=== PATIENT | male | born 1950 | race Caucasian/White ===

== ENCOUNTER 2023-11-11 15:03 | Inpatient (IN) | payer MEDICARE ==
--- NOTE | 2023-11-11 15:13 | ED ---
General Adult HPI - General Stated complaint: Weakness Time Seen by Provider: 11/11/23 15:09 - History of Present Illness Initial comments: Dictation was produced using [employer] dictation software. please excuse any grammatical, word or spelling errors. Chief Complaint: 73-year-old male with past medical history of COPD presents to the emergency department for lethargy History of Present Illness: Patient 73-year-old male he is a limited historian. HPI obtained from EMS was that they are concerned patient was having sepsis. Apparently the call was made by patient's was at home states that he was lethargic at home. He states that he was difficult to arouse. EMS checked initial blood pressure found to be hypotensive with systolic measuring 46. Given a liter of IV fluids with his blood pressure improving to 90 systolic. Patient states that he does not have any chest pain. States that he gets sick with flulike symptoms often. He states that he feels cold. Patient is hard of hearing which limits his explanation of his history of present illness. The ROS documented in this emergency department record has been reviewed and confirmed by me. Those systems with pertinent positive or negative responses have been documented in the HPI. All other systems are other negative and/or noncontributory. - Related Data Allergies Allergy/AdvReac Type Severity Reaction Status Date / Time No Known Allergies Allergy Verified 11/11/23 19:24 Review of Systems ROS Statement: Those systems with pertinent positive or pertinent negative responses have been documented in the HPI. ROS Other: All systems not noted in ROS Statement are negative. Past Medical History Past Medical History: COPD History of Any Multi-Drug Resistant Organisms: None Reported Additional Past Surgical History / Comment(s): VASECTOMY Past Anesthesia/Blood Transfusion Reactions: No Reported Reaction Smoking Status: Former smoker - Past Family History Mother Family Medical History: No Reported History General Exam - General Exam Comments Initial Comments: PHYSICAL EXAM: General Impression: Alert and oriented x3, dyspneic HEENT: Normocephalic atraumatic, extra-ocular movements intact, pupils equal and reactive to light bilaterally, mucous membranes moist. Cardiovascular: Heart regular rate and rhythm Chest: 2 word sentences, dyspneic, diffuse inspiratory and expiratory wheezing Abdomen: abdomen soft, non-tender, non-distended, no organomegaly Musculoskeletal: Pulses present and equal in all extremities, no peripheral edema Motor: no focal deficits noted Neurological: CN II-XII grossly intact, no focal motor or sensory deficits noted Skin: Dry mucous membranes Course Vital Signs 11/11/23 11/11/23 11/11/23 15:09 15:10 15:15 Temperature Pulse Rate 60 55 L Respiratory 34 H Rate Blood Pressure 99/55 O2 Sat by Pulse 97 Oximetry Fraction of 35 Inspired Oxygen (FIO2) 11/11/23 11/11/23 11/11/23 15:30 15:39 15:45 Temperature Pulse Rate 68 69 68 Respiratory 30 H Rate Blood Pressure 95/43 O2 Sat by Pulse Oximetry Fraction of Inspired Oxygen (FIO2) 11/11/23 11/11/23 11/11/23 15:53 15:54 16:00 Temperature 97.7 F Pulse Rate 67 56 L Respiratory Rate Blood Pressure O2 Sat by Pulse Oximetry Fraction of Inspired Oxygen (FIO2) 11/11/23 11/11/23 11/11/23 16:16 16:32 16:46 Temperature Pulse Rate 54 L 62 58 L Respiratory Rate Blood Pressure O2 Sat by Pulse Oximetry Fraction of Inspired Oxygen (FIO2) 11/11/23 11/11/23 11/11/23 16:50 16:53 17:03 Temperature Pulse Rate 56 L 60 Respiratory 36 H Rate Blood Pressure 77/49 O2 Sat by Pulse 95 Oximetry Fraction of Inspired Oxygen (FIO2) 11/11/23 11/11/23 11/11/23 17:09 17:24 17:38 Temperature Pulse Rate 57 L 58 L 50 L Respiratory 28 H Rate Blood Pressure 77/52 O2 Sat by Pulse 100 Oximetry Fraction of Inspired Oxygen (FIO2) 11/11/23 11/11/23 11/11/23 17:40 17:48 18:00 Temperature Pulse Rate 50 L 56 L 47 L Respiratory 28 H 28 H Rate Blood Pressure 84/47 72/41 O2 Sat by Pulse 100 97 Oximetry Fraction of Inspired Oxygen (FIO2) 11/11/23 11/11/23 11/11/23 18:29 18:37 19:06 Temperature Pulse Rate 56 L 54 L 53 L Respiratory 30 H 22 28 H Rate Blood Pressure 68/47 75/51 97/60 O2 Sat by Pulse 98 98 98 Oximetry Fraction of Inspired Oxygen (FIO2) - Reevaluation(s) Reevaluation #1: 11/11/23 15:13 Patient seen and evaluated immediately upon arrival at approximately 3:10 PM. EKG Findings - EKG Comments: EKG Findings:: My EKG interpretation: Ventricular rate 50, sinus bradycardia,. 142, QRS 81, QTc 412. No NM prolongation, no QTC prolongation, no ST or T-wave changes noted. Overall, this EKG is unremarkable Medical Decision Making - Medical Decision Making Was pt. sent in by a medical professional or institution (, PA, FLYING SHEAR OPERATOR, urgent care, hospital, or [facility]...) When possible be specific @ -No Did you speak to anyone other than the patient for history (EMS, parent, family, police, friend...)? What history was obtained from this source @ -EMS as described above Did you review nursing and triage notes (agree or disagree)? Why? @ -I reviewed and agree with nursing and triage notes Were old charts reviewed (outside hosp., previous admission, EMS record, old EKG, old radiological studies, urgent care reports/EKG's, [facility] records)? Report findings @ -No old charts were reviewed Differential Diagnosis (chest pain, altered mental status, abdominal pain women, abdominal pain men, vaginal bleeding, musculoskeletal, weakness, fever, dyspnea, syncope, headache, dizziness, GI bleed, back pain, seizure, CVA, palpatations, mental health)? @ -Differential Dyspnea: Coronary syndrome, arrhythmia, tamponade, asthma, COPD, pulmonary embolism, pneumonia, pneumothorax, pulmonary effusion, anaphylaxis, diabetic ketoacidosis, flailed chest, pulmonary contusion, diaphragmatic rupture, anemia, neuromuscular, this is not meant to be an all-inclusive list. EKG interpreted by me (3pts min.). @ -See above X-rays interpreted by me (1pt min.). @ -Chest x-ray is nonacute CT interpreted by me (1pt min.). @ -None done U/S interpreted by me (1pt. min.). @ -None done What testing was considered but not performed or refused? (CT, X-rays, U/S, labs)? Why? @ -None What meds were considered but not given or refused? Why? @ -None Did you discuss the management of the patient with other professionals (professionals i.e. , [facility], FLYING SHEAR OPERATOR, lab, RT, psych nurse, sr. social media & mobile manager, in flight refueling manager, teacher, space officer, case reviewer)? Give summary @ -Discussed with jewel staker and hospitalist for ICU admission Was smoking cessation discussed for >3mins.? @ -No Was critical care preformed (if so, how long)? @ -Yes, 33 minutes Were there social determinants of health that impacted care today? How? (Homelessness, low income, unemployed, alcoholism, drug addiction, transportation, low edu. Level, literacy, decrease access to med. care, fci, rehab)? @ -No Was there de-escalation of care discussed even if they declined (Discuss DNR or withdrawal of care, Hospice)? DNR status @ -No What co-morbidities impacted this encounter? (DM, HTN, Smoking, COPD, CAD, Cancer, CVA, ARF, Chemo, Hep., AIDS, mental health diagnosis, sleep apnea, morbid obesity)? @ -None Was patient admitted / discharged? Hospital course, mention meds given and route, prescriptions, significant lab abnormalities, going to OR and other pertinent info. @ -73-year-old male presents emergency department with lethargy dyspnea. Vital signs upon arrival shows respiratory of 34, 99/55 blood pressure, 97% on 2 L nasal cannula. Patient's blood pressure diminished slightly. Patient's ABGs were obtained showing hypercarbic respiratory failure. Patient placed on BiPAP and given multiple breathing treatments with no change of ABG. Patient's blood pressure maintain low despite IV hydration. Patient put on low-dose Levophed drip. Patient be admitted to the ICU. Patient given Unasyn for concerns of perhaps respiratory infection. Undiagnosed new problem with uncertain prognosis? @ -No Drug Therapy requiring intensive monitoring for toxicity (Heparin, Nitro, Insulin, Cardizem)? @ -No Were any procedures done? @ -No Diagnosis/symptom? Acute, or Chronic, or Acute on Chronic? Uncomplicated (without systemic symptoms) or Complicated (systemic symptoms)? @ -Hypertension, COPD exacerbation Side effects of treatment? @ -No Exacerbation, Progression, or Severe Exacerbation? @ -No Poses a threat to life or bodily function? How? (Chest pain, [place], [place], pneumonia, PE, COPD, DKA, ARF, appy, cholecystitis, CVA, Diverticulitis, Homicidal, Suicidal, threat to staff... and all critical care pts) @ -yes - Lab Data Result diagrams: 11/11/23 15:25 11/11/23 15:25 Lab Results 11/11/23 11/11/23 11/11/23 Range/Units 15:23 15:25 15:25 WBC 9.3 (3.8-10.6) k/uL RBC 4.44 (4.30-5.90) m/uL Hgb 14.2 (13.0-17.5) gm/dL Hct 44.0 (39.0-53.0) % MCV 99.2 (80.0-100.0) fL MCH 32.1 (25.0-35.0) pg MCHC 32.3 (31.0-37.0) g/dL RDW 14.0 (11.5-15.5) % Plt Count 228 (150-450) k/uL MPV 7.9 Neutrophils % 80 % Lymphocytes % 10 % Monocytes % 6 % Eosinophils % 0 % Basophils % 1 % Neutrophils # 7.5 (1.3-7.7) k/uL Lymphocytes # 0.9 L (1.0-4.8) k/uL Monocytes # 0.6 (0-1.0) k/uL Eosinophils # 0.0 (0-0.7) k/uL Basophils # 0.1 (0-0.2) k/uL PT 11.3 (10.0-12.5) sec INR 1.0 (<1.2) APTT 25.3 (22.0-30.0) sec D-Dimer (<0.60) mg/L FEU Sample Site Right Radial ABG pH 7.28 L (7.35-7.45) ABG pCO2 50 H (35-45) mmHg ABG pO2 164 H (83-108) mmHg ABG HCO3 23 (21-25) mmol/L ABG O2 Saturation 99.2 H (94-97) % ABG Base Excess -3.9 mmol/L FiO2 35 % Sodium (137-145) mmol/L Potassium (3.5-5.1) mmol/L Chloride (98-107) mmol/L Carbon Dioxide (22-30) mmol/L Anion Gap mmol/L BUN (9-20) mg/dL Creatinine (0.66-1.25) mg/dL Est GFR (CKD-EPI)AfAm (>60 ml/min/1.73 sqM) Est GFR (CKD-EPI)NonAf (>60 ml/min/1.73 sqM) Glucose (74-99) mg/dL POC Glucose (mg/dL) (70-110) mg/dL POC Glu Business Development Coordinator ID Lactic Ac Sepsis Rflx Plasma Lactic Acid Anastacio (0.7-2.0) mmol/L Calcium (8.4-10.2) mg/dL Magnesium (1.6-2.3) mg/dL Total Bilirubin (0.2-1.3) mg/dL AST (17-59) U/L ALT (4-49) U/L Alkaline Phosphatase (38-126) U/L Troponin I (0.000-0.034) ng/mL NT-Pro-B Natriuret Pep pg/mL Total Protein (6.3-8.2) g/dL Albumin (3.5-5.0) g/dL Influenza Type A (PCR) (Not Detectd) Influenza Type B (PCR) (Not Detectd) RSV (PCR) (Not Detectd) SARS-CoV-2 (PCR) (Not Detectd) 11/11/23 11/11/23 11/11/23 Range/Units 15:25 15:25 15:25 WBC (3.8-10.6) k/uL RBC (4.30-5.90) m/uL Hgb (13.0-17.5) gm/dL Hct (39.0-53.0) % MCV (80.0-100.0) fL MCH (25.0-35.0) pg MCHC (31.0-37.0) g/dL RDW (11.5-15.5) % Plt Count (150-450) k/uL MPV Neutrophils % % Lymphocytes % % Monocytes % % Eosinophils % % Basophils % % Neutrophils # (1.3-7.7) k/uL Lymphocytes # (1.0-4.8) k/uL Monocytes # (0-1.0) k/uL Eosinophils # (0-0.7) k/uL Basophils # (0-0.2) k/uL PT (10.0-12.5) sec INR (<1.2) APTT (22.0-30.0) sec D-Dimer (<0.60) mg/L FEU Sample Site ABG pH (7.35-7.45) ABG pCO2 (35-45) mmHg ABG pO2 (83-108) mmHg ABG HCO3 (21-25) mmol/L ABG O2 Saturation (94-97) % ABG Base Excess mmol/L FiO2 % Sodium 133 L (137-145) mmol/L Potassium 4.4 (3.5-5.1) mmol/L Chloride 100 (98-107) mmol/L Carbon Dioxide 29 (22-30) mmol/L Anion Gap 4 mmol/L BUN 21 H (9-20) mg/dL Creatinine 1.40 H (0.66-1.25) mg/dL Est GFR (CKD-EPI)AfAm 58 (>60 ml/min/1.73 sqM) Est GFR (CKD-EPI)NonAf 50 (>60 ml/min/1.73 sqM) Glucose 144 H (74-99) mg/dL POC Glucose (mg/dL) (70-110) mg/dL POC Glu Business Development Coordinator ID Lactic Ac Sepsis Rflx Plasma Lactic Acid Anastacio 2.2 H* (0.7-2.0) mmol/L Calcium 7.9 L (8.4-10.2) mg/dL Magnesium 1.8 (1.6-2.3) mg/dL Total Bilirubin 0.9 (0.2-1.3) mg/dL AST 28 (17-59) U/L ALT 18 (4-49) U/L Alkaline Phosphatase 59 (38-126) U/L Troponin I 0.032 (0.000-0.034) ng/mL NT-Pro-B Natriuret Pep 1330 pg/mL Total Protein 5.5 L (6.3-8.2) g/dL Albumin 3.2 L (3.5-5.0) g/dL Influenza Type A (PCR) (Not Detectd) Influenza Type B (PCR) (Not Detectd) RSV (PCR) (Not Detectd) SARS-CoV-2 (PCR) (Not Detectd) 11/11/23 11/11/23 11/11/23 Range/Units 15:25 15:48 16:02 WBC (3.8-10.6) k/uL RBC (4.30-5.90) m/uL Hgb (13.0-17.5) gm/dL Hct (39.0-53.0) % MCV (80.0-100.0) fL MCH (25.0-35.0) pg MCHC (31.0-37.0) g/dL RDW (11.5-15.5) % Plt Count (150-450) k/uL MPV Neutrophils % % Lymphocytes % % Monocytes % % Eosinophils % % Basophils % % Neutrophils # (1.3-7.7) k/uL Lymphocytes # (1.0-4.8) k/uL Monocytes # (0-1.0) k/uL Eosinophils # (0-0.7) k/uL Basophils # (0-0.2) k/uL PT (10.0-12.5) sec INR (<1.2) APTT (22.0-30.0) sec D-Dimer (<0.60) mg/L FEU Sample Site ABG pH (7.35-7.45) ABG pCO2 (35-45) mmHg ABG pO2 (83-108) mmHg ABG HCO3 (21-25) mmol/L ABG O2 Saturation (94-97) % ABG Base Excess mmol/L FiO2 % Sodium (137-145) mmol/L Potassium (3.5-5.1) mmol/L Chloride (98-107) mmol/L Carbon Dioxide (22-30) mmol/L Anion Gap mmol/L BUN (9-20) mg/dL Creatinine (0.66-1.25) mg/dL Est GFR (CKD-EPI)AfAm (>60 ml/min/1.73 sqM) Est GFR (CKD-EPI)NonAf (>60 ml/min/1.73 sqM) Glucose (74-99) mg/dL POC Glucose (mg/dL) 118 H (70-110) mg/dL POC Glu Business Development Coordinator ID Gianni Monroe Lactic Ac Sepsis Rflx Y Plasma Lactic Acid Anastacio (0.7-2.0) mmol/L Calcium (8.4-10.2) mg/dL Magnesium (1.6-2.3) mg/dL Total Bilirubin (0.2-1.3) mg/dL AST (17-59) U/L ALT (4-49) U/L Alkaline Phosphatase (38-126) U/L Troponin I (0.000-0.034) ng/mL NT-Pro-B Natriuret Pep pg/mL Total Protein (6.3-8.2) g/dL Albumin (3.5-5.0) g/dL Influenza Type A (PCR) Not Detected (Not Detectd) Influenza Type B (PCR) Not Detected (Not Detectd) RSV (PCR) Not Detected (Not Detectd) SARS-CoV-2 (PCR) Not Detected (Not Detectd) 11/11/23 11/11/23 11/11/23 Range/Units 17:08 18:29 19:01 WBC (3.8-10.6) k/uL RBC (4.30-5.90) m/uL Hgb (13.0-17.5) gm/dL Hct (39.0-53.0) % MCV (80.0-100.0) fL MCH (25.0-35.0) pg MCHC (31.0-37.0) g/dL RDW (11.5-15.5) % Plt Count (150-450) k/uL MPV Neutrophils % % Lymphocytes % % Monocytes % % Eosinophils % % Basophils % % Neutrophils # (1.3-7.7) k/uL Lymphocytes # (1.0-4.8) k/uL Monocytes # (0-1.0) k/uL Eosinophils # (0-0.7) k/uL Basophils # (0-0.2) k/uL PT (10.0-12.5) sec INR (<1.2) APTT (22.0-30.0) sec D-Dimer 0.58 (<0.60) mg/L FEU Sample Site Right Radial ABG pH 7.25 L (7.35-7.45) ABG pCO2 52 H (35-45) mmHg ABG pO2 105 (83-108) mmHg ABG HCO3 23 (21-25) mmol/L ABG O2 Saturation 97.4 H (94-97) % ABG Base Excess -5.1 mmol/L FiO2 35 % Sodium (137-145) mmol/L Potassium (3.5-5.1) mmol/L Chloride (98-107) mmol/L Carbon Dioxide (22-30) mmol/L Anion Gap mmol/L BUN (9-20) mg/dL Creatinine (0.66-1.25) mg/dL Est GFR (CKD-EPI)AfAm (>60 ml/min/1.73 sqM) Est GFR (CKD-EPI)NonAf (>60 ml/min/1.73 sqM) Glucose (74-99) mg/dL POC Glucose (mg/dL) (70-110) mg/dL POC Glu Business Development Coordinator ID Lactic Ac Sepsis Rflx Plasma Lactic Acid Anastacio 1.8 (0.7-2.0) mmol/L Calcium (8.4-10.2) mg/dL Magnesium (1.6-2.3) mg/dL Total Bilirubin (0.2-1.3) mg/dL AST (17-59) U/L ALT (4-49) U/L Alkaline Phosphatase (38-126) U/L Troponin I (0.000-0.034) ng/mL NT-Pro-B Natriuret Pep pg/mL Total Protein (6.3-8.2) g/dL Albumin (3.5-5.0) g/dL Influenza Type A (PCR) (Not Detectd) Influenza Type B (PCR) (Not Detectd) RSV (PCR) (Not Detectd) SARS-CoV-2 (PCR) (Not Detectd) Disposition Clinical Impression: COPD exacerbation Disposition: ADMITTED IP TO THIS HOSP Condition: Critical Referrals: Chavez Shelton MD [Primary Care Provider] - 1-2 days Decision Time: 19:28
[2023-11-11] MEDS: ALBUTEROL NEBULIZED 2.5 MG/3 ML INHALATION STA ×3 (15:16→16:53)
[2023-11-11] MEDS: SODIUM CHLORIDE 0.9% 1,000 ML IV STA ×3 (15:22→19:04)
[2023-11-11] MEDS: DEXAMETHASONE SOD PHOSPHATE 10 MG/ML 1 ML VIAL IV STA (15:30)
[2023-11-11 15:33] LABS: ABG Base Excess -3.9 mmol/L; ABG HCO3 23 mmol/L (21-25); ABG Oxygen Saturation 99.2 % (94-97); ABG PCO2 50 mmHg (35-45); ABG PH 7.28 (7.35-7.45); ABG PO2 164 mmHg (83-108); Allen Test Performed? Yes
[2023-11-11] MEDS: IPRATROPIUM 0.5 MG/2.5 ML NEBU INHALATION STA ×2 (15:49→15:50)
[2023-11-11 15:50] LABS: Glucose,Whole Blood 118 mg/dL (70-110)
[2023-11-11 15:51] LABS: Basophils # (A) 0.1 k/uL (0-0.2); Basophils % (A) 1 %; Eosinophils % (A) 0 %; HGB 14.2 gm/dL (13.0-17.5); Lymphocytes # (A) 0.9 k/uL (1.0-4.8); Lymphocytes % (A) 10 %; MCH 32.1 pg (25.0-35.0); MCHC 32.3 g/dL (31.0-37.0); MCV 99.2 fL (80.0-100.0); Mean Platelet Volume 7.9; Monocytes # (A) 0.6 k/uL (0-1.0); Monocytes % (A) 6 %; Neutrophils # (A) 7.5 k/uL (1.3-7.7); Neutrophils % (A) 80 %; Platelet Count 228 k/uL (150-450); RBC 4.44 m/uL (4.30-5.90); WBC 9.3 k/uL (3.8-10.6)
[2023-11-11 15:54] LABS: ALT 18 U/L (4-49); AST 28 U/L (17-59); African American GFR (CKD) 58 (>60 ml/min/1.73 sqM); Albumin 3.2 g/dL (3.5-5.0); Alkaline Phosphatase 59 U/L (38-126); Anion Gap 4 mmol/L; Blood Urea Nitrogen 21 mg/dL (9-20); Calcium 7.9 mg/dL (8.4-10.2); Carbon Dioxide 29 mmol/L (22-30); Chloride 100 mmol/L (98-107); Glucose 144 mg/dL (74-99); Magnesium 1.8 mg/dL (1.6-2.3); Non-African American GFR(CKD) 50 (>60 ml/min/1.73 sqM); Partial Thromboplastin Time 25.3 sec (22.0-30.0); Potassium 4.4 mmol/L (3.5-5.1); Prothrombin Time 11.3 sec (10.0-12.5); Sodium 133 mmol/L (137-145); Total Bilirubin 0.9 mg/dL (0.2-1.3); Total Protein 5.5 g/dL (6.3-8.2)
[2023-11-11 16:03] LABS: NT-Pro-B-Type Natriuretic Pept 1330 pg/mL
--- NOTE | 2023-11-11 16:04 | XR ---
EXAMINATION TYPE: XR chest 1V portable DATE OF EXAM: 11/11/2023 3:51 PM CLINICAL INDICATION:Male, 73 years old with history of wheezing; COMPARISON: None TECHNIQUE: XR chest 1V portable Frontal view of the chest. FINDINGS: Lungs/Pleura: Prominent interstitial lung markings are seen scattered throughout the lungs with nereida ening of the diaphragm and increased lucency of the lung apices. No evidence of focal consolidation, pneumothorax or pleural effusion. Pulmonary vascularity: Unremarkable. Heart/mediastinum: Cardiomediastinal silhouette is unremarkable. Musculoskeletal: No acute osseous pathology. IMPRESSION: 1. No acute cardiopulmonary disease process. 2. Chronic interstitial changes with COPD changes.
[2023-11-11] MEDS: MAGNESIUM SULFATE-D5W PMX 1 GM in DEXTROSE/WATER 1 100ML.BAG IVPB SCH (16:40)
[2023-11-11] MEDS: SODIUM CHLORIDE 0.9% 1,000 ML IV ONE (16:53)
[2023-11-11] MEDS: AMPICILLIN-SULBACTAM 3 GM in SODIUM CHLORIDE 0.9% 100 ML IVPB STA (17:05)
[2023-11-11] MEDS: NOREPINEPHRINE 4 MG in SODIUM CHLORIDE 0.9% 250 ML IV SCH (18:28)
[2023-11-11 18:34] LABS: ABG Base Excess -5.1 mmol/L; ABG HCO3 23 mmol/L (21-25); ABG Oxygen Saturation 97.4 % (94-97); ABG PCO2 52 mmHg (35-45); ABG PH 7.25 (7.35-7.45); ABG PO2 105 mmHg (83-108); Allen Test Performed? Yes
[2023-11-11] MEDS ORDERED: NALOXONE 0.4 MG/ML 1 ML VIAL IV PRN (19:23)
[2023-11-11] MEDS: ATROPINE SULFATE 0.1 MG/ML 10ML SYRINGE IV STA (20:12)
[2023-11-12 00:17] LABS: Glucose,Whole Blood 134 mg/dL (70-110)
--- NOTE | 2023-11-12 03:11 | P.CNPUL ---
History of Present Illness Consult date: 11/12/23 Requesting physician: Atif Ordonez Reason for consult: other (Acute COPD exacerbation, hypotension, ICU management) Chief complaint: URI-like symptoms and altered mental status History of present illness: Patient is a 73-year-old white male with past medical history significant for COPD, chronic ongoing tobacco dependence, chronic hypoxemic respiratory failure on 2-1/2 to 3 L, hypertension, among other things. His primary care provider is Dr. Chavez Shelton. 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 Patient presented to the emergency room yesterday afternoon via EMS. Reportedly noted to be lethargic and difficult to arouse at home. 3 to 4 days before this, his noted flulike symptoms. These included a runny nose, dry cough, fever, generalized malaise, and loose stools. When EMS arrived to the scene, they noted his blood pressure to be hypotensive. On arrival to the emergency room he was fluid resuscitated with a total of 3 L crystalloid fluid bolus. He was then started on low-dose norepinephrine which is currently infusing at 0.03 mcg/kg/min. He is also bradycardic, sinus bradycardia at 58 bpm. Normal saline continues to infuse at 130 MLS per hour. Chest x-ray demonstrated chronic interstitial changes with hyperinflation consistent with COPD. No focal consolidations, pleural effusions, or pneumothorax. He was hypercapnic in the emergency room. ABGs demonstrated PaO2 of 105, pCO2 of 52, pH of 7.25. He was then placed on the BiPAP in the emergency room. He is currently in the intensive care unit, room 251. He is on BiPAP with settings 12/6 and FiO2 of 50%. Achieving tidal volumes of around 400, respiratory rate in the mid 20s. He is alert and oriented x 3. No further signs of CO2 narcosis. Appears fairly comfortable. He is actively wheezing. Endorses the above-mentioned symptoms. Denies any chest pain or hemoptysis. Denies any significant sputum production. CBC unremarkable. No leukocytosis. D-dimer low. BMP includes a sodium 133, potassium 4.4, chloride 100, serum bicarb 29, BUN 21, creatinine 1.4, glucose 144. Lactic acid not significantly elevated. LFTs not elevated. NT proBNP 1330. Troponin 0.032. EKG shows sinus bradycardia with nonspecific T wave abnormalities. Nondiagnostic for acute ischemia. Viral screen negative for influenza, RSV, COVID. Afebrile. Patient is admitted to the intensive care unit. Review of Systems REVIEW OF SYSTEMS: CONSTITUTIONAL: Denies any recent significant weight loss or weight gain. EYES: Denies change in vision. EARS, NOSE, MOUTH, THROAT: Denies headaches, denies sore throat. Admits rhinorrhea CARDIOVASCULAR: Denies chest pain, palpitations or syncopal episodes. Denies orthopnea, PND, lower extremity swelling. RESPIRATORY: See HPI. GASTROINTESTINAL: Denies change in appetite, abdominal pain, nausea and vomiting. Reports some loose stools week before coming in. GENITOURINARY: Denies hematuria, denies infections. MUSKULOSKELETAL: Denies pain, denies swelling. INTEGUMENTARY: Denies rash, denies eczema. NEUROLOGICAL: Denies recent memory loss, no recent seizure activity. PSYCHIATRIC: Denies anxiety, denies depression. HEMATOLOGIC/LYMPHATIC: Denies anemia, denies enlarged lymph node Past Medical History Past Medical History: COPD History of Any Multi-Drug Resistant Organisms: None Reported Additional Past Surgical History / Comment(s): VASECTOMY Past Anesthesia/Blood Transfusion Reactions: No Reported Reaction Smoking Status: Former smoker - Past Family History Mother Family Medical History: No Reported History Medications and Allergies Home Medications Medication Instructions Recorded Confirmed Type Budesonide [Pulmicort] 0.5 mg INHALATION RT-BID PRN 11/11/23 11/11/23 History Ergocalciferol [Vitamin D2 (1250 1,250 mcg PO Q7D 11/11/23 11/11/23 History Mcg = 73662 Iu)] HYDROcodone/APAP 5-325MG [[place] 1.5 tab PO DAILY 11/11/23 11/11/23 History 5-325] Ipratropium-Albuterol Nebulize 3 ml INHALATION RT-TID PRN 11/11/23 11/11/23 History [Duoneb 0.5 mg-3 mg/3 ml Soln] Loratadine [Claritin] 10 mg PO DAILY 11/11/23 11/11/23 History Losartan/Hydrochlorothiazide 1 tab PO DAILY 11/11/23 11/11/23 History [Hyzaar 100-25 Tablet] Montelukast [Singulair] 10 mg PO HS 11/11/23 11/11/23 History Omeprazole [PriLOSEC] 20 mg PO DAILY 11/11/23 11/11/23 History PARoxetine [Paxil] 20 mg PO DAILY 11/11/23 11/11/23 History Sulfamethox-Tmp 400-80Mg [Bactrim 1 tab PO DAILY 11/11/23 11/11/23 History SS 400-80 mg] carvediloL [Coreg] 3.125 mg PO BID 11/11/23 11/11/23 History clonazePAM [KlonoPIN] 1 mg PO HS 11/11/23 11/11/23 History predniSONE 10 mg PO DAILY 11/11/23 11/11/23 History Allergies Allergy/AdvReac Type Severity Reaction Status Date / Time No Known Allergies Allergy Verified 11/11/23 19:24 Physical Exam Vitals: Vital Signs Temp Pulse Resp BP Pulse Ox FiO2 11/12/23 02:00 52 L 20 84/51 97 11/12/23 01:50 52 L 13 84/51 97 11/12/23 01:40 55 L 23 86/57 97 11/12/23 01:30 53 L 22 99/58 97 11/12/23 01:20 53 L 22 99/58 97 11/12/23 01:10 53 L 21 119/66 97 11/12/23 01:00 64 32 H 109/59 84 L 11/12/23 00:50 11 L 109/59 85 L 11/12/23 00:40 53 L 22 118/60 99 11/12/23 00:30 53 L 25 H 112/69 100 11/12/23 00:24 55 L 15 112/69 83 L 11/12/23 00:20 59 L 26 H 112/69 86 L 50 11/12/23 00:16 96.4 F L 53 L 21 129/78 97 35 11/11/23 23:40 55 L 20 100/58 98 11/11/23 23:32 35 11/11/23 22:00 56 L 18 87/57 99 11/11/23 20:14 74 19 108/68 99 11/11/23 19:31 35 11/11/23 19:06 53 L 28 H 97/60 98 11/11/23 18:37 54 L 22 75/51 98 11/11/23 18:29 56 L 30 H 68/47 98 11/11/23 18:00 47 L 28 H 72/41 97 11/11/23 17:48 56 L 28 H 84/47 100 11/11/23 17:40 50 L 11/11/23 17:38 50 L 28 H 77/52 100 11/11/23 17:24 58 L 11/11/23 17:09 57 L 11/11/23 17:03 95 11/11/23 16:53 60 11/11/23 16:50 56 L 36 H 77/49 11/11/23 16:46 58 L 11/11/23 16:32 62 11/11/23 16:16 54 L 11/11/23 16:00 56 L 11/11/23 15:54 67 11/11/23 15:53 97.7 F 11/11/23 15:45 68 11/11/23 15:39 69 30 H 95/43 11/11/23 15:30 68 11/11/23 15:15 55 L 11/11/23 15:10 35 11/11/23 15:09 60 34 H 99/55 97 Intake and Output 11/11/23 11/11/23 11/12/23 14:59 22:59 06:59 Intake Total 1.331 434.737 Output Total 250 Balance 1.331 184.737 Intake: IV 390 Sodium Chloride 0.9% 1, 390 000 ml @ 130 mls/hr IV . [facility]7H42M [facility] Rx#:[id number] Intake, IV Titration 1.331 44.737 Amount Norepinephrine 4 mg In 1.331 44.737 Sodium Chloride 0.9% 250 ml @ 0.03 MCG/KG/MIN 5. 703 mls/hr IV .Q24H [facility] Rx#:[id number] Output: Urine 250 Other: Weight 49.895 kg GENERAL EXAM: Alert, 73-year-old white male, currently on BiPAP and relatively comfortable, no signs of CO2 narcosis. HEAD: Normocephalic and atraumatic EYES: Normal reaction of pupils, equal size. NOSE: Clear with pink turbinates. THROAT: No erythema or exudates. NECK: No masses, no JVD. CHEST: No chest wall deformity. LUNGS: Equal air entry with diffuse expiratory wheezes heard throughout. On BiPAP with current support of 12/6 and FiO2 of 50%. Generating tidal volumes approximately 400 and respiratory rate is in the mid 20s. CVS: S1 and S2 normal with no audible murmur, regular rhythm. No extra heart sounds ABDOMEN: No hepatosplenomegaly, active bowel sounds, no guarding or rigidity. SPINE: No scoliosis or deformity SKIN: No rashes CENTRAL NERVOUS SYSTEM: No focal deficits, tone is normal in all 4 extremities. EXTREMITIES: There is no peripheral edema, clubbing, or cyanosis. Peripheral pulses are intact. Results - Laboratory Findings CBC and BMP: 11/12/23 04:01 11/12/23 04:01 ABG ABG pH 7.25 (7.35-7.45) L 11/11/23 18:29 ABG pCO2 52 mmHg (35-45) H 11/11/23 18:29 ABG pO2 105 mmHg (83-108) 11/11/23 18:29 ABG O2 Saturation 97.4 % (94-97) H 11/11/23 18:29 PT/INR, D-dimer PT 11.3 sec (10.0-12.5) 11/11/23 15:25 INR 1.0 (<1.2) 11/11/23 15:25 D-Dimer 0.58 mg/L FEU (<0.60) 11/11/23 17:08 Abnormal lab findings: Abnormal Labs 11/11/23 11/11/23 11/11/23 15:23 15:25 15:25 Lymphocytes # 0.9 L ABG pH 7.28 L ABG pCO2 50 H ABG pO2 164 H ABG O2 Saturation 99.2 H Sodium 133 L BUN 21 H Creatinine 1.40 H Glucose 144 H POC Glucose (mg/dL) Plasma Lactic Acid Anastacio Calcium 7.9 L Total Protein 5.5 L Albumin 3.2 L 11/11/23 11/11/23 11/11/23 15:25 15:48 18:29 Lymphocytes # ABG pH 7.25 L ABG pCO2 52 H ABG pO2 ABG O2 Saturation 97.4 H Sodium BUN Creatinine Glucose POC Glucose (mg/dL) 118 H Plasma Lactic Acid Anastacio 2.2 H* Calcium Total Protein Albumin 11/12/23 00:15 Lymphocytes # ABG pH ABG pCO2 ABG pO2 ABG O2 Saturation Sodium BUN Creatinine Glucose POC Glucose (mg/dL) 134 H Plasma Lactic Acid Anastacio Calcium Total Protein Albumin - Diagnostic Findings Chest x-ray: image reviewed Assessment and Plan Assessment: Acute COPD exacerbation, chest x-ray done on admission shows hyperinflation consistent with COPD and chronic interstitial changes. No focal consolidation, pneumothorax, or pleural effusion. Negative for influenza, RSV, COVID. Acute on chronic hypoxemic and hypercapnic respiratory failure, secondary to above Altered mental status and hypercapnic encephalopathy, improved with BiPAP Hypotension, and shock refractory to fluid resuscitation, currently requiring low-dose vasopressors Severe dehydration Suspect acute kidney injury, creatinine 1.4, no baseline kidney function available Sinus bradycardia History of chronic obstructive pulmonary disease Chronic hypoxemic respiratory failure, secondary to above Chronic ongoing tobacco dependence, reportedly heavy smoker for many years and currently down to 1/2 pack/day History of hypertension Plan: Patient hypotensive despite 3 L crystalloid fluid bolus in the emergency room, ultimately started on low-dose norepinephrine. Requiring admission to the intensive care unit Patient will remain on the BiPAP overnight with current settings. Wean FiO2 as tolerated. Mentation is improved. Likely transition to nasal cannula in the morning. Continue treatment for acute COPD exacerbation including DuoNebs [id number] budesonide inhalation, formoterol inhalation, and IV Solu- Medrol No obvious focal infiltrates or pneumonia on chest x-ray. No significant leukocytosis. No documented fever while inpatient. Azithromycin was added essentially empirically. Also received a dose of Unasyn in the emergency room. Viral screen negative for influenza, RSV, COVID Blood cultures are pending. Continue IV maintenance fluids. Check echocardiogram Beta-krystin and Hyzaar on hold Protonix for GI prophylaxis Heparin for DVT prophylaxis Patient continues to be monitored in the intensive care unit. I have personally seen and examined the patient, performed the documentation and the assessment and plan as written. Number of minutes spent on the visit:20 This is a joint evaluation along with the nurse practitioner. This patient is 73 years old with advanced COPD oxygen dependent and steroid-dependent and the patient has been taking 10.mg of prednisone on an outpatient basis. He has not been also maintained on DuoNeb nebulized treatments [id number]. Patient presented to the hospital because of worsening shortness of breath and acute COPD exacerbation. Initially supported with a BiPAP and currently he was taken off the BiPAP and is maintaining oxygen pulse ox of 92% on 4 L of oxygen by nasal cannula. Reviewed the chest x-ray and it shows chronic pleural plaquing along the right lateral lower chest. No acute cardiopulmonary process. He was given IV fluids as the patient was initially hypotensive at time of hospital admission and the patient's blood pressure has normalized and the patient is currently off pressors. Echocardiogram is still pending for now. This was obtained this morning. No leukocytosis and there was a count of 5.8 hemoglobin of 14. Electrolytes are all within normal limits. No signs of any CO2 reyna cosis. The patient is quite debilitated, cachectic, emaciated with a body mass index of 18.9. His baseline performance and functional status is extremely poor as the patient is unable to walk more without having any respiratory distress. He has a chronic smoker and he states that he has not smoked for the past few days. Prior to that, he was smoking up to 1 pack of cigarettes on a daily basis. Will continue bronchodilators. Will continue steroids.. Will continue Zithromax as an empiric antibiotic coverage. Nicotine patch. No pressors for now. IV fluids with normal saline at rate of 130 cc an hour pending an echocardiogram. Currently off pressors. Will continue to follow. The pro gnosis poor based on above-mentioned comorbidities. The patient was seen and evaluated more than 30 minutes in the intensive care unit. Time with Patient: Greater than 30
[2023-11-12] MEDS: methylPREDNISolone SOD SUCCI 125 MG/2 ML VIAL IV SCH (03:20)
[2023-11-12] MEDS: AZITHROMYCIN 500 MG in SODIUM CHLORIDE 0.9% 250 ML IVPB SCH (03:21)
[2023-11-12] MEDS: SODIUM CHLORIDE 0.9% 1,000 ML IV SCH (03:21)
[2023-11-12 04:25] LABS: Basophils % (A) 0 %; Eosinophils % (A) 1 %; HCT 44.2 % (39.0-53.0); Lymphocytes # (A) 0.7 k/uL (1.0-4.8); Lymphocytes % (A) 12 %; MCH 31.7 pg (25.0-35.0); MCHC 31.7 g/dL (31.0-37.0); MCV 99.9 fL (80.0-100.0); Macrocytosis Slight; Mean Platelet Volume 7.9; Monocytes # (A) 0.3 k/uL (0-1.0); Monocytes % (A) 4 %; Neutrophils # (A) 4.7 k/uL (1.3-7.7); Neutrophils % (A) 81 %; Platelet Count 206 k/uL (150-450); RBC 4.43 m/uL (4.30-5.90); RDW 14.2 % (11.5-15.5); WBC 5.8 k/uL (3.8-10.6)
[2023-11-12 04:37] LABS: African American GFR (CKD) >90 (>60 ml/min/1.73 sqM); Anion Gap 9 mmol/L; Blood Urea Nitrogen 16 mg/dL (9-20); Calcium 7.6 mg/dL (8.4-10.2); Carbon Dioxide 22 mmol/L (22-30); Chloride 104 mmol/L (98-107); Glucose 123 mg/dL (74-99); Magnesium 2.2 mg/dL (1.6-2.3); Non-African American GFR(CKD) >90 (>60 ml/min/1.73 sqM); Potassium 4.3 mmol/L (3.5-5.1); Sodium 135 mmol/L (137-145)
[2023-11-12] MEDS: IPRATROPIUM-ALBUTEROL 3 ML NEB INHALATION SCH (07:46)
[2023-11-12] MEDS: FORMOTEROL FUMARATE 20 MCG/2 ML NEBU INHALATION SCH (07:46)
[2023-11-12] MEDS: BUDESONIDE 1 MG/2 ML NEBU INHALATION SCH (07:46)
[2023-11-12] MEDS: PANTOPRAZOLE 40 MG/10 ML VIAL IV SCH (08:14)
[2023-11-12] MEDS: NICOTINE 21MG/24HR PATCH TRANSDERM SCH (08:15)
[2023-11-12] MEDS: HEPARIN SODIUM,PORCINE 5,000 UNIT/ML 1 ML VIAL SQ SCH (08:15)
--- NOTE | 2023-11-12 08:54 | XR ---
EXAMINATION TYPE: XR chest 1V DATE OF EXAM: 11/12/2023 COMPARISON: 11/11/2023, 07/10/2017 INDICATION: Acute hypoxic respiratory failure TECHNIQUE: Single frontal view of the chest is obtained. FINDINGS: The heart size is normal. The pulmonary vasculature is normal. Pleural plaquing is along the right lower chest wall. IMPRESSION: 1. No acute pulmonary process. 2. Chronic pleural plaquing along the right lateral lower chest.
[2023-11-12] MEDS: PARoxetine 20 MG TAB PO SCH (10:44)
[2023-11-12] MEDS: DEXTROSE 50% SYRINGE 50 ML IVP ONE (12:13)
--- NOTE | 2023-11-12 13:02 | CA ---
Transthoracic Echo Report Name: Rolando Claire Age: 73 Gender: M : 1950 Exam Date: 11/12/2023 08:44 Exam Location: [facility] Ht (in): 64 Wt (lb): 110 Ordering Physician: Rolando Jimenez Attending/Referring Phys: [employer]ights And Measures Sealer Radha Gonsalez RDCS Procedure CPT: Indications: evaluate LV function Cardiac Hx: Technical Quality: Fair Contrast 1: Total Dose (mL): Contrast 2: Total Dose (mL): MEASUREMENTS (Male / Female) Normal Values 2D ECHO LV Diastolic Diameter PLAX 4.2 cm 4.2 - 5.9 / 3.9 - 5.3 cm LV Systolic Diameter PLAX 2.7 cm IVS Diastolic Thickness 0.9 cm 0.6 - 1.0 / 0.6 - 0.9 cm LVPW Diastolic Thickness 1.0 cm 0.6 - 1.0 / 0.6 - 0.9 cm LV Relative Wall Thickness 0.5 RV Internal Dim ED PLAX 2.0 cm LA Systolic Diameter LX 4.1 cm 3.0 - 4.0 / 2.7 - 3.8 cm LV Diastolic Volume MOD BP 45.3 cm??? 67 - 155 / 56 - 104 cm??? LV Systolic Volume MOD BP 15.4 cm??? 22 - 58 / 19 - 49 cm??? LV Ejection Fraction MOD BP 66.1 % >= 55 % LV Cardiac Index MOD BP 1502.3 cm???/min???m??? LV Diastolic Volume MOD 4C 40.9 cm??? LV Systolic Volume MOD 4C 14.2 cm??? LV Ejection Fraction MOD 4C 65.3 % LV Cardiac Index MOD 4C 1340.4 cm???/min???m??? LV Diastolic Length 4C 6.4 cm LV Systolic Length 4C 4.7 cm LV Diastolic Volume MOD 2C 45.5 cm??? LV Systolic Volume MOD 2C 16.7 cm??? LV Ejection Fraction MOD 2C 63.3 % LV Cardiac Index MOD 2C 1444.3 cm???/min???m??? LV Diastolic Length 2C 5.8 cm LV Systolic Length 2C 4.7 cm M-MODE Aortic Root Diameter MM 3.2 cm LA Systolic Diameter MM 3.3 cm LA Ao Ratio MM 1.0 DOPPLER Mitral E Point Velocity 85.8 cm/s Mitral A Point Velocity 96.1 cm/s Mitral E to A Ratio 0.9 MV Deceleration Time 348.9 ms MV E' Velocity 5.8 cm/s Mitral E to MV E' Ratio 14.7 TR Peak Velocity 227.2 cm/s TR Peak Gradient 20.7 mmHg Right Atrial Pressure 15.0 mmHg Pulmonary Artery Systolic Pressu 35.7 mmHg Right Ventricular Systolic Press 55.5 mmHg FINDINGS Left Ventricle Left ventricular ejection fraction is estimated at 55-60%. Normal left ventricular systolic function with no obvious regional wall motion abnormalities. Left ventricular cavity size normal. Right Ventricle Mild right ventricular dilatation. Moderate pulmonary hypertension. Right Atrium Normal right atrial size. Left Atrium Normal left atrial size. Mitral Valve Structurally normal mitral valve. Trace to mild mitral regurgitation. Aortic Valve Trileaflet aortic valve. No aortic stenosis. No aortic regurgitation. Tricuspid Valve Structurally normal tricuspid valve. Mild tricuspid regurgitation. Pulmonic Valve Structurally normal pulmonic valve. Trace pulmonic regurgitation. No pulmonic stenosis. Pericardium No pericardial or pleural effusion. Aorta Normal size aortic root and proximal ascending aorta. CONCLUSIONS Left ventricular ejection fraction 55-60% RVSP 55 Trace to mild mitral regurgitation Mild tricuspid regurgitation No pericardial effusion Previewed by: Dr. Vasyl Casarez DO (Electronically Signed) Final Date: 12 Nov 2023 13:01
[2023-11-12] MEDS: clonazePAM 1 MG TAB PO SCH (20:24)
[2023-11-12] MEDS: MONTELUKAST 10 MG TAB PO SCH (20:24)
--- NOTE | 2023-11-12 22:13 | HP ---
HISTORY AND PHYSICAL HISTORY OF PRESENT ILLNESS: A 73-year-old white male with past medical history of COPD, chronic nicotine addiction, chronic respiratory failure, on 3 L at home. He came to the emergency room yesterday by EMS, lethargic, difficult to arouse at home, recent flu-like symptoms, malaise, loose stools. He was hypotensive on arrival, he was given fluid and low-dose norepinephrine. He has chronic interstitial changes, COPD. He has history of end-stage COPD, pCO2 of 52, pH 7.25 on ABG with PaO2 of 105. He was placed on BiPAP in the ER. No one called me on admission. Apparently, he showed up on med list. He is in ICU. He continues to smoke at home. REVIEW OF SYSTEMS: A 14-point review of system, refused to quit, kind of noncompliant with his medications. PAST MEDICAL HISTORY: End-stage COPD, vasectomy, nicotine addiction, continues for multiple years. MEDICATIONS: At home, 1. Pulmicort 0.5 b.i.d. 2. Flom 5/325, 1.5 tabs daily. 3. DuoNeb q.i.d. 4. Claritin 10 daily. 5. Losartan 100/12.5. 6. Singulair 10 daily. 7. Paxil 20 daily. 8. Coreg 3.125 b.i.d. 9. Klonopin 1 mg at night. 10.Prednisone 10 mg daily. 11. . ALLERGIES: Negative. PHYSICAL EXAMINATION: VITAL SIGNS: Blood pressure 84/51 on admission, 52 pulse, respiratory rate 18 to 20, O2 of 97%. He is currently on BiPAP. LUNGS: Scattered rhonchi and wheeze x4. HEENT: Normocephalic, atraumatic. MUSCULOSKELETAL: Range of motion full x4. SPINE: Negative. SKIN: Rashes negative. EXTREMITIES: Negative. LABORATORY DATA: White count is 5.8, hemoglobin is 14.0, sodium 135, potassium 4.3, platelets 123, D- dimer 0.58, lactic acid is 2.2. He has obvious dehydration, prerenal azotemia, COPD exacerbation, acute on chronic hypercapnic respiratory failure, hypotension, shock, refractory to fluids. He is given low-dose vasopressin. He is severely dehydrated with acute kidney injury, bradycardia, COPD, chronic hypoxemic respiratory distress, hypertension, BiPAP, oxygen, fluid rehydration. Treat for COPD, rule out sepsis. Continue current treatments. Await for seen by Dr. Kaba on consult. Continue current treatment per them. Prognosis guarded. MMODL / IJN: [id number] /
[2023-11-13 05:04] LABS: Basophils % (A) 0 %; Eosinophils % (A) 0 %; HCT 36.5 % (39.0-53.0); HGB 11.4 gm/dL (13.0-17.5); Lymphocytes # (A) 0.6 k/uL (1.0-4.8); Lymphocytes % (A) 7 %; MCH 31.2 pg (25.0-35.0); MCHC 31.4 g/dL (31.0-37.0); MCV 99.3 fL (80.0-100.0); Monocytes # (A) 0.4 k/uL (0-1.0); Monocytes % (A) 4 %; Neutrophils # (A) 7.7 k/uL (1.3-7.7); Neutrophils % (A) 87 %; Platelet Count 202 k/uL (150-450); RBC 3.67 m/uL (4.30-5.90); RDW 14.3 % (11.5-15.5); WBC 8.9 k/uL (3.8-10.6)
[2023-11-13 05:14] LABS: African American GFR (CKD) >90 (>60 ml/min/1.73 sqM); Anion Gap 3 mmol/L; Blood Urea Nitrogen 12 mg/dL (9-20); Calcium 7.6 mg/dL (8.4-10.2); Carbon Dioxide 25 mmol/L (22-30); Chloride 109 mmol/L (98-107); Glucose 145 mg/dL (74-99); Non-African American GFR(CKD) >90 (>60 ml/min/1.73 sqM); Potassium 3.7 mmol/L (3.5-5.1); Sodium 137 mmol/L (137-145)
[2023-11-13] MEDS ORDERED: Potassium Replacement Protocol 1 EACH MISC MISCELLANE PRN (06:14)
[2023-11-13] MEDS: POTASSIUM CHLORIDE ER 20 MEQ TAB.ER PO SCH (06:36)
[2023-11-13] MEDS: HYDROcodone/APAP 5-325MG 1 EACH TAB PO SCH (08:03)
[2023-11-13] MEDS ORDERED: NON FORMULARY DRUG (Omeprazole 20 MG Capsule.Dr) PO SCH (09:00)
--- NOTE | 2023-11-13 12:20 | XR ---
EXAMINATION TYPE: XR chest 1V DATE OF EXAM: 11/13/2023 COMPARISON: 11/12/2023 INDICATION: Acute hypoxemia TECHNIQUE: Single frontal view of the chest is obtained. FINDINGS: The heart size is normal. The pulmonary vasculature is somewhat prominent. Mild infiltrate at the lower lung mcgrath is developing bilaterally. IMPRESSION: 1. Developing bibasilar infiltrates. 2. Increasing pulmonary vascular markings. Correlate for pulmonary edema and volume overload.
--- NOTE | 2023-11-13 12:28 | P.PN ---
Subjective Progress Note Date: 11/13/23 Patient is a 73-year-old white male with past medical history significant for COPD, chronic ongoing tobacco dependence, chronic hypoxemic respiratory failure on 2-1/2 to 3 L, hypertension, among other things. His primary care provider is Dr. Chavez Shelton. 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 Patient presented to the emergency room yesterday afternoon via EMS. Reportedly noted to be lethargic and difficult to arouse at home. 3 to 4 days before this, his noted flulike symptoms. These included a runny nose, dry cough, fever, generalized malaise, and loose stools. When EMS arrived to the scene, they noted his blood pressure to be hypotensive. On arrival to the emergency room he was fluid resuscitated with a total of 3 L crystalloid fluid bolus. He was then started on low-dose norepinephrine which is currently infusing at 0.03 mcg/kg/min. He is also bradycardic, sinus bradycardia at 58 bpm. Normal saline continues to infuse at 130 MLS per hour. Chest x-ray demonstrated chronic interstitial changes with hyperinflation consistent with COPD. No focal consolidations, pleural effusions, or pneumothorax. He was hypercapnic in the emergency room. ABGs demonstrated PaO2 of 105, pCO2 of 52, pH of 7.25. He was then placed on the BiPAP in the emergency room. He is currently in the intensive care unit, room 251. He is on BiPAP with settings 12/6 and FiO2 of 50%. A chieving tidal volumes of around 400, respiratory rate in the mid 20s. He is alert and oriented x 3. No further signs of CO2 narcosis. Appears fairly comfortable. He is actively wheezing. Endorses the above-mentioned symptoms. Denies any chest pain or hemoptysis. Denies any significant sputum production. CBC unremarkable. No leukocytosis. D-dimer low. BMP includes a sodium 133, potassium 4.4, chloride 100, serum bicarb 29, BUN 21, creatinine 1.4, glucose 144. Lactic acid not significantly elevated. LFTs not elevated. NT proBNP 1330. Troponin 0.032. EKG shows sinus bradycardia with nonspecific T wave abnormalities. Nondiagnostic for acute ischemia. Viral screen negative for i nfluenza, RSV, COVID. Afebrile. Patient is admitted to the intensive care unit. On 11/13/2023, the patient is being seen for a follow-up. The patient is currently in the intensive care unit. Feeling well. He is off the BiPAP and the patient is currently on 5 L of oxygen nasal cannula. Cough and congestion is still present although improved compared to yesterday. The white cell count is at 8.9 with a hemoglobin of 11.4 and a BUN of 12 with a creatinine of 0.5 and sodium levels of 137. Troponin was 0.014. Remains on bronchodilators. Remains on IV Solu-Medrol. Remains on Zithromax. Blood cultures been negative thus far. Awake and alert and communicating. No signs of any CO2 narcosis. Objective - Vital Signs Vital signs: Vital Signs Temp 97.6 F 11/13/23 04:00 Pulse 67 11/13/23 08:00 Resp 26 H 11/13/23 08:00 BP 107/65 11/13/23 08:00 Pulse Ox 98 11/13/23 08:00 FiO2 35 11/12/23 16:11 Intake & Output 11/12/23 11/13/23 11/13/23 18:59 06:59 18:59 Intake Total 4133.410 2482 516 Output Total 1730 500 0 Balance 71.354 1060 516 Weight 51 kg Intake: IV 1560 1560 280 Invasive Line 1 10 Invasive Line 2 10 Sodium Chloride 0.9% 1, 130 000 ml @ 130 mls/hr IV . Q7H42M [facility] Rx#:[id number] Sodium Chloride 0.9% 1, 1560 1560 130 000 ml @ 130 mls/hr IV . Q7H42M [facility] Rx#:[id number] Intake, IV Titration 5.354 Amount Norepinephrine 4 mg In 5.354 Sodium Chloride 0.9% 250 ml @ 0.03 MCG/KG/MIN 5. 703 mls/hr IV .Q24H [facility] Rx#:[id number] Oral 236 236 Output: Urine 1730 500 0 Other: Voiding Method Urinal # Voids 1 # Bowel Movements 0 - Exam GENERAL EXAM: Alert, 73-year-old white male, currently on 5 L of oxygen by nasal cannula, states HEAD: Normocephalic and atraumatic EYES: Normal reaction of pupils, equal size. NOSE: Clear with pink turbinates. THROAT: No erythema or exudates. NECK: No masses, no JVD. CHEST: No chest wall deformity. LUNGS: Equal air entry with diffuse expiratory wheezes heard throughout. On BiPAP with current support of 12/6 and FiO2 of 50%. Generating tidal volumes approximately 400 and respiratory rate is in the mid 20s. CVS: S1 and S2 normal with no audible murmur, regular rhythm. No extra heart sounds ABDOMEN: No hepatosplenomegaly, active bowel sounds, no guarding or rigidity. SPINE: No scoliosis or deformity SKIN: No rashes CENTRAL NERVOUS SYSTEM: No focal deficits, tone is normal in all 4 extremities. EXTREMITIES: There is no peripheral edema, clubbing, or cyanosis. Peripheral pulses are intact. - Labs CBC & Chem 7: 11/13/23 04:47 11/13/23 04:47 Labs: Abnormal Lab Results - Last 24 Hours (Table) 11/13/23 11/13/23 Range/Units 04:47 04:47 RBC 3.67 L (4.30-5.90) m/uL Hgb 11.4 L (13.0-17.5) gm/dL Hct 36.5 L (39.0-53.0) % Lymphocytes # 0.6 L (1.0-4.8) k/uL Chloride 109 H (98-107) mmol/L Creatinine 0.51 L (0.66-1.25) mg/dL Glucose 145 H (74-99) mg/dL Calcium 7.6 L (8.4-10.2) mg/dL Microbiology - Last 24 Hours (Table) 11/11/23 15:26 Blood Culture - Preliminary Blood 11/11/23 15:10 Blood Culture - Preliminary Blood Assessment and Plan Assessment: Acute COPD exacerbation, chest x-ray done on admission shows hyperinflation consistent with COPD and chronic interstitial changes. No focal consolidation, pneumothorax, or pleural effusion. Negative for influenza, RSV, COVID. Clinically improved compared to yesterday and the patient seems to be less short of breath currently on 5 L of oxygen by nasal cannula. Acute on chronic hypoxemic and hypercapnic respiratory failure, secondary to above, currently off the BiPAP and the patient is on 5 L of oxygen nasal cannula Altered mental status and hypercapnic encephalopathy, improved with BiPAP Hypotension, and shock refractory to fluid resuscitation, currently requiring low-dose vasopressors Severe dehydration Suspect acute kidney injury, creatinine improved and her renal function has normalized History of chronic obstructive pulmonary disease Chronic hypoxemic respiratory failure, secondary to above Chronic ongoing tobacco dependence, reportedly heavy smoker for many years and currently down to 1/2 pack/day History of hypertension Plan: Continue O2 at 5 L nasal cannula BiPAP overnight Continue empiric antibiotic coverage with Azithromycin Viral screen negative for influenza, RSV, COVID Blood cultures are pending, Negative thus far Continue IV to be switched to KVO Check echocardiogram shows a preserved LV function, no significant valvular abnormalities Continue bronchodilators and steroids Protonix for GI prophylaxis Heparin for DVT prophylaxis Patient can be downgraded to a medical surgical floor
--- NOTE | 2023-11-13 22:29 | CT ---
EXAM: CT Chest Without Intravenous Contrast CLINICAL HISTORY: ITS.REASON CT Reason: cap TECHNIQUE: Axial computed tomography images of the chest without intravenous contrast. CTDI is 4.8 mGy and DLP is 224.8 mGy-cm. This CT exam was performed using one or more of the following dose reduction techniques: automated exposure control, adjustment of the mA and/or kV according to patient size, and/or use of iterative reconstruction technique. COMPARISON: None FINDINGS: Lungs: Prominent emphysematous changes. Mild prominence of the bronchial dougherty may represent bronchitis. Bibasilar atelectasis. No mass. Pleural space: Small bilateral pleural effusions. Calcified pleural plaques bilaterally. No pneumothorax. Heart: Coronary artery calcifications. No cardiomegaly. No significant pericardial effusion. Bones/joints: Degenerative changes of the spine. No acute fracture. No dislocation. Soft tissues: Unremarkable. Vasculature: Atherosclerotic changes in the aorta. No aortic aneurysm. Lymph nodes: Unremarkable. No enlarged lymph nodes. IMPRESSION: 1. Prominent emphysematous changes. Mild prominence of the bronchial dougherty may represent bronchitis. 2. Small bilateral pleural effusions. 3. Calcified pleural plaques bilaterally.
--- NOTE | 2023-11-14 02:10 | PN ---
PROGRESS NOTE A 73-year-old white male is still in the ICU. The patient was admitted without anybody calling me. I have seen the patient yesterday and today. He is improving, currently on 5 L oxygen. Creatinine 0.5, hemoglobin is 11.4. He is slowly getting better. Sodium 137. Blood cultures negative. No CO2 narcosis. PHYSICAL EXAMINATION: VITAL SIGNS: Temp 97.6, pulse 100/60, respiratory rate 18-26, pulse 67, O2 of 98. GENERAL: He looks his stated age. He is in minimal respiratory distress. LUNGS: Wheezes x4. CARDIOVASCULAR: S1 x2. ABDOMEN: Soft. EXTREMITIES: No edema. LABORATORY DATA: White count 8.9, hemoglobin 11.4. Blood cultures negative. ASSESSMENT: 1. Chronic obstructive pulmonary disease exacerbation. 2. Hypercapnic respiratory failure secondary to environmental exposure. 3. Hypotension. 4. Severe dehydration. 5. Acute kidney injury. 6. Nicotine addiction. 7. Hypertension. He is O2 dependent anyways. Continue to wear BiPAP at night and wear oxygen during the day. PROGNOSIS: Guarded. Continue current treatment. Please see further orders. MMODL / IJN: [id number] /
--- NOTE | 2023-11-14 07:19 | XR ---
EXAMINATION TYPE: XR chest 1V DATE OF EXAM: 11/14/2023 COMPARISON: 11/13/2023 INDICATION: Acute respiratory failure TECHNIQUE: Single frontal view of the chest is obtained. FINDINGS: The heart size is normal. The pulmonary vasculature is prominent but slightly improved.. There are increased lung markings are present in the left lung. There is increasing right lower lobe infiltrate. Small right pleural effusion may be present. IMPRESSION: 1. Worsening right lower lobe infiltrate. Correlate for pneumonia. 2. Correlate for some mild bilateral overload.
--- NOTE | 2023-11-14 10:26 | P.PN ---
Subjective Progress Note Date: 11/14/23 Principal diagnosis: acute COPD exacerbation Acute on chronic hypoxic respiratory failure with hypercapnia Altered mental status Hypotension Dehydration Generalized anxiety disorder History of smoking and nicotine use Hypertension 11/14/2023, patient seen eval reexamined during the rounds labs reviewed medications reviewed patient has been moved from the ICU now on the stepdown, patient remains on 3 L oxygen have audible wheezing patient remains on bronchodilators and steroids tolerating well gets anxious at times. patient is afebrile with temperature 90.8 blood pressure is 167/82 saturation 90% on 4 L heart rate is 110 respiratory 32.patient remains on bronchodilator with albuterol and ipratropium and Pulmicort, also on DVT prophylaxis IV steroids,patient remains on pain medications as well patient has been consult educated her smoking cessation will continue Habitrol patch as well Objective - Vital Signs Vital signs: Vital Signs Temp 98.1 F 11/14/23 08:30 Pulse 110 H 11/14/23 08:38 Resp 32 H 11/14/23 08:38 BP 167/82 11/14/23 08:30 Pulse Ox 93 L 11/14/23 08:30 FiO2 35 11/12/23 16:11 Intake & Output 11/13/23 11/14/23 11/14/23 18:59 06:59 18:59 Intake Total 756 280 100 Output Total 600 Balance 156 280 100 Intake: IV 280 40 Invasive Line 1 10 20 Invasive Line 2 10 20 Sodium Chloride 0.9% 1, 130 000 ml @ 130 mls/hr IV . Q7H42M [facility] Rx#:[id number] Sodium Chloride 0.9% 1, 130 000 ml @ 130 mls/hr IV . Q7H42M [facility] Rx#:[id number] Oral 476 240 100 Output: Urine 600 Other: Voiding Method Urinal Urinal Urinal # Bowel Movements 0 - Constitutional General appearance: Present: average body habitus, cooperative, disheveled - EENT Eyes: Present: EOMI, PERRLA ENT: Present: normal oropharynx Ears: bilateral: normal - Neck Carotids: bilateral: upstroke normal Thyroid: bilateral: normal size - Respiratory Respiratory: bilateral: wheezing - Cardiovascular Rhythm: regular Heart sounds: normal: S1, S2 - Gastrointestinal General gastrointestinal: Present: soft - Neurologic Neurologic: Present: CNII-XII intact - Musculoskeletal Musculoskeletal: Present: generalized weakness, strength equal bilaterally - Psychiatric Psychiatric: Present: A&O x's 3, appropriate affect, intact judgment & insight - Labs CBC & Chem 7: 11/13/23 04:47 11/13/23 04:47 Labs: Microbiology - Last 24 Hours (Table) 11/11/23 15:26 Blood Culture - Preliminary Blood 11/11/23 15:10 Blood Culture - Preliminary Blood Assessment and Plan Assessment: acute COPD exacerbation Acute on chronic hypoxic respiratory failure with hypercapnia Altered mental status major depression Hypotension Dehydration Generalized anxiety disorder History of smoking and nicotine use Hypertension Plan: patient remains on significant amount of oxygen, continue titrated down as tolerated, continue bronchodilators IV steroids, increase activity as tolerated patient has been consult about smoking cessation, continue breathing treatment increase activity as tolerated, will ask PT OT to evaluate Time with Patient: Greater than 30
--- NOTE | 2023-11-14 14:22 | P.PN ---
Subjective Progress Note Date: 11/14/23 Patient is a 73-year-old white male with past medical history significant for COPD, chronic ongoing tobacco dependence, chronic hypoxemic respiratory failure on 2-1/2 to 3 L, hypertension, among other things. His primary care provider is Dr. Chavez Shelton. 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 Patient presented to the emergency room yesterday afternoon via EMS. Reportedly noted to be lethargic and difficult to arouse at home. 3 to 4 days before this, his noted flulike symptoms. These included a runny nose, dry cough, fever, generalized malaise, and loose stools. When EMS arrived to the scene, they noted his blood pressure to be hypotensive. On arrival to the emergency room he was fluid resuscitated with a total of 3 L crystalloid fluid bolus. He was then started on low-dose norepinephrine which is currently infusing at 0.03 mcg/kg/min. He is also bradycardic, sinus bradycardia at 58 bpm. Normal saline continues to infuse at 130 MLS per hour. Chest x-ray demonstrated chronic interstitial changes with hyperinflation consistent with COPD. No focal consolidations, pleural effusions, or pneumothorax. He was hypercapnic in the emergency room. ABGs demonstrated PaO2 of 105, pCO2 of 52, pH of 7.25. He was then placed on the BiPAP in the emergency room. He is currently in the intensive care unit, room 251. He is on BiPAP with settings 12/6 and FiO2 of 50%. A chieving tidal volumes of around 400, respiratory rate in the mid 20s. He is alert and oriented x 3. No further signs of CO2 narcosis. Appears fairly comfortable. He is actively wheezing. Endorses the above-mentioned symptoms. Denies any chest pain or hemoptysis. Denies any significant sputum production. CBC unremarkable. No leukocytosis. D-dimer low. BMP includes a sodium 133, potassium 4.4, chloride 100, serum bicarb 29, BUN 21, creatinine 1.4, glucose 144. Lactic acid not significantly elevated. LFTs not elevated. NT proBNP 1330. Troponin 0.032. EKG shows sinus bradycardia with nonspecific T wave abnormalities. Nondiagnostic for acute ischemia. Viral screen negative for i nfluenza, RSV, COVID. Afebrile. Patient is admitted to the intensive care unit. On 11/13/2023, the patient is being seen for a follow-up. The patient is currently in the intensive care unit. Feeling well. He is off the BiPAP and the patient is currently on 5 L of oxygen nasal cannula. Cough and congestion is still present although improved compared to yesterday. The white cell count is at 8.9 with a hemoglobin of 11.4 and a BUN of 12 with a creatinine of 0.5 and sodium levels of 137. Troponin was 0.014. Remains on bronchodilators. Remains on IV Solu-Medrol. Remains on Zithromax. Blood cultures been negative thus far. Awake and alert and communicating. No signs of any CO2 narcosis. On 11/14/2023, patient is being seen for a follow-up. The patient is stable. No interval worsening shortness of breath. Transferred out of the intensive care unit yesterday. He is currently on oxygen at 4 L with a pulse ox of 93%. No altered mentation. No chest pain. Tolerating diet. Resting comfortably in bed. Remains endocarditis. Remains on steroids 60 mg of IV Solu-Medrol every 6 hours. No increased anxiety. White cell count of 8 with a hemoglobin 11.4 and a platelet count of 202. BUN is 12 with a creatinine of 0.5 and a sodium levels of 137 and a potassium level of 3.7. Objective - Vital Signs Vital signs: Vital Signs Temp 98.1 F 11/14/23 08:30 Pulse 110 H 11/14/23 08:38 Resp 32 H 11/14/23 08:38 BP 167/82 11/14/23 08:30 Pulse Ox 93 L 11/14/23 08:30 FiO2 35 11/12/23 16:11 Intake & Output 11/13/23 11/14/23 11/14/23 18:59 06:59 18:59 Intake Total 756 280 100 Output Total 600 Balance 156 280 100 Intake: IV 280 40 Invasive Line 1 10 20 Invasive Line 2 10 20 Sodium Chloride 0.9% 1, 130 000 ml @ 130 mls/hr IV . Q7H42M [facility] Rx#:[id number] Sodium Chloride 0.9% 1, 130 000 ml @ 130 mls/hr IV . Q7H42M [facility] Rx#:[id number] Oral 476 240 100 Output: Urine 600 Other: Voiding Method Urinal Urinal Urinal # Bowel Movements 0 - Exam GENERAL EXAM: Alert, 73-year-old white male, currently on 5 L of oxygen by nasal cannula, states HEAD: Normocephalic and atraumatic EYES: Normal reaction of pupils, equal size. NOSE: Clear with pink turbinates. THROAT: No erythema or exudates. NECK: No masses, no JVD. CHEST: No chest wall deformity. LUNGS: Equal air entry with diffuse expiratory wheezes heard throughout. On BiPAP with current support of 12/6 and FiO2 of 50%. Generating tidal volumes approximately 400 and respiratory rate is in the mid 20s. CVS: S1 and S2 normal with no audible murmur, regular rhythm. No extra heart sounds ABDOMEN: No hepatosplenomegaly, active bowel sounds, no guarding or rigidity. SPINE: No scoliosis or deformity SKIN: No rashes CENTRAL NERVOUS SYSTEM: No focal deficits, tone is normal in all 4 extremities. EXTREMITIES: There is no peripheral edema, clubbing, or cyanosis. Peripheral pulses are intact. - Labs CBC & Chem 7: 11/13/23 04:47 11/13/23 04:47 Labs: Microbiology - Last 24 Hours (Table) 11/11/23 15:26 Blood Culture - Preliminary Blood 11/11/23 15:10 Blood Culture - Preliminary Blood Assessment and Plan Assessment: Acute COPD exacerbation, chest x-ray done on admission shows hyperinflation consistent with COPD and chronic interstitial changes. No focal consolidation, pneumothorax, or pleural effusion. Negative for influenza, RSV, COVID. Clinically improved compared to yesterday and the patient seems to be less short of breath currently on 4 L of oxygen by nasal cannula. Acute on chronic hypoxemic and hypercapnic respiratory failure, secondary to above, growing and the patient is currently on 4 L of oxygen nasal cannula Altered mental status and hypercapnic encephalopathy, improved with BiPAP Hypotension, and shock refractory to fluid resuscitation, currently requiring low-dose vasopressors Severe dehydration Suspect acute kidney injury, creatinine improved and her renal function has normalized History of chronic obstructive pulmonary disease Chronic hypoxemic respiratory failure, secondary to above Chronic ongoing tobacco dependence, reportedly heavy smoker for many years and currently down to 1/2 pack/day History of hypertension Plan: Continue O2 at 4 L of oxygen nasal cannula BiPAP overnight Continue empiric antibiotic coverage with Azithromycin Viral screen negative for influenza, RSV, COVID Blood cultures are pending, Negative thus far Continue IV to be switched to KVO Check echocardiogram shows a preserved LV function, no significant valvular abnormalities Continue bronchodilators and steroids Protonix for GI prophylaxis Heparin for DVT prophylaxis Keep the patient on medical floor. Continues to improve.
[2023-11-15] MEDS: IPRATROPIUM-ALBUTEROL 3 ML NEB INHALATION PRN (08:28)
--- NOTE | 2023-11-15 10:20 | P.PN ---
Subjective Progress Note Date: 11/15/23 Principal diagnosis: acute COPD exacerbation Acute on chronic hypoxic respiratory failure with hypercapnia Altered mental status Hypotension Dehydration Generalized anxiety disorder History of smoking and nicotine use Hypertension 11/15/2023, patient seen eval reexamined during on's labs reviewed care plan discussed, patient remains on 4 L, bronchodilators and IV steroids wheezing slightly improved but still actively going on continue DVT prophylaxis 11/14/2023, patient seen eval reexamined during the rounds labs reviewed medications reviewed patient has been moved from the ICU now on the stepdown, patient remains on 3 L oxygen have audible wheezing patient remains on br onchodilators and steroids tolerating well gets anxious at times. patient is afebrile with temperature 90.8 blood pressure is 167/82 saturation 90% on 4 L heart rate is 110 respiratory 32.patient remains on bronchodilator with albuterol and ipratropium and Pulmicort, also on DVT prophylaxis IV ster oids,patient remains on pain medications as well patient has been consult educated her smoking cessation will continue Habitrol patch as well Objective - Vital Signs Vital signs: Vital Signs Temp 97.5 F L 11/15/23 06:55 Pulse 72 11/15/23 08:38 Resp 32 H 11/15/23 06:55 BP 146/85 11/15/23 06:55 Pulse Ox 100 11/15/23 08:29 FiO2 35 11/12/23 16:11 Intake & Output 11/14/23 11/15/23 11/15/23 18:59 06:59 18:59 Intake Total 100 Output Total 1200 360 Balance -1100 -360 Intake: Oral 100 Output: Urine 1200 360 Other: Voiding Method Urinal Urinal # Voids 1 - Exam - Constitutional General appearance: Present: average body habitus, cooperative, disheveled - EENT Eyes: Present: EOMI, PERRLA ENT: Present: normal oropharynx Ears: bilateral: normal - Neck Carotids: bilateral: upstroke normal Thyroid: bilateral: normal size - Respiratory Respiratory: bilateral: wheezing - Cardiovascular Rhythm: regular Heart sounds: normal: S1, S2 - Gastrointestinal General gastrointestinal: Present: soft - Neurologic Neurologic: Present: CNII-XII intact - Musculoskeletal Musculoskeletal: Present: generalized weakness, strength equal bilaterally - Psychiatric Psychiatric: Present: A&O x's 3, appropriate affect, intact judgment & insigh - Labs CBC & Chem 7: 11/13/23 04:47 11/13/23 04:47 Labs: Microbiology - Last 24 Hours (Table) 11/11/23 15:26 Blood Culture - Preliminary Blood 11/11/23 15:10 Blood Culture - Preliminary Blood Assessment and Plan Assessment: acute COPD exacerbation Acute on chronic hypoxic respiratory failure with hypercapnia Altered mental status major depression Hypotension Dehydration Generalized anxiety disorder History of smoking and nicotine use Hypertension Plan: patient remains on significant amount of oxygen, continue titrated down as tolerated, continue bronchodilators IV steroids, increase activity as tolerated patient has been consult about smoking cessation, continue breathing treatment increase activity as tolerated, will ask PT OT to evaluate Time with Patient: Greater than 30
--- NOTE | 2023-11-15 15:02 | P.PN ---
Subjective Progress Note Date: 11/15/23 Patient is a 73-year-old white male with past medical history significant for COPD, chronic ongoing tobacco dependence, chronic hypoxemic respiratory failure on 2-1/2 to 3 L, hypertension, among other things. His primary care provider is Dr. Chavez Shelton. He reportedly does not follow with a contact person. Patient presented to the emergency room yesterday afternoon via EMS. Reportedly noted to be lethargic and difficult to arouse at home. 3 to 4 days before this, his noted flulike symptoms. These included a runny nose, dry cough, fever, generalized malaise, and loose stools. When EMS arrived to the scene, they noted his blood pressure to be hypotensive. On arrival to the emergency room he was fluid resuscitated with a total of 3 L crystalloid fluid bolus. He was then started on low-dose norepinephrine which is currently infusing at 0.03 mcg/kg/min. He is also bradycardic, sinus bradycardia at 58 bpm. Normal saline continues to infuse at 130 MLS per hour. Chest x-ray demonstrated chronic interstitial changes with hyperinflation consistent with COPD. No focal consolidations, pleural effusions, or pneumothorax. He was hypercapnic in the emergency room. ABGs demonstrated PaO2 of 105, pCO2 of 52, pH of 7.25. He was then placed on the BiPAP in the emergency room. He is currently in the intensive care unit, room 251. He is on BiPAP with settings 12/6 and FiO2 of 50%. A chieving tidal volumes of around 400, respiratory rate in the mid 20s. He is alert and oriented x 3. No further signs of CO2 narcosis. Appears fairly comfortable. He is actively wheezing. Endorses the above-mentioned symptoms. Denies any chest pain or hemoptysis. Denies any significant sputum production. CBC unremarkable. No leukocytosis. D-dimer low. BMP includes a sodium 133, potassium 4.4, chloride 100, serum bicarb 29, BUN 21, creatinine 1.4, glucose 144. Lactic acid not significantly elevated. LFTs not elevated. NT proBNP 1330. Troponin 0.032. EKG shows sinus bradycardia with nonspecific T wave abnormalities. Nondiagnostic for acute ischemia. Viral screen negative for i nfluenza, RSV, COVID. Afebrile. Patient is admitted to the intensive care unit. On 11/13/2023, the patient is being seen for a follow-up. The patient is currently in the intensive care unit. Feeling well. He is off the BiPAP and the patient is currently on 5 L of oxygen nasal cannula. Cough and congestion is still present although improved compared to yesterday. The white cell count is at 8.9 with a hemoglobin of 11.4 and a BUN of 12 with a creatinine of 0.5 and sodium levels of 137. Troponin was 0.014. Remains on bronchodilators. Remains on IV Solu-Medrol. Remains on Zithromax. Blood cultures been negative thus far. Awake and alert and communicating. No signs of any CO2 narcosis. On 11/14/2023, patient is being seen for a follow-up. The patient is stable. No interval worsening shortness of breath. Transferred out of the intensive care unit yesterday. He is currently on oxygen at 4 L with a pulse ox of 93%. No altered mentation. No chest pain. Tolerating diet. Resting comfortably in bed. Remains endocarditis. Remains on steroids 60 mg of IV Solu-Medrol every 6 hours. No increased anxiety. White cell count of 8 with a hemoglobin 11.4 and a platelet count of 202. BUN is 12 with a creatinine of 0.5 and a sodium levels of 137 and a potassium level of 3.7. 11/15/2023, the patient is on the medical floor. Very limited exam in terms of exercise capacity and the patient essentially in bed. Trying to move or walk short distances and make the patient very labored in terms of his breathing. Remains on Perforomist and Pulmicort nebulized treatments twice a day, DuoNeb up To 5, IV Solu-Medrol 60 Mg Every 6 Hours. The Patient Is Also Running a White Cell Count of 8.9 with a Hemoglobin 11.4 and a Platelet Count of 202. BUN Is 12 with a Creatinine of 0.5. Tolerating Diet. No Signs of Any Suicidal Process. No Chest Pain. Objective - Vital Signs Vital signs: Vital Signs Temp 97.5 F L 11/15/23 06:55 Pulse 80 11/15/23 12:00 Resp 32 H 11/15/23 06:55 BP 146/85 11/15/23 06:55 Pulse Ox 100 11/15/23 08:29 FiO2 35 11/12/23 16:11 Intake & Output 11/14/23 11/15/23 11/15/23 18:59 06:59 18:59 Intake Total 100 Output Total 1200 360 Balance -1100 -360 Intake: Oral 100 Output: Urine 1200 360 Other: Voiding Method Urinal Urinal # Voids 1 - Exam GENERAL EXAM: Alert, 73-year-old white male, currently on 5 L of oxygen by nasal cannula, states HEAD: Normocephalic and atraumatic EYES: Normal reaction of pupils, equal size. NOSE: Clear with pink turbinates. THROAT: No erythema or exudates. NECK: No masses, no JVD. CHEST: No chest wall deformity. LUNGS: Equal air entry with diffuse expiratory wheezes heard throughout. On BiPAP with current support of 12/6 and FiO2 of 50%. Generating tidal volumes approximately 400 and respiratory rate is in the mid 20s. CVS: S1 and S2 normal with no audible murmur, regular rhythm. No extra heart sounds ABDOMEN: No hepatosplenomegaly, active bowel sounds, no guarding or rigidity. SPINE: No scoliosis or deformity SKIN: No rashes CENTRAL NERVOUS SYSTEM: No focal deficits, tone is normal in all 4 extremities. EXTREMITIES: There is no peripheral edema, clubbing, or cyanosis. Peripheral pulses are intact. - Labs CBC & Chem 7: 11/13/23 04:47 11/13/23 04:47 Labs: Microbiology - Last 24 Hours (Table) 11/11/23 15:26 Blood Culture - Preliminary Blood 11/11/23 15:10 Blood Culture - Preliminary Blood Assessment and Plan Assessment: Acute COPD exacerbation, chest x-ray done on admission shows hyperinflation consistent with COPD and chronic interstitial changes. No focal consolidation, pneumothorax, or pleural effusion. Negative for influenza, RSV, COVID. Clinically improved compared to yesterday and the patient seems to be less short of breath currently on 4 L of oxygen by nasal cannula. Acute on chronic hypoxemic and hypercapnic respiratory failure, secondary to above, growing and the patient is currently on 4 L of oxygen nasal cannula Altered mental status and hypercapnic encephalopathy, improved with BiPAP and the patient is back to normal mentation Hypotension, and shock refractory to fluid resuscitation, currently requiring low-dose vasopressors, recovered Severe dehydration, recovered Suspect acute kidney injury, creatinine improved and her renal function has normalized History of chronic obstructive pulmonary disease Chronic hypoxemic respiratory failure, secondary to above Chronic ongoing tobacco dependence, reportedly heavy smoker for many years and currently down to 1/2 pack/day History of hypertension Plan: Will essentially continue same treatment for now Continue O2 at 4 L of oxygen nasal cannula BiPAP overnight Complete the course of antibiotics n Viral screen negative for influenza, RSV, COVID Check echocardiogram shows a preserved LV function, no significant valvular abnormalities Continue bronchodilators and steroids Protonix for GI prophylaxis Heparin for DVT prophylaxis Keep the patient on medical floor. Continues to improve. Will likely need aggressive physical therapy and rehabilitation at the time of discharge.
--- NOTE | 2023-11-16 17:14 | P.PN ---
Subjective Progress Note Date: 11/16/23 Principal diagnosis: acute COPD exacerbation Acute on chronic hypoxic respiratory failure with hypercapnia Altered mental status Hypotension Dehydration Generalized anxiety disorder History of smoking and nicotine use Hypertension 11/16/2023, patient seen eval examined during rounds labs reviewed medications reviewed, patient remains on 4 L, sitting upright on the chair, cough congestion shortness of breath significant improve, patient remains on bronchodilator therapy along with steroids, 11/15/2023, patient seen eval reexamined during on's labs reviewed care plan discussed, patient remains on 4 L, bronchodilators and IV steroids wheezing slightly improved but still actively going on continue DVT prophylaxis 11/14/2023, patient seen eval reexamined during the rounds labs reviewed medications reviewed patient has been moved from the ICU now on the stepdown, patient remains on 3 L oxygen have audible wheezing patient remains on bronchodilators and steroids tolerating well gets anxious at times. patient is afebrile with temperature 90.8 blood pressure is 167/82 saturation 90% on 4 L heart rate is 110 respiratory 32.patient remains on bronchodilator with albuter ol and ipratropium and Pulmicort, also on DVT prophylaxis IV steroids,patient remains on pain medications as well patient has been consult educated her smoking cessation will continue Habitrol patch as well Objective - Vital Signs Vital signs: Vital Signs Temp 98.1 F 11/16/23 14:00 Pulse 75 11/16/23 16:28 Resp 24 11/16/23 14:00 BP 157/85 11/16/23 14:00 Pulse Ox 98 11/16/23 14:00 FiO2 35 11/12/23 16:11 Intake & Output 11/15/23 11/16/23 11/16/23 18:59 06:59 18:59 Output Total 500 600 Balance -500 -600 Output: Urine 500 600 Other: Voiding Method Urinal - Exam - Constitutional General appearance: Present: average body habitus, cooperative, disheveled - EENT Eyes: Present: EOMI, PERRLA ENT: Present: normal oropharynx Ears: bilateral: normal - Neck Carotids: bilateral: upstroke normal Thyroid: bilateral: normal size - Respiratory Respiratory: bilateral: wheezing - Cardiovascular Rhythm: regular Heart sounds: normal: S1, S2 - Gastrointestinal General gastrointestinal: Present: soft - Neurologic Neurologic: Present: CNII-XII intact - Musculoskeletal Musculoskeletal: Present: generalized weakness, strength equal bilaterally - Psychiatric Psychiatric: Present: A&O x's 3, appropriate affect, intact judgment & insigh - Labs CBC & Chem 7: 11/13/23 04:47 11/13/23 04:47 Assessment and Plan Assessment: acute COPD exacerbation Acute on chronic hypoxic respiratory failure with hypercapnia Altered mental status major depression Hypotension Dehydration Generalized anxiety disorder History of smoking and nicotine use Hypertension Plan: patient remains on significant amount of oxygen, continue titrated down as tolerated, continue bronchodilators IV steroids, increase activity as tolerated patient has been consult about smoking cessation, continue breathing treatment increase activity as tolerated, will ask PT OT to evaluate Time with Patient: Greater than 30
--- NOTE | 2023-11-17 13:42 | PN ---
PROGRESS NOTE SUBJECTIVE: Rolando Claire remains on, 1. IV Solu-Medrol. 2. DuoNeb. 3. Claritin. 4. Pulmicort. 5. Habitrol nicotine patch. OBJECTIVE: VITAL SIGNS: Pulse is 72. CARDIOVASCULAR: S1, S2. LUNGS: Transmitted upper sounds. HEMATOLOGY: Negative Homans. LABORATORY DATA: White count is 8.9, hemoglobin is 11.4, sodium 137, potassium is 3.7, BUN is 12, creatinine 0.51. Sugars are mid 140s. Troponins negative. ASSESSMENT: Acute hypoxemic respiratory distress, acute chronic obstructive pulmonary disease exacerbation, acute on chronic hypoxemic respiratory failure with hypercapnia, altered mental status, hypotension, dehydration, generalized anxiety, history of nicotine addiction, hypertension. He is anxious at times. He is on current treatment. Continue to wean steroids. Continue on breathing treatments and fluid rehydration and increase activity. PT, OT to evaluate. MMODL / IJN: [id number] /
--- NOTE | 2023-11-17 13:42 | P.PN ---
Subjective Progress Note Date: 11/17/23 Patient is a 73-year-old white male with past medical history significant for COPD, chronic ongoing tobacco dependence, chronic hypoxemic respiratory failure on 2-1/2 to 3 L, hypertension, among other things. His primary care provider is Dr. Chavez Shelton. 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 Patient presented to the emergency room yesterday afternoon via EMS. Reportedly noted to be lethargic and difficult to arouse at home. 3 to 4 days before this, his noted flulike symptoms. These included a runny nose, dry cough, fever, generalized malaise, and loose stools. When EMS arrived to the scene, they noted his blood pressure to be hypotensive. On arrival to the emergency room he was fluid resuscitated with a total of 3 L crystalloid fluid bolus. He was then started on low-dose norepinephrine which is currently infusing at 0.03 mcg/kg/min. He is also bradycardic, sinus bradycardia at 58 bpm. Normal saline continues to infuse at 130 MLS per hour. Chest x-ray demonstrated chronic interstitial changes with hyperinflation consistent with COPD. No focal consolidations, pleural effusions, or pneumothorax. He was hypercapnic in the emergency room. ABGs demonstrated PaO2 of 105, pCO2 of 52, pH of 7.25. He was then placed on the BiPAP in the emergency room. He is currently in the intensive care unit, room 251. He is on BiPAP with settings 12/6 and FiO2 of 50%. Ac hieving tidal volumes of around 400, respiratory rate in the mid 20s. He is alert and oriented x 3. No further signs of CO2 narcosis. Appears fairly comfortable. He is actively wheezing. Endorses the above-mentioned symptoms. Denies any chest pain or hemoptysis. Denies any significant sputum production. CBC unremarkable. No leukocytosis. D-dimer low. BMP includes a sodium 133, potassium 4.4, chloride 100, serum bicarb 29, BUN 21, creatinine 1.4, glucose 144. Lactic acid not significantly elevated. LFTs not elevated. NT proBNP 1330. Troponin 0.032. EKG shows sinus bradycardia with nonspecific T wave abnormalities. Nondiagnostic for acute ischemia. Viral screen negative for in fluenza, RSV, COVID. Afebrile. Patient is admitted to the intensive care unit. On 11/13/2023, the patient is being seen for a follow-up. The patient is currently in the intensive care unit. Feeling well. He is off the BiPAP and the patient is currently on 5 L of oxygen nasal cannula. Cough and congestion is still present although improved compared to yesterday. The white cell count is at 8.9 with a hemoglobin of 11.4 and a BUN of 12 with a creatinine of 0.5 and sodium levels of 137. Troponin was 0.014. Remains on bronchodilators. Remains on IV Solu-Medrol. Remains on Zithromax. Blood cultures been negative thus far. Awake and alert and communicating. No signs of any CO2 narcosis. On 11/14/2023, patient is being seen for a follow-up. The patient is stable. No interval worsening shortness of breath. Transferred out of the intensive care unit yesterday. He is currently on oxygen at 4 L with a pulse ox of 93%. No altered mentation. No chest pain. Tolerating diet. Resting comfortably in bed. Remains endocarditis. Remains on steroids 60 mg of IV Solu-Medrol every 6 hours. No increased anxiety. White cell count of 8 with a hemoglobin 11.4 and a platelet count of 202. BUN is 12 with a creatinine of 0.5 and a sodium levels of 137 and a potassium level of 3.7. 11/15/2023, the patient is on the medical floor. Very limited exam in terms of exercise capacity and the patient essentially in bed. Trying to move or walk short distances and make the patient very labored in terms of his breathing. Remains on Perforomist and Pulmicort nebulized treatments twice a day, DuoNeb up To 5, IV Solu-Medrol 60 Mg Every 6 Hours. The Patient Is Also Running a White Cell Count of 8.9 with a Hemoglobin 11.4 and a Platelet Count of 202. BUN Is 12 with a Creatinine of 0.5. Tolerating Diet. No Signs of Any Suicidal Process. No Chest Pain. The patient is seen today November 17, 2023 in follow-up on the regular medical floor. He is currently resting in bed. Awake and alert in no acute distress. Maintaining O2 saturations in the 90s on 4 L/min per nasal cannula. He is feeling better today. He is continue on DuoNeb inhalations, Pulmicort and Perforomist inhalations, Solu-Medrol. Blood cultures revealed no growth. NicoDerm patch in place. Objective - Vital Signs Vital signs: Vital Signs Temp 97.3 F L 11/17/23 07:11 Pulse 68 11/17/23 12:52 Resp 19 11/17/23 07:45 BP 141/68 11/17/23 07:11 Pulse Ox 99 11/17/23 07:11 FiO2 35 11/12/23 16:11 Intake & Output 11/16/23 11/17/23 11/17/23 18:59 06:59 18:59 Output Total 600 250 Balance -600 -250 Output: Urine 600 250 Other: Voiding Method Urinal Urinal # Voids 2 - Exam GENERAL EXAM: Alert, pleasant 73-year-old male, sitting in bed, currently on 4 L of oxygen by nasal cannula. HEAD: Normocephalic and atraumatic EYES: Normal reaction of pupils, equal size. NOSE: Clear with pink turbinates. THROAT: No erythema or exudates. NECK: No masses, no JVD. CHEST: No chest wall deformity. LUNGS: Equal air entry with expiratory wheezes heard throughout. CVS: S1 and S2 normal with no audible murmur, regular rhythm. No extra heart sounds ABDOMEN: No hepatosplenomegaly, active bowel sounds, no guarding or rigidity. SPINE: No scoliosis or deformity SKIN: No rashes CENTRAL NERVOUS SYSTEM: No focal deficits, tone is normal in all 4 extremities. EXTREMITIES: There is no peripheral edema, clubbing, or cyanosis. Peripheral pulses are intact. - Labs CBC & Chem 7: 11/13/23 04:47 11/13/23 04:47 Labs: Microbiology - Last 24 Hours (Table) 11/11/23 15:26 Blood Culture - Final Blood 11/11/23 15:10 Blood Culture - Final Blood Assessment and Plan Assessment: Acute COPD exacerbation, chest x-ray done on admission shows hyperinflation consistent with COPD and chronic interstitial changes. No focal consolidation, pneumothorax, or pleural effusion. Negative for influenza, RSV, COVID. Clinically improved and the patient seems to be less short of breath, currently on 4 L of oxygen by nasal cannula. Acute on chronic hypoxemic and hypercapnic respiratory failure, secondary to above, growing and the patient is currently on 4 L of oxygen nasal cannula Altered mental status and hypercapnic encephalopathy, improved with BiPAP and the patient is back to normal mentation Hypotension, and shock refractory to fluid resuscitation, initially requiring low-dose vasopressors, recovered Severe dehydration, recovered Suspect acute kidney injury, creatinine improved and her renal function has normalized History of chronic obstructive pulmonary disease Chronic hypoxemic respiratory failure, secondary to above Chronic ongoing tobacco dependence, reportedly heavy smoker for many years and currently down to 1/2 pack/day History of hypertension Rogerio: The patient was seen and evaluated Medications reviewed Improved and on 4 L nasal cannula Titrate down the FiO2 as tolerated Continue bronchodilators and steroids Educated regarding smoking cessation NicoDerm patch in place We will continue to follow I have personally seen and examined the patient, performed the documentation and the assessment and plan as written. Number of minutes spent on the visit: 10.
[2023-11-17 20:21] LABS: Glucose,Whole Blood 147 mg/dL (70-110)
[2023-11-18 05:53] LABS: Glucose,Whole Blood 143 mg/dL (70-110)
[2023-11-18 12:19] LABS: Glucose,Whole Blood 231 mg/dL (70-110)
[2023-11-18] MEDS ORDERED: DEXTROSE 50% SYRINGE 50 ML IVP PRN ×2 (13:28)
--- NOTE | 2023-11-18 14:45 | P.PN ---
Subjective Progress Note Date: 11/18/23 Patient is a 73-year-old white male with past medical history significant for COPD, chronic ongoing tobacco dependence, chronic hypoxemic respiratory failure on 2-1/2 to 3 L, hypertension, among other things. His primary care provider is Dr. Chavez Shelton. 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 Patient presented to the emergency room yesterday afternoon via EMS. Reportedly noted to be lethargic and difficult to arouse at home. 3 to 4 days before this, his noted flulike symptoms. These included a runny nose, dry cough, fever, generalized malaise, and loose stools. When EMS arrived to the scene, they noted his blood pressure to be hypotensive. On arrival to the emergency room he was fluid resuscitated with a total of 3 L crystalloid fluid bolus. He was then started on low-dose norepinephrine which is currently infusing at 0.03 mcg/kg/min. He is also bradycardic, sinus bradycardia at 58 bpm. Normal saline continues to infuse at 130 MLS per hour. Chest x-ray demonstrated chronic interstitial changes with hyperinflation consistent with COPD. No focal consolidations, pleural effusions, or pneumothorax. He was hypercapnic in the emergency room. ABGs demonstrated PaO2 of 105, pCO2 of 52, pH of 7.25. He was then placed on the BiPAP in the emergency room. He is currently in the intensive care unit, room 251. He is on BiPAP with settings 12/6 and FiO2 of 50%. Ac hieving tidal volumes of around 400, respiratory rate in the mid 20s. He is alert and oriented x 3. No further signs of CO2 narcosis. Appears fairly comfortable. He is actively wheezing. Endorses the above-mentioned symptoms. Denies any chest pain or hemoptysis. Denies any significant sputum production. CBC unremarkable. No leukocytosis. D-dimer low. BMP includes a sodium 133, potassium 4.4, chloride 100, serum bicarb 29, BUN 21, creatinine 1.4, glucose 144. Lactic acid not significantly elevated. LFTs not elevated. NT proBNP 1330. Troponin 0.032. EKG shows sinus bradycardia with nonspecific T wave abnormalities. Nondiagnostic for acute ischemia. Viral screen negative for in fluenza, RSV, COVID. Afebrile. Patient is admitted to the intensive care unit. On 11/13/2023, the patient is being seen for a follow-up. The patient is currently in the intensive care unit. Feeling well. He is off the BiPAP and the patient is currently on 5 L of oxygen nasal cannula. Cough and congestion is still present although improved compared to yesterday. The white cell count is at 8.9 with a hemoglobin of 11.4 and a BUN of 12 with a creatinine of 0.5 and sodium levels of 137. Troponin was 0.014. Remains on bronchodilators. Remains on IV Solu-Medrol. Remains on Zithromax. Blood cultures been negative thus far. Awake and alert and communicating. No signs of any CO2 narcosis. On 11/14/2023, patient is being seen for a follow-up. The patient is stable. No interval worsening shortness of breath. Transferred out of the intensive care unit yesterday. He is currently on oxygen at 4 L with a pulse ox of 93%. No altered mentation. No chest pain. Tolerating diet. Resting comfortably in bed. Remains endocarditis. Remains on steroids 60 mg of IV Solu-Medrol every 6 hours. No increased anxiety. White cell count of 8 with a hemoglobin 11.4 and a platelet count of 202. BUN is 12 with a creatinine of 0.5 and a sodium levels of 137 and a potassium level of 3.7. 11/15/2023, the patient is on the medical floor. Very limited exam in terms of exercise capacity and the patient essentially in bed. Trying to move or walk short distances and make the patient very labored in terms of his breathing. Remains on Perforomist and Pulmicort nebulized treatments twice a day, DuoNeb up To 5, IV Solu-Medrol 60 Mg Every 6 Hours. The Patient Is Also Running a White Cell Count of 8.9 with a Hemoglobin 11.4 and a Platelet Count of 202. BUN Is 12 with a Creatinine of 0.5. Tolerating Diet. No Signs of Any Suicidal Process. No Chest Pain. The patient is seen today November 17, 2023 in follow-up on the regular medical floor. He is currently resting in bed. Awake and alert in no acute distress. Maintaining O2 saturations in the 90s on 4 L/min per nasal cannula. He is feeling better today. He is continue on DuoNeb inhalations, Pulmicort and Perforomist inhalations, Solu-Medrol. Blood cultures revealed no growth. NicoDerm patch in place. The patient is seen today November 18, 2023 in follow-up on the regular medical floor. He is currently sitting up in a chair. He has been up ambulating with a walker and assistance. He is feeling better today compared to yesterday. He is still on 4 L high flow nasal cannula. Still somewhat bronchospastic and wheezing. Continued on DuoNeb ventilations, Pulmicort and perform scintillations, Solu-Medrol and Singulair. NicoDerm patch in place. Heparin for DVT prophylaxis. Blood cultures revealed no growth. Blood sugar 231. Objective - Vital Signs Vital signs: Vital Signs Temp 97.7 F 11/18/23 14:00 Pulse 77 11/18/23 14:00 Resp 19 11/18/23 14:00 BP 135/75 11/18/23 14:00 Pulse Ox 98 11/18/23 14:00 FiO2 35 11/12/23 16:11 Intake & Output 11/17/23 11/18/23 11/18/23 18:59 06:59 18:59 Intake Total 500 Output Total 400 250 Balance 100 -250 Weight 51 kg Intake: Oral 500 Output: Urine 400 250 Other: Voiding Method Urinal Urinal # Voids 1 - Exam GENERAL EXAM: Alert, 73-year-old male, sitting in a chair, currently on 4 L of oxygen by nasal cannula. HEAD: Normocephalic and atraumatic EYES: Normal reaction of pupils, equal size. NOSE: Clear with pink turbinates. THROAT: No erythema or exudates. NECK: No masses, no JVD. CHEST: No chest wall deformity. LUNGS: Equal air entry with expiratory wheezes heard throughout. CVS: S1 and S2 normal with no audible murmur, regular rhythm. No extra heart sounds ABDOMEN: No hepatosplenomegaly, active bowel sounds, no guarding or rigidity. SPINE: No scoliosis or deformity SKIN: No rashes CENTRAL NERVOUS SYSTEM: No focal deficits, tone is normal in all 4 extremities. EXTREMITIES: There is no peripheral edema, clubbing, or cyanosis. Peripheral pulses are intact. - Labs CBC & Chem 7: 11/13/23 04:47 11/13/23 04:47 Labs: Abnormal Lab Results - Last 24 Hours (Table) 11/17/23 11/18/23 11/18/23 Range/Units 20:19 05:51 12:18 POC Glucose (mg/dL) 147 H 143 H 231 H (70-110) mg/dL Assessment and Plan Assessment: Acute COPD exacerbation, chest x-ray done on admission shows hyperinflation consistent with COPD and chronic interstitial changes. No focal consolidation, pneumothorax, or pleural effusion. Negative for influenza, RSV, COVID. Clinically improved and the patient seems to be less short of breath, currently on 4 L of oxygen by nasal cannula. Acute on chronic hypoxemic and hypercapnic respiratory failure, secondary to above, growing and the patient is currently on 4 L of oxygen nasal cannula Altered mental status and hypercapnic encephalopathy, improved with BiPAP and back to normal mentation Hypotension, and shock refractory to fluid resuscitation, initially requiring low-dose vasopressors, recovered Severe dehydration, recovered Suspect acute kidney injury, creatinine improved and her renal function has normalized History of chronic obstructive pulmonary disease Chronic hypoxemic respiratory failure, secondary to above Chronic ongoing tobacco dependence, reportedly heavy smoker for many years and currently down to 1/2 pack/day History of hypertension Rogerio: The patient was seen and evaluated Medications reviewed Continue the current treatment plan Titrate down the FiO2 as tolerated Educated regarding smoking cessation We will continue to follow I have personally seen and examined the patient, performed the documentation and the assessment and plan as written. Number of minutes spent on the visit: 10.
[2023-11-18 17:02] LABS: Glucose,Whole Blood 119 mg/dL (70-110)
[2023-11-18] MEDS: INSULIN ASPART (NovoLOG) 100 UNIT/ML VIAL SQ SCH (17:05)
[2023-11-18 20:42] LABS: Glucose,Whole Blood 141 mg/dL (70-110)
--- NOTE | 2023-11-19 03:45 | PN ---
PROGRESS NOTE SUBJECTIVE: This is a 73-year-old with COPD, aspiration pneumonia, severe COPD, pulmonary hypertension. OBJECTIVE: CARDIOVASCULAR: S1, S2. LUNGS: Scattered rhonchi and wheeze. HEMATOLOGY: Negative for Homans. PSYCH: Fair mood and affect. NEUROLOGIC: Alert and oriented x3. Continue IV Solu-Medrol, breathing treatments. Prognosis guarded. He is out of the ICU. He is doing much better. He is back to his baseline status almost. Temperature 97.5, pulse 70s, respiratory rate 16 to 18, blood pressure 134/79, O2 96 on 4 L. He has been up ambulating around the room today. Possibly go home in the next day or 2. Prognosis guarded. Continue current treatment. MMODL / IJN: [id number] /
[2023-11-19 06:07] LABS: Glucose,Whole Blood 141 mg/dL (70-110)
[2023-11-19 08:27] LABS: HCT 36.1 % (39.6-50.0); HGB 11.7 g/dL (13.0-17.0); MCH 31.9 pg (27.0-32.0); MCHC 32.4 g/dL (32.0-37.0); MCV 98.4 FL (80.0-97.0); Mean Platelet Volume 10.1 FL (9.5-12.2); NRBC Per 100 WBC 0 X 10*3/uL (0.00-0.01); Platelet Count 273 X 10*3/uL (140-440); RBC 3.67 X 10*6/uL (4.40-5.60); RDW 14.2 % (11.5-14.5); WBC 7.57 X 10*3/uL (4.50-10.00)
[2023-11-19 08:56] LABS: ALT 105 U/L (10-49); AST 28 U/L (14-35); Albumin 3.4 g/dL (3.8-4.9); Albumin/Globulin Ratio 2.27 Ratio (1.60-3.17); Alkaline Phosphatase 50 U/L (41-126); Blood Urea Nitrogen 20.3 mg/dL (9.0-27.0); Calcium 8.7 mg/dL (8.7-10.3); Carbon Dioxide 31.9 mmol/L (21.6-31.8); Chloride 99 mmol/L (96-109); Globulin 1.5 g/dL (1.6-3.3); Glucose 151 mg/dL (70-110); Potassium 4.1 mmol/L (3.5-5.5); Sodium 141 mmol/L (135-145); Total Bilirubin 0.3 mg/dL (0.3-1.2); Total Protein 4.9 g/dL (6.2-8.2)
[2023-11-19 09:07] LABS: Basophils # (M) 0 X 10*3/uL (0.00-0.10); Eosinophils # (M) 0 X 10*3/uL (0.04-0.35); Lymphocytes # (M) 0.23 X 10*3/uL (0.90-5.00); Metamyelocytes % 1 % (0-0); Monocytes # (M) 0.08 X 10*3/uL (0.20-1.00); Myelocytes % 2 % (0-0); Neutrophils # (M) 7.04 X 10*3/uL (1.80-7.70); Neutrophils % (M) 93 %; Nucleated Red Blood Cells 2 /100 WBCS; RBC Morphology Normal (Normal)
[2023-11-19 11:27] LABS: Glucose,Whole Blood 140 mg/dL (70-110)
--- NOTE | 2023-11-19 15:21 | P.PN ---
Subjective Progress Note Date: 11/19/23 Patient is a 73-year-old white male with past medical history significant for COPD, chronic ongoing tobacco dependence, chronic hypoxemic respiratory failure on 2-1/2 to 3 L, hypertension, among other things. His primary care provider is Dr. Chavez Shelton. 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 Patient presented to the emergency room yesterday afternoon via EMS. Reportedly noted to be lethargic and difficult to arouse at home. 3 to 4 days before this, his noted flulike symptoms. These included a runny nose, dry cough, fever, generalized malaise, and loose stools. When EMS arrived to the scene, they noted his blood pressure to be hypotensive. On arrival to the emergency room he was fluid resuscitated with a total of 3 L crystalloid fluid bolus. He was then started on low-dose norepinephrine which is currently infusing at 0.03 mcg/kg/min. He is also bradycardic, sinus bradycardia at 58 bpm. Normal saline continues to infuse at 130 MLS per hour. Chest x-ray demonstrated chronic interstitial changes with hyperinflation consistent with COPD. No focal consolidations, pleural effusions, or pneumothorax. He was hypercapnic in the emergency room. ABGs demonstrated PaO2 of 105, pCO2 of 52, pH of 7.25. He was then placed on the BiPAP in the emergency room. He is currently in the intensive care unit, room 251. He is on BiPAP with settings 12/6 and FiO2 of 50%. Ac hieving tidal volumes of around 400, respiratory rate in the mid 20s. He is alert and oriented x 3. No further signs of CO2 narcosis. Appears fairly comfortable. He is actively wheezing. Endorses the above-mentioned symptoms. Denies any chest pain or hemoptysis. Denies any significant sputum production. CBC unremarkable. No leukocytosis. D-dimer low. BMP includes a sodium 133, potassium 4.4, chloride 100, serum bicarb 29, BUN 21, creatinine 1.4, glucose 144. Lactic acid not significantly elevated. LFTs not elevated. NT proBNP 1330. Troponin 0.032. EKG shows sinus bradycardia with nonspecific T wave abnormalities. Nondiagnostic for acute ischemia. Viral screen negative for in fluenza, RSV, COVID. Afebrile. Patient is admitted to the intensive care unit. On 11/13/2023, the patient is being seen for a follow-up. The patient is currently in the intensive care unit. Feeling well. He is off the BiPAP and the patient is currently on 5 L of oxygen nasal cannula. Cough and congestion is still present although improved compared to yesterday. The white cell count is at 8.9 with a hemoglobin of 11.4 and a BUN of 12 with a creatinine of 0.5 and sodium levels of 137. Troponin was 0.014. Remains on bronchodilators. Remains on IV Solu-Medrol. Remains on Zithromax. Blood cultures been negative thus far. Awake and alert and communicating. No signs of any CO2 narcosis. On 11/14/2023, patient is being seen for a follow-up. The patient is stable. No interval worsening shortness of breath. Transferred out of the intensive care unit yesterday. He is currently on oxygen at 4 L with a pulse ox of 93%. No altered mentation. No chest pain. Tolerating diet. Resting comfortably in bed. Remains endocarditis. Remains on steroids 60 mg of IV Solu-Medrol every 6 hours. No increased anxiety. White cell count of 8 with a hemoglobin 11.4 and a platelet count of 202. BUN is 12 with a creatinine of 0.5 and a sodium levels of 137 and a potassium level of 3.7. 11/15/2023, the patient is on the medical floor. Very limited exam in terms of exercise capacity and the patient essentially in bed. Trying to move or walk short distances and make the patient very labored in terms of his breathing. Remains on Perforomist and Pulmicort nebulized treatments twice a day, DuoNeb up To 5, IV Solu-Medrol 60 Mg Every 6 Hours. The Patient Is Also Running a White Cell Count of 8.9 with a Hemoglobin 11.4 and a Platelet Count of 202. BUN Is 12 with a Creatinine of 0.5. Tolerating Diet. No Signs of Any Suicidal Process. No Chest Pain. The patient is seen today November 17, 2023 in follow-up on the regular medical floor. He is currently resting in bed. Awake and alert in no acute distress. Maintaining O2 saturations in the 90s on 4 L/min per nasal cannula. He is feeling better today. He is continue on DuoNeb inhalations, Pulmicort and Perforomist inhalations, Solu-Medrol. Blood cultures revealed no growth. NicoDerm patch in place. The patient is seen today November 18, 2023 in follow-up on the regular medical floor. He is currently sitting up in a chair. He has been up ambulating with a walker and assistance. He is feeling better today compared to yesterday. He is still on 4 L high flow nasal cannula. Still somewhat bronchospastic and wheezing. Continued on DuoNeb ventilations, Pulmicort and perform scintillations, Solu-Medrol and Singulair. NicoDerm patch in place. Heparin for DVT prophylaxis. Blood cultures revealed no growth. Blood sugar 231. The patient is seen today November 19, 2023 in follow-up on the regular medical floor. He is currently awake and alert in no acute distress. He is maintaining O2 saturations in the 90s on 3 L/min per nasal cannula. Blood cultures revealed no growth. White count 7.5. Hemoglobin 9.7. Platelets 273. Sodium 141. Potassium 4.1. Bicarb 32. BUN 20. Creatinine 0.7. Glucose 141. He remains on DuoNeb ventilations, Pulmicort and performing scintillations, Solu-Medrol. Remains on Singulair. NicoDerm patch in place. Heparin for DVT prophylaxis. Objective - Vital Signs Vital signs: Vital Signs Temp 98.5 F 11/19/23 13:20 Pulse 127 H 11/19/23 13:20 Resp 19 11/19/23 13:20 BP 147/75 11/19/23 13:20 Pulse Ox 90 L 11/19/23 13:20 FiO2 35 11/12/23 16:11 Intake & Output 11/18/23 11/19/23 11/19/23 18:59 06:59 18:59 Output Total 400 250 Balance -400 -250 Weight 51 kg Output: Urine 400 250 Other: Voiding Method Urinal Urinal # Voids 2 1 - Exam GENERAL EXAM: Alert, 73-year-old male, sitting in a chair, currently on 3 L of oxygen by nasal cannula. HEAD: Normocephalic and atraumatic EYES: Normal reaction of pupils, equal size. NOSE: Clear with pink turbinates. THROAT: No erythema or exudates. NECK: No masses, no JVD. CHEST: No chest wall deformity. LUNGS: Equal air entry with end expiratory wheezes heard throughout. CVS: S1 and S2 normal with no audible murmur, regular rhythm. No extra heart sounds ABDOMEN: No hepatosplenomegaly, active bowel sounds, no guarding or rigidity. SPINE: No scoliosis or deformity SKIN: No rashes CENTRAL NERVOUS SYSTEM: No focal deficits, tone is normal in all 4 extremities. EXTREMITIES: There is no peripheral edema, clubbing, or cyanosis. Peripheral pulses are intact. - Labs CBC & Chem 7: 11/19/23 06:12 11/19/23 06:12 Labs: Abnormal Lab Results - Last 24 Hours (Table) 11/18/23 11/18/23 11/19/23 Range/Units 17:00 20:37 06:06 RBC (4.40-5.60) X 10*6/uL Hgb (13.0-17.0) g/dL Hct (39.6-50.0) % MCV (80.0-97.0) FL Lymphocytes # (Manual) (0.90-5.00) X 10*3/uL Monocytes # (Manual) (0.20-1.00) X 10*3/uL Eosinophils # (Manual) (0.04-0.35) X 10*3/uL Carbon Dioxide (21.6-31.8) mmol/L BUN/Creatinine Ratio (12.00-20.00) Ratio Glucose (70-110) mg/dL POC Glucose (mg/dL) 119 H 141 H 141 H (70-110) mg/dL ALT (10-49) U/L Total Protein (6.2-8.2) g/dL Albumin (3.8-4.9) g/dL Globulin (1.6-3.3) g/dL 11/19/23 11/19/23 11/19/23 Range/Units 06:12 06:12 11:26 RBC 3.67 L (4.40-5.60) X 10*6/uL Hgb 11.7 L (13.0-17.0) g/dL Hct 36.1 L (39.6-50.0) % MCV 98.4 H (80.0-97.0) FL Lymphocytes # (Manual) 0.23 L (0.90-5.00) X 10*3/uL Monocytes # (Manual) 0.08 L (0.20-1.00) X 10*3/uL Eosinophils # (Manual) 0 L (0.04-0.35) X 10*3/uL Carbon Dioxide 31.9 H (21.6-31.8) mmol/L BUN/Creatinine Ratio 29.00 H (12.00-20.00) Ratio Glucose 151 H (70-110) mg/dL POC Glucose (mg/dL) 140 H (70-110) mg/dL ALT 105 H (10-49) U/L Total Protein 4.9 L (6.2-8.2) g/dL Albumin 3.4 L (3.8-4.9) g/dL Globulin 1.5 L (1.6-3.3) g/dL Assessment and Plan Assessment: Acute COPD exacerbation, chest x-ray done on admission shows hyperinflation consistent with COPD and chronic interstitial changes. No focal consolidation, pneumothorax, or pleural effusion. Negative for influenza, RSV, COVID. Clinically improved and the patient seems to be less short of breath, currently on 3 L of oxygen by nasal cannula. Acute on chronic hypoxemic and hypercapnic respiratory failure, secondary to above, growing and the patient is currently on 3 L of oxygen nasal cannula Altered mental status and hypercapnic encephalopathy, improved with BiPAP and back to normal mentation Hypotension, and shock refractory to fluid resuscitation, initially requiring low-dose vasopressors, recovered Severe dehydration, recovered Suspect acute kidney injury, creatinine improved and her renal function has normalized History of chronic obstructive pulmonary disease Chronic hypoxemic respiratory failure, secondary to above Chronic ongoing tobacco dependence, reportedly heavy smoker for many years and currently down to 1/2 pack/day History of hypertension Plan: The patient was seen and evaluated Medications and labs reviewed Educated regarding smoking cessation Cleared for discharge from the pulmonary standpoint Plan is for home with home care Continue home pulmonary medications Continue home oxygen Complete a prednisone taper Follow-up in the office in 1 week I have personally seen and examined the patient, performed the documentation and the assessment and plan as written. Number of minutes spent on the visit: 10.
[2023-11-19 16:48] LABS: Glucose,Whole Blood 142 mg/dL (70-110)
[2023-11-19 20:33] LABS: Glucose,Whole Blood 183 mg/dL (70-110)
[2023-11-20 05:52] LABS: Glucose,Whole Blood 131 mg/dL (70-110)
[2023-11-20 09:03] LABS: Glucose,Whole Blood 154 mg/dL (70-110)
[2023-11-20 09:17] LABS: ABG Base Excess 2.4 mmol/L; ABG HCO3 32 mmol/L (21-25); ABG Oxygen Saturation 97.3 % (94-97); ABG PH 7.26 (7.35-7.45); ABG PO2 107 mmHg (83-108); Allen Test Performed? Yes
[2023-11-20] MEDS: methylPREDNISolone SOD SUCCI 125 MG/2 ML VIAL IV STA (09:17)
[2023-11-20 09:23] LABS: ABG PCO2 72 mmHg (35-45)
[2023-11-20 09:34] LABS: Glucose,Whole Blood 273 mg/dL (70-110)
[2023-11-20] MEDS: CISATRACURIUM 2 MG/ML 5 ML VIAL IV ONE (09:48)
[2023-11-20] MEDS: FUROSEMIDE 10 MG/ML 4 ML VIAL IV STA (09:48)
[2023-11-20] MEDS: propofoL 100 ML IV ONE (09:49)
[2023-11-20 10:18] LABS: HCT 46.4 % (39.0-53.0); MCH 31.4 pg (25.0-35.0); MCHC 31.5 g/dL (31.0-37.0); MCV 99.7 fL (80.0-100.0); Macrocytosis Slight; Mean Platelet Volume 8.6; Platelet Count 348 k/uL (150-450); RBC 4.66 m/uL (4.30-5.90); RDW 14.4 % (11.5-15.5)
--- NOTE | 2023-11-20 10:24 | XR ---
EXAMINATION TYPE: XR chest 1V portable DATE OF EXAM: 11/20/2023 Comparison: 11/14/2023 Clinical History: 73 year-old male respiratory distress Findings: The patient is rotated towards the right altering normal cardiomediastinal contours. Hyperinflation. Heart mildly enlarged. Diffuse interstitial and patchy opacities especially in the mid and lower lung s appear to have increased. There may be trace effusions. Impression: Correlate for COPD with superimposed interstitial lung disease, slightly worsened in the interval. In terstitial pulmonary edema is favored.
[2023-11-20 10:26] LABS: ABG Base Excess 5.8 mmol/L; ABG HCO3 33 mmol/L (21-25); ABG Oxygen Saturation 99.7 % (94-97); ABG PCO2 60 mmHg (35-45); ABG PH 7.36 (7.35-7.45); ABG PO2 208 mmHg (83-108); Allen Test Performed? Yes
--- NOTE | 2023-11-20 10:26 | XR ---
EXAMINATION TYPE: XR chest 1V portable DATE OF EXAM: 11/20/2023 1004 hours Comparison: 11/20/2023 0924 hours Clinical History: 73-year-old male Tube placement Findings: ET and NG tubes are satisfactory. Heart upper limits of normal in size. Aorta within normal limits. R ight IJ CVC tip at the caval atrial junction. Suspect some chronic pleural parenchymal scarring at th e periphery of the right base. Diffuse interstitial and patchy opacities, throughout the left lung an d at the right lower lung relatively similar. There may be trace effusions. Impression: Suspect COPD with superimposed interstitial and patchy pulmonary edema asymmetrically greater on the left. Overall similar. Interval intubation, right IJ line placement, and NG tube placement.
[2023-11-20 10:32] LABS: ALT 238 U/L (4-49); AST 239 U/L (17-59); African American GFR (CKD) >90 (>60 ml/min/1.73 sqM); Albumin 3.5 g/dL (3.5-5.0); Alkaline Phosphatase 91 U/L (38-126); Anion Gap 2 mmol/L; Blood Urea Nitrogen 30 mg/dL (9-20); Calcium 8.6 mg/dL (8.4-10.2); Carbon Dioxide 34 mmol/L (22-30); Chloride 99 mmol/L (98-107); Glucose 292 mg/dL (74-99); Non-African American GFR(CKD) 86 (>60 ml/min/1.73 sqM); Potassium 4.2 mmol/L (3.5-5.1); Sodium 135 mmol/L (137-145); Total Bilirubin 1.1 mg/dL (0.2-1.3); Total Protein 5.6 g/dL (6.3-8.2)
[2023-11-20 10:37] LABS: HGB 14.6 gm/dL (13.0-17.5)
[2023-11-20 10:48] LABS: Prothrombin Time 11.3 sec (10.0-12.5)
[2023-11-20 10:51] LABS: Partial Thromboplastin Time 19.2 sec (22.0-30.0)
[2023-11-20] MEDS: methylPREDNISolone 4 MG TAB TAPER PO SCH (11:10)
[2023-11-20] MEDS: CHLORHEXIDINE GLUCONATE 15 ML CUP MUCOUS MEM SCH (11:21)
[2023-11-20] MEDS: SODIUM CHLORIDE 0.9% 1,000 ML IV SCH (11:32)
[2023-11-20] MEDS: MORPHINE SULFATE 4 MG/ML SYRINGE IVP STA (11:32)
[2023-11-20] MEDS: NOREPINEPHRINE 4 MG in SODIUM CHLORIDE 0.9% 250 ML IV SCH (11:41)
[2023-11-20 11:47] LABS: Glucose,Whole Blood 195 mg/dL (70-110)
[2023-11-20] MEDS: DILTIAZEM 5 MG/ML 5 ML VIAL IVP STA (11:55)
[2023-11-20 12:32] LABS: Appearance,Urine Clear (Clear); Bilirubin,Urine Negative (Negative); Blood,Urine Negative (Negative); Color,Urine Yellow; Glucose,Urine (UA) 3+ (Negative); Ketones,Urine Negative (Negative); Leukocyte Esterase,Urine Negative (Negative); Nitrite,Urine Negative (Negative); Protein,Urine Trace (Negative); Urobilinogen,Urine <2.0 mg/dL (<2.0)
[2023-11-20] MEDS: HYDROmorphone 0.5 MG/0.5 ML SYRINGE IVP PRN (12:33)
[2023-11-20 12:43] LABS: Band Neutrophils % 1 %; Metamyelocytes % 2 %; Neutrophils % (M) 91 %; Nucleated Red Blood Cells 1 /100 WBC (0-0); Total Cells Counted 200
[2023-11-20 12:44] LABS: Lymphocytes # (M) 0.45 k/uL (1.0-4.8); WBC 15.1 k/uL (3.8-10.6)
--- NOTE | 2023-11-20 13:25 | US ---
EXAMINATION TYPE: US venous doppler duplex LE DATE OF EXAM: 11/20/2023 1:12 PM COMPARISON: NONE CLINICAL INDICATION: Male, 73 years old with history of Elevated d dimer, hypoxemia; Elevated D Dimer . Hypoxemia. SIDE PERFORMED: Bilateral TECHNIQUE: The lower extremity deep venous system is examined utilizing real time linear array sonog reba with graded compression, doppler sonography and color-flow sonography. VESSELS IMAGED: Common Femoral Vein Deep Femoral Vein Greater Saphenous Vein * Femoral Vein Popliteal Vein Small Saphenous Vein * Proximal Calf Veins (* superficial vessels) Right Leg: No evidence of DVT. Veins appear to have intimal wall thickening. Left Leg: No evidence of DVT. Veins appear to have intimal wall thickening. Mild subcutaneous edema at the cast. IMPRESSION: No evidence for acute DVT within the bilateral lower extremity.
--- NOTE | 2023-11-20 14:06 | P.PN ---
Subjective Progress Note Date: 11/20/23 Principal diagnosis: Patient is a 73-year-old white male with past medical history significant for COPD, chronic ongoing tobacco dependence, chronic hypoxemic respiratory failure on 2-/2 to 3 L, hypertension, among other things. His primary care provider is Dr. Chavez Shelton. 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 Patient presented to the emergency room yesterday afternoon via EMS. Reportedly noted to be lethargic and difficult to arouse at home. 3 to 4 days before this, his noted flulike symptoms. These included a runny nose, dry cough, fever, gen eralized malaise, and loose stools. When EMS arrived to the scene, they noted his blood pressure to be hypotensive. On arrival to the emergency room he was fluid resuscitated with a total of 3 L crystalloid fluid bolus. He was then started on low-dose norepinephrine which is currently infusing at 0.03 mcg/kg/min. He is also bradycardic, sinus bradycardia at 58 bpm. Normal saline continues to infuse at 130 MLS per hour. Chest x-ray demonstrated chronic interstitial changes with hyperinflation consistent with COPD. No focal consolidations, pleural effusions, or pneumothorax. He was hypercapnic in the emergency room. ABGs demonstrated PaO2 of 105, pCO2 of 52, pH of 7.25. He was then placed on the BiPAP in the emergency room. He is currently in the intensive care unit, room 251. He is on BiPAP with settings 12/6 and FiO2 of 50%. Achieving tidal volumes of around 400, respiratory rate in the mid 20s. He is alert and oriented x 3. No further signs of CO2 narcosis. Appears fairly comfortable. He is actively wheezing. Endorses the above-mentioned symptoms. Denies any chest pain or hemoptysis. Denies any significant sputum production. CBC unremarkable. No leukocytosis. D-dimer low. BMP includes a sodium 133, potassium 4.4, chloride 100, serum bicarb 29, BUN 21, creatinine 1.4, glucose 144. Lactic acid not significantly elevated. LFTs not elevated. NT proBNP 1330. Troponin 0.032. EKG shows sinus bradycardia with nonspecific T wave abnormalities. Nondiagnostic for acute ischemia. Viral screen negative for influenza, RSV, COVID. Afebrile. Patient is admitted to the intensive care unit. On 11/13/2023, the patient is being seen for a follow-up. The patient is currently in the intensive care unit. Feeling well. He is off the BiPAP and the patient is currently on 5 L of oxygen nasal cannula. Cough and congestion is still present although improved compared to yesterday. The white cell count is at 8.9 with a hemoglobin of 11.4 and a BUN of 12 with a creatinine of 0.5 and sodium levels of 137. Troponin was 0.014. Remains on bronchodilators. Remains on IV Solu-Medrol. Remains on Zithromax. Blood cultures been negative thus far. Awake and alert and communicating. No signs of any CO2 narcosis. On 11/14/2023, patient is being seen for a follow-up. The patient is stable. No interval worsening shortness of breath. Transferred out of the intensive care unit yesterday. He is currently on oxygen at 4 L with a pulse ox of 93%. No altered mentation. No chest pain. Tolerating diet. Resting comfortably in bed. Remains endocarditis. Remains on steroids 60 mg of IV Solu-Medrol every 6 hours. No increased anxiety. White cell count of 8 with a hemoglobin 11.4 and a platelet count of 202. BUN is 12 with a creatinine of 0.5 and a sodium levels of 137 and a potassium level of 3.7. 11/15/2023, the patient is on the medical floor. Very limited exam in terms of exercise capacity and the patient essentially in bed. Trying to move or walk short distances and make the patient very labored in terms of his breathing. Remains on Perforomist and Pulmicort nebulized treatments twice a day, DuoNeb up To 5, IV Solu-Medrol 60 Mg Every 6 Hours. The Patient Is Also Running a White Cell Count of 8.9 with a Hemoglobin 11.4 and a Platelet Count of 202. BUN Is 12 with a Creatinine of 0.5. Tolerating Diet. No Signs of Any Suicidal Process. No Chest Pain. The patient is seen today November 17, 2023 in follow-up on the regular medical floo r. He is currently resting in bed. Awake and alert in no acute distress. Maintaining O2 saturations in the 90s on 4 L/min per nasal cannula. He is feeling better today. He is continue on DuoNeb inhalations, Pulmicort and Perforomist inhalations, Solu-Medrol. Blood cultures revealed no growth. NicoDerm patch in place. The patient is seen today November 18, 2023 in follow-up on the regular medical floor. He is currently sitting up in a chair. He has been up ambulating with a walker and assistance. He is feeling better today compared to yesterday. He is still on 4 L high flow nasal cannula. Still somewhat bronchospastic and wheezing. Continued on DuoNeb ventilations, Pulmicort and perform scintillations, Solu-Medrol and Singulair. NicoDerm patch in place. Heparin for DVT prophylaxis. Blood cultures revealed no growth. Blood sugar 231. The patient is seen today November 19, 2023 in follow-up on the regular medical floor. He is currently awake and alert in no acute distress. He is maintaining O2 saturations in the 90s on 3 L/min per nasal cannula. Blood cultures revealed no growth. White count 7.5. Hemoglobin 9.7. Platelets 273. Sodium 141. Potassium 4.1. Bicarb 32. BUN 20. Creatinine 0.7. Glucose 141. He remains on DuoNeb ventilations, Pulmicort and performing scintillations, Solu-Medrol. Remains on Singulair. NicoDerm patch in place. Heparin for DVT prophylaxis. Patient was evaluated today on November 19, patient developed sudden onset of respiratory distress, the rapid response team evaluated the patient, and he was in severe respiratory distress. Patient received Solu-Medrol, received Lasix on the floor prior to transfer to the ICU. He was placed on a nonrebreather mask, transferred to the ICU and I evaluated the patient as soon as he arrived to the ICU. Patient seems to be in severe respiratory distress, he was extremely tachypneic, diaphoretic, tachycardic, hypertensive, and in severe distress. Hence recommended immediate intubation, patient was intubated by me with direct visualization of the vocal cords, a size 7.5 endotracheal tube was used, and he was connected to mechanical ventilation after intubation. His vent settings where addressed and he is on AC rate of 20 tidal volume 450 FiO2 100% and PEEP of 5. ABG postintubation showed a pO2 of 208 pCO2 of 60 pH of 7.36 his FiO2 was cut down to 50% and kept on the same vent settings as ordered the rest of the labs were reviewed and they noted to be unremarkable. His liver enzymes were noted but elevated. WBC count showed 15.1 hemoglobin 14.6. Chest x-ray showed bilateral airspace disease, suggestive of pneumonia,, dramatic worsening compared to the chest x-ray done on 11/14/2023, hence I am strongly suspecting that the patient may have developed aspiration pneumonia. The patient will be treated with Zosyn for this abnormal chest x-ray for now. Family was updated on his condition at the bedside. After intubating the patient, patient was hypotensive, central line was established, arterial line was established at the same time Objective - Vital Signs Vital signs: Vital Signs Temp 99.2 F 11/20/23 12:00 Pulse 76 11/20/23 13:00 Resp 16 11/20/23 13:00 BP 109/64 11/20/23 13:00 Pulse Ox 96 11/20/23 13:00 FiO2 50 11/20/23 12:00 Intake & Output 11/19/23 11/20/23 11/20/23 18:59 06:59 18:59 Intake Total 1115.407 Output Total 366 607 1697 Balance -300 -700 -359.593 Intake: IV 1070 Sodium Chloride 0.9% 1, 1070 000 ml @ 20 mls/hr IV . Q24H [facility] Rx#:[id number] Intake, IV Titration 45.407 Amount Norepinephrine 4 mg In 13.635 Sodium Chloride 0.9% 250 ml @ 0.03 MCG/KG/MIN 5. 829 mls/hr IV .Q24H [facility] Rx#:[id number] propofoL 1,000 mg In 31.772 Empty Bag 1 bag @ 15 MCG/ KG/MIN 4.59 mls/hr IV . [id number] [facility] Rx#:[id number] Output: Urine 712 801 6479 Other: Voiding Method Urinal Indwelling Catheter ABP, PAP, CO, CI - Last Documented Arterial Blood Pressure 97/71 - Exam General: Reveals 73-year-old white male in severe respiratory distress extremely tachypneic, diaphoretic, on nonrebreather mask Skin: Skin is warm and dry and no rashes or lesions are noted. Eye: Pupils are equal, round and reactive to light, extra-ocular movements are intact; there is normal conjunctiva bilaterally. Ears, nose, mouth and throat: There are moist mucous membranes and no oral lesions. Neck: The neck is supple, there is no tenderness or JVD. Cardiovascular: Tachycardic, distant S1-S2, no S3 gallop. No murmur. Respiratory: Diffuse expiratory rhonchi and wheezes bilaterally Gastrointestinal: Soft, non-distended, non-tender abdomen without masses or organomegaly noted. There is no rebound or guarding present. Bowel sounds are unremarkable. Back: There is no tenderness to palpation in the midline. There is no obvious deformity. Musculoskeletal: Normal ROM, no tenderness, There is no pedal edema. There is no calf tenderness or swelling. No cords were appreciated. Neurological: Awake, follows instruction but in severe respiratory distress. Psychiatric: Anxious mood, flat affect, relatively normal mental status otherwise - Labs CBC & Chem 7: 11/20/23 10:14 11/20/23 10:14 Labs: Abnormal Lab Results - Last 24 Hours (Table) 11/19/23 11/19/23 11/20/23 Range/Units 16:47 20:32 05:50 WBC (3.8-10.6) k/uL Neutrophils # (Manual) (1.3-7.7) k/uL Lymphocytes # (Manual) (1.0-4.8) k/uL Metamyelocytes # (Man) (0) k/uL Nucleated RBCs (0-0) /100 WBC APTT (22.0-30.0) sec D-Dimer (<0.60) mg/L FEU ABG pH (7.35-7.45) ABG pCO2 (35-45) mmHg ABG pO2 (83-108) mmHg ABG HCO3 (21-25) mmol/L ABG O2 Saturation (94-97) % Sodium (137-145) mmol/L Carbon Dioxide (22-30) mmol/L BUN (9-20) mg/dL Glucose (74-99) mg/dL POC Glucose (mg/dL) 142 H 183 H 131 H (70-110) mg/dL AST (17-59) U/L ALT (4-49) U/L Total Protein (6.3-8.2) g/dL Urine Protein (Negative) Urine Glucose (UA) (Negative) 11/20/23 11/20/23 11/20/23 Range/Units 09:03 09:10 09:33 WBC (3.8-10.6) k/uL Neutrophils # (Manual) (1.3-7.7) k/uL Lymphocytes # (Manual) (1.0-4.8) k/uL Metamyelocytes # (Man) (0) k/uL Nucleated RBCs (0-0) /100 WBC APTT (22.0-30.0) sec D-Dimer (<0.60) mg/L FEU ABG pH 7.26 L (7.35-7.45) ABG pCO2 72 H* (35-45) mmHg ABG pO2 (83-108) mmHg ABG HCO3 32 H (21-25) mmol/L ABG O2 Saturation 97.3 H (94-97) % Sodium (137-145) mmol/L Carbon Dioxide (22-30) mmol/L BUN (9-20) mg/dL Glucose (74-99) mg/dL POC Glucose (mg/dL) 154 H 273 H (70-110) mg/dL AST (17-59) U/L ALT (4-49) U/L Total Protein (6.3-8.2) g/dL Urine Protein (Negative) Urine Glucose (UA) (Negative) 11/20/23 11/20/23 11/20/23 Range/Units 10:10 10:14 10:14 WBC 15.1 H (3.8-10.6) k/uL Neutrophils # (Manual) 13.80 H (1.3-7.7) k/uL Lymphocytes # (Manual) 0.45 L (1.0-4.8) k/uL Metamyelocytes # (Man) 0.30 H (0) k/uL Nucleated RBCs 1 H (0-0) /100 WBC APTT 19.2 L (22.0-30.0) sec D-Dimer 5.15 H (<0.60) mg/L FEU ABG pH (7.35-7.45) ABG pCO2 (35-45) mmHg ABG pO2 (83-108) mmHg ABG HCO3 (21-25) mmol/L ABG O2 Saturation (94-97) % Sodium (137-145) mmol/L Carbon Dioxide (22-30) mmol/L BUN (9-20) mg/dL Glucose (74-99) mg/dL POC Glucose (mg/dL) (70-110) mg/dL AST (17-59) U/L ALT (4-49) U/L Total Protein (6.3-8.2) g/dL Urine Protein Trace H (Negative) Urine Glucose (UA) 3+ H (Negative) 11/20/23 11/20/23 11/20/23 Range/Units 10:14 10:17 11:46 WBC (3.8-10.6) k/uL Neutrophils # (Manual) (1.3-7.7) k/uL Lymphocytes # (Manual) (1.0-4.8) k/uL Metamyelocytes # (Man) (0) k/uL Nucleated RBCs (0-0) /100 WBC APTT (22.0-30.0) sec D-Dimer (<0.60) mg/L FEU ABG pH (7.35-7.45) ABG pCO2 60 H (35-45) mmHg ABG pO2 208 H (83-108) mmHg ABG HCO3 33 H (21-25) mmol/L ABG O2 Saturation 99.7 H (94-97) % Sodium 135 L (137-145) mmol/L Carbon Dioxide 34 H (22-30) mmol/L BUN 30 H (9-20) mg/dL Glucose 292 H (74-99) mg/dL POC Glucose (mg/dL) 195 H (70-110) mg/dL AST 239 H (17-59) U/L ALT 238 H (4-49) U/L Total Protein 5.6 L (6.3-8.2) g/dL Urine Protein (Negative) Urine Glucose (UA) (Negative) Assessment and Plan Assessment: Impression: Acute hypoxic and hypercapnic respiratory failure, secondary to bilateral pneumonia, suspect aspiration pneumonia and acute exacerbation of COPD. Patient required intubation and mechanical ventilation on 11/20/2023 Altered mental status and hypercapnic encephalopathy, improved with BiPAP and back to normal mentation Hypotension, most likely secondary to sedation, although the possibility of sepsis and septic shock is not entirely ruled out but felt to be less likely Severe dehydration, on his initial presentation, and that has resolved. Acute kidney injury History of chronic obstructive pulmonary disease Chronic hypoxemic respiratory failure, secondary to above Chronic ongoing tobacco dependence, reportedly heavy smoker for many years and currently down to 1/2 pack/day History of hypertension Recommendation: Patient was seen in the ICU, intubated and mechanically ventilated hence we will continue ventilatory support Continue hemodynamic support use norepinephrine if necessary. Give patient fluid boluses for low blood pressure Continue propofol and sedate accordingly, follow protocol. Address nutritional support/enteral feeding in the next 24 hours Antibiotics in the form of Zosyn for presumptive aspiration pneumonia Check sputum blood cultures and urine cultures Continue GI DVT prophylaxis Patient is critically ill, critical care time is over 40 minutes not including the time spent on procedures Continue to follow Time with Patient: Greater than 30
--- NOTE | 2023-11-20 14:59 | OP ---
OPERATIVE REPORT DATE OF SERVICE : PROCEDURE PERFORMED: Placement of a right internal jugular triple-lumen catheter. PREOPERATIVE DIAGNOSIS: Acute hypoxic and hypercapnic respiratory failure. POSTOPERATIVE DIAGNOSIS: Acute hypoxic and hypercapnic respiratory failure. ANESTHESIA USED: 2 mL of 1% lidocaine. DESCRIPTION OF PROCEDURE: The patient was placed in a Trendelenburg position, the area of the right cervical region was prepared in a sterile fashion, drapes were applied. Then, the area was locally anesthetized, and using the posterior approach, the right internal jugular vein was easily cannulated, a guidewire was placed, area around the guidewire was dilated, then a triple-lumen catheter was inserted over the guidewire, and the guidewire was removed. Good blood flow and noted in the 3 different ports of the triple-lumen catheter, line was secured using 3.0 silk sutures, a chest x-ray showed adequate placement of the line and no complications. MMODL / IJN: [id number] /
--- NOTE | 2023-11-20 15:02 | OP ---
OPERATIVE REPORT DATE OF SERVICE : PROCEDURE PERFORMED: Placement of right radial arterial line. PREOPERATIVE DIAGNOSIS: Acute hypoxic and hypercapnic respiratory failure, requiring intubation and mechanical ventilation. POSTOPERATIVE DIAGNOSIS: Acute hypoxic and hypercapnic respiratory failure, requiring intubation and mechanical ventilation. ANESTHESIA USED: None deployed. DESCRIPTION OF PROCEDURE: The patient was placed in the supine position, the right wrist was prepared in a sterile fashion. Drapes were applied. Then, the right radial artery was palpated, easily cannulated and a guidewire was placed. A Cook catheter was inserted over the guidewire, and the guidewire was removed. Good blood flow, good waveform, no complications. Line was secured using 3.0 silk sutures. MMODL / IJN: [id number] /
[2023-11-20] MEDS: PIPERACILLIN-TAZOBACTAM 3.375 GM in SODIUM CHLORIDE 0.9% 100 ML IVPB SCH (15:04)
--- NOTE | 2023-11-20 15:08 | OP ---
OPERATIVE REPORT DATE OF SERVICE : PROCEDURE PERFORMED: Endotracheal intubation. PREOPERATIVE DIAGNOSIS: Acute respiratory failure, requiring intubation and mechanical ventilation. POSTOPERATIVE DIAGNOSIS: Acute respiratory failure, requiring intubation and mechanical ventilation. ANESTHESIA USED: The patient received propofol 50 mg, morphine 4 mg, and Nimbex 10 mg IV push. DESCRIPTION OF PROCEDURE: The patient was placed in the supine position, the patient was given medications as noted above, and after adequate sedation and paralysis, a GlideScope was used, a size 4 blade was used, the tongue was depressed, vocal cords were visualized and noted to be patent, and a size 7.5 endotracheal tube was used, advanced down to the vocal cords with direct visualization, the stylet was removed after passing the vocal cords, the cuff was inflated, there was a color change noted, and the cuff was inflated after that. Chest x-ray showed adequate placement of the endotracheal tube and no complications. MMODL / IJN: [id number] /
[2023-11-20] MEDS: SODIUM CHLORIDE 0.9% 2,000 ML IV ONE (16:28)
[2023-11-20 17:19] LABS: Glucose,Whole Blood 172 mg/dL (70-110)
[2023-11-20 20:13] LABS: Glucose,Whole Blood 157 mg/dL (70-110)
[2023-11-20 21:49] LABS: Magnesium 1.7 mg/dL (1.6-2.3); Potassium 3.2 mmol/L (3.5-5.1)
[2023-11-20] MEDS: MAGNESIUM SULFATE-D5W PMX 1 GM in DEXTROSE/WATER 1 100ML.BAG IVPB ONE (23:01)
[2023-11-20] MEDS: POTASSIUM BICARBONATE/CIT AC 20 MEQ TABLET.EFF NG-TUBE SCH (23:01)
--- NOTE | 2023-11-21 04:59 | PN ---
PROGRESS NOTE DATE OF SERVICE: 11/19/2023 SUBJECTIVE: A 73-year-old white male, COPD exacerbation, pulmonary hypertension. He says he wants to go home for the last 2 days. I told him to wait till tomorrow for possible discharge. He is still compliance with his medications when he goes home, etc. OBJECTIVE: LUNGS: Scattered wheezes x4. Mild rhonchi. CARDIOVASCULAR: S1, S2. HEMATOLOGY: Negative Homans. PSYCH: Fair mood and affect. NEUROLOGIC: Alert and oriented x3. ASSESSMENT: Status post ventilator, hypotension, sepsis, chronic obstructive pulmonary disease, pulmonary hypertension, coronary artery disease. Prognosis guarded. He has had severe COPD. Prognosis very guarded on going home. MMODL / IJN: [id number] /
[2023-11-21 05:11] LABS: ABG Base Excess 9.8 mmol/L; ABG HCO3 33 mmol/L (21-25); ABG PCO2 40 mmHg (35-45); ABG PH 7.53 (7.35-7.45); ABG PO2 77 mmHg (83-108); Allen Test Performed? Yes
[2023-11-21 05:24] LABS: African American GFR (CKD) >90 (>60 ml/min/1.73 sqM); Anion Gap -4 mmol/L; Blood Urea Nitrogen 18 mg/dL (9-20); Carbon Dioxide 26 mmol/L (22-30); Chloride 117 mmol/L (98-107); Glucose 102 mg/dL (74-99); Non-African American GFR(CKD) >90 (>60 ml/min/1.73 sqM); Sodium 139 mmol/L (137-145)
[2023-11-21 05:28] LABS: Calcium 5.4 mg/dL (8.4-10.2)
[2023-11-21 05:30] LABS: Basophils % (A) 0 %; Eosinophils % (A) 0 %; HCT 34.3 % (39.0-53.0); Lymphocytes # (A) 0.3 k/uL (1.0-4.8); Lymphocytes % (A) 2 %; MCH 32.5 pg (25.0-35.0); MCHC 33.1 g/dL (31.0-37.0); Mean Platelet Volume 8.1; Monocytes # (A) 0.5 k/uL (0-1.0); Monocytes % (A) 4 %; Neutrophils # (A) 12.9 k/uL (1.3-7.7); Neutrophils % (A) 93 %; Platelet Count 238 k/uL (150-450); RDW 14.4 % (11.5-15.5); WBC 13.9 k/uL (3.8-10.6)
[2023-11-21 05:32] LABS: HGB 11.4 gm/dL (13.0-17.5)
[2023-11-21] MEDS: POTASSIUM BICARBONATE/CIT AC 20 MEQ TABLET.EFF NG-TUBE SCH (05:40)
[2023-11-21] MEDS: MAGNESIUM SULFATE-D5W PMX 1 GM in DEXTROSE/WATER 1 100ML.BAG IVPB SCH (06:11)
[2023-11-21] MEDS: CALCIUM GLUCONATE IN NACL 1 GM in SALINE 1 100ML.BAG IVPB ONE (06:25)
[2023-11-21 06:29] LABS: Glucose,Whole Blood 125 mg/dL (70-110)
--- NOTE | 2023-11-21 06:40 | XR ---
EXAMINATION TYPE: XR chest 1V portable DATE OF EXAM: 11/21/2023 COMPARISON: 11/20/2023 HISTORY: Tube placement TECHNIQUE: Single frontal view of the chest is obtained. FINDINGS: The ET tube is approximately 5.2 cm above the emmett. There is no change in the NG tube or right jugu lar venous catheter. There is been a mild reduction in the left-sided partially consolidative opacity. There are persisten t small bilateral pleural effusions. There is no pneumothorax. IMPRESSION: 1. ET tube 5.2 cm above the emmett. 2. Mild improvement in the left lung opacification. 3. Persistent small pleural effusions.
--- NOTE | 2023-11-21 08:11 | PN ---
PROGRESS NOTE SUBJECTIVE: He remains in ICU. He had a chest x-ray today. ET tube 5.2 cm above his emmett. Mild improvement of left lung opacifications persist. Small pleural effusions. The patient is on a ventilator, possibly he had some flash edema of both legs. He is in severe respiratory distress. He is on the ventilator in ICU. OBJECTIVE: CARDIOVASCULAR: S1, S2. LUNGS: Scattered rhonchi and wheeze. HEMATOLOGY: Negative for Homans. PSYCH: He is on the vent. ASSESSMENT: Leukocytosis secondary to possible aspiration pneumonia, sepsis, acute hypoxemic hypercapnic respiratory failure, severe end-stage COPD, dehydration, hypotension, chronic nicotine addiction, hypertension, renal ventilator continue broad-spectrum antibiotics, vasopressor, fluid boluses, norepinephrine has been given, remains sepsis workup. MMODL / IJN: [id number] /
[2023-11-21] MEDS: AZITHROMYCIN 500 MG in SODIUM CHLORIDE 0.9% 250 ML IVPB SCH (09:43)
[2023-11-21] MEDS: SODIUM CHLORIDE 0.9% 1,000 ML IV ONE (09:47)
--- NOTE | 2023-11-21 11:07 | P.PN ---
Subjective Progress Note Date: 11/21/23 Principal diagnosis: Acute hypoxic and hypercapnic respiratory failure due to acute exacerbation of COPD Patient is a 73-year-old white male with past medical history significant for COPD, chronic ongoing tobacco dependence, chronic hypoxemic respiratory failure on 2-1/2 to 3 L, hypertension, among other things. His primary care provider is Dr. Chavez Shelton. 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 Patient presented to the emergency room yesterday afternoon via EMS. Reportedly noted to be lethargic and difficult to arouse at home. 3 to 4 days before this, his noted flulike symptoms. These included a runny nose, dry cough, fever, generalized malaise, and loose stools. When EMS arrived to the scene, they noted his blood pressure to be hypotensive. On arrival to the emergency room he was fluid resuscitated with a total of 3 L crystalloid fluid bolus. He was then started on low-dose norepinephrine which is currently infusing at 0.03 mcg/kg/mi n. He is also bradycardic, sinus bradycardia at 58 bpm. Normal saline continues to infuse at 130 MLS per hour. Chest x-ray demonstrated chronic interstitial changes with hyperinflation consistent with COPD. No focal consolidations, pleural effusions, or pneumothorax. He was hypercapnic in the emergency room. ABGs demonstrated PaO2 of 105, pCO2 of 52, pH of 7.25. He was then placed on the BiPAP in the emergency room. He is currently in the intensive care unit, room 251. He is on BiPAP with settings 12/6 and FiO2 of 50%. Achieving tidal volumes of around 400, respiratory rate in the mid 20s. He is alert and oriented x 3. No further signs of CO2 narcosis. Appears fairly comfortable. He is actively wheezing. Endorses the above-mentioned symptoms. Denies any chest pain or hemoptysis. Denies any significant sputum production. CBC unremarkable. No leukocytosis. D-dimer low. BMP includes a sodium 133, potassium 4.4, chloride 100, serum bicarb 29, BUN 21, creatinine 1.4, glucose 144. Lactic acid not significantly elevated. LFTs not elevated. NT proBNP 1330. Troponin 0.032. EKG shows sinus bradycardia with nonspecific T wave abnormalities. Nondiagnostic for acute ischemia. Viral screen negative for influenza, RSV, COVID. Afebrile. Patient is admitted to the intensive care unit. On 11/13/2023, the patient is being seen for a follow-up. The patient is currently in the intensive care unit. Feeling well. He is off the BiPAP and the patient is currently on 5 L of oxygen nasal cannula. Cough and congestion is still present although improved compared to yesterday. The white cell count is at 8.9 with a hemoglobin of 11.4 and a BUN of 12 with a creatinine of 0.5 and sodium levels of 137. Troponin was 0.014. Remains on bronchodilators. Remains on IV Solu-Medrol. Remains on Zithromax. Blood cultures been negative thus far. Awake and alert and communicating. No signs of any CO2 narcosis. On 11/14/2023, patient is being seen for a follow-up. The patient is stable. No interval worsening shortness of breath. Transferred out of the intensive care unit yesterday. He is currently on oxygen at 4 L with a pulse ox of 93%. No altered mentation. No chest pain. Tolerating diet. Resting comfortably in bed. Remains endocarditis. Remains on steroids 60 mg of IV Solu-Medrol every 6 hours. No increased anxiety. White cell count of 8 with a hemoglobin 11.4 and a platelet count of 202. BUN is 12 with a creatinine of 0.5 and a sodium levels of 137 and a potassium level of 3.7. 11/15/2023, the patient is on the medical floor. Very limited exam in terms of exercise capacity and the patient essentially in bed. Trying to move or walk short distances and make the patient very labored in terms of his breathing. Remains on Perforomist and Pulmicort nebulized treatments twice a day, DuoNeb up To 5, IV Solu-Medrol 60 Mg Every 6 Hours. The Patient Is Also Running a White Cell Count of 8.9 with a Hemoglobin 11.4 and a Platelet Count of 202. BUN Is 12 with a Creatinine of 0.5. Tolerating Diet. No Signs of Any Suicidal Process. No Chest Pain. The patient is seen today November 17, 2023 in follow-up on the regular medical floor. He is currently resting in bed. Awake and alert in no acute distress. Maintaining O2 saturations in the 90s on 4 L/min per nasal cannula. He is feeling better today. He is continue on DuoNeb inhalations, Pulmicort and Perforomist inhalations, Solu-Medrol. Blood cultures revealed no growth. NicoDerm patch in place. The patient is seen today November 18, 2023 in follow-up on the regular medical floor. He is currently sitting up in a chair. He has been up ambulating with a walker and assistance. He is feeling better today compared to yesterday. He is still on 4 L high flow nasal cannula. Still somewhat bronchospastic and wheezing. Continued on DuoNeb ventilations, Pulmicort and perform scintillat ions, Solu-Medrol and Singulair. NicoDerm patch in place. Heparin for DVT prophylaxis. Blood cultures revealed no growth. Blood sugar 231. The patient is seen today November 19, 2023 in follow-up on the regular medical floor. He is currently awake and alert in no acute distress. He is maintaining O2 saturations in the 90s on 3 L/min per nasal cannula. Blood cultures revealed no growth. White count 7.5. Hemoglobin 9.7. Platelets 273. Sodium 141. Potassium 4.1. Bicarb 32. BUN 20. Creatinine 0.7. Glucose 141. He remains on DuoNeb ventilations, Pulmicort and performing scintillations, Solu-Medrol. Remains on Singulair. NicoDerm patch in place. Heparin for DVT prophylaxis. Patient was evaluated today on November 19, patient developed sudden onset of respiratory distress, the rapid response team evaluated the patient, and he was in severe respiratory distress. Patient received Solu-Medrol, received Lasix on the floor prior to transfer to the ICU. He was placed on a nonrebreather mask, transferred to the ICU and I evaluated the patient as soon as he arrived to the ICU. Patient seems to be in severe respiratory distress, he was extremely tachypneic, diaphoretic, tachycardic, hypertensive, and in severe distress. Hence recommended immediate intubation, patient was intubated by me with direct visualization of the vocal cords, a size 7.5 endotracheal tube was used, and he was connected to mechanical ventilation after intubation. His vent settings where addressed and he is on AC rate of 20 tidal volume 450 FiO2 100% and PEEP of 5. ABG postintubation showed a pO2 of 208 pCO2 of 60 pH of 7.36 his FiO2 was cut down to 50% and kept on the same vent settings as ordered the rest of the labs were reviewed and they noted to be unremarkable. His liver enzymes were noted but elevated. WBC count showed 15.1 hemoglobin 14.6. Chest x-ray showed bilateral airspace disease, suggestive of pneumonia,, dramatic worsening compared to the chest x-ray done on 11/14/2023, hence I am strongly suspecting that the patient may have developed aspiration pneumonia. The patient will be treated with Zosyn for this abnormal chest x-ray for now. Family was updated on his condition at the bedside. After intubating the patient, patient was hypotensive, central line was established, arterial line was established at the same time Patient was evaluated today on 11/21/2023, patient remains in the ICU, he was transferred yesterday to the ICU with acute hypoxic and hypercapnic respiratory failure requiring intubation mechanical ventilation. Patient is now on assist- control rate of 20 tidal volume 450 FiO2 40% PEEP of 5 ABG showed a pO2 of 77 pCO2 40 pH of 7.53 hence I decreased his rate from 20-16. Patient is fully sedated and he is very synchronous with the ventilator. Patient remains on propofol at 55 mcg/kg/min IV fluid 0.9 at 125 cc/h he is requiring a small dose of norepinephrine at 0.02 mcg/kg/min his CVP is 2 hence I am recommending more fluid boluses and I am recommending close monitoring of his urine output in the meantime continue norepinephrine until his fluid status improves. His urine output has been in the range of 20 to 30 cc/h. Patient remains on Zosyn chest x-ray today showed slight improvement in his right lower lobe infiltrate and continues to have significant airspace disease involving the left lower lobe and left midlung. Patient is empirically on Zosyn for what seems to be an aspiration pneumonia. Considering the status is marginal, no plans to hold sedation today, will try to optimize his hemodynamic status continue antibiotics and continue bronchodilators meantime continue ventilatory support Objective - Vital Signs Vital signs: Vital Signs Temp 97.7 F 11/21/23 04:00 Pulse 64 11/21/23 09:02 Resp 20 11/21/23 07:00 BP 99/62 11/21/23 07:00 Pulse Ox 94 L 11/21/23 07:00 FiO2 40 11/21/23 08:28 Intake & Output 05/11/21/23 11/21/23 18:59 06:59 18:59 Intake Total 2597.964 2920.404 130.149 Output Total 1870 340 20 Balance 397.544 9048.404 110.149 Intake: IV 2370 2625 125 Calcium Gluconate in NaCl 100 1 gm In Saline 1 100ml. bag @ 100 mls/hr IVPB ONCE ONE Rx#:[id number] Magnesium Sulfate-D5w Pmx 100 1 gm In Dextrose/Water 1 100ml.bag @ 100 mls/hr IVPB ONCE ONE Rx#: [id number] Piperacillin-Tazobactam 3 100 .375 gm In Sodium Chloride 0.9% 100 ml @ 25 mls/hr IVPB Q8HR [facility] Rx# :[id number] Sodium Chloride 0.9% 1, 2270 2425 125 000 ml @ 125 mls/hr IV . Q8H [facility] Rx#:[id number] Intake, IV Titration 227.964 295.404 5.149 Amount Norepinephrine 4 mg In 119.437 94.821 5.149 Sodium Chloride 0.9% 250 ml @ 0.03 MCG/KG/MIN 5. 829 mls/hr IV .Q24H [facility] Rx#:[id number] propofoL 1,000 mg In 108.527 200.583 Empty Bag 1 bag @ 15 MCG/ KG/MIN 4.59 mls/hr IV . [id number] [facility] Rx#:[id number] Output: Urine 1870 340 20 Other: Voiding Method Indwelling Catheter Indwelling Catheter ABP, PAP, CO, CI - Last Documented Arterial Blood Pressure 110/62 - Exam General: 73-year-old white male, looks chronically ill, frail, intubated and mechanically ventilated, sedated with propofol Head: Atraumatic, normocephalic, endotracheal tube and orogastric tube are intact Skin: Skin is warm and dry and no rashes or lesions are noted. Eye: Pupils are equal, round and reactive to light, extra-ocular movements are intact; there is normal conjunctiva bilaterally. Ears, nose, mouth and throat: There are moist mucous membranes and no oral lesions. Neck: The neck is supple, there is no tenderness or JVD. Cardiovascular:, distant S1-S2, no S3 gallop. No murmur. Respiratory: Diminished breath sound bilaterally no crackles rhonchi or wheezes noted today. hout masses or organomegaly noted. There is no rebound or guarding present. Bowel sounds are unremarkable. Back: There is no tenderness to palpation in the midline. There is no obvious deformity. Musculoskeletal: No deformities noted. Neurological: Could not assess patient is sedated, on propofol Psychiatric: Could not assess for - Labs CBC & Chem 7: 11/21/23 04:36 11/21/23 04:36 Labs: Abnormal Lab Results - Last 24 Hours (Table) 11/20/23 11/20/23 11/20/23 Range/Units 10:10 10:14 11:46 WBC 15.1 H (3.8-10.6) k/uL RBC (4.30-5.90) m/uL Hgb (13.0-17.5) gm/dL Hct (39.0-53.0) % Neutrophils # (1.3-7.7) k/uL Neutrophils # (Manual) 13.80 H (1.3-7.7) k/uL Lymphocytes # (1.0-4.8) k/uL Lymphocytes # (Manual) 0.45 L (1.0-4.8) k/uL Metamyelocytes # (Man) 0.30 H (0) k/uL Nucleated RBCs 1 H (0-0) /100 WBC ABG pH (7.35-7.45) ABG pO2 (83-108) mmHg ABG HCO3 (21-25) mmol/L Potassium (3.5-5.1) mmol/L Chloride (98-107) mmol/L Creatinine (0.66-1.25) mg/dL Glucose (74-99) mg/dL POC Glucose (mg/dL) 195 H (70-110) mg/dL Calcium (8.4-10.2) mg/dL Urine Protein Trace H (Negative) Urine Glucose (UA) 3+ H (Negative) 11/20/23 11/20/23 11/20/23 Range/Units 17:18 20:11 21:27 WBC (3.8-10.6) k/uL RBC (4.30-5.90) m/uL Hgb (13.0-17.5) gm/dL Hct (39.0-53.0) % Neutrophils # (1.3-7.7) k/uL Neutrophils # (Manual) (1.3-7.7) k/uL Lymphocytes # (1.0-4.8) k/uL Lymphocytes # (Manual) (1.0-4.8) k/uL Metamyelocytes # (Man) (0) k/uL Nucleated RBCs (0-0) /100 WBC ABG pH (7.35-7.45) ABG pO2 (83-108) mmHg ABG HCO3 (21-25) mmol/L Potassium 3.2 L (3.5-5.1) mmol/L Chloride (98-107) mmol/L Creatinine (0.66-1.25) mg/dL Glucose (74-99) mg/dL POC Glucose (mg/dL) 172 H 157 H (70-110) mg/dL Calcium (8.4-10.2) mg/dL Urine Protein (Negative) Urine Glucose (UA) (Negative) 11/21/23 11/21/23 11/21/23 Range/Units 04:36 04:36 05:05 WBC 13.9 H (3.8-10.6) k/uL RBC 3.50 L (4.30-5.90) m/uL Hgb 11.4 L D (13.0-17.5) gm/dL Hct 34.3 L (39.0-53.0) % Neutrophils # 12.9 H (1.3-7.7) k/uL Neutrophils # (Manual) (1.3-7.7) k/uL Lymphocytes # 0.3 L (1.0-4.8) k/uL Lymphocytes # (Manual) (1.0-4.8) k/uL Metamyelocytes # (Man) (0) k/uL Nucleated RBCs (0-0) /100 WBC ABG pH 7.53 H (7.35-7.45) ABG pO2 77 L (83-108) mmHg ABG HCO3 33 H (21-25) mmol/L Potassium 3.0 L (3.5-5.1) mmol/L Chloride 117 H (98-107) mmol/L Creatinine 0.45 L (0.66-1.25) mg/dL Glucose 102 H (74-99) mg/dL POC Glucose (mg/dL) (70-110) mg/dL Calcium 5.4 L* (8.4-10.2) mg/dL Urine Protein (Negative) Urine Glucose (UA) (Negative) 11/21/23 Range/Units 06:28 WBC (3.8-10.6) k/uL RBC (4.30-5.90) m/uL Hgb (13.0-17.5) gm/dL Hct (39.0-53.0) % Neutrophils # (1.3-7.7) k/uL Neutrophils # (Manual) (1.3-7.7) k/uL Lymphocytes # (1.0-4.8) k/uL Lymphocytes # (Manual) (1.0-4.8) k/uL Metamyelocytes # (Man) (0) k/uL Nucleated RBCs (0-0) /100 WBC ABG pH (7.35-7.45) ABG pO2 (83-108) mmHg ABG HCO3 (21-25) mmol/L Potassium (3.5-5.1) mmol/L Chloride (98-107) mmol/L Creatinine (0.66-1.25) mg/dL Glucose (74-99) mg/dL POC Glucose (mg/dL) 125 H (70-110) mg/dL Calcium (8.4-10.2) mg/dL Urine Protein (Negative) Urine Glucose (UA) (Negative) Microbiology - Last 24 Hours (Table) 11/20/23 11:45 Gram Stain - Preliminary Sputum Assessment and Plan Assessment: Impression: Acute on chronic hypoxic and hypercapnic respiratory failure, secondary to bilateral pneumonia, suspect aspiration pneumonia and acute exacerbation of COPD. Patient required intubation and mechanical ventilation on 11/20/2023 Altered mental status and hypercapnic encephalopathy, on his initial presentation improved with BiPAP mostly related to his severe underlying COPD Hypotension, likely secondary to medication/sedation and hypovolemia sepsis is definitely a possibility, I doubt septic shock Severe dehydration, on his initial presentation, and that has resolved. Acute kidney injury, resolved compared to his initial creatinine on admission of 1.40 Acute exacerbation of chronic obstructive pulmonary disease Chronic hypoxemic respiratory failure, secondary to above Chronic ongoing tobacco dependence, reportedly heavy smoker for many years and currently down to 1/2 pack/day History of hypertension Recommendation: Continue ventilatory support Continue hemodynamic support, patient to receive more fluid boluses since disease CVP is low at 2 in the meantime we will use norepinephrine to keep mean arterial pressure of 65 Give patient fluid boluses for low blood pressure, continue IV fluid at 125 cc/h Continue propofol Start nutritional support/enteral feeding today. Continue Zosyn for aspiration pneumonia and check sputum cultures Check sputum blood cultures and urine cultures Continue GI DVT prophylaxis Patient is critically ill, critical care time is over 30-minute Overall prognosis remains relatively guarded, family/son updated on his condition yesterday Continue to follow Time with Patient: Greater than 30
[2023-11-21 11:48] LABS: Glucose,Whole Blood 141 mg/dL (70-110)
[2023-11-21] MEDS: SODIUM CHLORIDE 0.9% 2,000 ML IV ONE (16:17)
[2023-11-21 18:33] LABS: Glucose,Whole Blood 101 mg/dL (70-110)
[2023-11-21 18:50] LABS: Glucose,Whole Blood 110 mg/dL (70-110)
[2023-11-21] MEDS: INSULIN ASPART (NovoLOG) 100 UNIT/ML VIAL SQ SCH (18:58)
[2023-11-21 23:45] LABS: Glucose,Whole Blood 171 mg/dL (70-110)
[2023-11-22 04:43] LABS: ALT 114 U/L (4-49); AST 33 U/L (17-59); African American GFR (CKD) >90 (>60 ml/min/1.73 sqM); Albumin 2.2 g/dL (3.5-5.0); Alkaline Phosphatase 48 U/L (38-126); Anion Gap -1 mmol/L; Basophils % (A) 0 %; Blood Urea Nitrogen 22 mg/dL (9-20); Calcium 7.2 mg/dL (8.4-10.2); Carbon Dioxide 27 mmol/L (22-30); Chloride 112 mmol/L (98-107); Eosinophils % (A) 0 %; Glucose 145 mg/dL (74-99); HCT 33.6 % (39.0-53.0); HGB 10.6 gm/dL (13.0-17.5); Lymphocytes # (A) 0.2 k/uL (1.0-4.8); Lymphocytes % (A) 2 %; MCH 31.9 pg (25.0-35.0); MCHC 31.5 g/dL (31.0-37.0); MCV 101.2 fL (80.0-100.0); Macrocytosis Slight; Monocytes # (A) 0.3 k/uL (0-1.0); Monocytes % (A) 3 %; Neutrophils # (A) 8.6 k/uL (1.3-7.7); Neutrophils % (A) 94 %; Non-African American GFR(CKD) >90 (>60 ml/min/1.73 sqM); Platelet Count 189 k/uL (150-450); RBC 3.32 m/uL (4.30-5.90); RDW 14.7 % (11.5-15.5); Sodium 138 mmol/L (137-145); Total Bilirubin 0.5 mg/dL (0.2-1.3); Total Protein 3.9 g/dL (6.3-8.2); WBC 9.1 k/uL (3.8-10.6)
[2023-11-22 05:05] LABS: ABG Base Excess 3.1 mmol/L; ABG HCO3 28 mmol/L (21-25); ABG Oxygen Saturation 96.7 % (94-97); ABG PCO2 44 mmHg (35-45); ABG PH 7.41 (7.35-7.45); ABG PO2 82 mmHg (83-108); Allen Test Performed? Yes
[2023-11-22 05:30] LABS: Glucose,Whole Blood 166 mg/dL (70-110)
[2023-11-22] MEDS: POTASSIUM BICARBONATE/CIT AC 20 MEQ TABLET.EFF NG-TUBE SCH (05:32)
--- NOTE | 2023-11-22 07:02 | XR ---
EXAMINATION TYPE: XR chest 1V portable DATE OF EXAM: 11/22/2023 COMPARISON: 11/21/2023 HISTORY: Tube placement TECHNIQUE: Single frontal view of the chest is obtained. FINDINGS: ET tube is 4.2 cm above the emmett. There is an NG tube within the stomach. There is a right jugular central line unchanged in position. The small effusions and bilateral infiltrates, left greater than right are unchanged. There is no pneumothorax. IMPRESSION: 1. ET tube 4.2 cm above the emmett. 2. No change in the bilateral acute cardiopulmonary process.
[2023-11-22] MEDS: FUROSEMIDE 10 MG/ML 2 ML VIAL IV ONE (09:30)
[2023-11-22 12:06] LABS: Glucose,Whole Blood 134 mg/dL (70-110)
--- NOTE | 2023-11-22 12:40 | P.PN ---
Subjective Progress Note Date: 11/22/23 Principal diagnosis: Acute hypoxic and hypercapnic respiratory failure due to acute exacerbation of COPD Patient is a 73-year-old white male with past medical history significant for COPD, chronic ongoing tobacco dependence, chronic hypoxemic respiratory failure on 2-1/2 to 3 L, hypertension, among other things. His primary care provider is Dr. Chavez Shelton. He reportedly does not follow with a ambulatory service representative. Patient presented to the emergency room yesterday afternoon via EMS. Reportedly noted to be lethargic and difficult to arouse at home. 3 to 4 days before this, his noted flulike symptoms. These included a runny nose, dry cough, fever, generalized malaise, and loose stools. When EMS arrived to the scene, they noted his blood pressure to be hypotensive. On arrival to the emergency room he was fluid resuscitated with a total of 3 L crystalloid fluid bolus. He was then started on low-dose norepinephrine which is currently infusing at 0.03 mcg/kg/mi n. He is also bradycardic, sinus bradycardia at 58 bpm. Normal saline continues to infuse at 130 MLS per hour. Chest x-ray demonstrated chronic interstitial changes with hyperinflation consistent with COPD. No focal consolidations, pleural effusions, or pneumothorax. He was hypercapnic in the emergency room. ABGs demonstrated PaO2 of 105, pCO2 of 52, pH of 7.25. He was then placed on the BiPAP in the emergency room. He is currently in the intensive care unit, room 251. He is on BiPAP with settings 12/6 and FiO2 of 50%. Achieving tidal volumes of around 400, respiratory rate in the mid 20s. He is alert and oriented x 3. No further signs of CO2 narcosis. Appears fairly comfortable. He is actively wheezing. Endorses the above-mentioned symptoms. Denies any chest pain or hemoptysis. Denies any significant sputum production. CBC unremarkable. No leukocytosis. D-dimer low. BMP includes a sodium 133, potassium 4.4, chloride 100, serum bicarb 29, BUN 21, creatinine 1.4, glucose 144. Lactic acid not significantly elevated. LFTs not elevated. NT proBNP 1330. Troponin 0.032. EKG shows sinus bradycardia with nonspecific T wave abnormalities. Nondiagnostic for acute ischemia. Viral screen negative for influenza, RSV, COVID. Afebrile. Patient is admitted to the intensive care unit. On 11/13/2023, the patient is being seen for a follow-up. The patient is currently in the intensive care unit. Feeling well. He is off the BiPAP and the patient is currently on 5 L of oxygen nasal cannula. Cough and congestion is still present although improved compared to yesterday. The white cell count is at 8.9 with a hemoglobin of 11.4 and a BUN of 12 with a creatinine of 0.5 and sodium levels of 137. Troponin was 0.014. Remains on bronchodilators. Remains on IV Solu-Medrol. Remains on Zithromax. Blood cultures been negative thus far. Awake and alert and communicating. No signs of any CO2 narcosis. On 11/14/2023, patient is being seen for a follow-up. The patient is stable. No interval worsening shortness of breath. Transferred out of the intensive care unit yesterday. He is currently on oxygen at 4 L with a pulse ox of 93%. No altered mentation. No chest pain. Tolerating diet. Resting comfortably in bed. Remains endocarditis. Remains on steroids 60 mg of IV Solu-Medrol every 6 hours. No increased anxiety. White cell count of 8 with a hemoglobin 11.4 and a platelet count of 202. BUN is 12 with a creatinine of 0.5 and a sodium levels of 137 and a potassium level of 3.7. 11/15/2023, the patient is on the medical floor. Very limited exam in terms of exercise capacity and the patient essentially in bed. Trying to move or walk short distances and make the patient very labored in terms of his breathing. Remains on Perforomist and Pulmicort nebulized treatments twice a day, DuoNeb up To 5, IV Solu-Medrol 60 Mg Every 6 Hours. The Patient Is Also Running a White Cell Count of 8.9 with a Hemoglobin 11.4 and a Platelet Count of 202. BUN Is 12 with a Creatinine of 0.5. Tolerating Diet. No Signs of Any Suicidal Process. No Chest Pain. The patient is seen today November 17, 2023 in follow-up on the regular medical floor. He is currently resting in bed. Awake and alert in no acute distress. Maintaining O2 saturations in the 90s on 4 L/min per nasal cannula. He is feeling better today. He is continue on DuoNeb inhalations, Pulmicort and Perforomist inhalations, Solu-Medrol. Blood cultures revealed no growth. NicoDerm patch in place. The patient is seen today November 18, 2023 in follow-up on the regular medical floor. He is currently sitting up in a chair. He has been up ambulating with a walker and assistance. He is feeling better today compared to yesterday. He is still on 4 L high flow nasal cannula. Still somewhat bronchospastic and wheezing. Continued on DuoNeb ventilations, Pulmicort and perform scintillat ions, Solu-Medrol and Singulair. NicoDerm patch in place. Heparin for DVT prophylaxis. Blood cultures revealed no growth. Blood sugar 231. The patient is seen today November 19, 2023 in follow-up on the regular medical floor. He is currently awake and alert in no acute distress. He is maintaining O2 saturations in the 90s on 3 L/min per nasal cannula. Blood cultures revealed no growth. White count 7.5. Hemoglobin 9.7. Platelets 273. Sodium 141. Potassium 4.1. Bicarb 32. BUN 20. Creatinine 0.7. Glucose 141. He remains on DuoNeb ventilations, Pulmicort and performing scintillations, Solu-Medrol. Remains on Singulair. NicoDerm patch in place. Heparin for DVT prophylaxis. Patient was evaluated today on November 19, patient developed sudden onset of respiratory distress, the rapid response team evaluated the patient, and he was in severe respiratory distress. Patient received Solu-Medrol, received Lasix on the floor prior to transfer to the ICU. He was placed on a nonrebreather mask, transferred to the ICU and I evaluated the patient as soon as he arrived to the ICU. Patient seems to be in severe respiratory distress, he was extremely tachypneic, diaphoretic, tachycardic, hypertensive, and in severe distress. Hence recommended immediate intubation, patient was intubated by me with direct visualization of the vocal cords, a size 7.5 endotracheal tube was used, and he was connected to mechanical ventilation after intubation. His vent settings where addressed and he is on AC rate of 20 tidal volume 450 FiO2 100% and PEEP of 5. ABG postintubation showed a pO2 of 208 pCO2 of 60 pH of 7.36 his FiO2 was cut down to 50% and kept on the same vent settings as ordered the rest of the labs were reviewed and they noted to be unremarkable. His liver enzymes were noted but elevated. WBC count showed 15.1 hemoglobin 14.6. Chest x-ray showed bilateral airspace disease, suggestive of pneumonia,, dramatic worsening compared to the chest x-ray done on 11/14/2023, hence I am strongly suspecting that the patient may have developed aspiration pneumonia. The patient will be treated with Zosyn for this abnormal chest x-ray for now. Family was updated on his condition at the bedside. After intubating the patient, patient was hypotensive, central line was established, arterial line was established at the same time Patient was evaluated today on 11/21/2023, patient remains in the ICU, he was transferred yesterday to the ICU with acute hypoxic and hypercapnic respiratory failure requiring intubation mechanical ventilation. Patient is now on assist- control rate of 20 tidal volume 450 FiO2 40% PEEP of 5 ABG showed a pO2 of 77 pCO2 40 pH of 7.53 hence I decreased his rate from 20-16. Patient is fully sedated and he is very synchronous with the ventilator. Patient remains on propofol at 55 mcg/kg/min IV fluid 0.9 at 125 cc/h he is requiring a small dose of norepinephrine at 0.02 mcg/kg/min his CVP is 2 hence I am recommending more fluid boluses and I am recommending close monitoring of his urine output in the meantime continue norepinephrine until his fluid status improves. His urine output has been in the range of 20 to 30 cc/h. Patient remains on Zosyn chest x-ray today showed slight improvement in his right lower lobe infiltrate and continues to have significant airspace disease involving the left lower lobe and left midlung. Patient is empirically on Zosyn for what seems to be an aspiration pneumonia. Considering the status is marginal, no plans to hold sedation today, will try to optimize his hemodynamic status continue antibiotics and continue bronchodilators meantime continue ventilatory support Patient was reevaluated today on 11/22/2023, patient remains in the ICU, intubated and mechanically ventilated. On assist-control 16 tidal volume 450 FiO2 40% and PEEP of 5. ABG showed a pO2 of 83 pCO2 44 pH of 7.41 patient remains on propofol at 55 mcg/kg/min, IV fluid at 150 cc/h 0.9 normal saline, vital AF at 50 cc/h. Patient is still having marginal urine output in spite of CVP 11, hence I will go ahead and recommend a Lasix trial 20 mg IV push. Patient remains on Zosyn and Zithromax. Chest x-ray is showing slight improvement in his left lower lobe infiltrate nonetheless continues to have significant airspace disease in the left lower lobe and to some extent in the right lower lobe. Patient will be given a weaning trial today off sedation if possible, and if tolerated may even extubate the patient today. WBC count is 9.1 hemoglobin is 10.6. Basic metabolic profile is normal, renal profile is normal Objective - Vital Signs Vital signs: Vital Signs Temp 97.5 F L 11/22/23 08:00 Pulse 73 11/22/23 12:15 Resp 29 H 11/22/23 12:15 BP 124/69 11/22/23 12:15 Pulse Ox 97 11/22/23 12:15 FiO2 40 11/22/23 12:00 Intake & Output 11/21/23 11/22/23 11/22/23 18:59 06:59 18:59 Intake Total 5182.641 2106.774 1235 Output Total 445 539 8001 Balance 4697.641 1866.774 -95 Weight 51 kg 67.132 kg Intake: IV 4891 1592 965 0.9 Pressure Bags 66 42 15 Azithromycin 500 mg In 250 250 Sodium Chloride 0.9% 250 ml @ 250 mls/hr IVPB DAILY [facility] Rx#:[id number] Piperacillin-Tazobactam 3 200 100 100 .375 gm In Sodium Chloride 0.9% 100 ml @ 25 mls/hr IVPB Q8HR [facility] Rx# :[id number] Sodium Chloride 0.9% 1, 1375 1450 600 000 ml @ 150 mls/hr IV . Q6H40M [facility] Rx#:[id number] Sodium Chloride 0.9% 1, 3000 000 ml @ 999 mls/hr IV . Q1H1M [facility] Rx#:[id number] Intake, IV Titration 201.641 219.774 Amount Norepinephrine 4 mg In 5.149 Sodium Chloride 0.9% 250 ml @ 0.03 MCG/KG/MIN 5. 829 mls/hr IV .Q24H [facility] Rx#:[id number] propofoL 1,000 mg In 196.492 219.774 Empty Bag 1 bag @ 15 MCG/ KG/MIN 4.59 mls/hr IV . [id number] [facility] Rx#:[id number] Tube Feeding 60 220 150 Other 30 75 120 Output: Urine 204 492 1475 Other: Voiding Method Indwelling Catheter Indwelling Catheter Indwelling Catheter # Bowel Movements 1 ABP, PAP, CO, CI - Last Documented Arterial Blood Pressure 68/59 - Exam General: 73-year-old white male, looks chronically ill, frail, intubated and mechanically ventilated, sedated with propofol Head: Atraumatic, normocephalic, endotracheal tube and orogastric tube are intact Skin: Skin is warm and dry and no rashes or lesions are noted. Eye: Pupils are equal, round and reactive to light, extra-ocular movements are intact; there is normal conjunctiva bilaterally. Ears, nose, mouth and throat: There are moist mucous membranes and no oral lesions. Neck: The neck is supple, there is no tenderness or JVD. Cardiovascular:, distant S1-S2, no S3 gallop. No murmur. Respiratory: Diminished breath sound bilaterally no crackles rhonchi or wheezes noted today. hout masses or organomegaly noted. There is no rebound or guarding present. Bowel sounds are unremarkable. Back: There is no tenderness to palpation in the midline. There is no obvious deformity. Musculoskeletal: No deformities noted. Neurological: Could not assess patient is sedated, on propofol Psychiatric: Could not assess for - Labs CBC & Chem 7: 11/22/23 03:37 11/22/23 03:37 Labs: Abnormal Lab Results - Last 24 Hours (Table) 11/21/23 11/21/23 11/22/23 Range/Units 12:48 23:32 03:37 RBC (4.30-5.90) m/uL Hgb (13.0-17.5) gm/dL Hct (39.0-53.0) % MCV (80.0-100.0) fL Neutrophils # (1.3-7.7) k/uL Lymphocytes # (1.0-4.8) k/uL ABG pO2 (83-108) mmHg ABG HCO3 (21-25) mmol/L Potassium 5.9 H (3.5-5.1) mmol/L Chloride 112 H (98-107) mmol/L BUN 22 H (9-20) mg/dL Creatinine 0.61 L (0.66-1.25) mg/dL Glucose 145 H (74-99) mg/dL POC Glucose (mg/dL) 171 H (70-110) mg/dL Calcium 7.2 L (8.4-10.2) mg/dL ALT 114 H (4-49) U/L Total Protein 3.9 L (6.3-8.2) g/dL Albumin 2.2 L (3.5-5.0) g/dL 11/22/23 11/22/23 11/22/23 Range/Units 03:37 04:52 05:28 RBC 3.32 L (4.30-5.90) m/uL Hgb 10.6 L (13.0-17.5) gm/dL Hct 33.6 L (39.0-53.0) % MCV 101.2 H (80.0-100.0) fL Neutrophils # 8.6 H (1.3-7.7) k/uL Lymphocytes # 0.2 L (1.0-4.8) k/uL ABG pO2 82 L (83-108) mmHg ABG HCO3 28 H (21-25) mmol/L Potassium (3.5-5.1) mmol/L Chloride (98-107) mmol/L BUN (9-20) mg/dL Creatinine (0.66-1.25) mg/dL Glucose (74-99) mg/dL POC Glucose (mg/dL) 166 H (70-110) mg/dL Calcium (8.4-10.2) mg/dL ALT (4-49) U/L Total Protein (6.3-8.2) g/dL Albumin (3.5-5.0) g/dL 11/22/23 Range/Units 12:04 RBC (4.30-5.90) m/uL Hgb (13.0-17.5) gm/dL Hct (39.0-53.0) % MCV (80.0-100.0) fL Neutrophils # (1.3-7.7) k/uL Lymphocytes # (1.0-4.8) k/uL ABG pO2 (83-108) mmHg ABG HCO3 (21-25) mmol/L Potassium (3.5-5.1) mmol/L Chloride (98-107) mmol/L BUN (9-20) mg/dL Creatinine (0.66-1.25) mg/dL Glucose (74-99) mg/dL POC Glucose (mg/dL) 134 H (70-110) mg/dL Calcium (8.4-10.2) mg/dL ALT (4-49) U/L Total Protein (6.3-8.2) g/dL Albumin (3.5-5.0) g/dL Microbiology - Last 24 Hours (Table) 11/20/23 11:45 Gram Stain - Final Sputum Sputum Culture - Final Assessment and Plan Assessment: Impression: Acute on chronic hypoxic and hypercapnic respiratory failure, secondary to bilateral pneumonia, suspect aspiration pneumonia and acute exacerbation of COPD. Patient required intubation and mechanical ventilation on 11/20/2023 Altered mental status and hypercapnic encephalopathy, on his initial presentation improved with BiPAP mostly related to his severe underlying COPD Hypotension, likely secondary to medication/sedation and hypovolemia sepsis is definitely a possibility, I doubt septic shock Severe dehydration, on his initial presentation, and that has resolved. Acute kidney injury, resolved compared to his initial creatinine on admission of 1.40 Acute exacerbation of chronic obstructive pulmonary disease Chronic hypoxemic respiratory failure, secondary to above Chronic ongoing tobacco dependence, reportedly heavy smoker for many years and currently down to 1/2 pack/day History of hypertension Recommendation: Continue ventilatory support, consider a trial of weaning today after stopping sedation, assessment of mental status, and decide whether the patient is weanable. Gentle diuresis on this patient since his urine output remains marginal in spite of relatively elevated CVP Continue IV fluids for the time being and address accordingly depending on his response to diuretic Continue propofol Continue nutritional support/enteral feeding Continue Zosyn , sputum cultures are Check urine and blood cultures so far nondiagnostic Continue GI DVT prophylaxis Patient is critically ill, critical care time is over 30-minute Prognosis remains poor and guarded considering his underlying COPD picture. Continue to follow Time with Patient: Greater than 30
[2023-11-22] MEDS: MAGNESIUM HYDROXIDE 2,400 MG/30 ML CUP PO PRN (13:56)
[2023-11-22 18:14] LABS: Glucose,Whole Blood 150 mg/dL (70-110)
[2023-11-22 23:41] LABS: Glucose,Whole Blood 252 mg/dL (70-110)
[2023-11-22 23:41] LABS: Glucose,Whole Blood 185 mg/dL (70-110)
--- NOTE | 2023-11-23 00:23 | PN ---
PROGRESS NOTE SUBJECTIVE: Hemoglobin is 10.6, white count is 9.1, BUN is 22, creatinine 0.61, sugars low 100s. He has respiratory distress and went to the ICU, placed on the ventilator for flash pulmonary edema versus aspiration pneumonia. He was intubated, placed on the vent. He is in ICU. He had hypoxemic hypercapnic respiratory failure. PO2 77, pCO2 40. He is sedated, very synchronous with the ventilator. He is on propofol, low-dose norepinephrine for hypotension. He remains on Zosyn. Chest x-ray shows slight improvement right lower lobe infiltrate. There is significant airspace disease. He has severe pulmonary fibrosis. possible aspiration pneumonia. OBJECTIVE: VITAL SIGNS: Temperature 97.7, FiO2 40%. GENERAL: He is weak and fatigued due to stated age, thin. CARDIOVASCULAR: S1 and S2. LUNGS: Diminished breath sounds. Scattered wheeze and rhonchi. NEUROLOGIC: Cranial nerves intact. PSYCH: Fair mood and affect. White count 13.9, hemoglobin 11.4, potassium 3.0, sodium 139. Acute on acute on chronic hypoxemic hypercapnic respiratory failure, aspiration pneumonia, hypercapnic encephalopathy, hypotension, severe dehydration, acute kidney injury, COPD, chronic hypoxemic respiratory failure, chronic nicotine addiction, hypertension. Family support. Wean off norepinephrine and possible fluid boluses. Propofol and Zosyn for aspiration pneumonia. Prognosis is guarded. Please see further orders. MMODL / IJN: [id number] /
[2023-11-23 04:37] LABS: Basophils % (A) 0 %; Eosinophils % (A) 0 %; HCT 34.5 % (39.0-53.0); Lymphocytes # (A) 0.2 k/uL (1.0-4.8); Lymphocytes % (A) 2 %; MCH 31.8 pg (25.0-35.0); MCHC 31.9 g/dL (31.0-37.0); MCV 99.6 fL (80.0-100.0); Macrocytosis Slight; Mean Platelet Volume 8.5; Monocytes # (A) 0.3 k/uL (0-1.0); Monocytes % (A) 3 %; Neutrophils # (A) 10.7 k/uL (1.3-7.7); Neutrophils % (A) 95 %; Platelet Count 168 k/uL (150-450); RBC 3.46 m/uL (4.30-5.90); WBC 11.3 k/uL (3.8-10.6)
[2023-11-23 04:58] LABS: African American GFR (CKD) >90 (>60 ml/min/1.73 sqM); Anion Gap -1 mmol/L; Blood Urea Nitrogen 27 mg/dL (9-20); Calcium 7.5 mg/dL (8.4-10.2); Carbon Dioxide 28 mmol/L (22-30); Chloride 111 mmol/L (98-107); Glucose 189 mg/dL (74-99); Non-African American GFR(CKD) >90 (>60 ml/min/1.73 sqM); Potassium 3.7 mmol/L (3.5-5.1); Sodium 138 mmol/L (137-145)
[2023-11-23 05:13] LABS: ABG Base Excess 5.8 mmol/L; ABG HCO3 31 mmol/L (21-25); ABG Oxygen Saturation 95.6 % (94-97); ABG PCO2 46 mmHg (35-45); ABG PH 7.44 (7.35-7.45); ABG PO2 73 mmHg (83-108); Allen Test Performed? Yes
[2023-11-23 05:22] LABS: Glucose,Whole Blood 233 mg/dL (70-110)
[2023-11-23] MEDS: POTASSIUM BICARBONATE/CIT AC 20 MEQ TABLET.EFF NG-TUBE SCH (05:26)
--- NOTE | 2023-11-23 07:51 | XR ---
EXAMINATION TYPE: XR chest 1V portable DATE OF EXAM: 11/23/2023 Comparison: 11/22/2023 Clinical History: 73-year-old male Tube placement Findings: ET and NG tubes are satisfactory. Right IJ CVC tip at the cavoatrial junction. Heart upper limits of normal in size. Hyperinflation. Interstitial patchy mid and lower lung opacities with small effusions persist. Impression: COPD with superimposed mid and lower lung patchy infiltrates/consolidation and small effusions, not s ignificantly changed.
[2023-11-23 11:55] LABS: Glucose,Whole Blood 156 mg/dL (70-110)
--- NOTE | 2023-11-23 11:59 | P.PN ---
Subjective Progress Note Date: 11/23/23 Principal diagnosis: Respiratory failure. Patient is a 73-year-old white male with past medical history significant for COPD, chronic ongoing tobacco dependence, chronic hypoxemic respiratory failure on 2-/2 to 3 L, hypertension, among other things. His primary care provider is Dr. Chavez Shelton. 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 Patient presented to the emergency room yesterday afternoon via EMS. Reportedly noted to be lethargic and difficult to arouse at home. 3 to 4 days before this, his noted flulike symptoms. These included a runny nose, dry cough, fever, generalized malaise, and loose stools. When EMS arrived to the scene, they noted his blood pressure to be hypotensive. On arrival to the emergency room he was fluid resuscitated with a total of 3 L crystalloid fluid bolus. He was then started on low-dose norepinephrine which is currently infusing at 0.03 mcg/kg/min. He is also bradycardic, sinus bradycardia at 58 bpm. Normal saline continues to infuse at 130 MLS per hour. Chest x-ray demonstrated chronic interstitial changes with hyperinflation consistent with COPD. No focal consolidations, pleural effusions, or pneumothorax. He was hypercapnic in the emergency room. ABGs demonstrated PaO2 of 105, pCO2 of 52, pH of 7.25. He was then placed on the BiPAP in the emergency room. He is currently in the intensive care unit, room 251. He is on BiPAP with settings 12/6 and FiO2 of 50%. Achieving tidal volumes of around 400, respiratory rate in the mid 20s. He is alert and oriented x 3. No further signs of CO2 narcosis. Appears fairly comfortable. He is actively wheezing. Endorses the above-mentioned symptoms. Denies any chest pain or hemoptysis. Denies any significant sputum production. CBC unremarkable. No leukocytosis. D-dimer low. BMP includes a sodium 133, potassium 4.4, chloride 100, serum bicarb 29, BUN 21, creatinine 1.4, glucose 144. Lactic acid not significantly elevated. LFTs not elevated. NT proBNP 1330. Troponin 0.032. EKG shows sinus bradycardia with nonspecific T wave abnormalities. Nondiagnostic for acute ischemia. Viral screen negative for influenza, RSV, COVID. Afebrile. Patient is admitted to the intensive care unit. On 11/13/2023, the patient is being seen for a follow-up. The patient is currently in the intensive care unit. Feeling well. He is off the BiPAP and the patient is currently on 5 L of oxygen nasal cannula. Cough and congestion is still present although improved compared to yesterday. The white cell count is at 8.9 with a hemoglobin of 11.4 and a BUN of 12 with a creatinine of 0.5 and sodium levels of 137. Troponin was 0.014. Remains on bronchodilators. Remains on IV Solu-Medrol. Remains on Zithromax. Blood cultures been negative thus far. Awake and alert and communicating. No signs of any CO2 narcosis. On 11/14/2023, patient is being seen for a follow-up. The patient is stable. No interval worsening shortness of breath. Transferred out of the intensive care unit yesterday. He is currently on oxygen at 4 L with a pulse ox of 93%. No altered mentation. No chest pain. Tolerating diet. Resting comfortably in bed. Remains endocarditis. Remains on steroids 60 mg of IV Solu-Medrol every 6 hours. No increased anxiety. White cell count of 8 with a hemoglobin 11.4 and a platelet count of 202. BUN is 12 with a creatinine of 0.5 and a sodium levels of 137 and a potassium level of 3.7. 11/15/2023, the patient is on the medical floor. Very limited exam in terms of exercise capacity and the patient essentially in bed. Trying to move or walk short distances and make the patient very labored in terms of his breathing. Remains on Perforomist and Pulmicort nebulized treatments twice a day, DuoNeb up To 5, IV Solu-Medrol 60 Mg Every 6 Hours. The Patient Is Also Running a White Cell Count of 8.9 with a Hemoglobin 11.4 and a Platelet Count of 202. BUN Is 12 with a Creatinine of 0.5. Tolerating Diet. No Signs of Any Suicidal Process. No Chest Pain. The patient is seen today November 17, 2023 in follow-up on the regular medical floor. He is currently resting in bed. Awake and alert in no acute distress. Maintaining O2 saturations in the 90s on 4 L/min per nasal cannula. He is feeling better today. He is continue on DuoNeb inhalations, Pulmicort and Perforomist inhalations, Solu-Medrol. Blood cultures revealed no growth. NicoDerm patch in place. The patient is seen today November 18, 2023 in follow-up on the regular medical floor. He is currently sitting up in a chair. He has been up ambulating with a walker and assistance. He is feeling better today compared to yesterday. He is still on 4 L high flow nasal cannula. Still somewhat bronchospastic and wheezing. Continued on DuoNeb ventilations, Pulmicort and perform scintillations, Solu-Medrol and Singulair. NicoDerm patch in place. Heparin for DVT prophylaxis. Blood cultures revealed no growth. Blood sugar 231. The patient is seen today November 19, 2023 in follow-up on the regular medical floor. He is currently awake and alert in no acute distress. He is maintaining O2 saturations in the 90s on 3 L/min per nasal cannula. Blood cultures revealed no growth. White count 7.5. Hemoglobin 9.7. Platelets 273. Sodium 141. Potassium 4.1. Bicarb 32. BUN 20. Creatinine 0.7. Glucose 141. He remains on DuoNeb ventilations, Pulmicort and performing scintillations, Solu-Medrol. Remains on Singulair. NicoDerm patch in place. Heparin for DVT prophylaxis. Patient was evaluated today on November 19, patient developed sudden onset of respiratory distress, the rapid response team evaluated the patient, and he was in severe respiratory distress. Patient received Solu-Medrol, received Lasix on the floor prior to transfer to the ICU. He was placed on a nonrebreather mask, transferred to the ICU and I evaluated the patient as soon as he arrived to the ICU. Patient seems to be in severe respiratory distress, he was extremely tachypneic, diaphoretic, tachycardic, hypertensive, and in severe distress. Hence recommended immediate intubation, patient was intubated by me with direct visualization of the vocal cords, a size 7.5 endotracheal tube was used, and he was connected to mechanical ventilation after intubation. His vent settings where addressed and he is on AC rate of 20 tidal volume 450 FiO2 100% and PEEP of 5. ABG postintubation showed a pO2 of 208 pCO2 of 60 pH of 7.36 his FiO2 was cut down to 50% and kept on the same vent settings as ordered the rest of the labs were reviewed and they noted to be unremarkable. His liver enzymes were noted but elevated. WBC count showed 15.1 hemoglobin 14.6. Chest x-ray showed bilateral airspace disease, suggestive of pneumonia,, dramatic worsening compared to the chest x-ray done on 11/14/2023, hence I am strongly suspecting that the patient may have developed aspiration pneumonia. The patient will be treated with Zosyn for this abnormal chest x-ray for now. Family was updated on his condition at the bedside. After intubating the patient, patient was hypot ensive, central line was established, arterial line was established at the same time Patient was evaluated today on 11/21/2023, patient remains in the ICU, he was transferred yesterday to the ICU with acute hypoxic and hypercapnic respiratory failure requiring intubation mechanical ventilation. Patient is now on assist- control rate of 20 tidal volume 450 FiO2 40% PEEP of 5 ABG showed a pO2 of 77 p CO2 40 pH of 7.53 hence I decreased his rate from 20-16. Patient is fully sedated and he is very synchronous with the ventilator. Patient remains on propofol at 55 mcg/kg/min IV fluid 0.9 at 125 cc/h he is requiring a small dose of norepinephrine at 0.02 mcg/kg/min his CVP is 2 hence I am recommending more fluid boluses and I am recommending close monitoring of his urine output in the meantime continue norepinephrine until his fluid status improves. His urine output has been in the range of 20 to 30 cc/h. Patient remains on Zosyn chest x-ray today showed slight improvement in his right lower lobe infiltrate and continues to have significant airspace disease involving the left lower lobe and left midlung. Patient is empirically on Zosyn for what seems to be an aspiration pneumonia. Considering the status is marginal, no plans to hold sedation today, will try to optimize his hemodynamic status continue antibiotics and continue bronchodilators meantime continue ventilatory support Patient was reevaluated today on 11/22/2023, patient remains in the ICU, intubated and mechanically ventilated. On assist-control 16 tidal volume 450 FiO2 40% and PEEP of 5. ABG showed a pO2 of 83 pCO2 44 pH of 7.41 patient remains on propofol at 55 mcg/kg/min, IV fluid at 150 cc/h 0.9 normal saline, vital AF at 50 cc/h. Patient is still having marginal urine output in spite of CVP 11, hence I will go ahead and recommend a Lasix trial 20 mg IV push. Patient remains on Zosyn and Zithromax. Chest x-ray is showing slight improvement in his left lower lobe infiltrate nonetheless continues to have significant airspace disease in the left lower lobe and to some extent in the right lower lobe. Patient will be given a weaning trial today off sedation if possible, and if tolerated may even extubate the patient today. WBC count is 9.1 hemoglobin is 10.6. Basic metabolic profile is normal, renal profile is normal Progress note dated November 23, 2023. This is a patient who was admitted back on November 10 for COPD exacerbation. The patient was apparently ready to be discharged, but on November 19, developed jermaine respiratory failure, and required intubation, and transferred to the intensive care unit. He is currently on volume assist-control, rate 16, tidal volume 450, FiO2 40%, PEEP of 5. Blood gases show pCO2 of 46, pO2 of 73, and a pH of 7.44. Currently, the patient is on propofol at 60 mcg/kg/min, saline at 75 cc an hour, and vital AF at 36 cc an hour, which is his goal rate. White count 11.3, hemoglobin 11, hematocrit 34.5, platelet count is normal. Sodium 138, potassium 3.7, chlorides 111, CO2 28, BUN 27, creatinine 0.6. Glucose is 233. Calcium 7.5. Blood and sputum sampling is negative. Chest x-ray shows changes of COPD, with either atelectasis or infiltrate, in the lower lung zones. Objective - Vital Signs Vital signs: Vital Signs Temp 97.8 F 11/23/23 08:00 Pulse 83 11/23/23 11:40 Resp 26 H 11/23/23 11:00 BP 123/99 11/23/23 11:00 Pulse Ox 96 11/23/23 11:00 FiO2 40 11/23/23 11:00 Intake & Output 11/22/23 11/23/23 11/23/23 18:59 06:59 18:59 Intake Total 2206.107 1740.474 528.000 Output Total 2050 405 100 Balance 571.180 4616.474 428.000 Weight 69 kg Intake: IV 1133 939 356 0.9 Pressure Bags 33 39 6 Azithromycin 500 mg In 250 250 Sodium Chloride 0.9% 250 ml @ 250 mls/hr IVPB DAILY [facility] Rx#:[id number] Piperacillin-Tazobactam 3 100 100 .375 gm In Sodium Chloride 0.9% 100 ml @ 25 mls/hr IVPB Q8HR [facility] Rx# :[id number] Sodium Chloride 0.9% 1, 750 900 000 ml @ 75 mls/hr IV . [id number] [facility] Rx#:[id number] Intake, IV Titration 563.107 267.474 100.000 Amount Sodium Chloride 0.9% 1, 395 75 000 ml @ 75 mls/hr IV . [id number] [facility] Rx#:[id number] propofoL 1,000 mg In 168.107 192.474 100.000 Empty Bag 1 bag @ 15 MCG/ KG/MIN 4.59 mls/hr IV . [id number] [facility] Rx#:[id number] Tube Feeding 330 444 72 Other 180 90 Output: Urine 2050 405 100 Other: Voiding Method Indwelling Catheter Indwelling Catheter Indwelling Catheter ABP, PAP, CO, CI - Last Documented Arterial Blood Pressure 68/59 - Exam No acute distress, sedated, on propofol, with an orally placed endotracheal tube. HEENT examination is grossly unremarkable. Neck supple. Full range of motion. No adenopathy thyromegaly or neck vein distention. Cardiovascular examination reveals regular rhythm rate. S1-S2 normal. No S3 or S4. No discernible murmur noted. Heart sounds are distant. Heart rate 84 bpm. Lungs reveal scattered bilateral rhonchi. No wheezes. No crackles. Breath sounds equal bilaterally. Saturations are in the mid to high 90s. Abdomen soft with bowel sounds. No masses or tenderness. Extremities are intact. No cyanosis clubbing or edema. Skin is without rash or lesion. Neurologic examination cannot be assessed at this time. - Labs CBC & Chem 7: 11/23/23 03:47 11/23/23 03:47 Labs: Abnormal Lab Results - Last 24 Hours (Table) 11/22/23 11/22/23 11/22/23 Range/Units 12:04 18:12 23:39 WBC (3.8-10.6) k/uL RBC (4.30-5.90) m/uL Hgb (13.0-17.5) gm/dL Hct (39.0-53.0) % Neutrophils # (1.3-7.7) k/uL Lymphocytes # (1.0-4.8) k/uL ABG pCO2 (35-45) mmHg ABG pO2 (83-108) mmHg ABG HCO3 (21-25) mmol/L Chloride (98-107) mmol/L BUN (9-20) mg/dL Creatinine (0.66-1.25) mg/dL Glucose (74-99) mg/dL POC Glucose (mg/dL) 134 H 150 H 252 H (70-110) mg/dL Calcium (8.4-10.2) mg/dL 11/22/23 11/23/23 11/23/23 Range/Units 23:40 03:47 03:47 WBC 11.3 H (3.8-10.6) k/uL RBC 3.46 L (4.30-5.90) m/uL Hgb 11.0 L (13.0-17.5) gm/dL Hct 34.5 L (39.0-53.0) % Neutrophils # 10.7 H (1.3-7.7) k/uL Lymphocytes # 0.2 L (1.0-4.8) k/uL ABG pCO2 (35-45) mmHg ABG pO2 (83-108) mmHg ABG HCO3 (21-25) mmol/L Chloride 111 H (98-107) mmol/L BUN 27 H (9-20) mg/dL Creatinine 0.60 L (0.66-1.25) mg/dL Glucose 189 H (74-99) mg/dL POC Glucose (mg/dL) 185 H (70-110) mg/dL Calcium 7.5 L (8.4-10.2) mg/dL 11/23/23 11/23/23 Range/Units 05:18 05:21 WBC (3.8-10.6) k/uL RBC (4.30-5.90) m/uL Hgb (13.0-17.5) gm/dL Hct (39.0-53.0) % Neutrophils # (1.3-7.7) k/uL Lymphocytes # (1.0-4.8) k/uL ABG pCO2 46 H (35-45) mmHg ABG pO2 73 L (83-108) mmHg ABG HCO3 31 H (21-25) mmol/L Chloride (98-107) mmol/L BUN (9-20) mg/dL Creatinine (0.66-1.25) mg/dL Glucose (74-99) mg/dL POC Glucose (mg/dL) 233 H (70-110) mg/dL Calcium (8.4-10.2) mg/dL Microbiology - Last 24 Hours (Table) 11/20/23 11:45 Gram Stain - Final Sputum Sputum Culture - Final Assessment and Plan Assessment: Acute on chronic hypoxemic and hypercapnic respiratory failure, secondary to bilateral pneumonia, status post intubation with mechanical ventilation, on November 20, 2023. Mental status changes, secondary to respiratory failure. Hypotension, resolved. Severe dehydration on initial evaluation. Acute kidney injury. Acute exacerbation of COPD. Chronic and ongoing tobacco dependence with nicotine addiction. History of hypertension. Plan: Plan dated November 23, 2023. The patient is seen today in room 257. The patient continues on breathing treatments, and Solu-Medrol. In addition, the patient is getting Zosyn, for suspected aspiration pneumonia. The patient was actually admitted on November 10, and was doing well, until he was intubated on November 19. Blood gases show pO2 of 73, pCO2 46, pH is 7.44. The patient continues on propofol at 60 mcg/kg/min. I have asked the nurse to consider doing the daily interruption of sedation. The patient continues on tube feedings with vital AF, at goal. Labs, x-rays, medications are reviewed. We will continue to follow the patient, and make recommendations along the way. Prognosis is guarded. Time with Patient: Greater than 30
--- NOTE | 2023-11-23 14:28 | P.PN ---
Subjective Progress Note Date: 11/23/23 Patient is a 73-year-old white male with past medical history significant for COPD, chronic ongoing tobacco dependence, chronic hypoxemic respiratory failure on 2-1/2 to 3 L, hypertension, among other things. His primary care provider is Dr. Chavez Shelton. 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 Patient presented to the emergency room yesterday afternoon via EMS. Reportedly noted to be lethargic and difficult to arouse at home. 3 to 4 days before this, his noted flulike symptoms. These included a runny nose, dry cough, fever, generalized malaise, and loose stools. When EMS arrived to the scene, they noted his blood pressure to be hypotensive. On arrival to the emergency room he was fluid resuscitated with a total of 3 L crystalloid fluid bolus. He was then started on low-dose norepinephrine which is currently infusing at 0.03 mcg/kg/min. He is also bradycardic, sinus bradycardia at 58 bpm. Normal saline continues to infuse at 130 MLS per hour. Chest x-ray demonstrated chronic interstitial changes with hyperinflation consistent with COPD. No focal consolidations, pleural effusions, or pneumothorax. He was hypercapnic in the emergency room. ABGs demonstrated PaO2 of 105, pCO2 of 52, pH of 7.25. He was then placed on the BiPAP in the emergency room. He is currently in the intensive care unit, room 251. He is on BiPAP with settings 12/6 and FiO2 of 50%. Ac hieving tidal volumes of around 400, respiratory rate in the mid 20s. He is alert and oriented x 3. No further signs of CO2 narcosis. Appears fairly comfortable. He is actively wheezing. Endorses the above-mentioned symptoms. Denies any chest pain or hemoptysis. Denies any significant sputum production. CBC unremarkable. No leukocytosis. D-dimer low. BMP includes a sodium 133, potassium 4.4, chloride 100, serum bicarb 29, BUN 21, creatinine 1.4, glucose 144. Lactic acid not significantly elevated. LFTs not elevated. NT proBNP 1330. Troponin 0.032. EKG shows sinus bradycardia with nonspecific T wave abnormalities. Nondiagnostic for acute ischemia. Viral screen negative for in fluenza, RSV, COVID. Afebrile. Patient is admitted to the intensive care unit. 11/22. Dr. Vera took over care for Dr. Shelton. Blood work done this morning showed WBC 9.3, hemoglobin 11, platelet count 168, sodium 130, potassium 3.7, BUN 27, creatinine 0.60 continues to be on tube feeding. Critical care planning sedation holiday today REVIEW OF SYSTEMS: Currently intubated and sedated PHYSICAL EXAMINATION: GENERAL: The patient is intubated HEENT: Pupils are round and equally reacting to light. EOMI. No scleral icterus. No conjunctival pallor. Normocephalic, atraumatic. No pharyngeal erythema. No thyromegaly. CARDIOVASCULAR: S1 and S2 present. No murmurs, rubs, or gallops. PULMONARY: Chest is clear to auscultation, no wheezing or crackles. ABDOMEN: Soft, nontender, nondistended, normoactive bowel sounds. No palpable organomegaly. MUSCULOSKELETAL: No joint swelling or deformity. EXTREMITIES: No cyanosis, clubbing, or pedal edema. NEUROLOGICAL: Gross neurological examination did not reveal any focal deficits. SKIN: No rashes. Assessment and plan Acute on chronic hypoxic and hypercapnic respiratory failure bilateral pneumonia, acute exacerbation of COPD. Altered mental status and hypercapnic encephalopathy Hypotension, likely secondary to medication/sedation and hypovolemia sepsis is definitely a possibility, I doubt septic shock Severe dehydration, on his initial presentation, and that has resolved. Acute kidney injury, resolved compared to his initial creatinine on admission of 1.40 Acute exacerbation of chronic obstructive pulmonary disease Chronic hypoxemic respiratory failure, secondary to above Chronic ongoing tobacco dependence, reportedly heavy smoker for many years and currently down to 1/2 pack/day History of hypertension Monitor vital signs Monitor CBC Monitor CMP Continue telemetry monitoring Continue vent management per ICU Continue breathing treatments Continue IV Solu-Medrol Continue IV Zosyn Critical care following Labs and medication were reviewed.. Continue same treatment. Continue with symptomatic treatment. Resume home medication. Monitor labs and vitals. DVT and GI prophylaxis. Further recommendations as per clinical course of the patient Dictation was produced using [employer] dictation software. please excuse any gra mmatical, word or spelling errors. Objective - Vital Signs Vital signs: Vital Signs Temp 97.8 F 11/23/23 08:00 Pulse 65 11/23/23 09:16 Resp 16 11/23/23 09:00 BP 122/80 11/23/23 09:00 Pulse Ox 96 11/23/23 09:00 FiO2 40 11/23/23 08:00 Intake & Output 11/22/23 11/23/23 11/23/23 18:59 06:59 18:59 Intake Total 2206.107 1740.474 504.475 Output Total 2050 405 100 Balance 884.112 9349.474 404.475 Weight 69 kg Intake: IV 1133 939 356 0.9 Pressure Bags 33 39 6 Azithromycin 500 mg In 250 250 Sodium Chloride 0.9% 250 ml @ 250 mls/hr IVPB DAILY [facility] Rx#:[id number] Piperacillin-Tazobactam 3 100 100 .375 gm In Sodium Chloride 0.9% 100 ml @ 25 mls/hr IVPB Q8HR [facility] Rx# :[id number] Sodium Chloride 0.9% 1, 750 900 000 ml @ 75 mls/hr IV . [id number] [facility] Rx#:[id number] Intake, IV Titration 563.107 267.474 76.475 Amount Sodium Chloride 0.9% 1, 395 75 000 ml @ 75 mls/hr IV . [id number] [facility] Rx#:[id number] propofoL 1,000 mg In 168.107 192.474 76.475 Empty Bag 1 bag @ 15 MCG/ KG/MIN 4.59 mls/hr IV . [id number] [facility] Rx#:[id number] Tube Feeding 330 444 72 Other 180 90 Output: Urine 2050 405 100 Other: Voiding Method Indwelling Catheter Indwelling Catheter Indwelling Catheter ABP, PAP, CO, CI - Last Documented Arterial Blood Pressure 68/59 - Labs CBC & Chem 7: 11/23/23 03:47 11/23/23 03:47 Labs: Abnormal Lab Results - Last 24 Hours (Table) 11/22/23 11/22/23 11/22/23 Range/Units 12:04 18:12 23:39 WBC (3.8-10.6) k/uL RBC (4.30-5.90) m/uL Hgb (13.0-17.5) gm/dL Hct (39.0-53.0) % Neutrophils # (1.3-7.7) k/uL Lymphocytes # (1.0-4.8) k/uL ABG pCO2 (35-45) mmHg ABG pO2 (83-108) mmHg ABG HCO3 (21-25) mmol/L Chloride (98-107) mmol/L BUN (9-20) mg/dL Creatinine (0.66-1.25) mg/dL Glucose (74-99) mg/dL POC Glucose (mg/dL) 134 H 150 H 252 H (70-110) mg/dL Calcium (8.4-10.2) mg/dL 11/22/23 11/23/23 11/23/23 Range/Units 23:40 03:47 03:47 WBC 11.3 H (3.8-10.6) k/uL RBC 3.46 L (4.30-5.90) m/uL Hgb 11.0 L (13.0-17.5) gm/dL Hct 34.5 L (39.0-53.0) % Neutrophils # 10.7 H (1.3-7.7) k/uL Lymphocytes # 0.2 L (1.0-4.8) k/uL ABG pCO2 (35-45) mmHg ABG pO2 (83-108) mmHg ABG HCO3 (21-25) mmol/L Chloride 111 H (98-107) mmol/L BUN 27 H (9-20) mg/dL Creatinine 0.60 L (0.66-1.25) mg/dL Glucose 189 H (74-99) mg/dL POC Glucose (mg/dL) 185 H (70-110) mg/dL Calcium 7.5 L (8.4-10.2) mg/dL 11/23/23 11/23/23 Range/Units 05:18 05:21 WBC (3.8-10.6) k/uL RBC (4.30-5.90) m/uL Hgb (13.0-17.5) gm/dL Hct (39.0-53.0) % Neutrophils # (1.3-7.7) k/uL Lymphocytes # (1.0-4.8) k/uL ABG pCO2 46 H (35-45) mmHg ABG pO2 73 L (83-108) mmHg ABG HCO3 31 H (21-25) mmol/L Chloride (98-107) mmol/L BUN (9-20) mg/dL Creatinine (0.66-1.25) mg/dL Glucose (74-99) mg/dL POC Glucose (mg/dL) 233 H (70-110) mg/dL Calcium (8.4-10.2) mg/dL Microbiology - Last 24 Hours (Table) 11/20/23 11:45 Gram Stain - Final Sputum Sputum Culture - Final
[2023-11-23 18:42] LABS: Glucose,Whole Blood 176 mg/dL (70-110)
[2023-11-23 23:16] LABS: Glucose,Whole Blood 205 mg/dL (70-110)
[2023-11-24 05:23] LABS: ABG HCO3 29 mmol/L (21-25); ABG Oxygen Saturation 95.8 % (94-97); ABG PCO2 45 mmHg (35-45); ABG PH 7.42 (7.35-7.45); ABG PO2 75 mmHg (83-108); ABG TCO2 31 mmol/L (19-24); Allen Test Performed? Yes
[2023-11-24 06:44] LABS: Glucose,Whole Blood 202 mg/dL (70-110)
[2023-11-24 06:44] LABS: Glucose,Whole Blood 223 mg/dL (70-110)
[2023-11-24 07:05] LABS: African American GFR (CKD) >90 (>60 ml/min/1.73 sqM); Anion Gap -2 mmol/L; Blood Urea Nitrogen 27 mg/dL (9-20); Calcium 7.7 mg/dL (8.4-10.2); Carbon Dioxide 30 mmol/L (22-30); Chloride 110 mmol/L (98-107); Glucose 180 mg/dL (74-99); Non-African American GFR(CKD) >90 (>60 ml/min/1.73 sqM); Potassium 4.1 mmol/L (3.5-5.1); Sodium 138 mmol/L (137-145)
[2023-11-24 07:20] LABS: Basophils % (A) 0 %; Eosinophils % (A) 0 %; HCT 31.2 % (39.0-53.0); HGB 10.1 gm/dL (13.0-17.5); Lymphocytes # (A) 0.2 k/uL (1.0-4.8); Lymphocytes % (A) 1 %; MCH 32.6 pg (25.0-35.0); MCHC 32.5 g/dL (31.0-37.0); MCV 100.1 fL (80.0-100.0); Macrocytosis Slight; Monocytes # (A) 0.3 k/uL (0-1.0); Monocytes % (A) 3 %; Neutrophils # (A) 10.6 k/uL (1.3-7.7); Neutrophils % (A) 95 %; Platelet Count 149 k/uL (150-450); RBC 3.12 m/uL (4.30-5.90); WBC 11.2 k/uL (3.8-10.6)
--- NOTE | 2023-11-24 09:36 | XR ---
EXAMINATION TYPE: XR chest 1V portable DATE OF EXAM: 11/24/2023 Comparison: 11/23/2023 Clinical History: 73-year-old male mechanical ventilation Findings: ET and NG tubes satisfactory. Patient obliquely toward the left and also rotated toward the left. Hea rt upper limits of normal in size, unchanged. Hyperinflation. Patchy interstitial opacities, left gre ater than right and right at the lung bases persists along with trace effusions and no significant ch cuong. Right IJ CVC tip cavoatrial junction. Impression: COPD with superimposed interstitial and patchy bilateral infiltrates/consolidation, left greater than right, remain unchanged. Trace bilateral pleural effusions also similar.
[2023-11-24] MEDS: FUROSEMIDE 10 MG/ML 10 ML VIAL IV STA (09:46)
--- NOTE | 2023-11-24 10:09 | XR ---
EXAMINATION TYPE: XR abdomen 1V DATE OF EXAM: 11/24/2023 Comparison: None Clinical History: 73-year-old male Abdominal distention Findings: Chest reported separately. Nonobstructive bowel gas pattern. Scattered mild colonic air and stool. Metastatic calcifications dis justin abdominal aorta and iliac arteries. Impression: Nonobstructive bowel gas pattern. Scattered mild stool. Chest reported separately.
--- NOTE | 2023-11-24 10:34 | P.PN ---
Subjective Progress Note Date: 11/24/23 Principal diagnosis: Respiratory failure. Patient is a 73-year-old white male with past medical history significant for COPD, chronic ongoing tobacco dependence, chronic hypoxemic respiratory failure on 2-/2 to 3 L, hypertension, among other things. His primary care provider is Dr. Chavez Shelton. He reportedly does not follow with a outdoor recreation specialist. Patient presented to the emergency room yesterday afternoon via EMS. Reportedly noted to be lethargic and difficult to arouse at home. 3 to 4 days before this, his noted flulike symptoms. These included a runny nose, dry cough, fever, generalized malaise, and loose stools. When EMS arrived to the scene, they noted his blood pressure to be hypotensive. On arrival to the emergency room he was fluid resuscitated with a total of 3 L crystalloid fluid bolus. He was then started on low-dose norepinephrine which is currently infusing at 0.03 mcg/kg/min. He is also bradycardic, sinus bradycardia at 58 bpm. Normal saline continues to infuse at 130 MLS per hour. Chest x-ray demonstrated chronic interstitial changes with hyperinflation consistent with COPD. No focal consolidations, pleural effusions, or pneumothorax. He was hypercapnic in the emergency room. ABGs demonstrated PaO2 of 105, pCO2 of 52, pH of 7.25. He was then placed on the BiPAP in the emergency room. He is currently in the intensive care unit, room 251. He is on BiPAP with settings 12/6 and FiO2 of 50%. Achieving tidal volumes of around 400, respiratory rate in the mid 20s. He is alert and oriented x 3. No further signs of CO2 narcosis. Appears fairly comfortable. He is actively wheezing. Endorses the above-mentioned symptoms. Denies any chest pain or hemoptysis. Denies any significant sputum production. CBC unremarkable. No leukocytosis. D-dimer low. BMP includes a sodium 133, potassium 4.4, chloride 100, serum bicarb 29, BUN 21, creatinine 1.4, glucose 144. Lactic acid not significantly elevated. LFTs not elevated. NT proBNP 1330. Troponin 0.032. EKG shows sinus bradycardia with nonspecific T wave abnormalities. Nondiagnostic for acute ischemia. Viral screen negative for influenza, RSV, COVID. Afebrile. Patient is admitted to the intensive care unit. On 11/13/2023, the patient is being seen for a follow-up. The patient is currently in the intensive care unit. Feeling well. He is off the BiPAP and the patient is currently on 5 L of oxygen nasal cannula. Cough and congestion is still present although improved compared to yesterday. The white cell count is at 8.9 with a hemoglobin of 11.4 and a BUN of 12 with a creatinine of 0.5 and sodium levels of 137. Troponin was 0.014. Remains on bronchodilators. Remains on IV Solu-Medrol. Remains on Zithromax. Blood cultures been negative thus far. Awake and alert and communicating. No signs of any CO2 narcosis. On 11/14/2023, patient is being seen for a follow-up. The patient is stable. No interval worsening shortness of breath. Transferred out of the intensive care unit yesterday. He is currently on oxygen at 4 L with a pulse ox of 93%. No altered mentation. No chest pain. Tolerating diet. Resting comfortably in bed. Remains endocarditis. Remains on steroids 60 mg of IV Solu-Medrol every 6 hours. No increased anxiety. White cell count of 8 with a hemoglobin 11.4 and a platelet count of 202. BUN is 12 with a creatinine of 0.5 and a sodium levels of 137 and a potassium level of 3.7. 11/15/2023, the patient is on the medical floor. Very limited exam in terms of exercise capacity and the patient essentially in bed. Trying to move or walk short distances and make the patient very labored in terms of his breathing. Remains on Perforomist and Pulmicort nebulized treatments twice a day, DuoNeb up To 5, IV Solu-Medrol 60 Mg Every 6 Hours. The Patient Is Also Running a White Cell Count of 8.9 with a Hemoglobin 11.4 and a Platelet Count of 202. BUN Is 12 with a Creatinine of 0.5. Tolerating Diet. No Signs of Any Suicidal Process. No Chest Pain. The patient is seen today November 17, 2023 in follow-up on the regular medical floor. He is currently resting in bed. Awake and alert in no acute distress. Maintaining O2 saturations in the 90s on 4 L/min per nasal cannula. He is feeling better today. He is continue on DuoNeb inhalations, Pulmicort and Perforomist inhalations, Solu-Medrol. Blood cultures revealed no growth. NicoDerm patch in place. The patient is seen today November 18, 2023 in follow-up on the regular medical floor. He is currently sitting up in a chair. He has been up ambulating with a walker and assistance. He is feeling better today compared to yesterday. He is still on 4 L high flow nasal cannula. Still somewhat bronchospastic and wheezing. Continued on DuoNeb ventilations, Pulmicort and perform scintillations, Solu-Medrol and Singulair. NicoDerm patch in place. Heparin for DVT prophylaxis. Blood cultures revealed no growth. Blood sugar 231. The patient is seen today November 19, 2023 in follow-up on the regular medical floor. He is currently awake and alert in no acute distress. He is maintaining O2 saturations in the 90s on 3 L/min per nasal cannula. Blood cultures revealed no growth. White count 7.5. Hemoglobin 9.7. Platelets 273. Sodium 141. Potassium 4.1. Bicarb 32. BUN 20. Creatinine 0.7. Glucose 141. He remains on DuoNeb ventilations, Pulmicort and performing scintillations, Solu-Medrol. Remains on Singulair. NicoDerm patch in place. Heparin for DVT prophylaxis. Patient was evaluated today on November 19, patient developed sudden onset of respiratory distress, the rapid response team evaluated the patient, and he was in severe respiratory distress. Patient received Solu-Medrol, received Lasix on the floor prior to transfer to the ICU. He was placed on a nonrebreather mask, transferred to the ICU and I evaluated the patient as soon as he arrived to the ICU. Patient seems to be in severe respiratory distress, he was extremely tachypneic, diaphoretic, tachycardic, hypertensive, and in severe distress. Hence recommended immediate intubation, patient was intubated by me with direct visualization of the vocal cords, a size 7.5 endotracheal tube was used, and he was connected to mechanical ventilation after intubation. His vent settings where addressed and he is on AC rate of 20 tidal volume 450 FiO2 100% and PEEP of 5. ABG postintubation showed a pO2 of 208 pCO2 of 60 pH of 7.36 his FiO2 was cut down to 50% and kept on the same vent settings as ordered the rest of the labs were reviewed and they noted to be unremarkable. His liver enzymes were noted but elevated. WBC count showed 15.1 hemoglobin 14.6. Chest x-ray showed bilateral airspace disease, suggestive of pneumonia,, dramatic worsening compared to the chest x-ray done on 11/14/2023, hence I am strongly suspecting that the patient may have developed aspiration pneumonia. The patient will be treated with Zosyn for this abnormal chest x-ray for now. Family was updated on his condition at the bedside. After intubating the patient, patient was hypot ensive, central line was established, arterial line was established at the same time Patient was evaluated today on 11/21/2023, patient remains in the ICU, he was transferred yesterday to the ICU with acute hypoxic and hypercapnic respiratory failure requiring intubation mechanical ventilation. Patient is now on assist- control rate of 20 tidal volume 450 FiO2 40% PEEP of 5 ABG showed a pO2 of 77 p CO2 40 pH of 7.53 hence I decreased his rate from 20-16. Patient is fully sedated and he is very synchronous with the ventilator. Patient remains on propofol at 55 mcg/kg/min IV fluid 0.9 at 125 cc/h he is requiring a small dose of norepinephrine at 0.02 mcg/kg/min his CVP is 2 hence I am recommending more fluid boluses and I am recommending close monitoring of his urine output in the meantime continue norepinephrine until his fluid status improves. His urine output has been in the range of 20 to 30 cc/h. Patient remains on Zosyn chest x-ray today showed slight improvement in his right lower lobe infiltrate and continues to have significant airspace disease involving the left lower lobe and left midlung. Patient is empirically on Zosyn for what seems to be an aspiration pneumonia. Considering the status is marginal, no plans to hold sedation today, will try to optimize his hemodynamic status continue antibiotics and continue bronchodilators meantime continue ventilatory support Patient was reevaluated today on 11/22/2023, patient remains in the ICU, intubated and mechanically ventilated. On assist-control 16 tidal volume 450 FiO2 40% and PEEP of 5. ABG showed a pO2 of 83 pCO2 44 pH of 7.41 patient remains on propofol at 55 mcg/kg/min, IV fluid at 150 cc/h 0.9 normal saline, vital AF at 50 cc/h. Patient is still having marginal urine output in spite of CVP 11, hence I will go ahead and recommend a Lasix trial 20 mg IV push. Patient remains on Zosyn and Zithromax. Chest x-ray is showing slight improvement in his left lower lobe infiltrate nonetheless continues to have significant airspace disease in the left lower lobe and to some extent in the right lower lobe. Patient will be given a weaning trial today off sedation if possible, and if tolerated may even extubate the patient today. WBC count is 9.1 hemoglobin is 10.6. Basic metabolic profile is normal, renal profile is normal Progress note dated November 23, 2023. This is a patient who was admitted back on November 10 for COPD exacerbation. The patient was apparently ready to be discharged, but on November 19, developed jermaine respiratory failure, and required intubation, and transferred to the intensive care unit. He is currently on volume assist-control, rate 16, tidal volume 450, FiO2 40%, PEEP of 5. Blood gases show pCO2 of 46, pO2 of 73, and a pH of 7.44. Currently, the patient is on propofol at 60 mcg/kg/min, saline at 75 cc an hour, and vital AF at 36 cc an hour, which is his goal rate. White count 11.3, hemoglobin 11, hematocrit 34.5, platelet count is normal. Sodium 138, potassium 3.7, chlorides 111, CO2 28, BUN 27, creatinine 0.6. Glucose is 233. Calcium 7.5. Blood and sputum sampling is negative. Chest x-ray shows changes of COPD, with either atelectasis or infiltrate, in the lower lung zones. Progress note dated November 24, 2023. 73-year-old male seen today in room 257. He was admitted back on November 10, for COPD exacerbation. The patient was apparently ready for possible discharge on November 19, but developed jermaine respiratory failure, required intubation, mechanical ventilation, and was transferred to the intensive care unit. He remains on volume assist-control, rate 16, tidal volume 450, FiO2 40%, PEEP of 5. Blood gases show pO2 of 75, pCO2 45, pH is 7.42. The patient is on propofol at 20 mcg/kg/min, saline at 75 cc an hour, and vital AF at 36 cc an hour. White count is 11.2, hemoglobin 10.1, hematocrit 31.2, platelet count 149,000. Sodium 138, potassium 4.1, chlorides 110s, CO2 30, BUN 27, creatinine 0.50. Glucose is 223. Calcium is 7.7. Microbiologic sampling has all been negative. Chest x-ray shows changes of COPD, with some patchy bilateral infiltrates or atelectasis. The flatplate of the abdomen shows a nonobstructive bowel gas pattern. Objective - Vital Signs Vital signs: Vital Signs Temp 98.1 F 11/24/23 08:00 Pulse 88 11/24/23 10:00 Resp 33 H 11/24/23 10:00 BP 145/83 11/24/23 10:00 Pulse Ox 95 11/24/23 10:00 FiO2 40 11/24/23 09:48 Intake & Output 11/23/23 11/24/23 11/24/23 18:59 06:59 18:59 Intake Total 6294.058 0159.91 502.249 Output Total 550 690 505 Balance 5344.203 4053.91 -2.751 Weight 67.6 kg Intake: IV 1158 1036 262 0.9 Pressure Bags 33 36 12 Azithromycin 500 mg In 250 Sodium Chloride 0.9% 250 ml @ 250 mls/hr IVPB DAILY [facility] Rx#:[id number] Piperacillin-Tazobactam 3 200 100 100 .375 gm In Sodium Chloride 0.9% 100 ml @ 25 mls/hr IVPB Q8HR [facility] Rx# :[id number] Sodium Chloride 0.9% 1, 675 900 150 000 ml @ 75 mls/hr IV . [id number] [facility] Rx#:[id number] Intake, IV Titration 200.000 171.91 66.249 Amount propofoL 1,000 mg In 200.000 171.91 66.249 Empty Bag 1 bag @ 15 MCG/ KG/MIN 4.59 mls/hr IV . [id number] [facility] Rx#:[id number] Tube Feeding 396 432 144 Other 60 60 30 Output: Urine 550 690 505 Other: Voiding Method Indwelling Catheter Indwelling Catheter ABP, PAP, CO, CI - Last Documented Arterial Blood Pressure 68/59 - Exam No acute distress, sedated, on propofol, with an orally placed endotracheal tube. HEENT examination is grossly unremarkable. Neck supple. Full range of motion. No adenopathy thyromegaly or neck vein distention. Cardiovascular examination reveals regular rhythm rate. S1-S2 normal. No S3 or S4. No discernible murmur noted. Heart sounds are distant. Heart rate 88 bpm. Lungs reveal scattered bilateral rhonchi. No wheezes. No crackles. Breath sounds equal bilaterally. Saturation is 95%. Abdomen soft with bowel sounds. No masses or tenderness. The patient has scrotal edema. Extremities are intact. No cyanosis clubbing or edema. Skin is without rash or lesion. Neurologic examination cannot be assessed at this time. - Labs CBC & Chem 7: 11/24/23 05:47 11/24/23 05:47 Labs: Abnormal Lab Results - Last 24 Hours (Table) 11/23/23 11/23/23 11/23/23 Range/Units 11:53 18:41 23:14 WBC (3.8-10.6) k/uL RBC (4.30-5.90) m/uL Hgb (13.0-17.5) gm/dL Hct (39.0-53.0) % MCV (80.0-100.0) fL Plt Count (150-450) k/uL Neutrophils # (1.3-7.7) k/uL Lymphocytes # (1.0-4.8) k/uL ABG pO2 (83-108) mmHg ABG HCO3 (21-25) mmol/L ABG Total CO2 (19-24) mmol/L Chloride (98-107) mmol/L BUN (9-20) mg/dL Creatinine (0.66-1.25) mg/dL Glucose (74-99) mg/dL POC Glucose (mg/dL) 156 H 176 H 205 H (70-110) mg/dL Calcium (8.4-10.2) mg/dL 11/24/23 11/24/23 11/24/23 Range/Units 05:20 05:47 05:47 WBC 11.2 H (3.8-10.6) k/uL RBC 3.12 L (4.30-5.90) m/uL Hgb 10.1 L (13.0-17.5) gm/dL Hct 31.2 L (39.0-53.0) % MCV 100.1 H (80.0-100.0) fL Plt Count 149 L (150-450) k/uL Neutrophils # 10.6 H (1.3-7.7) k/uL Lymphocytes # 0.2 L (1.0-4.8) k/uL ABG pO2 75 L (83-108) mmHg ABG HCO3 29 H (21-25) mmol/L ABG Total CO2 31 H (19-24) mmol/L Chloride 110 H (98-107) mmol/L BUN 27 H (9-20) mg/dL Creatinine 0.50 L (0.66-1.25) mg/dL Glucose 180 H (74-99) mg/dL POC Glucose (mg/dL) (70-110) mg/dL Calcium 7.7 L (8.4-10.2) mg/dL 11/24/23 11/24/23 Range/Units 06:33 06:43 WBC (3.8-10.6) k/uL RBC (4.30-5.90) m/uL Hgb (13.0-17.5) gm/dL Hct (39.0-53.0) % MCV (80.0-100.0) fL Plt Count (150-450) k/uL Neutrophils # (1.3-7.7) k/uL Lymphocytes # (1.0-4.8) k/uL ABG pO2 (83-108) mmHg ABG HCO3 (21-25) mmol/L ABG Total CO2 (19-24) mmol/L Chloride (98-107) mmol/L BUN (9-20) mg/dL Creatinine (0.66-1.25) mg/dL Glucose (74-99) mg/dL POC Glucose (mg/dL) 202 H 223 H (70-110) mg/dL Calcium (8.4-10.2) mg/dL Assessment and Plan Assessment: Acute on chronic hypoxemic and hypercapnic respiratory failure, secondary to bilateral pneumonia, status post intubation with mechanical ventilation, on November 20, 2023. Mental status changes, secondary to respiratory failure. Hypotension, resolved. Severe dehydration on initial evaluation. Acute kidney injury. Acute exacerbation of COPD. Chronic and ongoing tobacco dependence with nicotine addiction. Scrotal edema. History of hypertension. Plan: Plan dated November 23, 2023. The patient is seen today in room 257. The patient continues on breathing treatments, and Solu-Medrol. In addition, the patient is getting Zosyn, for suspected aspiration pneumonia. The patient was actually admitted on November 10, and was doing well, until he was intubated on November 19. Blood gases show pO2 of 73, pCO2 46, pH is 7.44. The patient continues on propofol at 60 mcg/kg/min. I have asked the nurse to consider doing the daily interruption of sedation. The patient continues on tube feedings with vital AF, at goal. Labs, x-rays, medications are reviewed. We will continue to follow the patient, and make recommendations along the way. Prognosis is guarded. Plan dated November 24, 2023. The patient was seen today in room 257. The patient remains on the mechanical ventilator. Blood gases are reasonable, with a pO2 of 75, pCO2 45, pH is 7.42. The patient is on propofol at 20 mcg/kg/min, saline at 75 cc an hour, and vital AF at goal, which is 36 cc an hour. Because of the patient's scrotal edema, and significant fluid resuscitation, will DC the IV, and we will give the patient a one-time dose of Lasix 60 mg IV push. Additional recommendations and suggestions are forthcoming. Labs, x-rays, medications are reviewed. We will continue to follow the patient, make recommendations along the way. Prognosis is guarded. Time with Patient: Greater than 30
[2023-11-24 11:32] LABS: Glucose,Whole Blood 221 mg/dL (70-110)
[2023-11-24 18:15] LABS: Glucose,Whole Blood 205 mg/dL (70-110)
[2023-11-24 18:46] LABS: African American GFR (CKD) >90 (>60 ml/min/1.73 sqM); Anion Gap -2 mmol/L; Blood Urea Nitrogen 27 mg/dL (9-20); Calcium 8.2 mg/dL (8.4-10.2); Carbon Dioxide 32 mmol/L (22-30); Chloride 107 mmol/L (98-107); Glucose 213 mg/dL (74-99); Magnesium 2.1 mg/dL (1.6-2.3); Non-African American GFR(CKD) >90 (>60 ml/min/1.73 sqM); Potassium 3.4 mmol/L (3.5-5.1); Sodium 137 mmol/L (137-145)
[2023-11-24] MEDS: POTASSIUM BICARBONATE/CIT AC 20 MEQ TABLET.EFF NG-TUBE SCH (20:32)
[2023-11-24 23:21] LABS: Glucose,Whole Blood 196 mg/dL (70-110)
[2023-11-25] MEDS ORDERED: Potassium Replacement Protocol 1 EACH MISC MISCELLANE PRN (00:30)
[2023-11-25] MEDS: POTASSIUM BICARBONATE/CIT AC 20 MEQ TABLET.EFF NG-TUBE SCH (00:54)
[2023-11-25 05:27] LABS: Glucose,Whole Blood 196 mg/dL (70-110)
[2023-11-25 06:07] LABS: Allen Test Performed? Yes
[2023-11-25 06:13] LABS: Basophils % (A) 0 %; Eosinophils % (A) 0 %; HCT 38.5 % (39.0-53.0); HGB 12.4 gm/dL (13.0-17.5); Lymphocytes # (A) 0.2 k/uL (1.0-4.8); Lymphocytes % (A) 1 %; MCH 31.7 pg (25.0-35.0); MCHC 32.2 g/dL (31.0-37.0); MCV 98.4 fL (80.0-100.0); Macrocytosis Slight; Mean Platelet Volume 8.6; Monocytes # (A) 0.6 k/uL (0-1.0); Monocytes % (A) 4 %; Neutrophils # (A) 14.4 k/uL (1.3-7.7); Neutrophils % (A) 94 %; Platelet Count 152 k/uL (150-450); RBC 3.91 m/uL (4.30-5.90); RDW 15.4 % (11.5-15.5); WBC 15.3 k/uL (3.8-10.6)
[2023-11-25 06:21] LABS: African American GFR (CKD) >90 (>60 ml/min/1.73 sqM); Anion Gap 0 mmol/L; Blood Urea Nitrogen 27 mg/dL (9-20); Calcium 8.2 mg/dL (8.4-10.2); Carbon Dioxide 34 mmol/L (22-30); Chloride 106 mmol/L (98-107); Glucose 186 mg/dL (74-99); Non-African American GFR(CKD) >90 (>60 ml/min/1.73 sqM); Potassium 4.1 mmol/L (3.5-5.1); Sodium 140 mmol/L (137-145)
[2023-11-25 06:26] LABS: ABG Base Excess 9.8 mmol/L; ABG HCO3 34 mmol/L (21-25); ABG Oxygen Saturation 95.8 % (94-97); ABG PCO2 42 mmHg (35-45); ABG PH 7.52 (7.35-7.45); ABG PO2 70 mmHg (83-108); ABG TCO2 35 mmol/L (19-24)
--- NOTE | 2023-11-25 08:06 | XR ---
EXAMINATION TYPE: XR chest 1V portable DATE OF EXAM: 11/25/2023 Comparison: 11/24/2023 Clinical History: 73-year-old male mechanical ventilation Findings: ET and NG tubes are satisfactory. Right IJ CVC tip in the right atrium. Heart mildly enlarged. Hyperi nflation. Ongoing diffuse interstitial and patchy opacities, left greater right lung with small left pleural effusion. There is a slight improving aeration at the right base. Impression: Ongoing COPD with bilateral interstitial and patchy opacities, left greater than right. Ongoing small left pleural effusion. Slight improvement in aeration at the right base.
[2023-11-25] MEDS: FUROSEMIDE 10 MG/ML 10 ML VIAL IV STA (10:45)
--- NOTE | 2023-11-25 11:11 | P.PN ---
Subjective Progress Note Date: 11/25/23 Principal diagnosis: Respiratory failure. Patient is a 73-year-old white male with past medical history significant for COPD, chronic ongoing tobacco dependence, chronic hypoxemic respiratory failure on 2-/2 to 3 L, hypertension, among other things. His primary care provider is Dr. Chavez Shelton. He reportedly does not follow with a esthetician facialist. Patient presented to the emergency room yesterday afternoon via EMS. Reportedly noted to be lethargic and difficult to arouse at home. 3 to 4 days before this, his noted flulike symptoms. These included a runny nose, dry cough, fever, generalized malaise, and loose stools. When EMS arrived to the scene, they noted his blood pressure to be hypotensive. On arrival to the emergency room he was fluid resuscitated with a total of 3 L crystalloid fluid bolus. He was then started on low-dose norepinephrine which is currently infusing at 0.03 mcg/kg/min. He is also bradycardic, sinus bradycardia at 58 bpm. Normal saline continues to infuse at 130 MLS per hour. Chest x-ray demonstrated chronic interstitial changes with hyperinflation consistent with COPD. No focal consolidations, pleural effusions, or pneumothorax. He was hypercapnic in the emergency room. ABGs demonstrated PaO2 of 105, pCO2 of 52, pH of 7.25. He was then placed on the BiPAP in the emergency room. He is currently in the intensive care unit, room 251. He is on BiPAP with settings 12/6 and FiO2 of 50%. Achieving tidal volumes of around 400, respiratory rate in the mid 20s. He is alert and oriented x 3. No further signs of CO2 narcosis. Appears fairly comfortable. He is actively wheezing. Endorses the above-mentioned symptoms. Denies any chest pain or hemoptysis. Denies any significant sputum production. CBC unremarkable. No leukocytosis. D-dimer low. BMP includes a sodium 133, potassium 4.4, chloride 100, serum bicarb 29, BUN 21, creatinine 1.4, glucose 144. Lactic acid not significantly elevated. LFTs not elevated. NT proBNP 1330. Troponin 0.032. EKG shows sinus bradycardia with nonspecific T wave abnormalities. Nondiagnostic for acute ischemia. Viral screen negative for influenza, RSV, COVID. Afebrile. Patient is admitted to the intensive care unit. On 11/13/2023, the patient is being seen for a follow-up. The patient is currently in the intensive care unit. Feeling well. He is off the BiPAP and the patient is currently on 5 L of oxygen nasal cannula. Cough and congestion is still present although improved compared to yesterday. The white cell count is at 8.9 with a hemoglobin of 11.4 and a BUN of 12 with a creatinine of 0.5 and sodium levels of 137. Troponin was 0.014. Remains on bronchodilators. Remains on IV Solu-Medrol. Remains on Zithromax. Blood cultures been negative thus far. Awake and alert and communicating. No signs of any CO2 narcosis. On 11/14/2023, patient is being seen for a follow-up. The patient is stable. No interval worsening shortness of breath. Transferred out of the intensive care unit yesterday. He is currently on oxygen at 4 L with a pulse ox of 93%. No altered mentation. No chest pain. Tolerating diet. Resting comfortably in bed. Remains endocarditis. Remains on steroids 60 mg of IV Solu-Medrol every 6 hours. No increased anxiety. White cell count of 8 with a hemoglobin 11.4 and a platelet count of 202. BUN is 12 with a creatinine of 0.5 and a sodium levels of 137 and a potassium level of 3.7. 11/15/2023, the patient is on the medical floor. Very limited exam in terms of exercise capacity and the patient essentially in bed. Trying to move or walk short distances and make the patient very labored in terms of his breathing. Remains on Perforomist and Pulmicort nebulized treatments twice a day, DuoNeb up To 5, IV Solu-Medrol 60 Mg Every 6 Hours. The Patient Is Also Running a White Cell Count of 8.9 with a Hemoglobin 11.4 and a Platelet Count of 202. BUN Is 12 with a Creatinine of 0.5. Tolerating Diet. No Signs of Any Suicidal Process. No Chest Pain. The patient is seen today November 17, 2023 in follow-up on the regular medical floor. He is currently resting in bed. Awake and alert in no acute distress. Maintaining O2 saturations in the 90s on 4 L/min per nasal cannula. He is feeling better today. He is continue on DuoNeb inhalations, Pulmicort and Perforomist inhalations, Solu-Medrol. Blood cultures revealed no growth. NicoDerm patch in place. The patient is seen today November 18, 2023 in follow-up on the regular medical floor. He is currently sitting up in a chair. He has been up ambulating with a walker and assistance. He is feeling better today compared to yesterday. He is still on 4 L high flow nasal cannula. Still somewhat bronchospastic and wheezing. Continued on DuoNeb ventilations, Pulmicort and perform scintillations, Solu-Medrol and Singulair. NicoDerm patch in place. Heparin for DVT prophylaxis. Blood cultures revealed no growth. Blood sugar 231. The patient is seen today November 19, 2023 in follow-up on the regular medical floor. He is currently awake and alert in no acute distress. He is maintaining O2 saturations in the 90s on 3 L/min per nasal cannula. Blood cultures revealed no growth. White count 7.5. Hemoglobin 9.7. Platelets 273. Sodium 141. Potassium 4.1. Bicarb 32. BUN 20. Creatinine 0.7. Glucose 141. He remains on DuoNeb ventilations, Pulmicort and performing scintillations, Solu-Medrol. Remains on Singulair. NicoDerm patch in place. Heparin for DVT prophylaxis. Patient was evaluated today on November 19, patient developed sudden onset of respiratory distress, the rapid response team evaluated the patient, and he was in severe respiratory distress. Patient received Solu-Medrol, received Lasix on the floor prior to transfer to the ICU. He was placed on a nonrebreather mask, transferred to the ICU and I evaluated the patient as soon as he arrived to the ICU. Patient seems to be in severe respiratory distress, he was extremely tachypneic, diaphoretic, tachycardic, hypertensive, and in severe distress. Hence recommended immediate intubation, patient was intubated by me with direct visualization of the vocal cords, a size 7.5 endotracheal tube was used, and he was connected to mechanical ventilation after intubation. His vent settings where addressed and he is on AC rate of 20 tidal volume 450 FiO2 100% and PEEP of 5. ABG postintubation showed a pO2 of 208 pCO2 of 60 pH of 7.36 his FiO2 was cut down to 50% and kept on the same vent settings as ordered the rest of the labs were reviewed and they noted to be unremarkable. His liver enzymes were noted but elevated. WBC count showed 15.1 hemoglobin 14.6. Chest x-ray showed bilateral airspace disease, suggestive of pneumonia,, dramatic worsening compared to the chest x-ray done on 11/14/2023, hence I am strongly suspecting that the patient may have developed aspiration pneumonia. The patient will be treated with Zosyn for this abnormal chest x-ray for now. Family was updated on his condition at the bedside. After intubating the patient, patient was hypot ensive, central line was established, arterial line was established at the same time Patient was evaluated today on 11/21/2023, patient remains in the ICU, he was transferred yesterday to the ICU with acute hypoxic and hypercapnic respiratory failure requiring intubation mechanical ventilation. Patient is now on assist- control rate of 20 tidal volume 450 FiO2 40% PEEP of 5 ABG showed a pO2 of 77 p CO2 40 pH of 7.53 hence I decreased his rate from 20-16. Patient is fully sedated and he is very synchronous with the ventilator. Patient remains on propofol at 55 mcg/kg/min IV fluid 0.9 at 125 cc/h he is requiring a small dose of norepinephrine at 0.02 mcg/kg/min his CVP is 2 hence I am recommending more fluid boluses and I am recommending close monitoring of his urine output in the meantime continue norepinephrine until his fluid status improves. His urine output has been in the range of 20 to 30 cc/h. Patient remains on Zosyn chest x-ray today showed slight improvement in his right lower lobe infiltrate and continues to have significant airspace disease involving the left lower lobe and left midlung. Patient is empirically on Zosyn for what seems to be an aspiration pneumonia. Considering the status is marginal, no plans to hold sedation today, will try to optimize his hemodynamic status continue antibiotics and continue bronchodilators meantime continue ventilatory support Patient was reevaluated today on 11/22/2023, patient remains in the ICU, intubated and mechanically ventilated. On assist-control 16 tidal volume 450 FiO2 40% and PEEP of 5. ABG showed a pO2 of 83 pCO2 44 pH of 7.41 patient remains on propofol at 55 mcg/kg/min, IV fluid at 150 cc/h 0.9 normal saline, vital AF at 50 cc/h. Patient is still having marginal urine output in spite of CVP 11, hence I will go ahead and recommend a Lasix trial 20 mg IV push. Patient remains on Zosyn and Zithromax. Chest x-ray is showing slight improvement in his left lower lobe infiltrate nonetheless continues to have significant airspace disease in the left lower lobe and to some extent in the right lower lobe. Patient will be given a weaning trial today off sedation if possible, and if tolerated may even extubate the patient today. WBC count is 9.1 hemoglobin is 10.6. Basic metabolic profile is normal, renal profile is normal Progress note dated November 23, 2023. This is a patient who was admitted back on November 10 for COPD exacerbation. The patient was apparently ready to be discharged, but on November 19, developed jermaine respiratory failure, and required intubation, and transferred to the intensive care unit. He is currently on volume assist-control, rate 16, tidal volume 450, FiO2 40%, PEEP of 5. Blood gases show pCO2 of 46, pO2 of 73, and a pH of 7.44. Currently, the patient is on propofol at 60 mcg/kg/min, saline at 75 cc an hour, and vital AF at 36 cc an hour, which is his goal rate. White count 11.3, hemoglobin 11, hematocrit 34.5, platelet count is normal. Sodium 138, potassium 3.7, chlorides 111, CO2 28, BUN 27, creatinine 0.6. Glucose is 233. Calcium 7.5. Blood and sputum sampling is negative. Chest x-ray shows changes of COPD, with either atelectasis or infiltrate, in the lower lung zones. Progress note dated November 24, 2023. 73-year-old male seen today in room 257. He was admitted back on November 10, for COPD exacerbation. The patient was apparently ready for possible discharge on November 19, but developed jermaine respiratory failure, required intubation, mechanical ventilation, and was transferred to the intensive care unit. He remains on volume assist-control, rate 16, tidal volume 450, FiO2 40%, PEEP of 5. Blood gases show pO2 of 75, pCO2 45, pH is 7.42. The patient is on propofol at 20 mcg/kg/min, saline at 75 cc an hour, and vital AF at 36 cc an hour. White count is 11.2, hemoglobin 10.1, hematocrit 31.2, platelet count 149,000. Sodium 138, potassium 4.1, chlorides 110s, CO2 30, BUN 27, creatinine 0.50. Glucose is 223. Calcium is 7.7. Microbiologic sampling has all been negative. Chest x-ray shows changes of COPD, with some patchy bilateral infiltrates or atelectasis. The flatplate of the abdomen shows a nonobstructive bowel gas pattern. Progress note dated November 25, 2023. 73-year-old male seen again in room 257. The patient remains on mechanical ventilator. Vent settings include volume assist-control, rate 16, tidal volume 450, FiO2 40%, PEEP of 5. Blood gases show pO2 of 70, pCO2 of 42, pH is 7.52. This blood gases consistent with a metabolic alkalosis. The patient did fail his spontaneous breathing trial after few minutes. He continues on propofol at 25 mcg/kg/min, saline at 20 cc an hour, and vital AF at 36 cc an hour, which is goal. The patient continues on Zosyn. The patient will get some additional Lasix today, 60 mg IV push. Current labs include a white count 15.3, hemoglobin 12.4, hematocrit 38.5, and platelet count 152,000. Sodium 140, potassium 4.1, chlorides 106, CO2 34, BUN 27, and creatinine 0.56. Calcium is 8.2. Sputum and blood cultures are thus far negative. Chest x-ray is consistent with underlying COPD, with some bilateral interstitial and patchy opacities, left greater than right. There is a small left-sided pleural effusion. Objective - Vital Signs Vital signs: Vital Signs Temp 98.1 F 11/25/23 08:00 Pulse 95 11/25/23 10:00 Resp 23 11/25/23 10:00 BP 135/72 11/25/23 10:00 Pulse Ox 95 11/25/23 10:00 FiO2 40 11/25/23 10:00 Intake & Output 11/24/23 11/25/23 11/25/23 18:59 06:59 18:59 Intake Total 1220.915 806.314 141.02 Output Total 3205 910 80 Balance -1984.085 -103.686 61.02 Weight 67.6 kg 64.9 kg Intake: IV 553 139 23 0.9 Pressure Bags 33 39 3 Piperacillin-Tazobactam 3 200 .375 gm In Sodium Chloride 0.9% 100 ml @ 25 mls/hr IVPB Q8HR [facility] Rx# :[id number] Sodium Chloride 0.9% 1, 320 100 20 000 ml @ 75 mls/hr IV . [id number] [facility] Rx#:[id number] Intake, IV Titration 181.915 235.314 52.02 Amount propofoL 1,000 mg In 181.915 235.314 52.02 Empty Bag 1 bag @ 15 MCG/ KG/MIN 4.59 mls/hr IV . [id number] [facility] Rx#:[id number] Tube Feeding 396 432 36 Other 90 30 Output: Urine 3205 910 80 Other: Voiding Method Indwelling Catheter Indwelling Catheter ABP, PAP, CO, CI - Last Documented Arterial Blood Pressure 68/59 - Exam No acute distress, sedated, on propofol, with an orally placed endotracheal tube. HEENT examination is grossly unremarkable. Neck supple. Full range of motion. No adenopathy thyromegaly or neck vein distention. Cardiovascular examination reveals regular rhythm rate. S1-S2 normal. No S3 or S4. No discernible murmur noted. Heart sounds are distant. Heart rate 93 bpm. Lungs reveal scattered bilateral rhonchi. No wheezes. No crackles. Breath sounds equal bilaterally. Saturation is 95%. Abdomen soft with bowel sounds. No masses or tenderness. The patient has scrotal edema. Extremities are intact. No cyanosis clubbing or edema. Skin is without rash or lesion. Neurologic examination cannot be assessed at this time. - Labs CBC & Chem 7: 11/25/23 05:41 11/25/23 05:41 Labs: Abnormal Lab Results - Last 24 Hours (Table) 11/24/23 11/24/23 11/24/23 Range/Units 11:30 18:09 18:14 WBC (3.8-10.6) k/uL RBC (4.30-5.90) m/uL Hgb (13.0-17.5) gm/dL Hct (39.0-53.0) % Neutrophils # (1.3-7.7) k/uL Lymphocytes # (1.0-4.8) k/uL ABG pH (7.35-7.45) ABG pO2 (83-108) mmHg ABG HCO3 (21-25) mmol/L ABG Total CO2 (19-24) mmol/L Potassium 3.4 L (3.5-5.1) mmol/L Carbon Dioxide 32 H (22-30) mmol/L BUN 27 H (9-20) mg/dL Creatinine 0.52 L (0.66-1.25) mg/dL Glucose 213 H (74-99) mg/dL POC Glucose (mg/dL) 221 H 205 H (70-110) mg/dL Calcium 8.2 L (8.4-10.2) mg/dL 11/24/23 11/25/23 11/25/23 Range/Units 23:18 05:25 05:41 WBC 15.3 H (3.8-10.6) k/uL RBC 3.91 L (4.30-5.90) m/uL Hgb 12.4 L (13.0-17.5) gm/dL Hct 38.5 L (39.0-53.0) % Neutrophils # 14.4 H (1.3-7.7) k/uL Lymphocytes # 0.2 L (1.0-4.8) k/uL ABG pH (7.35-7.45) ABG pO2 (83-108) mmHg ABG HCO3 (21-25) mmol/L ABG Total CO2 (19-24) mmol/L Potassium (3.5-5.1) mmol/L Carbon Dioxide (22-30) mmol/L BUN (9-20) mg/dL Creatinine (0.66-1.25) mg/dL Glucose (74-99) mg/dL POC Glucose (mg/dL) 196 H 196 H (70-110) mg/dL Calcium (8.4-10.2) mg/dL 11/25/23 11/25/23 Range/Units 05:41 06:20 WBC (3.8-10.6) k/uL RBC (4.30-5.90) m/uL Hgb (13.0-17.5) gm/dL Hct (39.0-53.0) % Neutrophils # (1.3-7.7) k/uL Lymphocytes # (1.0-4.8) k/uL ABG pH 7.52 H (7.35-7.45) ABG pO2 70 L (83-108) mmHg ABG HCO3 34 H (21-25) mmol/L ABG Total CO2 35 H (19-24) mmol/L Potassium (3.5-5.1) mmol/L Carbon Dioxide 34 H (22-30) mmol/L BUN 27 H (9-20) mg/dL Creatinine 0.56 L (0.66-1.25) mg/dL Glucose 186 H (74-99) mg/dL POC Glucose (mg/dL) (70-110) mg/dL Calcium 8.2 L (8.4-10.2) mg/dL Assessment and Plan Assessment: Acute on chronic hypoxemic and hypercapnic respiratory failure, secondary to bilateral pneumonia, status post intubation with mechanical ventilation, on November 20, 2023. Mental status changes, secondary to respiratory failure. Hypotension, resolved. Severe dehydration on initial evaluation. Acute kidney injury. Acute exacerbation of COPD. Chronic and ongoing tobacco dependence with nicotine addiction. Scrotal edema. History of hypertension. Plan: Plan dated November 23, 2023. The patient is seen today in room 257. The patient continues on breathing treatments, and Solu-Medrol. In addition, the patient is getting Zosyn, for suspected aspiration pneumonia. The patient was actually admitted on November 10, and was doing well, until he was intubated on November 19. Blood gases show pO2 of 73, pCO2 46, pH is 7.44. The patient continues on propofol at 60 mcg/kg/min. I have asked the nurse to consider doing the daily interruption of sedation. The patient continues on tube feedings with vital AF, at goal. Labs, x-rays, medications are reviewed. We will continue to follow the patient, and make recommendations along the way. Prognosis is guarded. Plan dated November 24, 2023. The patient was seen today in room 257. The patient remains on the mechanical ventilator. Blood gases are reasonable, with a pO2 of 75, pCO2 45, pH is 7.42. The patient is on propofol at 20 mcg/kg/min, saline at 75 cc an hour, and vital AF at goal, which is 36 cc an hour. Because of the patient's scrotal edema, and significant fluid resuscitation, will DC the IV, and we will give the patient a one-time dose of Lasix 60 mg IV push. Additional recommendations and suggestions are forthcoming. Labs, x-rays, medications are reviewed. We will continue to follow the patient, make recommendations along the way. Prognosis is guarded. Plan dated November 25, 2023. The patient is seen today in room 257. The patient will get some additional Lasix today, 60 mg IV push. The patient continues on tube feeds, and propofol. The patient also continues on Zosyn. Labs, x-rays, medications are reviewed. The patient did very poorly on his daily interruption of sedation, and his spontaneous breathing trial. The patient may require tracheostomy tube, in the next few days, if he does not show improvement. We will continue to follow make recommendations along the way. Prognosis is poor. Time with Patient: Greater than 30
[2023-11-25 12:09] LABS: Glucose,Whole Blood 202 mg/dL (70-110)
[2023-11-25 12:42] LABS: Glucose,Whole Blood 189 mg/dL (70-110)
[2023-11-25 18:08] LABS: Glucose,Whole Blood 190 mg/dL (70-110)
[2023-11-25] MEDS: propofoL 100 ML IV ONE (22:35)
[2023-11-25 23:47] LABS: Glucose,Whole Blood 202 mg/dL (70-110)
--- NOTE | 2023-11-26 00:42 | PN ---
PROGRESS NOTE DATE OF SERVICE: 11/24/2023 SUBJECTIVE: A 73-year-old white male, remains in ICU. Remains on the vent, but he is responding fully. Status post aspiration pneumonia/pulmonary edema, had to be reintubated in the ICU. He is back in the ICU obviously. He is still on propofol. He has been weaned off norepinephrine. Labs reviewed. Microbiology is negative. Patchy bilateral infiltrates; COPD, likely aspiration; amylase and lipase normal. OBJECTIVE: VITAL SIGNS: Blood pressure 145/83, pulse 88, respiratory rate 25, temp 98.1, FiO2 of 40. LUNGS: Scattered rhonchi and wheeze. CARDIOVASCULAR: S1, S2. HEMATOLOGY: Negative Homans. GI: Soft. PSYCH: Fair mood and affect. NEUROLOGIC: Alert and oriented x3. ASSESSMENT: Acute on chronic hypoxemic hypercapnic respiratory failure secondary to bilateral pneumonia, status post intubation, mechanical ventilation, mental status changes, hypotension, severe dehydration, chronic obstructive pulmonary disease, scrotal edema, hypertension. We are going to give some Lasix, try to wean him off the vent. Continue broad-spectrum antibiotics. PROGNOSIS: Extremely guarded, but he should improve and appear to be weaned off the vent shortly. MMODL / IJN: [id number] /
--- NOTE | 2023-11-26 01:45 | PN ---
PROGRESS NOTE SUBJECTIVE: This 73-year-old white male is in ICU, trying to wean him off the vent. White count is 50.3, hemoglobin is 12.4. ABG is pH 7.52, pCO2 42, PO2 79. Sodium 140, potassium 4.1, carbon dioxide 34, BUN is 27, creatinine 0.56. Sugars 100 to 200s. OBJECTIVE: CARDIOVASCULAR: S1, S2. LUNGS: Transmitted upper sounds, wheezes x4. PSYCH: Fair mood and affect. NEUROLOGIC: Alert and oriented. He is on a ventilator, unable to assess. Pulmonary is trying to get him off the ventilator, consistent with metabolic acidosis, continues on propofol. He is remains on Lasix. Labs reviewed. Blood cultures are negative, COPD, bilateral aspiration pneumonia/pulmonary edema. When he gets off the vent, we will be able to do a swallow evaluation on him. Continues to slowly improve. Wean vasopressors. Continue broad-spectrum antibiotics. Patient is on tube feeds, Zosyn. He did very poorly on a daily interruption of sedation and spontaneous breathing trial. The patient may require tracheostomy tube if he does not show improvement. PROGNOSIS: Guarded. MMODL / IJN: [id number] /
[2023-11-26 06:01] LABS: Basophils % (A) 0 %; Eosinophils # (A) 0.2 k/uL (0-0.7); Eosinophils % (A) 1 %; HCT 33.6 % (39.0-53.0); HGB 11.5 gm/dL (13.0-17.5); Lymphocytes # (A) 0.2 k/uL (1.0-4.8); Lymphocytes % (A) 1 %; MCH 33.8 pg (25.0-35.0); MCHC 34.3 g/dL (31.0-37.0); MCV 98.8 fL (80.0-100.0); Macrocytosis Slight; Monocytes # (A) 0.5 k/uL (0-1.0); Monocytes % (A) 3 %; Neutrophils # (A) 13.1 k/uL (1.3-7.7); Neutrophils % (A) 94 %; Platelet Count 141 k/uL (150-450); RDW 15.6 % (11.5-15.5)
[2023-11-26 06:09] LABS: Glucose,Whole Blood 217 mg/dL (70-110)
[2023-11-26 06:30] LABS: ABG Base Excess 9.4 mmol/L; ABG HCO3 34 mmol/L (21-25); ABG Oxygen Saturation 96.6 % (94-97); ABG PCO2 46 mmHg (35-45); ABG PH 7.48 (7.35-7.45); ABG PO2 79 mmHg (83-108); ABG TCO2 36 mmol/L (19-24); Allen Test Performed? Yes
[2023-11-26 07:07] LABS: ALT 55 U/L (4-49); AST 26 U/L (17-59); African American GFR (CKD) >90 (>60 ml/min/1.73 sqM); Albumin 2.6 g/dL (3.5-5.0); Alkaline Phosphatase 68 U/L (38-126); Anion Gap 3 mmol/L; Blood Urea Nitrogen 35 mg/dL (9-20); Calcium 8.2 mg/dL (8.4-10.2); Carbon Dioxide 29 mmol/L (22-30); Chloride 105 mmol/L (98-107); Glucose 208 mg/dL (74-99); Non-African American GFR(CKD) >90 (>60 ml/min/1.73 sqM); Potassium 3.6 mmol/L (3.5-5.1); Sodium 137 mmol/L (137-145); Total Bilirubin 0.6 mg/dL (0.2-1.3); Total Protein 4.4 g/dL (6.3-8.2)
--- NOTE | 2023-11-26 08:02 | XR ---
EXAMINATION TYPE: XR chest 1V portable DATE OF EXAM: 11/26/2023 Comparison: 11/25/2023 Clinical History: 73-year-old male mechanical ventilation Findings: ET and NG tubes are satisfactory. Right IJ CVC tip at the upper right atrium. Heart border line enlar ged. Hyperinflation. Interstitial and patchy opacities, left greater than right remain along with und erlying small effusions. Pleural-based calcifications periphery of the right base are unchanged. Impression: Similar COPD with superimposed interstitial and patchy opacities, left greater than right. Ongoing sm all effusions.
[2023-11-26 09:45] LABS: ABG Base Excess 6.5 mmol/L; ABG HCO3 32 mmol/L (21-25); ABG Oxygen Saturation 97.5 % (94-97); ABG PCO2 49 mmHg (35-45); ABG PH 7.43 (7.35-7.45); ABG PO2 92 mmHg (83-108); ABG TCO2 34 mmol/L (19-24); Allen Test Performed? Yes
--- NOTE | 2023-11-26 10:58 | P.PN ---
Subjective Progress Note Date: 11/26/23 Principal diagnosis: Respiratory failure. Patient is a 73-year-old white male with past medical history significant for COPD, chronic ongoing tobacco dependence, chronic hypoxemic respiratory failure on 2-/2 to 3 L, hypertension, among other things. His primary care provider is Dr. Chavez Shelton. 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 Patient presented to the emergency room yesterday afternoon via EMS. Reportedly noted to be lethargic and difficult to arouse at home. 3 to 4 days before this, his noted flulike symptoms. These included a runny nose, dry cough, fever, generalized malaise, and loose stools. When EMS arrived to the scene, they noted his blood pressure to be hypotensive. On arrival to the emergency room he was fluid resuscitated with a total of 3 L crystalloid fluid bolus. He was then started on low-dose norepinephrine which is currently infusing at 0.03 mcg/kg/min. He is also bradycardic, sinus bradycardia at 58 bpm. Normal saline continues to infuse at 130 MLS per hour. Chest x-ray demonstrated chronic interstitial changes with hyperinflation consistent with COPD. No focal consolidations, pleural effusions, or pneumothorax. He was hypercapnic in the emergency room. ABGs demonstrated PaO2 of 105, pCO2 of 52, pH of 7.25. He was then placed on the BiPAP in the emergency room. He is currently in the intensive care unit, room 251. He is on BiPAP with settings 12/6 and FiO2 of 50%. Achieving tidal volumes of around 400, respiratory rate in the mid 20s. He is alert and oriented x 3. No further signs of CO2 narcosis. Appears fairly comfortable. He is actively wheezing. Endorses the above-mentioned symptoms. Denies any chest pain or hemoptysis. Denies any significant sputum production. CBC unremarkable. No leukocytosis. D-dimer low. BMP includes a sodium 133, potassium 4.4, chloride 100, serum bicarb 29, BUN 21, creatinine 1.4, glucose 144. Lactic acid not significantly elevated. LFTs not elevated. NT proBNP 1330. Troponin 0.032. EKG shows sinus bradycardia with nonspecific T wave abnormalities. Nondiagnostic for acute ischemia. Viral screen negative for influenza, RSV, COVID. Afebrile. Patient is admitted to the intensive care unit. On 11/13/2023, the patient is being seen for a follow-up. The patient is currently in the intensive care unit. Feeling well. He is off the BiPAP and the patient is currently on 5 L of oxygen nasal cannula. Cough and congestion is still present although improved compared to yesterday. The white cell count is at 8.9 with a hemoglobin of 11.4 and a BUN of 12 with a creatinine of 0.5 and sodium levels of 137. Troponin was 0.014. Remains on bronchodilators. Remains on IV Solu-Medrol. Remains on Zithromax. Blood cultures been negative thus far. Awake and alert and communicating. No signs of any CO2 narcosis. On 11/14/2023, patient is being seen for a follow-up. The patient is stable. No interval worsening shortness of breath. Transferred out of the intensive care unit yesterday. He is currently on oxygen at 4 L with a pulse ox of 93%. No altered mentation. No chest pain. Tolerating diet. Resting comfortably in bed. Remains endocarditis. Remains on steroids 60 mg of IV Solu-Medrol every 6 hours. No increased anxiety. White cell count of 8 with a hemoglobin 11.4 and a platelet count of 202. BUN is 12 with a creatinine of 0.5 and a sodium levels of 137 and a potassium level of 3.7. 11/15/2023, the patient is on the medical floor. Very limited exam in terms of exercise capacity and the patient essentially in bed. Trying to move or walk short distances and make the patient very labored in terms of his breathing. Remains on Perforomist and Pulmicort nebulized treatments twice a day, DuoNeb up To 5, IV Solu-Medrol 60 Mg Every 6 Hours. The Patient Is Also Running a White Cell Count of 8.9 with a Hemoglobin 11.4 and a Platelet Count of 202. BUN Is 12 with a Creatinine of 0.5. Tolerating Diet. No Signs of Any Suicidal Process. No Chest Pain. The patient is seen today November 17, 2023 in follow-up on the regular medical floor. He is currently resting in bed. Awake and alert in no acute distress. Maintaining O2 saturations in the 90s on 4 L/min per nasal cannula. He is feeling better today. He is continue on DuoNeb inhalations, Pulmicort and Perforomist inhalations, Solu-Medrol. Blood cultures revealed no growth. NicoDerm patch in place. The patient is seen today November 18, 2023 in follow-up on the regular medical floor. He is currently sitting up in a chair. He has been up ambulating with a walker and assistance. He is feeling better today compared to yesterday. He is still on 4 L high flow nasal cannula. Still somewhat bronchospastic and wheezing. Continued on DuoNeb ventilations, Pulmicort and perform scintillations, Solu-Medrol and Singulair. NicoDerm patch in place. Heparin for DVT prophylaxis. Blood cultures revealed no growth. Blood sugar 231. The patient is seen today November 19, 2023 in follow-up on the regular medical floor. He is currently awake and alert in no acute distress. He is maintaining O2 saturations in the 90s on 3 L/min per nasal cannula. Blood cultures revealed no growth. White count 7.5. Hemoglobin 9.7. Platelets 273. Sodium 141. Potassium 4.1. Bicarb 32. BUN 20. Creatinine 0.7. Glucose 141. He remains on DuoNeb ventilations, Pulmicort and performing scintillations, Solu-Medrol. Remains on Singulair. NicoDerm patch in place. Heparin for DVT prophylaxis. Patient was evaluated today on November 19, patient developed sudden onset of respiratory distress, the rapid response team evaluated the patient, and he was in severe respiratory distress. Patient received Solu-Medrol, received Lasix on the floor prior to transfer to the ICU. He was placed on a nonrebreather mask, transferred to the ICU and I evaluated the patient as soon as he arrived to the ICU. Patient seems to be in severe respiratory distress, he was extremely tachypneic, diaphoretic, tachycardic, hypertensive, and in severe distress. Hence recommended immediate intubation, patient was intubated by me with direct visualization of the vocal cords, a size 7.5 endotracheal tube was used, and he was connected to mechanical ventilation after intubation. His vent settings where addressed and he is on AC rate of 20 tidal volume 450 FiO2 100% and PEEP of 5. ABG postintubation showed a pO2 of 208 pCO2 of 60 pH of 7.36 his FiO2 was cut down to 50% and kept on the same vent settings as ordered the rest of the labs were reviewed and they noted to be unremarkable. His liver enzymes were noted but elevated. WBC count showed 15.1 hemoglobin 14.6. Chest x-ray showed bilateral airspace disease, suggestive of pneumonia,, dramatic worsening compared to the chest x-ray done on 11/14/2023, hence I am strongly suspecting that the patient may have developed aspiration pneumonia. The patient will be treated with Zosyn for this abnormal chest x-ray for now. Family was updated on his condition at the bedside. After intubating the patient, patient was hypot ensive, central line was established, arterial line was established at the same time Patient was evaluated today on 11/21/2023, patient remains in the ICU, he was transferred yesterday to the ICU with acute hypoxic and hypercapnic respiratory failure requiring intubation mechanical ventilation. Patient is now on assist- control rate of 20 tidal volume 450 FiO2 40% PEEP of 5 ABG showed a pO2 of 77 p CO2 40 pH of 7.53 hence I decreased his rate from 20-16. Patient is fully sedated and he is very synchronous with the ventilator. Patient remains on propofol at 55 mcg/kg/min IV fluid 0.9 at 125 cc/h he is requiring a small dose of norepinephrine at 0.02 mcg/kg/min his CVP is 2 hence I am recommending more fluid boluses and I am recommending close monitoring of his urine output in the meantime continue norepinephrine until his fluid status improves. His urine output has been in the range of 20 to 30 cc/h. Patient remains on Zosyn chest x-ray today showed slight improvement in his right lower lobe infiltrate and continues to have significant airspace disease involving the left lower lobe and left midlung. Patient is empirically on Zosyn for what seems to be an aspiration pneumonia. Considering the status is marginal, no plans to hold sedation today, will try to optimize his hemodynamic status continue antibiotics and continue bronchodilators meantime continue ventilatory support Patient was reevaluated today on 11/22/2023, patient remains in the ICU, intubated and mechanically ventilated. On assist-control 16 tidal volume 450 FiO2 40% and PEEP of 5. ABG showed a pO2 of 83 pCO2 44 pH of 7.41 patient remains on propofol at 55 mcg/kg/min, IV fluid at 150 cc/h 0.9 normal saline, vital AF at 50 cc/h. Patient is still having marginal urine output in spite of CVP 11, hence I will go ahead and recommend a Lasix trial 20 mg IV push. Patient remains on Zosyn and Zithromax. Chest x-ray is showing slight improvement in his left lower lobe infiltrate nonetheless continues to have significant airspace disease in the left lower lobe and to some extent in the right lower lobe. Patient will be given a weaning trial today off sedation if possible, and if tolerated may even extubate the patient today. WBC count is 9.1 hemoglobin is 10.6. Basic metabolic profile is normal, renal profile is normal Progress note dated November 23, 2023. This is a patient who was admitted back on November 10 for COPD exacerbation. The patient was apparently ready to be discharged, but on November 19, developed jermaine respiratory failure, and required intubation, and transferred to the intensive care unit. He is currently on volume assist-control, rate 16, tidal volume 450, FiO2 40%, PEEP of 5. Blood gases show pCO2 of 46, pO2 of 73, and a pH of 7.44. Currently, the patient is on propofol at 60 mcg/kg/min, saline at 75 cc an hour, and vital AF at 36 cc an hour, which is his goal rate. White count 11.3, hemoglobin 11, hematocrit 34.5, platelet count is normal. Sodium 138, potassium 3.7, chlorides 111, CO2 28, BUN 27, creatinine 0.6. Glucose is 233. Calcium 7.5. Blood and sputum sampling is negative. Chest x-ray shows changes of COPD, with either atelectasis or infiltrate, in the lower lung zones. Progress note dated November 24, 2023. 73-year-old male seen today in room 257. He was admitted back on November 10, for COPD exacerbation. The patient was apparently ready for possible discharge on November 19, but developed jermaine respiratory failure, required intubation, mechanical ventilation, and was transferred to the intensive care unit. He remains on volume assist-control, rate 16, tidal volume 450, FiO2 40%, PEEP of 5. Blood gases show pO2 of 75, pCO2 45, pH is 7.42. The patient is on propofol at 20 mcg/kg/min, saline at 75 cc an hour, and vital AF at 36 cc an hour. White count is 11.2, hemoglobin 10.1, hematocrit 31.2, platelet count 149,000. Sodium 138, potassium 4.1, chlorides 110s, CO2 30, BUN 27, creatinine 0.50. Glucose is 223. Calcium is 7.7. Microbiologic sampling has all been negative. Chest x-ray shows changes of COPD, with some patchy bilateral infiltrates or atelectasis. The flatplate of the abdomen shows a nonobstructive bowel gas pattern. Progress note dated November 25, 2023. 73-year-old male seen again in room 257. The patient remains on mechanical ventilator. Vent settings include volume assist-control, rate 16, tidal volume 450, FiO2 40%, PEEP of 5. Blood gases show pO2 of 70, pCO2 of 42, pH is 7.52. This blood gases consistent with a metabolic alkalosis. The patient did fail his spontaneous breathing trial after few minutes. He continues on propofol at 25 mcg/kg/min, saline at 20 cc an hour, and vital AF at 36 cc an hour, which is goal. The patient continues on Zosyn. The patient will get some additional Lasix today, 60 mg IV push. Current labs include a white count 15.3, hemoglobin 12.4, hematocrit 38.5, and platelet count 152,000. Sodium 140, potassium 4.1, chlorides 106, CO2 34, BUN 27, and creatinine 0.56. Calcium is 8.2. Sputum and blood cultures are thus far negative. Chest x-ray is consistent with underlying COPD, with some bilateral interstitial and patchy opacities, left greater than right. There is a small left-sided pleural effusion. Progress note dated November 26, 2023. 73-year-old male seen in room 257. The patient remains on the mechanical ventilator. He is on volume assist-control, rate 16, tidal volume 450, FiO2 40%, PEEP of 5. Blood gases show pO2 of 79, pCO2 46, pH is 7.48. Blood gases are consistent with a mild metabolic alkalosis. The patient is on propofol at 20 mcg/kg/min, vital AF at 36 cc an hour, saline at 20 cc an hour. The patient will be given a daily interruption of sedation and a spontaneous breathing trial. The patient had 1 yesterday, and did very poorly. White count 14, hemoglobin 11.5, hematocrit 33.6, platelet count 141,000. Sodium 137, potassium 3.6, chlorides 105, CO2 29, BUN 35, and creatinine 0.49. Glucose is 217. Calcium 8.2. Albumin 2.6. Blood cultures, and sputum sampling, has been negative thus far. Chest x-ray shows changes of COPD, with diffuse bilateral left greater than right, opacities. Objective - Vital Signs Vital signs: Vital Signs Temp 98.2 F 11/26/23 08:00 Pulse 84 11/26/23 10:30 Resp 41 H 11/26/23 10:30 BP 159/109 11/26/23 10:30 Pulse Ox 96 11/26/23 10:30 FiO2 40 11/26/23 10:00 Intake & Output 11/25/23 11/26/23 11/26/23 18:59 06:59 18:59 Intake Total 972.695 978.686 304 Output Total 2315 510 120 Balance -1342.305 468.686 184 Weight 63.8 kg Intake: IV 313 376 102 0.9 Pressure Bags 33 36 12 Piperacillin-Tazobactam 3 100 100 50 .375 gm In Sodium Chloride 0.9% 100 ml @ 25 mls/hr IVPB Q8HR [facility] Rx# :[id number] Sodium Chloride 0.9% 1, 180 240 40 000 ml @ 75 mls/hr IV . [id number] [facility] Rx#:[id number] Intake, IV Titration 173.695 70.686 100 Amount propofoL 1,000 mg In 173.695 70.686 100 Empty Bag 1 bag @ 15 MCG/ KG/MIN 4.59 mls/hr IV . [id number] [facility] Rx#:[id number] Tube Feeding 396 432 72 Other 90 100 30 Output: Urine 2315 510 120 Other: Voiding Method Indwelling Catheter Indwelling Catheter # Bowel Movements 1 ABP, PAP, CO, CI - Last Documented Arterial Blood Pressure 68/59 - Exam No acute distress, sedated, on propofol, with an orally placed endotracheal tube. HEENT examination is grossly unremarkable. Neck supple. Full range of motion. No adenopathy thyromegaly or neck vein distention. Cardiovascular examination reveals regular rhythm rate. S1-S2 normal. No S3 or S4. No discernible murmur noted. Heart sounds are distant. Heart rate 84 bpm. Lungs reveal scattered bilateral rhonchi. No wheezes. No crackles. Breath sounds equal bilaterally. Saturation is 98 %. Abdomen soft with bowel sounds. No masses or tenderness. The patient has scrotal edema. Extremities are intact. No cyanosis clubbing or edema. Skin is without rash or lesion. Neurologic examination cannot be assessed at this time. - Labs CBC & Chem 7: 11/26/23 05:40 11/26/23 05:40 Labs: Abnormal Lab Results - Last 24 Hours (Table) 11/25/23 11/25/23 11/25/23 Range/Units 01:00 12:08 12:41 WBC (3.8-10.6) k/uL RBC (4.30-5.90) m/uL Hgb (13.0-17.5) gm/dL Hct (39.0-53.0) % RDW (11.5-15.5) % Plt Count (150-450) k/uL Neutrophils # (1.3-7.7) k/uL Lymphocytes # (1.0-4.8) k/uL ABG pH (7.35-7.45) ABG pCO2 (35-45) mmHg ABG pO2 (83-108) mmHg ABG HCO3 (21-25) mmol/L ABG Total CO2 (19-24) mmol/L ABG O2 Saturation (94-97) % BUN (9-20) mg/dL Creatinine (0.66-1.25) mg/dL Glucose (74-99) mg/dL POC Glucose (mg/dL) 202 H 189 H (70-110) mg/dL Calcium (8.4-10.2) mg/dL ALT (4-49) U/L Total Protein (6.3-8.2) g/dL Albumin (3.5-5.0) g/dL Procalcitonin 0.15 H (0.02-0.09) ng/mL 11/25/23 11/25/23 11/26/23 Range/Units 18:07 23:46 05:40 WBC 14.0 H (3.8-10.6) k/uL RBC 3.40 L (4.30-5.90) m/uL Hgb 11.5 L (13.0-17.5) gm/dL Hct 33.6 L (39.0-53.0) % RDW 15.6 H (11.5-15.5) % Plt Count 141 L (150-450) k/uL Neutrophils # 13.1 H (1.3-7.7) k/uL Lymphocytes # 0.2 L (1.0-4.8) k/uL ABG pH (7.35-7.45) ABG pCO2 (35-45) mmHg ABG pO2 (83-108) mmHg ABG HCO3 (21-25) mmol/L ABG Total CO2 (19-24) mmol/L ABG O2 Saturation (94-97) % BUN (9-20) mg/dL Creatinine (0.66-1.25) mg/dL Glucose (74-99) mg/dL POC Glucose (mg/dL) 190 H 202 H (70-110) mg/dL Calcium (8.4-10.2) mg/dL ALT (4-49) U/L Total Protein (6.3-8.2) g/dL Albumin (3.5-5.0) g/dL Procalcitonin (0.02-0.09) ng/mL 11/26/23 11/26/23 11/26/23 Range/Units 05:40 06:08 06:28 WBC (3.8-10.6) k/uL RBC (4.30-5.90) m/uL Hgb (13.0-17.5) gm/dL Hct (39.0-53.0) % RDW (11.5-15.5) % Plt Count (150-450) k/uL Neutrophils # (1.3-7.7) k/uL Lymphocytes # (1.0-4.8) k/uL ABG pH 7.48 H (7.35-7.45) ABG pCO2 46 H (35-45) mmHg ABG pO2 79 L (83-108) mmHg ABG HCO3 34 H (21-25) mmol/L ABG Total CO2 36 H (19-24) mmol/L ABG O2 Saturation (94-97) % BUN 35 H (9-20) mg/dL Creatinine 0.49 L (0.66-1.25) mg/dL Glucose 208 H (74-99) mg/dL POC Glucose (mg/dL) 217 H (70-110) mg/dL Calcium 8.2 L (8.4-10.2) mg/dL ALT 55 H (4-49) U/L Total Protein 4.4 L (6.3-8.2) g/dL Albumin 2.6 L (3.5-5.0) g/dL Procalcitonin (0.02-0.09) ng/mL 11/26/23 Range/Units 09:42 WBC (3.8-10.6) k/uL RBC (4.30-5.90) m/uL Hgb (13.0-17.5) gm/dL Hct (39.0-53.0) % RDW (11.5-15.5) % Plt Count (150-450) k/uL Neutrophils # (1.3-7.7) k/uL Lymphocytes # (1.0-4.8) k/uL ABG pH (7.35-7.45) ABG pCO2 49 H (35-45) mmHg ABG pO2 (83-108) mmHg ABG HCO3 32 H (21-25) mmol/L ABG Total CO2 34 H (19-24) mmol/L ABG O2 Saturation 97.5 H (94-97) % BUN (9-20) mg/dL Creatinine (0.66-1.25) mg/dL Glucose (74-99) mg/dL POC Glucose (mg/dL) (70-110) mg/dL Calcium (8.4-10.2) mg/dL ALT (4-49) U/L Total Protein (6.3-8.2) g/dL Albumin (3.5-5.0) g/dL Procalcitonin (0.02-0.09) ng/mL Assessment and Plan Assessment: Acute on chronic hypoxemic and hypercapnic respiratory failure, secondary to bilateral pneumonia, status post intubation with mechanical ventilation, on November 20, 2023. Mental status changes, secondary to respiratory failure. Hypotension, resolved. Severe dehydration on initial evaluation. Acute kidney injury. Acute exacerbation of COPD. Chronic and ongoing tobacco dependence with nicotine addiction. Scrotal edema. History of hypertension. Plan: Plan dated November 23, 2023. The patient is seen today in room 257. The patient continues on breathing treatments, and Solu-Medrol. In addition, the patient is getting Zosyn, for suspected aspiration pneumonia. The patient was actually admitted on November 10, and was doing well, until he was intubated on November 19. Blood gases show pO2 of 73, pCO2 46, pH is 7.44. The patient continues on propofol at 60 mcg/kg/min. I have asked the nurse to consider doing the daily interruption of sedation. The patient continues on tube feedings with vital AF, at goal. Labs, x-rays, medications are reviewed. We will continue to follow the patient, and make recommendations along the way. Prognosis is guarded. Plan dated November 24, 2023. The patient was seen today in room 257. The patient remains on the mechanical ventilator. Blood gases are reasonable, with a pO2 of 75, pCO2 45, pH is 7.42. The patient is on propofol at 20 mcg/kg/min, saline at 75 cc an hour, and vital AF at goal, which is 36 cc an hour. Because of the patient's scrotal edema, and significant fluid resuscitation, will DC the IV, and we will give the patient a one-time dose of Lasix 60 mg IV push. Additional recommendations and suggestions are forthcoming. Labs, x-rays, medications are reviewed. We will continue to follow the patient, make recommendations along the way. Prognosis is guarded. Plan dated November 25, 2023. The patient is seen today in room 257. The patient will get some additional Lasix today, 60 mg IV push. The patient continues on tube feeds, and propofol. The patient also continues on Zosyn. Labs, x-rays, medications are reviewed. The patient did very poorly on his daily interruption of sedation, and his spontaneous breathing trial. The patient may require tracheostomy tube, in the next few days, if he does not show improvement. We will continue to follow make recommendations along the way. Prognosis is poor. Plan dated November 26, 2023. I was able to speak to the patient's . Initially, she agreed to have the patient proceed with a tracheostomy and PEG tube placement. Subsequent to that, she called back and said that she did not want a tracheostomy or PEG tube, and made her to DO NOT RESUSCITATE. The patient will be extubated, to nasal cannula. He will not be reintubated. Will continue to follow the patient and make recommendations where appropriate. Labs, x-rays, medications are reviewed. The patient did reasonably well on his CPAP trial today, and, was extubated. He remains a DNR. We will continue to follow. Prognosis is poor. Time with Patient: Greater than 30
[2023-11-26 11:52] LABS: Glucose,Whole Blood 150 mg/dL (70-110)
[2023-11-26 16:18] LABS: Glucose,Whole Blood 114 mg/dL (70-110)
[2023-11-26] MEDS: CIPROFLOXACIN HCL 500 MG TAB PO SCH (20:12)
[2023-11-26] MEDS: INSULIN ASPART (NovoLOG) 100 UNIT/ML VIAL SQ SCH (20:18)
[2023-11-26 20:19] LABS: Glucose,Whole Blood 136 mg/dL (70-110)
[2023-11-27 04:32] LABS: HCT 37.2 % (39.0-53.0); MCH 32.5 pg (25.0-35.0); MCHC 32.2 g/dL (31.0-37.0); Macrocytosis Slight; Mean Platelet Volume 8.3; Platelet Count 166 k/uL (150-450); RBC 3.68 m/uL (4.30-5.90); RDW 15.5 % (11.5-15.5); WBC 13.8 k/uL (3.8-10.6)
[2023-11-27 04:43] LABS: African American GFR (CKD) >90 (>60 ml/min/1.73 sqM); Anion Gap 1 mmol/L; Blood Urea Nitrogen 30 mg/dL (9-20); Calcium 8.2 mg/dL (8.4-10.2); Carbon Dioxide 34 mmol/L (22-30); Chloride 106 mmol/L (98-107); Glucose 98 mg/dL (74-99); Magnesium 2.1 mg/dL (1.6-2.3); Non-African American GFR(CKD) >90 (>60 ml/min/1.73 sqM); Potassium 3.4 mmol/L (3.5-5.1); Sodium 141 mmol/L (137-145)
[2023-11-27] MEDS: POTASSIUM CHLORIDE 20 MEQ in WATER FOR INJECTION 1 100ML.BAG IVPB SCH (05:50)
[2023-11-27 05:57] LABS: Glucose,Whole Blood 101 mg/dL (70-110)
--- NOTE | 2023-11-27 07:47 | XR ---
EXAMINATION TYPE: XR chest 1V portable DATE OF EXAM: 11/27/2023 Comparison: 11/26/2023 Clinical History: 73-year-old male resp fail Findings: Interval extubation and removal of NG tube. Right CVC tip at the cavoatrial junction. Heart remains m ildly enlarged. Hyperinflation. Diffuse interstitial and patchy opacities persist with possible sligh t interval worsening. Small bilateral pleural effusions. Chronic pleural calcifications periphery of the right base. Impression: Mild cardiomegaly and COPD with bilateral interstitial and patchy opacities either stable or with sli ght interval worsening. Small effusions also persist.
--- NOTE | 2023-11-27 10:48 | P.PN ---
Subjective Progress Note Date: 11/27/23 Principal diagnosis: Respiratory failure. Patient is a 73-year-old white male with past medical history significant for COPD, chronic ongoing tobacco dependence, chronic hypoxemic respiratory failure on 2-/2 to 3 L, hypertension, among other things. His primary care provider is Dr. Chavez Shelton. He reportedly does not follow with a clinical program director. Patient presented to the emergency room yesterday afternoon via EMS. Reportedly noted to be lethargic and difficult to arouse at home. 3 to 4 days before this, his noted flulike symptoms. These included a runny nose, dry cough, fever, generalized malaise, and loose stools. When EMS arrived to the scene, they noted his blood pressure to be hypotensive. On arrival to the emergency room he was fluid resuscitated with a total of 3 L crystalloid fluid bolus. He was then started on low-dose norepinephrine which is currently infusing at 0.03 mcg/kg/min. He is also bradycardic, sinus bradycardia at 58 bpm. Normal saline continues to infuse at 130 MLS per hour. Chest x-ray demonstrated chronic interstitial changes with hyperinflation consistent with COPD. No focal consolidations, pleural effusions, or pneumothorax. He was hypercapnic in the emergency room. ABGs demonstrated PaO2 of 105, pCO2 of 52, pH of 7.25. He was then placed on the BiPAP in the emergency room. He is currently in the intensive care unit, room 251. He is on BiPAP with settings 12/6 and FiO2 of 50%. Achieving tidal volumes of around 400, respiratory rate in the mid 20s. He is alert and oriented x 3. No further signs of CO2 narcosis. Appears fairly comfortable. He is actively wheezing. Endorses the above-mentioned symptoms. Denies any chest pain or hemoptysis. Denies any significant sputum production. CBC unremarkable. No leukocytosis. D-dimer low. BMP includes a sodium 133, potassium 4.4, chloride 100, serum bicarb 29, BUN 21, creatinine 1.4, glucose 144. Lactic acid not significantly elevated. LFTs not elevated. NT proBNP 1330. Troponin 0.032. EKG shows sinus bradycardia with nonspecific T wave abnormalities. Nondiagnostic for acute ischemia. Viral screen negative for influenza, RSV, COVID. Afebrile. Patient is admitted to the intensive care unit. On 11/13/2023, the patient is being seen for a follow-up. The patient is currently in the intensive care unit. Feeling well. He is off the BiPAP and the patient is currently on 5 L of oxygen nasal cannula. Cough and congestion is still present although improved compared to yesterday. The white cell count is at 8.9 with a hemoglobin of 11.4 and a BUN of 12 with a creatinine of 0.5 and sodium levels of 137. Troponin was 0.014. Remains on bronchodilators. Remains on IV Solu-Medrol. Remains on Zithromax. Blood cultures been negative thus far. Awake and alert and communicating. No signs of any CO2 narcosis. On 11/14/2023, patient is being seen for a follow-up. The patient is stable. No interval worsening shortness of breath. Transferred out of the intensive care unit yesterday. He is currently on oxygen at 4 L with a pulse ox of 93%. No altered mentation. No chest pain. Tolerating diet. Resting comfortably in bed. Remains endocarditis. Remains on steroids 60 mg of IV Solu-Medrol every 6 hours. No increased anxiety. White cell count of 8 with a hemoglobin 11.4 and a platelet count of 202. BUN is 12 with a creatinine of 0.5 and a sodium levels of 137 and a potassium level of 3.7. 11/15/2023, the patient is on the medical floor. Very limited exam in terms of exercise capacity and the patient essentially in bed. Trying to move or walk short distances and make the patient very labored in terms of his breathing. Remains on Perforomist and Pulmicort nebulized treatments twice a day, DuoNeb up To 5, IV Solu-Medrol 60 Mg Every 6 Hours. The Patient Is Also Running a White Cell Count of 8.9 with a Hemoglobin 11.4 and a Platelet Count of 202. BUN Is 12 with a Creatinine of 0.5. Tolerating Diet. No Signs of Any Suicidal Process. No Chest Pain. The patient is seen today November 17, 2023 in follow-up on the regular medical floor. He is currently resting in bed. Awake and alert in no acute distress. Maintaining O2 saturations in the 90s on 4 L/min per nasal cannula. He is feeling better today. He is continue on DuoNeb inhalations, Pulmicort and Perforomist inhalations, Solu-Medrol. Blood cultures revealed no growth. NicoDerm patch in place. The patient is seen today November 18, 2023 in follow-up on the regular medical floor. He is currently sitting up in a chair. He has been up ambulating with a walker and assistance. He is feeling better today compared to yesterday. He is still on 4 L high flow nasal cannula. Still somewhat bronchospastic and wheezing. Continued on DuoNeb ventilations, Pulmicort and perform scintillations, Solu-Medrol and Singulair. NicoDerm patch in place. Heparin for DVT prophylaxis. Blood cultures revealed no growth. Blood sugar 231. The patient is seen today November 19, 2023 in follow-up on the regular medical floor. He is currently awake and alert in no acute distress. He is maintaining O2 saturations in the 90s on 3 L/min per nasal cannula. Blood cultures revealed no growth. White count 7.5. Hemoglobin 9.7. Platelets 273. Sodium 141. Potassium 4.1. Bicarb 32. BUN 20. Creatinine 0.7. Glucose 141. He remains on DuoNeb ventilations, Pulmicort and performing scintillations, Solu-Medrol. Remains on Singulair. NicoDerm patch in place. Heparin for DVT prophylaxis. Patient was evaluated today on November 19, patient developed sudden onset of respiratory distress, the rapid response team evaluated the patient, and he was in severe respiratory distress. Patient received Solu-Medrol, received Lasix on the floor prior to transfer to the ICU. He was placed on a nonrebreather mask, transferred to the ICU and I evaluated the patient as soon as he arrived to the ICU. Patient seems to be in severe respiratory distress, he was extremely tachypneic, diaphoretic, tachycardic, hypertensive, and in severe distress. Hence recommended immediate intubation, patient was intubated by me with direct visualization of the vocal cords, a size 7.5 endotracheal tube was used, and he was connected to mechanical ventilation after intubation. His vent settings where addressed and he is on AC rate of 20 tidal volume 450 FiO2 100% and PEEP of 5. ABG postintubation showed a pO2 of 208 pCO2 of 60 pH of 7.36 his FiO2 was cut down to 50% and kept on the same vent settings as ordered the rest of the labs were reviewed and they noted to be unremarkable. His liver enzymes were noted but elevated. WBC count showed 15.1 hemoglobin 14.6. Chest x-ray showed bilateral airspace disease, suggestive of pneumonia,, dramatic worsening compared to the chest x-ray done on 11/14/2023, hence I am strongly suspecting that the patient may have developed aspiration pneumonia. The patient will be treated with Zosyn for this abnormal chest x-ray for now. Family was updated on his condition at the bedside. After intubating the patient, patient was hypot ensive, central line was established, arterial line was established at the same time Patient was evaluated today on 11/21/2023, patient remains in the ICU, he was transferred yesterday to the ICU with acute hypoxic and hypercapnic respiratory failure requiring intubation mechanical ventilation. Patient is now on assist- control rate of 20 tidal volume 450 FiO2 40% PEEP of 5 ABG showed a pO2 of 77 p CO2 40 pH of 7.53 hence I decreased his rate from 20-16. Patient is fully sedated and he is very synchronous with the ventilator. Patient remains on propofol at 55 mcg/kg/min IV fluid 0.9 at 125 cc/h he is requiring a small dose of norepinephrine at 0.02 mcg/kg/min his CVP is 2 hence I am recommending more fluid boluses and I am recommending close monitoring of his urine output in the meantime continue norepinephrine until his fluid status improves. His urine output has been in the range of 20 to 30 cc/h. Patient remains on Zosyn chest x-ray today showed slight improvement in his right lower lobe infiltrate and continues to have significant airspace disease involving the left lower lobe and left midlung. Patient is empirically on Zosyn for what seems to be an aspiration pneumonia. Considering the status is marginal, no plans to hold sedation today, will try to optimize his hemodynamic status continue antibiotics and continue bronchodilators meantime continue ventilatory support Patient was reevaluated today on 11/22/2023, patient remains in the ICU, intubated and mechanically ventilated. On assist-control 16 tidal volume 450 FiO2 40% and PEEP of 5. ABG showed a pO2 of 83 pCO2 44 pH of 7.41 patient remains on propofol at 55 mcg/kg/min, IV fluid at 150 cc/h 0.9 normal saline, vital AF at 50 cc/h. Patient is still having marginal urine output in spite of CVP 11, hence I will go ahead and recommend a Lasix trial 20 mg IV push. Patient remains on Zosyn and Zithromax. Chest x-ray is showing slight improvement in his left lower lobe infiltrate nonetheless continues to have significant airspace disease in the left lower lobe and to some extent in the right lower lobe. Patient will be given a weaning trial today off sedation if possible, and if tolerated may even extubate the patient today. WBC count is 9.1 hemoglobin is 10.6. Basic metabolic profile is normal, renal profile is normal Progress note dated November 23, 2023. This is a patient who was admitted back on November 10 for COPD exacerbation. The patient was apparently ready to be discharged, but on November 19, developed jermaine respiratory failure, and required intubation, and transferred to the intensive care unit. He is currently on volume assist-control, rate 16, tidal volume 450, FiO2 40%, PEEP of 5. Blood gases show pCO2 of 46, pO2 of 73, and a pH of 7.44. Currently, the patient is on propofol at 60 mcg/kg/min, saline at 75 cc an hour, and vital AF at 36 cc an hour, which is his goal rate. White count 11.3, hemoglobin 11, hematocrit 34.5, platelet count is normal. Sodium 138, potassium 3.7, chlorides 111, CO2 28, BUN 27, creatinine 0.6. Glucose is 233. Calcium 7.5. Blood and sputum sampling is negative. Chest x-ray shows changes of COPD, with either atelectasis or infiltrate, in the lower lung zones. Progress note dated November 24, 2023. 73-year-old male seen today in room 257. He was admitted back on November 10, for COPD exacerbation. The patient was apparently ready for possible discharge on November 19, but developed jermaine respiratory failure, required intubation, mechanical ventilation, and was transferred to the intensive care unit. He remains on volume assist-control, rate 16, tidal volume 450, FiO2 40%, PEEP of 5. Blood gases show pO2 of 75, pCO2 45, pH is 7.42. The patient is on propofol at 20 mcg/kg/min, saline at 75 cc an hour, and vital AF at 36 cc an hour. White count is 11.2, hemoglobin 10.1, hematocrit 31.2, platelet count 149,000. Sodium 138, potassium 4.1, chlorides 110s, CO2 30, BUN 27, creatinine 0.50. Glucose is 223. Calcium is 7.7. Microbiologic sampling has all been negative. Chest x-ray shows changes of COPD, with some patchy bilateral infiltrates or atelectasis. The flatplate of the abdomen shows a nonobstructive bowel gas pattern. Progress note dated November 25, 2023. 73-year-old male seen again in room 257. The patient remains on mechanical ventilator. Vent settings include volume assist-control, rate 16, tidal volume 450, FiO2 40%, PEEP of 5. Blood gases show pO2 of 70, pCO2 of 42, pH is 7.52. This blood gases consistent with a metabolic alkalosis. The patient did fail his spontaneous breathing trial after few minutes. He continues on propofol at 25 mcg/kg/min, saline at 20 cc an hour, and vital AF at 36 cc an hour, which is goal. The patient continues on Zosyn. The patient will get some additional Lasix today, 60 mg IV push. Current labs include a white count 15.3, hemoglobin 12.4, hematocrit 38.5, and platelet count 152,000. Sodium 140, potassium 4.1, chlorides 106, CO2 34, BUN 27, and creatinine 0.56. Calcium is 8.2. Sputum and blood cultures are thus far negative. Chest x-ray is consistent with underlying COPD, with some bilateral interstitial and patchy opacities, left greater than right. There is a small left-sided pleural effusion. Progress note dated November 26, 2023. 73-year-old male seen in room 257. The patient remains on the mechanical ventilator. He is on volume assist-control, rate 16, tidal volume 450, FiO2 40%, PEEP of 5. Blood gases show pO2 of 79, pCO2 46, pH is 7.48. Blood gases are consistent with a mild metabolic alkalosis. The patient is on propofol at 20 mcg/kg/min, vital AF at 36 cc an hour, saline at 20 cc an hour. The patient will be given a daily interruption of sedation and a spontaneous breathing trial. The patient had 1 yesterday, and did very poorly. White count 14, hemoglobin 11.5, hematocrit 33.6, platelet count 141,000. Sodium 137, potassium 3.6, chlorides 105, CO2 29, BUN 35, and creatinine 0.49. Glucose is 217. Calcium 8.2. Albumin 2.6. Blood cultures, and sputum sampling, has been negative thus far. Chest x-ray shows changes of COPD, with diffuse bilateral left greater than right, opacities. Progress note dated November 27, 2023. 73-year-old male seen in room 257. The patient was extubated yesterday, November 25. He is currently on high flow oxygen at 8 L. The patient is getting saline at KVO. The patient's Zosyn will be discontinued after today. Initially, the patient was a no code, and will be talked to the about tracheostomy and PEG tube placement, prior to extubation, she refused that. Now she is telling us, that the patient should be a full code. Current labs include a white count 13.8, hemoglobin 12, macro 37.2, and platelet count of 166,000. Sodium 141, potassium 3.4, chlorides 106, CO2 34, BUN 30, creatinine 0.7. Calcium is 8.2, magnesium 2.1, glucose is 101. Sputum and blood sampling has been negative. Chest x-ray shows cardiomegaly, COPD, and bilateral patchy infiltrates. Objective - Vital Signs Vital signs: Vital Signs Temp 97.9 F 11/27/23 04:00 Pulse 100 11/27/23 08:43 Resp 22 11/27/23 07:00 BP 147/76 11/27/23 07:00 Pulse Ox 96 11/27/23 08:24 FiO2 40 11/26/23 10:00 Intake & Output 11/26/23 11/27/23 11/27/23 18:59 06:59 18:59 Intake Total 506 256 197 Output Total 350 1130 450 Balance 156 -934 -253 Weight 63.4 kg Intake: IV 304 256 197 0.9 Pressure Bags 24 36 12 Piperacillin-Tazobactam 3 200 100 75 .375 gm In Sodium Chloride 0.9% 100 ml @ 25 mls/hr IVPB Q8HR [facility] Rx# :[id number] Potassium Chloride 20 meq 100 In Water For Injection 1 100ml.bag @ 50 mls/hr IVPB Q2H [facility] Rx#: [id number] Sodium Chloride 0.9% 1, 80 120 10 000 ml @ 75 mls/hr IV . [id number] [facility] Rx#:[id number] Intake, IV Titration 100 Amount propofoL 1,000 mg In 100 Empty Bag 1 bag @ 15 MCG/ KG/MIN 4.59 mls/hr IV . [id number] [facility] Rx#:[id number] Tube Feeding 72 Other 30 Output: Urine 350 1130 450 Other: Voiding Method Indwelling Catheter Indwelling Catheter ABP, PAP, CO, CI - Last Documented Arterial Blood Pressure 68/59 - Exam No acute distress, extubated, currently on high flow nasal O2. The patient is alert, but a very poor historian. HEENT examination is grossly unremarkable. Neck supple. Full range of motion. No adenopathy thyromegaly or neck vein distention. Cardiovascular examination reveals regular rhythm rate. S1-S2 normal. No S3 or S4. No discernible murmur noted. Heart sounds are distant. Heart rate 100 bpm. Lungs reveal scattered bilateral rhonchi. No wheezes. No crackles. Breath sounds equal bilaterally. Saturation is 96 %. Abdomen soft with bowel sounds. No masses or tenderness. The patient has scrotal edema. Extremities are intact. No cyanosis clubbing or edema. Skin is without rash or lesion. Neurologic examination is brief but nonfocal. - Labs CBC & Chem 7: 11/27/23 04:05 11/27/23 04:05 Labs: Abnormal Lab Results - Last 24 Hours (Table) 11/26/23 11/26/23 11/26/23 Range/Units 11:50 16:17 20:18 WBC (3.8-10.6) k/uL RBC (4.30-5.90) m/uL Hgb (13.0-17.5) gm/dL Hct (39.0-53.0) % MCV (80.0-100.0) fL Potassium (3.5-5.1) mmol/L Carbon Dioxide (22-30) mmol/L BUN (9-20) mg/dL POC Glucose (mg/dL) 150 H 114 H 136 H (70-110) mg/dL Calcium (8.4-10.2) mg/dL 11/27/23 11/27/23 Range/Units 04:05 04:05 WBC 13.8 H (3.8-10.6) k/uL RBC 3.68 L (4.30-5.90) m/uL Hgb 12.0 L (13.0-17.5) gm/dL Hct 37.2 L (39.0-53.0) % MCV 101.0 H (80.0-100.0) fL Potassium 3.4 L (3.5-5.1) mmol/L Carbon Dioxide 34 H (22-30) mmol/L BUN 30 H (9-20) mg/dL POC Glucose (mg/dL) (70-110) mg/dL Calcium 8.2 L (8.4-10.2) mg/dL Assessment and Plan Assessment: Acute on chronic hypoxemic and hypercapnic respiratory failure, secondary to bilateral pneumonia, status post intubation with mechanical ventilation, on November 20, 2023. S/P extubation, November 26, 2023. Mental status changes, secondary to respiratory failure. Hypotension, resolved. Severe dehydration on initial evaluation. Acute kidney injury. Acute exacerbation of COPD. Chronic and ongoing tobacco dependence with nicotine addiction. Scrotal edema. History of hypertension. Plan: Plan dated November 23, 2023. The patient is seen today in room 257. The patient continues on breathing treatments, and Solu-Medrol. In addition, the patient is getting Zosyn, for suspected aspiration pneumonia. The patient was actually admitted on November 10, and was doing well, until he was intubated on November 19. Blood gases show pO2 of 73, pCO2 46, pH is 7.44. The patient continues on propofol at 60 mcg/kg/min. I have asked the nurse to consider doing the daily interruption of sedation. The patient continues on tube feedings with vital AF, at goal. Labs, x-rays, medications are reviewed. We will continue to follow the patient, and make recommendations along the way. Prognosis is guarded. Plan dated November 24, 2023. The patient was seen today in room 257. The patient remains on the mechanical ventilator. Blood gases are reasonable, with a pO2 of 75, pCO2 45, pH is 7.42. The patient is on propofol at 20 mcg/kg/min, saline at 75 cc an hour, and vital AF at goal, which is 36 cc an hour. Because of the patient's scrotal edema, and significant fluid resuscitation, will DC the IV, and we will give the patient a one-time dose of Lasix 60 mg IV push. Additional recommendations and suggestions are forthcoming. Labs, x-rays, medications are reviewed. We will continue to follow the patient, make recommendations along the way. Prognosis is guarded. Plan dated November 25, 2023. The patient is seen today in room 257. The patient will get some additional Lasix today, 60 mg IV push. The patient continues on tube feeds, and propofol. The patient also continues on Zosyn. Labs, x-rays, medications are reviewed. The patient did very poorly on his daily interruption of sedation, and his spontaneous breathing trial. The patient may require tracheostomy tube, in the next few days, if he does not show improvement. We will continue to follow make recommendations along the way. Prognosis is poor. Plan dated November 26, 2023. I was able to speak to the patient's . Initially, she agreed to have the patient proceed with a tracheostomy and PEG tube placement. Subsequent to that, she called back and said that she did not want a tracheostomy or PEG tube, and made her to DO NOT RESUSCITATE. The patient will be extubated, to nasal cannula. He will not be reintubated. Will continue to follow the patient and anupama galdamez recommendations where appropriate. Labs, x-rays, medications are reviewed. The patient did reasonably well on his CPAP trial today, and, was extubated. He remains a DNR. We will continue to follow. Prognosis is poor. Plan dated November 27, 2023. The patient is seen today in room 257. The patient was extubated yesterday, because the refused tracheostomy tube and PEG tube placement. Currently, the patient has not been made a full code, by his primary care physician. The patient is on 8 L high flow oxygen. I did speak to the patient's about whether or not she would want him back on the ventilator. He apparently told her, that he would want to go back on mechanical ventilator. Labs, x-rays, medications are reviewed. Zosyn will be discontinued after today's dose. The patient is currently listed as a full code. We will continue to follow make recommendations along the way. Time with Patient: Greater than 30
[2023-11-27] MEDS: LORazepam 1 MG/0.5 ML VIAL IV PRN (11:37)
[2023-11-27 12:31] LABS: ABG PO2 74 mmHg (83-108); Allen Test Performed? Yes
[2023-11-27 12:35] LABS: ABG PCO2 >98 mmHg (35-45)
--- NOTE | 2023-11-27 13:22 | XR ---
EXAMINATION TYPE: XR chest 1V portable DATE OF EXAM: 11/27/2023 1:08 PM CLINICAL INDICATION:Male, 73 years old with history of Tube placement; [facility] COMPARISON: Chest radiograph from one day prior. TECHNIQUE: XR chest 1V portable Frontal view of the chest. FINDINGS: Lungs/Pleura: Bibasilar atelectasis. No evidence for pneumothorax, pleural effusion or focal consolid ation. Pulmonary vascularity: Unremarkable. Heart/mediastinum: Cardiomediastinal silhouette is unremarkable. Musculoskeletal: No acute osseous pathology. Lines/Tubes: Endotracheal tube with distal tip 4.5 cm above the emmett. Nasogastric tube with its distal tip and side-port projecting under the diaphragm. Right internal jugular central venous catheter with distal tip at the cavoatrial junction. IMPRESSION: 1. Similar multifocal airspace opacities compared to priors given differences in technique. Correlat e for pneumonia versus pulmonary vascular congestion. 2. Stable support tubes.
[2023-11-27 13:52] LABS: ABG Base Excess -0.4 mmol/L; ABG HCO3 28 mmol/L (21-25); ABG Oxygen Saturation 97.7 % (94-97); ABG PCO2 66 mmHg (35-45); ABG PH 7.24 (7.35-7.45); ABG PO2 114 mmHg (83-108); ABG TCO2 30 mmol/L (19-24); Allen Test Performed? Yes
[2023-11-27] MEDS: NOREPINEPHRINE 8 MG in SODIUM CHLORIDE 0.9% 250 ML IV SCH (14:00)
[2023-11-27 15:24] LABS: Glucose,Whole Blood 110 mg/dL (70-110)
[2023-11-27] MEDS: CISATRACURIUM 200 MG in SODIUM CHLORIDE 0.9% 180 ML IV SCH (17:07)
[2023-11-27] MEDS: CHLORHEXIDINE GLUCONATE 15 ML CUP MUCOUS MEM SCH (18:58)
[2023-11-27] MEDS: VASOPRESSIN 20 UNIT in SODIUM CHLORIDE 0.9% 50 ML IV SCH (18:58)
--- NOTE | 2023-11-27 21:00 | PN ---
PROGRESS NOTE DATE OF SERVICE: 11/26/2023 SUBJECTIVE: A 73-year-old white male. Discussed the case with the family last night with as well as with the patient, they want full code. He still says he does not want to and want to live, so he was back to full code last night. Last night, he was very kind of aggressive, yelling and screaming loudly. We gave him some Ativan today for that. OBJECTIVE: CARDIOVASCULAR: S1, S2. LUNGS: Scattered wheeze and rhonchi. HEMATOLOGY: Negative Homans. He looks weak and emaciated. He has aspiration pneumonia, chronic obstructive pulmonary disease, acute on chronic respiratory failure, diastolic heart failure. Prognosis guarded. Continue current treatment. Pulmonology and Cardiology are involved. Infectious Disease. Continue broad-spectrum antibiotics, breathing treatments, etc. He has been weaned off the vent, Ativan for anxiety. Please see further orders. Full code for now. MMODL / IJN: [id number] /
--- NOTE | 2023-11-27 21:01 | PN ---
PROGRESS NOTE SUBJECTIVE: The patient is slowly improving. He has been weaned off the ventilator. He is full code now. I have to discuss with the family and the patient. He is on high-flow O2 at 8L, extubated yesterday Zosyn will be discontinued, now on tracheostomy or PEG tube. He is full code. White count 13.8, hemoglobin is 12, platelets 166. Sodium 144, potassium 3.4, CO2 is 34, BUN is 30, creatinine 0.7, magnesium 2.1. Sputum is negative. Chest x-ray, infiltrates. OBJECTIVE: VITAL SIGNS: Blood pressure 147/77, respiratory rate 18 to 22, pulse is 100, temp 97.9, FiO2 is 40%. Sats 96%. LUNGS: Show scattered rhonchi and wheeze. ABDOMEN: Soft. EXTREMITIES: There is no edema. SKIN: No rash or excoriation. NECK: Supple. Labs were reviewed. Hypercapnic respiratory failure, bilateral pneumonia, status post intubation, mechanical ventilation, status post extubation, mental status changes and anxiety. Given him IV Xanax or Ativan. Hypertension, dehydration, COPD, scrotal edema, hypertension. He has been weaned off vasopressors. He is extubated, Ativan for anxiety. Make recommendations across with Pulmonary, Infectious Disease, Cardiology. Please see further orders. MMODL / IJN: [id number] /
[2023-11-28 00:38] LABS: Glucose,Whole Blood 73 mg/dL (70-110)
[2023-11-28] MEDS: INSULIN ASPART (NovoLOG) 100 UNIT/ML VIAL SQ SCH (00:41)
[2023-11-28 05:30] LABS: HCT 40.3 % (39.0-53.0); HGB 12.9 gm/dL (13.0-17.5); MCH 32.3 pg (25.0-35.0); Macrocytosis Slight; Mean Platelet Volume 8.4; Platelet Count 141 k/uL (150-450); RBC 3.99 m/uL (4.30-5.90); RDW 15.9 % (11.5-15.5); WBC 24.7 k/uL (3.8-10.6)
[2023-11-28] MEDS: PIPERACILLIN-TAZOBACTAM 3.375 GM in SODIUM CHLORIDE 0.9% 100 ML IVPB SCH (05:40)
[2023-11-28 05:45] LABS: African American GFR (CKD) >90 (>60 ml/min/1.73 sqM); Anion Gap 5 mmol/L; Blood Urea Nitrogen 33 mg/dL (9-20); Carbon Dioxide 25 mmol/L (22-30); Chloride 109 mmol/L (98-107); Glucose 107 mg/dL (74-99); Magnesium 2.1 mg/dL (1.6-2.3); Non-African American GFR(CKD) >90 (>60 ml/min/1.73 sqM); Potassium 4.1 mmol/L (3.5-5.1); Sodium 139 mmol/L (137-145)
[2023-11-28 05:52] LABS: Glucose,Whole Blood 96 mg/dL (70-110)
[2023-11-28 06:00] LABS: ABG HCO3 29 mmol/L (21-25); ABG Oxygen Saturation 93.7 % (94-97); ABG PCO2 46 mmHg (35-45); ABG PO2 66 mmHg (83-108); ABG TCO2 30 mmol/L (19-24); Allen Test Performed? Yes
--- NOTE | 2023-11-28 07:18 | XR ---
EXAMINATION TYPE: XR chest 1V portable DATE OF EXAM: 11/28/2023 5:13 AM CLINICAL INDICATION:Male, 73 years old with history of Tube placement; [facility] COMPARISON: Chest radiograph from one day prior. TECHNIQUE: XR chest 1V portable Frontal view of the chest. FINDINGS: Lungs/Pleura: Fibrotic changes most proximal lung bases with increased lucency in the lung apices. Bi lateral blunting of the costophrenic angles. There is no evidence of pleural effusion, focal consolid ation, or pneumothorax. Pulmonary vascularity: Unremarkable. Heart/mediastinum: Cardiomediastinal silhouette is unremarkable. Musculoskeletal: No acute osseous pathology. Other findings: None Lines/Tubes: Endotracheal tube with distal tip 2.9 cm above the emmett. Nasogastric tube with its distal tip and side-port projecting under the diaphragm. Right internal jugular central venous catheter with distal tip at the cavoatrial junction. 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 Support tubes in place. Right central venous catheter in appropriate position.
[2023-11-28 11:34] LABS: Glucose,Whole Blood 139 mg/dL (70-110)
--- NOTE | 2023-11-28 11:45 | P.PN ---
Subjective Progress Note Date: 11/28/23 Principal diagnosis: Respiratory failure. Patient is a 73-year-old white male with past medical history significant for COPD, chronic ongoing tobacco dependence, chronic hypoxemic respiratory failure on 2-/2 to 3 L, hypertension, among other things. His primary care provider is Dr. Chavez Shelton. He reportedly does not follow with a protective clothing issuer. Patient presented to the emergency room yesterday afternoon via EMS. Reportedly noted to be lethargic and difficult to arouse at home. 3 to 4 days before this, his noted flulike symptoms. These included a runny nose, dry cough, fever, generalized malaise, and loose stools. When EMS arrived to the scene, they noted his blood pressure to be hypotensive. On arrival to the emergency room he was fluid resuscitated with a total of 3 L crystalloid fluid bolus. He was then started on low-dose norepinephrine which is currently infusing at 0.03 mcg/kg/min. He is also bradycardic, sinus bradycardia at 58 bpm. Normal saline continues to infuse at 130 MLS per hour. Chest x-ray demonstrated chronic interstitial changes with hyperinflation consistent with COPD. No focal consolidations, pleural effusions, or pneumothorax. He was hypercapnic in the emergency room. ABGs demonstrated PaO2 of 105, pCO2 of 52, pH of 7.25. He was then placed on the BiPAP in the emergency room. He is currently in the intensive care unit, room 251. He is on BiPAP with settings 12/6 and FiO2 of 50%. Achieving tidal volumes of around 400, respiratory rate in the mid 20s. He is alert and oriented x 3. No further signs of CO2 narcosis. Appears fairly comfortable. He is actively wheezing. Endorses the above-mentioned symptoms. Denies any chest pain or hemoptysis. Denies any significant sputum production. CBC unremarkable. No leukocytosis. D-dimer low. BMP includes a sodium 133, potassium 4.4, chloride 100, serum bicarb 29, BUN 21, creatinine 1.4, glucose 144. Lactic acid not significantly elevated. LFTs not elevated. NT proBNP 1330. Troponin 0.032. EKG shows sinus bradycardia with nonspecific T wave abnormalities. Nondiagnostic for acute ischemia. Viral screen negative for influenza, RSV, COVID. Afebrile. Patient is admitted to the intensive care unit. On 11/13/2023, the patient is being seen for a follow-up. The patient is currently in the intensive care unit. Feeling well. He is off the BiPAP and the patient is currently on 5 L of oxygen nasal cannula. Cough and congestion is still present although improved compared to yesterday. The white cell count is at 8.9 with a hemoglobin of 11.4 and a BUN of 12 with a creatinine of 0.5 and sodium levels of 137. Troponin was 0.014. Remains on bronchodilators. Remains on IV Solu-Medrol. Remains on Zithromax. Blood cultures been negative thus far. Awake and alert and communicating. No signs of any CO2 narcosis. On 11/14/2023, patient is being seen for a follow-up. The patient is stable. No interval worsening shortness of breath. Transferred out of the intensive care unit yesterday. He is currently on oxygen at 4 L with a pulse ox of 93%. No altered mentation. No chest pain. Tolerating diet. Resting comfortably in bed. Remains endocarditis. Remains on steroids 60 mg of IV Solu-Medrol every 6 hours. No increased anxiety. White cell count of 8 with a hemoglobin 11.4 and a platelet count of 202. BUN is 12 with a creatinine of 0.5 and a sodium levels of 137 and a potassium level of 3.7. 11/15/2023, the patient is on the medical floor. Very limited exam in terms of exercise capacity and the patient essentially in bed. Trying to move or walk short distances and make the patient very labored in terms of his breathing. Remains on Perforomist and Pulmicort nebulized treatments twice a day, DuoNeb up To 5, IV Solu-Medrol 60 Mg Every 6 Hours. The Patient Is Also Running a White Cell Count of 8.9 with a Hemoglobin 11.4 and a Platelet Count of 202. BUN Is 12 with a Creatinine of 0.5. Tolerating Diet. No Signs of Any Suicidal Process. No Chest Pain. The patient is seen today November 17, 2023 in follow-up on the regular medical floor. He is currently resting in bed. Awake and alert in no acute distress. Maintaining O2 saturations in the 90s on 4 L/min per nasal cannula. He is feeling better today. He is continue on DuoNeb inhalations, Pulmicort and Perforomist inhalations, Solu-Medrol. Blood cultures revealed no growth. NicoDerm patch in place. The patient is seen today November 18, 2023 in follow-up on the regular medical floor. He is currently sitting up in a chair. He has been up ambulating with a walker and assistance. He is feeling better today compared to yesterday. He is still on 4 L high flow nasal cannula. Still somewhat bronchospastic and wheezing. Continued on DuoNeb ventilations, Pulmicort and perform scintillations, Solu-Medrol and Singulair. NicoDerm patch in place. Heparin for DVT prophylaxis. Blood cultures revealed no growth. Blood sugar 231. The patient is seen today November 19, 2023 in follow-up on the regular medical floor. He is currently awake and alert in no acute distress. He is maintaining O2 saturations in the 90s on 3 L/min per nasal cannula. Blood cultures revealed no growth. White count 7.5. Hemoglobin 9.7. Platelets 273. Sodium 141. Potassium 4.1. Bicarb 32. BUN 20. Creatinine 0.7. Glucose 141. He remains on DuoNeb ventilations, Pulmicort and performing scintillations, Solu-Medrol. Remains on Singulair. NicoDerm patch in place. Heparin for DVT prophylaxis. Patient was evaluated today on November 19, patient developed sudden onset of respiratory distress, the rapid response team evaluated the patient, and he was in severe respiratory distress. Patient received Solu-Medrol, received Lasix on the floor prior to transfer to the ICU. He was placed on a nonrebreather mask, transferred to the ICU and I evaluated the patient as soon as he arrived to the ICU. Patient seems to be in severe respiratory distress, he was extremely tachypneic, diaphoretic, tachycardic, hypertensive, and in severe distress. Hence recommended immediate intubation, patient was intubated by me with direct visualization of the vocal cords, a size 7.5 endotracheal tube was used, and he was connected to mechanical ventilation after intubation. His vent settings where addressed and he is on AC rate of 20 tidal volume 450 FiO2 100% and PEEP of 5. ABG postintubation showed a pO2 of 208 pCO2 of 60 pH of 7.36 his FiO2 was cut down to 50% and kept on the same vent settings as ordered the rest of the labs were reviewed and they noted to be unremarkable. His liver enzymes were noted but elevated. WBC count showed 15.1 hemoglobin 14.6. Chest x-ray showed bilateral airspace disease, suggestive of pneumonia,, dramatic worsening compared to the chest x-ray done on 11/14/2023, hence I am strongly suspecting that the patient may have developed aspiration pneumonia. The patient will be treated with Zosyn for this abnormal chest x-ray for now. Family was updated on his condition at the bedside. After intubating the patient, patient was hypot ensive, central line was established, arterial line was established at the same time Patient was evaluated today on 11/21/2023, patient remains in the ICU, he was transferred yesterday to the ICU with acute hypoxic and hypercapnic respiratory failure requiring intubation mechanical ventilation. Patient is now on assist- control rate of 20 tidal volume 450 FiO2 40% PEEP of 5 ABG showed a pO2 of 77 p CO2 40 pH of 7.53 hence I decreased his rate from 20-16. Patient is fully sedated and he is very synchronous with the ventilator. Patient remains on propofol at 55 mcg/kg/min IV fluid 0.9 at 125 cc/h he is requiring a small dose of norepinephrine at 0.02 mcg/kg/min his CVP is 2 hence I am recommending more fluid boluses and I am recommending close monitoring of his urine output in the meantime continue norepinephrine until his fluid status improves. His urine output has been in the range of 20 to 30 cc/h. Patient remains on Zosyn chest x-ray today showed slight improvement in his right lower lobe infiltrate and continues to have significant airspace disease involving the left lower lobe and left midlung. Patient is empirically on Zosyn for what seems to be an aspiration pneumonia. Considering the status is marginal, no plans to hold sedation today, will try to optimize his hemodynamic status continue antibiotics and continue bronchodilators meantime continue ventilatory support Patient was reevaluated today on 11/22/2023, patient remains in the ICU, intubated and mechanically ventilated. On assist-control 16 tidal volume 450 FiO2 40% and PEEP of 5. ABG showed a pO2 of 83 pCO2 44 pH of 7.41 patient remains on propofol at 55 mcg/kg/min, IV fluid at 150 cc/h 0.9 normal saline, vital AF at 50 cc/h. Patient is still having marginal urine output in spite of CVP 11, hence I will go ahead and recommend a Lasix trial 20 mg IV push. Patient remains on Zosyn and Zithromax. Chest x-ray is showing slight improvement in his left lower lobe infiltrate nonetheless continues to have significant airspace disease in the left lower lobe and to some extent in the right lower lobe. Patient will be given a weaning trial today off sedation if possible, and if tolerated may even extubate the patient today. WBC count is 9.1 hemoglobin is 10.6. Basic metabolic profile is normal, renal profile is normal Progress note dated November 23, 2023. This is a patient who was admitted back on November 10 for COPD exacerbation. The patient was apparently ready to be discharged, but on November 19, developed jermaine respiratory failure, and required intubation, and transferred to the intensive care unit. He is currently on volume assist-control, rate 16, tidal volume 450, FiO2 40%, PEEP of 5. Blood gases show pCO2 of 46, pO2 of 73, and a pH of 7.44. Currently, the patient is on propofol at 60 mcg/kg/min, saline at 75 cc an hour, and vital AF at 36 cc an hour, which is his goal rate. White count 11.3, hemoglobin 11, hematocrit 34.5, platelet count is normal. Sodium 138, potassium 3.7, chlorides 111, CO2 28, BUN 27, creatinine 0.6. Glucose is 233. Calcium 7.5. Blood and sputum sampling is negative. Chest x-ray shows changes of COPD, with either atelectasis or infiltrate, in the lower lung zones. Progress note dated November 24, 2023. 73-year-old male seen today in room 257. He was admitted back on November 10, for COPD exacerbation. The patient was apparently ready for possible discharge on November 19, but developed jermaine respiratory failure, required intubation, mechanical ventilation, and was transferred to the intensive care unit. He remains on volume assist-control, rate 16, tidal volume 450, FiO2 40%, PEEP of 5. Blood gases show pO2 of 75, pCO2 45, pH is 7.42. The patient is on propofol at 20 mcg/kg/min, saline at 75 cc an hour, and vital AF at 36 cc an hour. White count is 11.2, hemoglobin 10.1, hematocrit 31.2, platelet count 149,000. Sodium 138, potassium 4.1, chlorides 110s, CO2 30, BUN 27, creatinine 0.50. Glucose is 223. Calcium is 7.7. Microbiologic sampling has all been negative. Chest x-ray shows changes of COPD, with some patchy bilateral infiltrates or atelectasis. The flatplate of the abdomen shows a nonobstructive bowel gas pattern. Progress note dated November 25, 2023. 73-year-old male seen again in room 257. The patient remains on mechanical ventilator. Vent settings include volume assist-control, rate 16, tidal volume 450, FiO2 40%, PEEP of 5. Blood gases show pO2 of 70, pCO2 of 42, pH is 7.52. This blood gases consistent with a metabolic alkalosis. The patient did fail his spontaneous breathing trial after few minutes. He continues on propofol at 25 mcg/kg/min, saline at 20 cc an hour, and vital AF at 36 cc an hour, which is goal. The patient continues on Zosyn. The patient will get some additional Lasix today, 60 mg IV push. Current labs include a white count 15.3, hemoglobin 12.4, hematocrit 38.5, and platelet count 152,000. Sodium 140, potassium 4.1, chlorides 106, CO2 34, BUN 27, and creatinine 0.56. Calcium is 8.2. Sputum and blood cultures are thus far negative. Chest x-ray is consistent with underlying COPD, with some bilateral interstitial and patchy opacities, left greater than right. There is a small left-sided pleural effusion. Progress note dated November 26, 2023. 73-year-old male seen in room 257. The patient remains on the mechanical ventilator. He is on volume assist-control, rate 16, tidal volume 450, FiO2 40%, PEEP of 5. Blood gases show pO2 of 79, pCO2 46, pH is 7.48. Blood gases are consistent with a mild metabolic alkalosis. The patient is on propofol at 20 mcg/kg/min, vital AF at 36 cc an hour, saline at 20 cc an hour. The patient will be given a daily interruption of sedation and a spontaneous breathing trial. The patient had 1 yesterday, and did very poorly. White count 14, hemoglobin 11.5, hematocrit 33.6, platelet count 141,000. Sodium 137, potassium 3.6, chlorides 105, CO2 29, BUN 35, and creatinine 0.49. Glucose is 217. Calcium 8.2. Albumin 2.6. Blood cultures, and sputum sampling, has been negative thus far. Chest x-ray shows changes of COPD, with diffuse bilateral left greater than right, opacities. Progress note dated November 27, 2023. 73-year-old male seen in room 257. The patient was extubated yesterday, November 25. He is currently on high flow oxygen at 8 L. The patient is getting saline at KVO. The patient's Zosyn will be discontinued after today. Initially, the patient was a no code, and will be talked to the about tracheostomy and PEG tube placement, prior to extubation, she refused that. Now she is telling us, that the patient should be a full code. Current labs include a white count 13.8, hemoglobin 12, macro 37.2, and platelet count of 166,000. Sodium 141, potassium 3.4, chlorides 106, CO2 34, BUN 30, creatinine 0.7. Calcium is 8.2, magnesium 2.1, glucose is 101. Sputum and blood sampling has been negative. Chest x-ray shows cardiomegaly, COPD, and bilateral patchy infiltrates. Progress note dated November 28, 2023. 73-year-old male who is seen today in room 257. The patient was initially admitted back on November 10. The patient was ready to be discharged on November 19, and he developed acute respiratory failure requiring intubation. He was extubated on November 26, 2023, but unfortunately, got worse, and was reintubated yesterday, November 26. He is on volume assist-control, rate 24, tidal volume 400, FiO2 of 60%, PEEP of 5. Blood gases show pO2 of 66, pCO2 of 46, pH is 7.40. This blood gases consistent with a mixed acid-base disturbance including mild respiratory acidosis, and a compensated metabolic alkalosis. The patient is on saline at KVO, propofol at 45 mcg/kg/min Nimbex at 2 mcg/kg/min vasopressin at 0.03 u nits/min, norepinephrine at 9 mcg/min. Tube feeds will be started today. White count is 24.7, hemoglobin 12.9, hematocrit 40.3, platelet count is 141,000. Sodium 139, potassium 4.1, chlorides 109, CO2 25, BUN 33, creatinine 0.51. Glucose 139. Calcium 8 magnesium 2.1. Sputum, and blood cultures, are negative. Chest x-ray shows changes of COPD, and diffuse bibasilar interstitial changes. Objective - Vital Signs Vital signs: Vital Signs Temp 98.2 F 11/28/23 08:00 Pulse 81 11/28/23 10:00 Resp 24 11/28/23 10:00 BP 94/72 11/28/23 10:00 Pulse Ox 100 11/28/23 10:00 FiO2 60 11/28/23 10:00 Intake & Output 11/27/23 11/28/23 11/28/23 18:59 06:59 18:59 Intake Total 399.093 384.129 172.137 Output Total 810 1315 275 Balance -410.907 -930.871 -102.863 Weight 63.4 kg 62.1 kg Intake: IV 246 36 42 0.9 Pressure Bags 36 36 12 KVO 30 Piperacillin-Tazobactam 3 100 .375 gm In Sodium Chloride 0.9% 100 ml @ 25 mls/hr IVPB Q8HR [facility] Rx# :[id number] Potassium Chloride 20 meq 100 In Water For Injection 1 100ml.bag @ 50 mls/hr IVPB Q2H [facility] Rx#: [id number] Sodium Chloride 0.9% 1, 10 000 ml @ 75 mls/hr IV . [id number] [facility] Rx#:[id number] Intake, IV Titration 153.093 348.129 130.137 Amount Cisatracurium 200 mg In 17.815 Sodium Chloride 0.9% 180 ml @ 1 MCG/KG/MIN 3.804 mls/hr IV .Q24H [facility] Rx#: [id number] Norepinephrine 8 mg In 60.275 197.725 30.137 Sodium Chloride 0.9% 250 ml @ 0.03 MCG/KG/MIN 3.68 mls/hr IV .Q24H [facility] Rx#: [id number] Vasopressin 20 unit In 32.589 Sodium Chloride 0.9% 50 ml @ 0.03 UNITS/MIN 4.59 mls/hr IV .[id number] [facility] Rx# :[id number] propofoL 1,000 mg In 92.818 100 100 Empty Bag 1 bag @ 15 MCG/ KG/MIN 5.706 mls/hr IV . [id number] [facility] Rx#:[id number] Output: Gastric Drainage 500 Urine 810 815 275 Other: Voiding Method Indwelling Catheter Indwelling Catheter Indwelling Catheter ABP, PAP, CO, CI - Last Documented Arterial Blood Pressure 129/68 - Exam No acute distress, reintubated, with an orally placed endotracheal tube. Sedated. HEENT examination is grossly unremarkable. Neck supple. Full range of motion. No adenopathy thyromegaly or neck vein distention. Cardiovascular examination reveals regular rhythm rate. S1-S2 normal. No S3 or S4. No discernible murmur noted. Heart sounds are distant. Heart rate 1 bpm. Lungs reveal scattered bilateral rhonchi. No wheezes. No crackles. Breath sounds equal bilaterally. Saturation is 99 %. Abdomen soft with bowel sounds. No masses or tenderness. The patient has scrotal edema. Extremities are intact. No cyanosis clubbing or edema. Skin is without rash or lesion. Neurologic examination cannot be adequately evaluated at this time. - Labs CBC & Chem 7: 11/28/23 05:13 11/28/23 05:13 Labs: Abnormal Lab Results - Last 24 Hours (Table) 11/27/23 11/27/23 11/27/23 Range/Units 04:05 12:27 13:50 WBC (3.8-10.6) k/uL RBC (4.30-5.90) m/uL Hgb (13.0-17.5) gm/dL MCV (80.0-100.0) fL RDW (11.5-15.5) % Plt Count (150-450) k/uL ABG pH 7.10 L* 7.24 L (7.35-7.45) ABG pCO2 >98 H* 66 H (35-45) mmHg ABG pO2 74 L 114 H (83-108) mmHg ABG HCO3 28 H (21-25) mmol/L ABG Total CO2 30 H (19-24) mmol/L ABG O2 Saturation 87.0 L 97.7 H (94-97) % Chloride (98-107) mmol/L BUN (9-20) mg/dL Creatinine (0.66-1.25) mg/dL Glucose (74-99) mg/dL POC Glucose (mg/dL) (70-110) mg/dL Calcium (8.4-10.2) mg/dL Procalcitonin 0.10 H (0.02-0.09) ng/mL 11/28/23 11/28/23 11/28/23 Range/Units 05:13 05:13 05:56 WBC 24.7 H (3.8-10.6) k/uL RBC 3.99 L (4.30-5.90) m/uL Hgb 12.9 L (13.0-17.5) gm/dL MCV 101.0 H (80.0-100.0) fL RDW 15.9 H (11.5-15.5) % Plt Count 141 L (150-450) k/uL ABG pH (7.35-7.45) ABG pCO2 46 H (35-45) mmHg ABG pO2 66 L (83-108) mmHg ABG HCO3 29 H (21-25) mmol/L ABG Total CO2 30 H (19-24) mmol/L ABG O2 Saturation 93.7 L (94-97) % Chloride 109 H (98-107) mmol/L BUN 33 H (9-20) mg/dL Creatinine 0.51 L (0.66-1.25) mg/dL Glucose 107 H (74-99) mg/dL POC Glucose (mg/dL) (70-110) mg/dL Calcium 8.0 L (8.4-10.2) mg/dL Procalcitonin (0.02-0.09) ng/mL 11/28/23 Range/Units 11:32 WBC (3.8-10.6) k/uL RBC (4.30-5.90) m/uL Hgb (13.0-17.5) gm/dL MCV (80.0-100.0) fL RDW (11.5-15.5) % Plt Count (150-450) k/uL ABG pH (7.35-7.45) ABG pCO2 (35-45) mmHg ABG pO2 (83-108) mmHg ABG HCO3 (21-25) mmol/L ABG Total CO2 (19-24) mmol/L ABG O2 Saturation (94-97) % Chloride (98-107) mmol/L BUN (9-20) mg/dL Creatinine (0.66-1.25) mg/dL Glucose (74-99) mg/dL POC Glucose (mg/dL) 139 H (70-110) mg/dL Calcium (8.4-10.2) mg/dL Procalcitonin (0.02-0.09) ng/mL Assessment and Plan Assessment: Acute on chronic hypoxemic and hypercapnic respiratory failure, secondary to bilateral pneumonia, status post intubation with mechanical ventilation, on November 20, 2023. S/P extubation, November 26, 2023, and reintubation, for hypoxemic and hypercapnic respiratory failure, November 27, 2023. Mental status changes, secondary to respiratory failure. Hypotension, resolved. Severe dehydration on initial evaluation. Acute kidney injury. Acute exacerbation of COPD. Chronic and ongoing tobacco dependence with nicotine addiction. Scrotal edema. History of hypertension. Plan: Plan dated November 23, 2023. The patient is seen today in room 257. The patient continues on breathing treatments, and Solu-Medrol. In addition, the patient is getting Zosyn, for suspected aspiration pneumonia. The patient was actually admitted on November 10, and was doing well, until he was intubated on November 19. Blood gases show pO2 of 73, pCO2 46, pH is 7.44. The patient continues on propofol at 60 mcg/kg/min. I have asked the nurse to consider doing the daily interruption of sedation. The patient continues on tube feedings with vital AF, at goal. Labs, x-rays, medications are reviewed. We will continue to follow the patient, and make recommendations along the way. Prognosis is guarded. Plan dated November 24, 2023. The patient was seen today in room 257. The patient remains on the mechanical ventilator. Blood gases are reasonable, with a pO2 of 75, pCO2 45, pH is 7.42. The patient is on propofol at 20 mcg/kg/min, saline at 75 cc an hour, and vital AF at goal, which is 36 cc an hour. Because of the patient's scrotal edema, and significant fluid resuscitation, will DC the IV, and we will give the patient a one-time dose of Lasix 60 mg IV push. Additional recommendations and suggestions are forthcoming. Labs, x-rays, medications are reviewed. We will continue to follow the patient, make recommendations along the way. Prognosis is guarded. Plan dated November 25, 2023. The patient is seen today in room 257. The patient will get some additional Lasix today, 60 mg IV push. The patient continues on tube feeds, and propofol. The patient also continues on Zosyn. Labs, x-rays, medications are reviewed. The patient did very poorly on his daily interruption of sedation, and his sp ontaneous breathing trial. The patient may require tracheostomy tube, in the next few days, if he does not show improvement. We will continue to follow make recommendations along the way. Prognosis is poor. Plan dated November 26, 2023. I was able to speak to the patient's . Initially, she agreed to have the patient proceed with a tracheostomy and PEG tube placement. Subsequent to that, she called back and said that she did not want a tracheostomy or PEG tube, and made her to DO NOT RESUSCITATE. The patient will be extubated, to nasal cannula. He will not be reintubated. Will continue to follow the patient and make recommendations where appropriate. Labs, x-rays, medications are reviewed. The patient did reasonably well on his CPAP trial today, and, was extubated. He remains a DNR. We will continue to follow. Prognosis is poor. Plan dated November 27, 2023. The patient is seen today in room 257. The patient was extubated yesterday, because the refused tracheostomy tube and PEG tube placement. Currently, the patient has not been made a full code, by his primary care physician. The patient is on 8 L high flow oxygen. I did speak to the patient's about whether or not she would want him back on the ventilator. He apparently told her, that he would want to go back on mechanical ventilator. Labs, x-rays, medications are reviewed. Zosyn will be discontinued after today's dose. The patient is currently listed as a full code. We will continue to follow make recommendations along the way. Plan dated November 28, 2023. Unfortunately, though the patient was extubated on November 25, the patient was reintubated on November 26. The patient remains on mechanical ventilator. The patient continues on propofol, Nimbex, vasopressin, and norepinephrine. Tube feedings will be started today. Blood gases show pO2 of 66, pCO2 of 46, pH is 7.40. Culture data is negative. Will continue to follow the patient, make recommendations. Prognosis is guarded. I did speak to the patient's , about the need for tracheostomy and PEG tube placement. She did give consent. Time with Patient: Greater than 30
[2023-11-28] MEDS: ARTIFICIAL TEARS-HYPROMELLOSE DROPS 15 ML BTL BOTH EYES SCH (13:07)
[2023-11-28 13:31] LABS: Appearance,Urine Cloudy (Clear); Bacteria,Urine Occasional /hpf; Bilirubin,Urine Negative (Negative); Blood,Urine Large (Negative); Calcium Oxalate Crystals,Urine Rare /hpf; Color,Urine Light Red; Glucose,Urine (UA) 2+ (Negative); Leukocyte Esterase,Urine Small (Negative); Mucus,Urine Rare /hpf; Nitrite,Urine Negative (Negative); PH, Urine 5.5 (5.0-8.0); Protein,Urine 1+ (Negative); RBC,Urine >182 /hpf (0-5); Specific Gravity,Urine 1.027 (1.001-1.035); Urobilinogen,Urine <2.0 mg/dL (<2.0); WBC,Urine 32 /hpf (0-5)
[2023-11-28 13:33] LABS: Ketones,Urine 2+ (Negative)
[2023-11-28 17:54] LABS: Glucose,Whole Blood 172 mg/dL (70-110)
--- NOTE | 2023-11-28 18:53 | P.CON ---
Consult Note - . Consult date: 11/28/23 Assessment/Plan:: 73-year-old male who is seen in evaluation for Tracheostomy and PEG tube placement. The patient was initially admitted back on November 10. The patient was ready to be discharged on November 19, and he developed acute respiratory failure requiring intubation. He was extubated on November 26, 2023, but unfortunately, got worse, and was reintubated yesterday, November 26. Chest x-ray shows changes of COPD, and diffuse bibasilar interstitial changes. Patient is hypotensive and on pressors. He has a history of COPD and is being treated for bilateral PNA. Review of Systems Unable to Obtain Past Medical History Past Medical History: COPD History of Any Multi-Drug Resistant Organisms: None Reported Additional Past Surgical History / Comment(s): VASECTOMY Past Anesthesia/Blood Transfusion Reactions: No Reported Reaction Smoking Status: Former smoker - Past Family History Mother Family Medical History: No Reported History GENERAL EXAM: NAEO, intubated/sedated HEAD: Normocephalic and atraumatic EYES: Normal reaction of pupils, equal size. NOSE: Clear with pink turbinates. THROAT: No erythema or exudates. NECK: No masses, no JVD. CHEST: No chest wall deformity. LUNGS: mechanical breath sounds CVS: RRR ABDOMEN: No hepatosplenomegaly, active bowel sounds, no guarding or rigidity. SPINE: No scoliosis or deformity SKIN: No rashes CENTRAL NERVOUS SYSTEM: No focal deficits, tone is normal in all 4 extremities. EXTREMITIES: There is no peripheral edema, clubbing, or cyanosis. Peripheral pulses are intact. Chest x-ray: image reviewed Assessment and Plan Assessment: Acute COPD exacerbation with Bilateral PNA requiring mechanical ventilation Patient seen for evaluation to Tracheostomy and PEG tube placement. Patient will start receiving TFS via NGT today. Will defer timing of tracheostomy and PEG tube placement to Dr Nagy
[2023-11-28] MEDS: DEXTROSE 5% IN WATER 100 ML with AMIODARONE 150 MG IV ONE (20:04)
[2023-11-28] MEDS: AMIODARONE 360 MG in DEXTROSE 5% IN WATER 200 ML IV ONE (20:43)
[2023-11-28 23:26] LABS: Glucose,Whole Blood 247 mg/dL (70-110)
[2023-11-29] MEDS: AMIODARONE 450 MG in DEXTROSE 5% IN WATER 250 ML IV SCH (02:03)
--- NOTE | 2023-11-29 03:18 | PN ---
PROGRESS NOTE Rolando Claire remains in ICU #257, Bed 1. Family wants full code, . At this point, he has fibrotic changes, bibasilar COPD, and he has end-stage COPD. Central venous pressure catheter in appropriate position on the x-ray, seen by fire protection engineer. he went back on the vent again after failing off the vent 2 days ago. Pulse 60 to 180, respiratory rate 20 to 24, blood pressure is low at 94/72, and that goes up to 120s to 130s over 60s to 70s, 100% on 50% FiO2. Sputum Gram stain and all that has just been done recently. Consult Dr. Mina for Infectious Disease. White count is high again at 24.7, hemoglobin is 12.9. He probably has some drug-resistant bug, causing pneumonia, that is what I feel. I ordered Procalcitonin. His procalcitonin is not back yet, probably wanted to know what is his high. I suspect he still has pneumonia and maybe, we probably are missing what bug it is. We will get Dr. Mina to recommend antibiotics. OBJECTIVE: CARDIOVASCULAR: S1 and S2. LUNGS: Scattered wheeze and rhonchi. HEMATOLOGY: Negative Homans. Psych: Fair mood and affect. ASSESSMENT: 1. Acute hypoxemic hypercapnic respiratory failure. 2. Probable aspiration pneumonia. 3. End-stage chronic obstructive pulmonary disease. Continue nicotine compliance, but possibly have to get some broad-spectrum antibiotics started here at this time, elevated procalcitonin, elevated white count. Prognosis is guarded. MMODL / IJN: [id number] /
[2023-11-29 04:37] LABS: Basophils % (A) 0 %; Eosinophils % (A) 0 %; HGB 10.8 gm/dL (13.0-17.5); Lymphocytes # (A) 0.1 k/uL (1.0-4.8); Lymphocytes % (A) 1 %; MCHC 32.8 g/dL (31.0-37.0); MCV 100.7 fL (80.0-100.0); Macrocytosis Slight; Mean Platelet Volume 8.9; Monocytes # (A) 0.3 k/uL (0-1.0); Monocytes % (A) 3 %; Neutrophils # (A) 11.2 k/uL (1.3-7.7); Neutrophils % (A) 96 %; Platelet Count 106 k/uL (150-450); RBC 3.28 m/uL (4.30-5.90); RDW 15.6 % (11.5-15.5); WBC 11.7 k/uL (3.8-10.6)
[2023-11-29 04:48] LABS: Potassium 3.6 mmol/L (3.5-5.1)
[2023-11-29 04:49] LABS: African American GFR (CKD) >90 (>60 ml/min/1.73 sqM); Anion Gap 3 mmol/L; Blood Urea Nitrogen 35 mg/dL (9-20); Calcium 8.1 mg/dL (8.4-10.2); Carbon Dioxide 28 mmol/L (22-30); Chloride 107 mmol/L (98-107); Glucose 236 mg/dL (74-99); Non-African American GFR(CKD) >90 (>60 ml/min/1.73 sqM); Sodium 138 mmol/L (137-145)
[2023-11-29 05:29] LABS: Glucose,Whole Blood 218 mg/dL (70-110)
[2023-11-29] MEDS: POTASSIUM BICARBONATE/CIT AC 20 MEQ TABLET.EFF NG-TUBE SCH (05:33)
[2023-11-29 06:05] LABS: ABG HCO3 31 mmol/L (21-25); ABG Oxygen Saturation 94.7 % (94-97); ABG PCO2 45 mmHg (35-45); ABG PH 7.44 (7.35-7.45); ABG PO2 68 mmHg (83-108); ABG TCO2 32 mmol/L (19-24); Allen Test Performed? Yes
[2023-11-29] MEDS ORDERED: POTASSIUM CHLORIDE 20 MEQ in WATER FOR INJECTION 1 100ML.BAG IVPB SCH (06:30)
--- NOTE | 2023-11-29 07:12 | XR ---
EXAMINATION TYPE: XR chest 1V portable DATE OF EXAM: 11/29/2023 5:26 AM CLINICAL INDICATION:Male, 73 years old with history of Tube placement; [facility] COMPARISON: Chest radiographs from TECHNIQUE: XR chest 1V portable Frontal view of the chest. FINDINGS: Lungs/Pleura: Fibrotic changes most proximal lung bases with increased lucency in the lung apices. Bi lateral blunting of the costophrenic angles. There is no evidence of pleural effusion, focal consolid ation, or pneumothorax. Pulmonary vascularity: Unremarkable. Heart/mediastinum: Cardiomediastinal silhouette is unremarkable. Musculoskeletal: No acute osseous pathology. Other findings: None Lines/Tubes: Endotracheal tube with distal tip 2.2 cm above the emmett. Nasogastric tube with its distal tip and side-port projecting under the diaphragm. Right internal jugular central venous catheter with distal tip at the cavoatrial junction. IMPRESSION: 1. Stable exam. 2. Basilar probable fibrotic changes with superimposed COPD. 3. Support tubes in place. Right central venous catheter in appropriate position.
[2023-11-29] MEDS ORDERED: HEPARIN SODIUM 1,000 UN/ML (10ML VL) IV PRN (08:10)
--- NOTE | 2023-11-29 08:15 | P.CRDCN ---
History of Present Illness Consult date: 11/29/23 Chief complaint: Reason for the consult is atrial fibrillation History of present illness: The patient is a pleasant 73-year-old gentleman with chronic obstructive pulmonary disease and history of smoking and hypertension. We consulted to see the patient in the intensive care unit for further evaluation of atrial fibrillation and with rapid ventricular response. Currently the patient is intubated on mechanical ventilation and he is also unstable requiring vasopressors. He was admitted initially with a pneumonia and subsequently he developed acute hypoxic respiratory failure required intubation and subsequently was extubated and reintubated again. Currently is getting treated for pneumonia and COPD and he is septic as well. The reason we consulted to see the patient because of episode of A-fib with RVR yesterday when he was on ventilator yesterday. Subsequently he was started on amiodarone in the light of being hypotensive requiring vasopressors with vasopressors as well as norepinephrine, he was started on amiodarone and subsequently converted to normal sinus mechanism and has been maintaining normal sinus mechanism. No history of atrial fibrillation. I cannot get any history from the patient. No history of coronary artery disease or congestive heart failure or cardiac arrhythmia and the patient never seen by our service in the past. The examination is remarkable for intubated patient with a stable vital signs on vasopressors and diminished breathing sounds bilaterally and no edema was noted in the lower extremities. He underwent an echo during his hospital stay and the echo showed normal biventricular dimension and systolic function. Assessment Acute hypoxic respiratory failure Atrial fibrillation likely secondary to acute illness Multiple comorbid conditions Hemodynamic instability Plan DC amiodarone IV and start the patient on oral amiodarone Start the patient on IV heparin Consider switching the patient to oral anticoagulation Follow-up with the patient Past Medical History Past Medical History: COPD History of Any Multi-Drug Resistant Organisms: None Reported Additional Past Surgical History / Comment(s): VASECTOMY Past Anesthesia/Blood Transfusion Reactions: No Reported Reaction Smoking Status: Former smoker - Past Family History Mother Family Medical History: No Reported History Medications and Allergies Home Medications Medication Instructions Recorded Confirmed Type Ergocalciferol [Vitamin D2 (1250 1,250 mcg PO Q7D 11/11/23 11/11/23 History Mcg = 21700 Iu)] HYDROcodone/APAP 5-325MG [[place] 1.5 tab PO DAILY 11/11/23 11/11/23 History 5-325] Loratadine [Claritin] 10 mg PO DAILY 11/11/23 11/11/23 History Montelukast [Singulair] 10 mg PO HS 11/11/23 11/11/23 History Omeprazole [PriLOSEC] 20 mg PO DAILY 11/11/23 11/11/23 History PARoxetine [Paxil] 20 mg PO DAILY 11/11/23 11/11/23 History clonazePAM [KlonoPIN] 1 mg PO HS 11/11/23 11/11/23 History Budesonide [Pulmicort] 1 mg INHALATION RT-BID 30 Days #60 11/19/23 Rx ml Ciprofloxacin HCl [Cipro] 500 mg PO BID 10 Days #20 tab 11/19/23 Rx Formoterol Fumarate [Perforomist] 20 mcg INHALATION RT-BID 30 Days 11/19/23 Rx #60 ml Ipratropium-Albuterol Nebulize 3 ml INHALATION RT-QID 30 Days 11/19/23 Rx [Duoneb 0.5 mg-3 mg/3 ml Soln] #120 each Nicotine 21Mg/24Hr Patch [Habitrol] 1 patch TRANSDERM DAILY 30 Days 11/19/23 Rx #30 patch methylPREDNISolone Dose Pack 24 mg PO DAILY 5 Days #1 tab 11/19/23 Rx [Medrol Dose Pack] Allergies Allergy/AdvReac Type Severity Reaction Status Date / Time No Known Allergies Allergy Verified 11/11/23 19:24 Physical Exam Vitals: Vital Signs Temp Pulse Resp BP Pulse Ox FiO2 11/29/23 08:03 75 11/29/23 07:53 50 11/29/23 07:48 76 11/29/23 07:00 64 24 98 11/29/23 06:00 64 24 98 11/29/23 05:00 62 24 97 11/29/23 04:00 97.8 F 69 24 98 50 11/29/23 03:29 50 11/29/23 03:00 59 L 24 98 11/29/23 02:00 58 L 24 99 11/29/23 01:00 61 24 98 11/29/23 00:04 58 L 24 99 11/29/23 00:00 98.1 F 61 24 99 50 11/28/23 23:51 50 11/28/23 23:00 68 24 98 11/28/23 22:00 71 24 94/72 97 11/28/23 21:00 74 24 94/72 97 11/28/23 20:47 76 11/28/23 20:43 74 11/28/23 20:42 74 11/28/23 20:33 50 11/28/23 20:32 86 11/28/23 20:00 98.1 F 74 24 94/72 99 50 11/28/23 19:00 99 24 97 11/28/23 18:00 89 24 96 11/28/23 17:00 109 H 24 97 11/28/23 16:00 98.3 F 80 24 98 50 11/28/23 15:26 71 11/28/23 15:22 50 11/28/23 15:16 79 11/28/23 15:00 71 24 99 11/28/23 14:00 61 24 100 11/28/23 13:00 86 24 100 11/28/23 12:00 98.6 F 69 24 99 55 11/28/23 11:55 108 H 11/28/23 11:47 55 11/28/23 11:45 112 H 11/28/23 11:00 103 H 24 100 11/28/23 10:00 81 24 94/72 100 60 11/28/23 09:00 103 H 24 100 11/28/23 08:30 70 11/28/23 08:17 66 Intake and Output 11/28/23 11/29/23 11/29/23 22:59 06:59 14:59 Intake Total 511.165 505.740 218.935 Output Total 430 470 65 Balance 81.165 35.740 153.935 Intake: IV 228 116 13 0.9 Pressure Bags 48 36 3 KVO 80 80 10 Piperacillin-Tazobactam 3 100 .375 gm In Sodium Chloride 0.9% 100 ml @ 25 mls/hr IVPB Q8HR [facility] Rx# :[id number] Intake, IV Titration 153.165 169.740 175.935 Amount Cisatracurium 200 mg In 38.801 175.935 Sodium Chloride 0.9% 180 ml @ 1 MCG/KG/MIN 3.804 mls/hr IV .Q24H [facility] Rx#: [id number] Norepinephrine 8 mg In 5.297 26.008 Sodium Chloride 0.9% 250 ml @ 0.03 MCG/KG/MIN 3.68 mls/hr IV .Q24H [facility] Rx#: [id number] Vasopressin 20 unit In 14.918 43.732 Sodium Chloride 0.9% 50 ml @ 0.03 UNITS/MIN 4.59 mls/hr IV .[facility]11H7[facility] Rx# :[id number] propofoL 1,000 mg In 94.149 100 Empty Bag 1 bag @ 15 MCG/ KG/MIN 5.706 mls/hr IV . [id number] [facility] Rx#:[id number] Tube Feeding 70 160 30 Other 60 60 Output: Urine 430 470 65 Other: Voiding Method Indwelling Catheter Indwelling Catheter Weight 63.5 kg ABP, PAP, CO, CI - Last 8 Hours Arterial Blood Pressure 107/48 Arterial Blood Pressure 118/51 Arterial Blood Pressure 121/52 Arterial Blood Pressure 131/57 Arterial Blood Pressure 108/50 Arterial Blood Pressure 136/60 Arterial Blood Pressure 122/57 Results 11/29/23 04:27 11/29/23 04:27 CBC 11/29/23 Range/Units 04:27 WBC 11.7 H (3.8-10.6) k/uL RBC 3.28 L (4.30-5.90) m/uL Hgb 10.8 L (13.0-17.5) gm/dL Hct 33.0 L (39.0-53.0) % Plt Count 106 L (150-450) k/uL Comprehensive Metabolic Panel 11/29/23 Range/Units 04:27 Sodium 138 (137-145) mmol/L Potassium 3.6 (3.5-5.1) mmol/L Chloride 107 (98-107) mmol/L Carbon Dioxide 28 (22-30) mmol/L BUN 35 H (9-20) mg/dL Creatinine 0.53 L (0.66-1.25) mg/dL Glucose 236 H (74-99) mg/dL Calcium 8.1 L (8.4-10.2) mg/dL Current Medications Generic Name Dose Route Start Last Admin Trade Name Freq PRN Reason Stop Dose Admin Albuterol/Ipratropium 3 ml 11/12/23 08:00 11/29/23 07:48 Ipratropium-Albuterol 3 Ml Neb INHALATION 3 ml RT-QID [facility] Administration Albuterol/Ipratropium 3 ml 11/15/23 06:18 11/27/23 13:16 Ipratropium-Albuterol 3 Ml Neb INHALATION 3 ml RT-Q2H PRN Administration Shortness Of Breath Or Wheezing Artificial Tears 2 drops 11/28/23 12:00 11/29/23 04:41 Artificial Tears-Hypromellose Drops 15 Ml Btl BOTH EYES 2 drops Q4HR [facility] Administration Budesonide 1 mg 11/12/23 08:00 11/29/23 07:48 Budesonide 1 Mg/2 Ml Nebu INHALATION 1 mg RT-BID [facility] Administration Chlorhexidine Gluconate 15 ml 11/27/23 12:45 11/28/23 21:08 Chlorhexidine Gluconate 15 Ml Cup MUCOUS MEM 15 ml BID [facility] Administration Clonazepam 1 mg 11/12/23 21:00 11/28/23 21:08 Clonazepam 1 Mg Tab PO 1 mg HS [facility] Administration Dextrose/Water 25 ml 11/18/23 13:28 Dextrose 50% Syringe 50 Ml IVP PER PROTOCOL PRN Hypoglycemia Protocol Dextrose/Water 50 ml 11/18/23 13:28 Dextrose 50% Syringe 50 Ml IVP PER PROTOCOL PRN Hypoglycemia Protocol Formoterol Fumarate 20 mcg 11/12/23 08:00 11/29/23 07:48 Formoterol Fumarate 20 Mcg/2 Ml Nebu INHALATION 20 mcg RT-BID [facility] Administration Heparin Sodium (Porcine) 5,000 unit 11/12/23 09:00 11/28/23 21:08 Heparin Sodium,Porcine 5,000 Unit/Ml 1 Ml Vial SQ 5,000 unit Q12HR [facility] Administration Hydromorphone HCl 0.5 mg 11/20/23 11:40 11/23/23 03:17 Hydromorphone 0.5 Mg/0.5 Ml Syringe IVP 0.5 mg Q6HR PRN Administration Pain Propofol 1,000 mg/ IV Solution 100 mls @ 5.706 mls/hr 11/27/23 12:45 11/29/23 07:47 IV 45 mcg/kg/min .[id number] [facility] 17.118 mls/hr Administration Protocol 15 MCG/KG/MIN Norepinephrine Bitartrate 8 mg 258 mls @ 3.68 mls/hr 11/27/23 14:00 11/29/23 03:49 / Sodium Chloride IV 0 mcg/kg/min .Q24H [facility] 0 mls/hr Titration Protocol 0.03 MCG/KG/MIN Cisatracurium Besylate 200 mg/ 200 mls @ 3.804 mls/hr 11/27/23 16:15 11/29/23 07:45 Sodium Chloride IV 3 mcg/kg/min .Q24H [facility] 11.412 mls/hr Administration Protocol 1 MCG/KG/MIN Vasopressin 20 unit/ Sodium 51 mls @ 4.59 mls/hr 11/27/23 16:30 11/29/23 05:41 Chloride IV 0 units/min .Q11H7M [facility] 0 mls/hr Titration Protocol 0.03 UNITS/MIN Piperacillin Sod/Tazobactam 100 mls @ 25 mls/hr 11/28/23 11:00 11/28/23 23:29 Sod 3.375 gm/ Sodium Chloride IVPB 25 mls/hr Q8HR [facility] Administration Protocol Amiodarone HCl 450 mg/ 250 mls @ 16.667 mls/hr 11/28/23 19:15 11/29/23 02:03 Dextrose/Water IV 11/29/23 13:14 0.5 mg/min .Q15H [facility] 16.667 mls/hr Administration Protocol 0.5 MG/MIN Insulin Aspart 0 unit 11/28/23 00:00 11/29/23 05:32 Insulin Aspart (Novolog) 100 Unit/Ml Vial SQ 2 unit Q6H [facility] Administration Protocol Lorazepam 0.5 mg 11/27/23 11:32 11/27/23 11:37 Lorazepam 1 Mg/0.5 Ml Vial IV 0.5 mg Q6HR PRN Administration Anxiety Magnesium Hydroxide 1,200 mg 11/22/23 12:58 11/23/23 20:37 Magnesium Hydroxide 2,400 Mg/30 Ml Cup PO 1,200 mg QID PRN Administration Constipation Methylprednisolone Sodium Succinate 60 mg 11/12/23 03:00 11/29/23 05:31 Methylprednisolone Sod Succi 125 Mg/2 Ml Vial IV 60 mg Q6HR [facility] Administration Miscellaneous Information 1 each 11/25/23 00:30 Potassium Replacement Protocol 1 Each Misc MISCELLANE DAILY PRN Per Protocol Protocol Montelukast Sodium 10 mg 11/12/23 21:00 11/28/23 21:08 Montelukast 10 Mg Tab PO 10 mg HS [facility] Administration Naloxone HCl 0.2 mg 11/11/23 19:23 Naloxone 0.4 Mg/Ml 1 Ml Vial IV Q2M PRN Opioid Reversal Nicotine 1 patch 11/12/23 09:00 11/28/23 08:32 Nicotine 21mg/24hr Patch TRANSDERM 1 patch DAILY [facility] Administration Pantoprazole Sodium 40 mg 11/12/23 09:00 11/28/23 08:31 Pantoprazole 40 Mg/10 Ml Vial IV 40 mg DAILY [facility] Administration Paroxetine HCl 20 mg 11/12/23 09:15 11/28/23 08:32 Paroxetine 20 Mg Tab PO 20 mg DAILY [facility] Administration Intake and Output 11/28/23 11/29/23 11/29/23 22:59 06:59 14:59 Intake Total 511.165 505.740 218.935 Output Total 430 470 65 Balance 81.165 35.740 153.935 Intake: IV 228 116 13 0.9 Pressure Bags 48 36 3 KVO 80 80 10 Piperacillin-Tazobactam 3 100 .375 gm In Sodium Chloride 0.9% 100 ml @ 25 mls/hr IVPB Q8HR [facility] Rx# :[id number] Intake, IV Titration 153.165 169.740 175.935 Amount Cisatracurium 200 mg In 38.801 175.935 Sodium Chloride 0.9% 180 ml @ 1 MCG/KG/MIN 3.804 mls/hr IV .Q24H [facility] Rx#: [id number] Norepinephrine 8 mg In 5.297 26.008 Sodium Chloride 0.9% 250 ml @ 0.03 MCG/KG/MIN 3.68 mls/hr IV .Q24H [facility] Rx#: [id number] Vasopressin 20 unit In 14.918 43.732 Sodium Chloride 0.9% 50 ml @ 0.03 UNITS/MIN 4.59 mls/hr IV .Q11H7M [facility] Rx# :[id number] propofoL 1,000 mg In 94.149 100 Empty Bag 1 bag @ 15 MCG/ KG/MIN 5.706 mls/hr IV . [id number] [facility] Rx#:[id number] Tube Feeding 70 160 30 Other 60 60 Output: Urine 430 470 65 Other: Voiding Method Indwelling Catheter Indwelling Catheter Weight 63.5 kg 11/29/23 04:27 11/29/23 04:27
--- NOTE | 2023-11-29 08:31 | P.CONS ---
History of Present Illness - Reason for Consult Consult date: 11/28/23 - History of Present Illness Patient is a 73-year-old male with a past medical history significant for COPD former smoker patient presenting to the hospital more than 2 weeks ago before this initial consultation on 11/11/2023, has been brought in by EMS with the concern for the patient being lethargic at home and difficult to arouse patient was noticed to be hypotensive on arrival to the ER and received some fluid boluses and the patient has been evaluated by pulmonary and admitting team patient did have worsening of his respiratory status requiring intubation on 11/20/2023 and the patient was extubated on 11/26/2023 however the patient has to be intubated on 11/27/2023 infectious disease has been consulted after the patient has been in the hospital for more than 16 days concerning for community-acquired pneumonia patient is currently intubated on the vent so most information has been obtained from daughter with the daughter talking nursing staff patient is currently on the ventilator patient requiring high-dose pressor support both in the form of Levophed and vasopressin patient did not have any fever during this hospital stay he did have a normal white count admission however the white count has been trending up since 11/23/2023 and is up to 24.7 today patient is currently not on any antibiotic therapy patient also have a central line and a Meek catheter was placed on 11/20/2023 did have some sediment in his Meek catheter apparently did have some hematuria initially which has resolved no diarrhea has been reported patient did have multiple chest x-ray during this admission last 1 was on 11/28/2023 which did shows basilar probable fibrotic changes with superimposed COPD support tubes in place right central venous catheter in appropriate position Past Medical History Past Medical History: COPD History of Any Multi-Drug Resistant Organisms: None Reported Additional Past Surgical History / Comment(s): VASECTOMY Past Anesthesia/Blood Transfusion Reactions: No Reported Reaction Smoking Status: Former smoker - Past Family History Mother Family Medical History: No Reported History Medications and Allergies Home Medications Medication Instructions Recorded Confirmed Type Ergocalciferol [Vitamin D2 (1250 1,250 mcg PO Q7D 11/11/23 11/11/23 History Mcg = 79544 Iu)] HYDROcodone/APAP 5-325MG [[place] 1.5 tab PO DAILY 11/11/23 11/11/23 History 5-325] Loratadine [Claritin] 10 mg PO DAILY 11/11/23 11/11/23 History Montelukast [Singulair] 10 mg PO HS 11/11/23 11/11/23 History Omeprazole [PriLOSEC] 20 mg PO DAILY 11/11/23 11/11/23 History PARoxetine [Paxil] 20 mg PO DAILY 11/11/23 11/11/23 History clonazePAM [KlonoPIN] 1 mg PO HS 11/11/23 11/11/23 History Budesonide [Pulmicort] 1 mg INHALATION RT-BID 30 Days #60 11/19/23 Rx ml Ciprofloxacin HCl [Cipro] 500 mg PO BID 10 Days #20 tab 11/19/23 Rx Formoterol Fumarate [Perforomist] 20 mcg INHALATION RT-BID 30 Days 11/19/23 Rx #60 ml Ipratropium-Albuterol Nebulize 3 ml INHALATION RT-QID 30 Days 11/19/23 Rx [Duoneb 0.5 mg-3 mg/3 ml Soln] #120 each Nicotine 21Mg/24Hr Patch [Habitrol] 1 patch TRANSDERM DAILY 30 Days 11/19/23 Rx #30 patch methylPREDNISolone Dose Pack 24 mg PO DAILY 5 Days #1 tab 11/19/23 Rx [Medrol Dose Pack] Allergies Allergy/AdvReac Type Severity Reaction Status Date / Time No Known Allergies Allergy Verified 11/11/23 19:24 Physical Exam Vitals: Vital Signs Temp Pulse Resp BP Pulse Ox FiO2 11/28/23 10:00 81 24 94/72 100 60 11/28/23 09:00 103 H 24 100 11/28/23 08:30 70 11/28/23 08:17 66 11/28/23 08:09 60 11/28/23 08:08 60 11/28/23 08:05 64 11/28/23 08:00 98.2 F 60 24 99 60 11/28/23 07:00 74 24 99 50 11/28/23 06:03 60 11/28/23 06:00 71 24 96 11/28/23 05:00 75 24 95 11/28/23 04:15 50 11/28/23 04:00 97.9 F 66 24 100 11/28/23 03:00 70 24 99 11/28/23 02:00 90 24 99 11/28/23 01:30 75 24 97 11/28/23 01:00 86 24 96 11/28/23 00:30 87 24 96 11/28/23 00:23 70 11/28/23 00:00 98.5 F 88 24 96 11/27/23 23:30 92 24 96 11/27/23 23:00 93 24 95 11/27/23 22:38 105 H 24 95 11/27/23 22:30 96 24 94 L 11/27/23 22:00 96 32 H 94 L 11/27/23 21:30 94 24 94/72 94 L 11/27/23 21:00 126 H 24 94/72 94 L 11/27/23 20:40 98 11/27/23 20:34 98 11/27/23 20:30 77 24 94 L 11/27/23 20:24 80 11/27/23 20:22 102 H 11/27/23 20:00 91 24 94/72 95 11/27/23 19:30 86 24 96 11/27/23 19:00 92 24 91 L 11/27/23 18:45 86 24 93 L 11/27/23 18:30 83 24 91 L 11/27/23 18:15 85 24 90 L 11/27/23 18:00 97 24 91 L 11/27/23 17:45 92 25 H 90 L 11/27/23 17:30 83 24 94 L 90 11/27/23 17:20 89 26 H 98/66 93 L 90 11/27/23 17:10 91 28 H 95/72 94 L 90 11/27/23 17:00 104 H 27 H 96/66 98 90 11/27/23 16:50 85 29 H 116/67 94 L 90 11/27/23 16:40 93 27 H 95/62 96 90 11/27/23 16:30 89 26 H 118/76 96 90 11/27/23 16:20 91 26 H 122/73 94 L 90 11/27/23 16:10 85 26 H 105/60 93 L 90 11/27/23 16:00 92 28 H 97/74 92 L 90 11/27/23 15:50 98.4 F 97 28 H 122/76 96 90 11/27/23 15:45 93 11/27/23 15:40 89 24 87/67 95 90 11/27/23 15:30 86 24 100/84 95 90 11/27/23 15:29 90 11/27/23 15:23 118 H 11/27/23 15:20 85 25 H 86/56 93 L 90 11/27/23 15:10 87 24 83/48 93 L 90 11/27/23 15:00 84 24 83/22 90 L 90 11/27/23 14:50 83 24 94/29 94 L 11/27/23 14:00 85 19 79/50 87 L 100 11/27/23 13:26 102 H 11/27/23 13:16 112 H 11/27/23 13:00 116 H 24 104/72 99 100 11/27/23 12:55 100 11/27/23 12:41 117 H 11/27/23 12:24 119 H 11/27/23 12:00 124 H 43 H 163/132 93 L 11/27/23 11:00 116 H 30 H 196/131 94 L Intake and Output 11/27/23 11/28/23 11/28/23 22:59 06:59 14:59 Intake Total 236.476 289.621 172.137 Output Total 570 1005 275 Balance -333.524 -715.379 -102.863 Intake: IV 24 24 42 0.9 Pressure Bags 24 24 12 KVO 30 Intake, IV Titration 212.476 265.621 130.137 Amount Cisatracurium 200 mg In 17.815 Sodium Chloride 0.9% 180 ml @ 1 MCG/KG/MIN 3.804 mls/hr IV .Q24H [facility] Rx#: [id number] Norepinephrine 8 mg In 117.915 133.032 30.137 Sodium Chloride 0.9% 250 ml @ 0.03 MCG/KG/MIN 3.68 mls/hr IV .Q24H [facility] Rx#: [id number] Vasopressin 20 unit In 32.589 Sodium Chloride 0.9% 50 ml @ 0.03 UNITS/MIN 4.59 mls/hr IV .Q11H7M [facility] Rx# :[id number] propofoL 1,000 mg In 76.746 100 100 Empty Bag 1 bag @ 15 MCG/ KG/MIN 5.706 mls/hr IV . [id number] [facility] Rx#:[id number] Output: Gastric Drainage 500 Urine 570 505 275 Other: Voiding Method Indwelling Catheter Indwelling Catheter Indwelling Catheter Weight 62.1 kg ABP, PAP, CO, CI - Last 8 Hours Arterial Blood Pressure 129/68 Arterial Blood Pressure 131/71 Arterial Blood Pressure 138/64 Arterial Blood Pressure 139/66 Arterial Blood Pressure 139/70 Arterial Blood Pressure 137/61 Arterial Blood Pressure 149/70 Arterial Blood Pressure 140/65 Results CBC & Chem 7: 11/28/23 05:13 11/28/23 05:13 Labs: Abnormal Lab Results - Last 24 Hours (Table) 11/27/23 11/27/23 11/27/23 Range/Units 04:05 12:27 13:50 WBC (3.8-10.6) k/uL RBC (4.30-5.90) m/uL Hgb (13.0-17.5) gm/dL MCV (80.0-100.0) fL RDW (11.5-15.5) % Plt Count (150-450) k/uL ABG pH 7.10 L* 7.24 L (7.35-7.45) ABG pCO2 >98 H* 66 H (35-45) mmHg ABG pO2 74 L 114 H (83-108) mmHg ABG HCO3 28 H (21-25) mmol/L ABG Total CO2 30 H (19-24) mmol/L ABG O2 Saturation 87.0 L 97.7 H (94-97) % Chloride (98-107) mmol/L BUN (9-20) mg/dL Creatinine (0.66-1.25) mg/dL Glucose (74-99) mg/dL Calcium (8.4-10.2) mg/dL Procalcitonin 0.10 H (0.02-0.09) ng/mL 11/28/23 11/28/23 11/28/23 Range/Units 05:13 05:13 05:56 WBC 24.7 H (3.8-10.6) k/uL RBC 3.99 L (4.30-5.90) m/uL Hgb 12.9 L (13.0-17.5) gm/dL MCV 101.0 H (80.0-100.0) fL RDW 15.9 H (11.5-15.5) % Plt Count 141 L (150-450) k/uL ABG pH (7.35-7.45) ABG pCO2 46 H (35-45) mmHg ABG pO2 66 L (83-108) mmHg ABG HCO3 29 H (21-25) mmol/L ABG Total CO2 30 H (19-24) mmol/L ABG O2 Saturation 93.7 L (94-97) % Chloride 109 H (98-107) mmol/L BUN 33 H (9-20) mg/dL Creatinine 0.51 L (0.66-1.25) mg/dL Glucose 107 H (74-99) mg/dL Calcium 8.0 L (8.4-10.2) mg/dL Procalcitonin (0.02-0.09) ng/mL Assessment and Plan Plan: 1patient with sepsis in this patient who did have a white count of 24,000 patient noticed to be tachycardic this morning with heart rate of 103 and also was hypotensive requiring high-dose pressor support meeting criteria for SI RS/sepsis etiology differential including possible component of pneumonia versus line related sepsis versus catheter associated UTI as the patient has been in the hospital for more than 2 weeks before initial evaluation you need to cover for resistant gram-negative to be the likely pathogen 2-we will obtain her blood culture from the central line as well as peripherally we will also check a sputum for Gram stain culture check a urine culture CRP and a procalcitonin 3-we will empirically add Zosyn 3.375 g every 8 hours while waiting for the workup to be completed Prognosis remains to be guarded We will follow on clinical condition and cultures to further adjust medication if needed Thank you for this consultation we will follow the patient along with you Dictation was produced using [employer] dictation software. please excuse any grammatical, word or spelling errors. Time with Patient: Greater than 30
[2023-11-29] MEDS: HEPARIN SOD,PORK IN 0.45% NACL 25,000 UNIT in 0.45% NACL 1 250ML.BAG IV SCH (09:11)
[2023-11-29] MEDS: AMIODARONE 200 MG TAB PO SCH (09:12)
[2023-11-29 09:24] LABS: INR 0.9 (<1.2); Partial Thromboplastin Time 25.2 sec (22.0-30.0); Prothrombin Time 10.2 sec (10.0-12.5)
--- NOTE | 2023-11-29 09:31 | P.PN ---
Subjective Progress Note Date: 11/29/23 the patient to have respiratoryfailure and protein calorie malnourished. He will be scheduled for PEG tube and tracheostomy tomorrow. Objective - Vital Signs Vital signs: Vital Signs Temp 97.6 F 11/29/23 08:00 Pulse 65 11/29/23 09:00 Resp 24 11/29/23 09:00 BP 94/72 11/29/23 05:00 Pulse Ox 99 11/29/23 09:00 FiO2 50 11/29/23 08:00 Intake & Output 11/28/23 11/29/23 11/29/23 18:59 06:59 18:59 Intake Total 919.927 733.889 334.935 Output Total 655 710 205 Balance 264.927 23.889 129.935 Weight 66.2 kg 63.5 kg Intake: IV 258 180 39 0.9 Pressure Bags 48 60 9 KVO 110 120 30 Piperacillin-Tazobactam 3 100 .375 gm In Sodium Chloride 0.9% 100 ml @ 25 mls/hr IVPB Q8HR [facility] Rx# :[id number] Intake, IV Titration 501.927 263.889 175.935 Amount Cisatracurium 200 mg In 153.935 175.935 Sodium Chloride 0.9% 180 ml @ 1 MCG/KG/MIN 3.804 mls/hr IV .Q24H [facility] Rx#: [id number] Norepinephrine 8 mg In 93.829 26.008 Sodium Chloride 0.9% 250 ml @ 0.03 MCG/KG/MIN 3.68 mls/hr IV .Q24H [facility] Rx#: [id number] Vasopressin 20 unit In 54.163 43.732 Sodium Chloride 0.9% 50 ml @ 0.03 UNITS/MIN 4.59 mls/hr IV .Q11H7M [facility] Rx# :[id number] propofoL 1,000 mg In 200 194.149 Empty Bag 1 bag @ 15 MCG/ KG/MIN 5.706 mls/hr IV . [id number] [facility] Rx#:[id number] Oral 100 Tube Feeding 30 200 90 Other 30 90 30 Output: Urine 655 710 205 Other: Voiding Method Indwelling Catheter Indwelling Catheter Indwelling Catheter ABP, PAP, CO, CI - Last Documented Arterial Blood Pressure 131/59 - Labs CBC & Chem 7: 11/29/23 04:27 11/29/23 04:27 Labs: Abnormal Lab Results - Last 24 Hours (Table) 11/28/23 11/28/23 11/28/23 Range/Units 05:13 05:13 11:32 WBC (3.8-10.6) k/uL RBC (4.30-5.90) m/uL Hgb (13.0-17.5) gm/dL Hct (39.0-53.0) % MCV (80.0-100.0) fL RDW (11.5-15.5) % Plt Count (150-450) k/uL Neutrophils # (1.3-7.7) k/uL Lymphocytes # (1.0-4.8) k/uL ABG pO2 (83-108) mmHg ABG HCO3 (21-25) mmol/L ABG Total CO2 (19-24) mmol/L BUN (9-20) mg/dL Creatinine (0.66-1.25) mg/dL Glucose (74-99) mg/dL POC Glucose (mg/dL) 139 H (70-110) mg/dL Calcium (8.4-10.2) mg/dL C-Reactive Protein 17.4 H (<1.0) mg/dL Procalcitonin 5.76 H (0.02-0.09) ng/mL Urine Protein (Negative) Urine Glucose (UA) (Negative) Urine Ketones (Negative) Urine Blood (Negative) Ur Leukocyte Esterase (Negative) Urine RBC (0-5) /hpf Urine WBC (0-5) /hpf Calcium Oxalate Crystal (None) /hpf Urine Bacteria (None) /hpf Urine Mucus (None) /hpf 11/28/23 11/28/23 11/28/23 Range/Units 13:02 17:53 23:24 WBC (3.8-10.6) k/uL RBC (4.30-5.90) m/uL Hgb (13.0-17.5) gm/dL Hct (39.0-53.0) % MCV (80.0-100.0) fL RDW (11.5-15.5) % Plt Count (150-450) k/uL Neutrophils # (1.3-7.7) k/uL Lymphocytes # (1.0-4.8) k/uL ABG pO2 (83-108) mmHg ABG HCO3 (21-25) mmol/L ABG Total CO2 (19-24) mmol/L BUN (9-20) mg/dL Creatinine (0.66-1.25) mg/dL Glucose (74-99) mg/dL POC Glucose (mg/dL) 172 H 247 H (70-110) mg/dL Calcium (8.4-10.2) mg/dL C-Reactive Protein (<1.0) mg/dL Procalcitonin (0.02-0.09) ng/mL Urine Protein 1+ H (Negative) Urine Glucose (UA) 2+ H (Negative) Urine Ketones 2+ H (Negative) Urine Blood Large H (Negative) Ur Leukocyte Esterase Small H (Negative) Urine RBC >182 H (0-5) /hpf Urine WBC 32 H (0-5) /hpf Calcium Oxalate Crystal Rare H (None) /hpf Urine Bacteria Occasional H (None) /hpf Urine Mucus Rare H (None) /hpf 11/29/23 11/29/23 11/29/23 Range/Units 04:27 04:27 05:28 WBC 11.7 H (3.8-10.6) k/uL RBC 3.28 L (4.30-5.90) m/uL Hgb 10.8 L (13.0-17.5) gm/dL Hct 33.0 L (39.0-53.0) % MCV 100.7 H (80.0-100.0) fL RDW 15.6 H (11.5-15.5) % Plt Count 106 L (150-450) k/uL Neutrophils # 11.2 H (1.3-7.7) k/uL Lymphocytes # 0.1 L (1.0-4.8) k/uL ABG pO2 (83-108) mmHg ABG HCO3 (21-25) mmol/L ABG Total CO2 (19-24) mmol/L BUN 35 H (9-20) mg/dL Creatinine 0.53 L (0.66-1.25) mg/dL Glucose 236 H (74-99) mg/dL POC Glucose (mg/dL) 218 H (70-110) mg/dL Calcium 8.1 L (8.4-10.2) mg/dL C-Reactive Protein (<1.0) mg/dL Procalcitonin (0.02-0.09) ng/mL Urine Protein (Negative) Urine Glucose (UA) (Negative) Urine Ketones (Negative) Urine Blood (Negative) Ur Leukocyte Esterase (Negative) Urine RBC (0-5) /hpf Urine WBC (0-5) /hpf Calcium Oxalate Crystal (None) /hpf Urine Bacteria (None) /hpf Urine Mucus (None) /hpf 11/29/23 Range/Units 06:01 WBC (3.8-10.6) k/uL RBC (4.30-5.90) m/uL Hgb (13.0-17.5) gm/dL Hct (39.0-53.0) % MCV (80.0-100.0) fL RDW (11.5-15.5) % Plt Count (150-450) k/uL Neutrophils # (1.3-7.7) k/uL Lymphocytes # (1.0-4.8) k/uL ABG pO2 68 L (83-108) mmHg ABG HCO3 31 H (21-25) mmol/L ABG Total CO2 32 H (19-24) mmol/L BUN (9-20) mg/dL Creatinine (0.66-1.25) mg/dL Glucose (74-99) mg/dL POC Glucose (mg/dL) (70-110) mg/dL Calcium (8.4-10.2) mg/dL C-Reactive Protein (<1.0) mg/dL Procalcitonin (0.02-0.09) ng/mL Urine Protein (Negative) Urine Glucose (UA) (Negative) Urine Ketones (Negative) Urine Blood (Negative) Ur Leukocyte Esterase (Negative) Urine RBC (0-5) /hpf Urine WBC (0-5) /hpf Calcium Oxalate Crystal (None) /hpf Urine Bacteria (None) /hpf Urine Mucus (None) /hpf
--- NOTE | 2023-11-29 11:29 | P.PN ---
Subjective Progress Note Date: 11/29/23 Principal diagnosis: Respiratory failure. Patient is a 73-year-old white male with past medical history significant for COPD, chronic ongoing tobacco dependence, chronic hypoxemic respiratory failure on 2-/2 to 3 L, hypertension, among other things. His primary care provider is Dr. Chavez Shelton. 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 Patient presented to the emergency room yesterday afternoon via EMS. Reportedly noted to be lethargic and difficult to arouse at home. 3 to 4 days before this, his noted flulike symptoms. These included a runny nose, dry cough, fever, generalized malaise, and loose stools. When EMS arrived to the scene, they noted his blood pressure to be hypotensive. On arrival to the emergency room he was fluid resuscitated with a total of 3 L crystalloid fluid bolus. He was then started on low-dose norepinephrine which is currently infusing at 0.03 mcg/kg/min. He is also bradycardic, sinus bradycardia at 58 bpm. Normal saline continues to infuse at 130 MLS per hour. Chest x-ray demonstrated chronic interstitial changes with hyperinflation consistent with COPD. No focal consolidations, pleural effusions, or pneumothorax. He was hypercapnic in the emergency room. ABGs demonstrated PaO2 of 105, pCO2 of 52, pH of 7.25. He was then placed on the BiPAP in the emergency room. He is currently in the intensive care unit, room 251. He is on BiPAP with settings 12/6 and FiO2 of 50%. Achieving tidal volumes of around 400, respiratory rate in the mid 20s. He is alert and oriented x 3. No further signs of CO2 narcosis. Appears fairly comfortable. He is actively wheezing. Endorses the above-mentioned symptoms. Denies any chest pain or hemoptysis. Denies any significant sputum production. CBC unremarkable. No leukocytosis. D-dimer low. BMP includes a sodium 133, potassium 4.4, chloride 100, serum bicarb 29, BUN 21, creatinine 1.4, glucose 144. Lactic acid not significantly elevated. LFTs not elevated. NT proBNP 1330. Troponin 0.032. EKG shows sinus bradycardia with nonspecific T wave abnormalities. Nondiagnostic for acute ischemia. Viral screen negative for influenza, RSV, COVID. Afebrile. Patient is admitted to the intensive care unit. On 11/13/2023, the patient is being seen for a follow-up. The patient is currently in the intensive care unit. Feeling well. He is off the BiPAP and the patient is currently on 5 L of oxygen nasal cannula. Cough and congestion is still present although improved compared to yesterday. The white cell count is at 8.9 with a hemoglobin of 11.4 and a BUN of 12 with a creatinine of 0.5 and sodium levels of 137. Troponin was 0.014. Remains on bronchodilators. Remains on IV Solu-Medrol. Remains on Zithromax. Blood cultures been negative thus far. Awake and alert and communicating. No signs of any CO2 narcosis. On 11/14/2023, patient is being seen for a follow-up. The patient is stable. No interval worsening shortness of breath. Transferred out of the intensive care unit yesterday. He is currently on oxygen at 4 L with a pulse ox of 93%. No altered mentation. No chest pain. Tolerating diet. Resting comfortably in bed. Remains endocarditis. Remains on steroids 60 mg of IV Solu-Medrol every 6 hours. No increased anxiety. White cell count of 8 with a hemoglobin 11.4 and a platelet count of 202. BUN is 12 with a creatinine of 0.5 and a sodium levels of 137 and a potassium level of 3.7. 11/15/2023, the patient is on the medical floor. Very limited exam in terms of exercise capacity and the patient essentially in bed. Trying to move or walk short distances and make the patient very labored in terms of his breathing. Remains on Perforomist and Pulmicort nebulized treatments twice a day, DuoNeb up To 5, IV Solu-Medrol 60 Mg Every 6 Hours. The Patient Is Also Running a White Cell Count of 8.9 with a Hemoglobin 11.4 and a Platelet Count of 202. BUN Is 12 with a Creatinine of 0.5. Tolerating Diet. No Signs of Any Suicidal Process. No Chest Pain. The patient is seen today November 17, 2023 in follow-up on the regular medical floor. He is currently resting in bed. Awake and alert in no acute distress. Maintaining O2 saturations in the 90s on 4 L/min per nasal cannula. He is feeling better today. He is continue on DuoNeb inhalations, Pulmicort and Perforomist inhalations, Solu-Medrol. Blood cultures revealed no growth. NicoDerm patch in place. The patient is seen today November 18, 2023 in follow-up on the regular medical floor. He is currently sitting up in a chair. He has been up ambulating with a walker and assistance. He is feeling better today compared to yesterday. He is still on 4 L high flow nasal cannula. Still somewhat bronchospastic and wheezing. Continued on DuoNeb ventilations, Pulmicort and perform scintillations, Solu-Medrol and Singulair. NicoDerm patch in place. Heparin for DVT prophylaxis. Blood cultures revealed no growth. Blood sugar 231. The patient is seen today November 19, 2023 in follow-up on the regular medical floor. He is currently awake and alert in no acute distress. He is maintaining O2 saturations in the 90s on 3 L/min per nasal cannula. Blood cultures revealed no growth. White count 7.5. Hemoglobin 9.7. Platelets 273. Sodium 141. Potassium 4.1. Bicarb 32. BUN 20. Creatinine 0.7. Glucose 141. He remains on DuoNeb ventilations, Pulmicort and performing scintillations, Solu-Medrol. Remains on Singulair. NicoDerm patch in place. Heparin for DVT prophylaxis. Patient was evaluated today on November 19, patient developed sudden onset of respiratory distress, the rapid response team evaluated the patient, and he was in severe respiratory distress. Patient received Solu-Medrol, received Lasix on the floor prior to transfer to the ICU. He was placed on a nonrebreather mask, transferred to the ICU and I evaluated the patient as soon as he arrived to the ICU. Patient seems to be in severe respiratory distress, he was extremely tachypneic, diaphoretic, tachycardic, hypertensive, and in severe distress. Hence recommended immediate intubation, patient was intubated by me with direct visualization of the vocal cords, a size 7.5 endotracheal tube was used, and he was connected to mechanical ventilation after intubation. His vent settings where addressed and he is on AC rate of 20 tidal volume 450 FiO2 100% and PEEP of 5. ABG postintubation showed a pO2 of 208 pCO2 of 60 pH of 7.36 his FiO2 was cut down to 50% and kept on the same vent settings as ordered the rest of the labs were reviewed and they noted to be unremarkable. His liver enzymes were noted but elevated. WBC count showed 15.1 hemoglobin 14.6. Chest x-ray showed bilateral airspace disease, suggestive of pneumonia,, dramatic worsening compared to the chest x-ray done on 11/14/2023, hence I am strongly suspecting that the patient may have developed aspiration pneumonia. The patient will be treated with Zosyn for this abnormal chest x-ray for now. Family was updated on his condition at the bedside. After intubating the patient, patient was hypot ensive, central line was established, arterial line was established at the same time Patient was evaluated today on 11/21/2023, patient remains in the ICU, he was transferred yesterday to the ICU with acute hypoxic and hypercapnic respiratory failure requiring intubation mechanical ventilation. Patient is now on assist- control rate of 20 tidal volume 450 FiO2 40% PEEP of 5 ABG showed a pO2 of 77 p CO2 40 pH of 7.53 hence I decreased his rate from 20-16. Patient is fully sedated and he is very synchronous with the ventilator. Patient remains on propofol at 55 mcg/kg/min IV fluid 0.9 at 125 cc/h he is requiring a small dose of norepinephrine at 0.02 mcg/kg/min his CVP is 2 hence I am recommending more fluid boluses and I am recommending close monitoring of his urine output in the meantime continue norepinephrine until his fluid status improves. His urine output has been in the range of 20 to 30 cc/h. Patient remains on Zosyn chest x-ray today showed slight improvement in his right lower lobe infiltrate and continues to have significant airspace disease involving the left lower lobe and left midlung. Patient is empirically on Zosyn for what seems to be an aspiration pneumonia. Considering the status is marginal, no plans to hold sedation today, will try to optimize his hemodynamic status continue antibiotics and continue bronchodilators meantime continue ventilatory support Patient was reevaluated today on 11/22/2023, patient remains in the ICU, intubated and mechanically ventilated. On assist-control 16 tidal volume 450 FiO2 40% and PEEP of 5. ABG showed a pO2 of 83 pCO2 44 pH of 7.41 patient remains on propofol at 55 mcg/kg/min, IV fluid at 150 cc/h 0.9 normal saline, vital AF at 50 cc/h. Patient is still having marginal urine output in spite of CVP 11, hence I will go ahead and recommend a Lasix trial 20 mg IV push. Patient remains on Zosyn and Zithromax. Chest x-ray is showing slight improvement in his left lower lobe infiltrate nonetheless continues to have significant airspace disease in the left lower lobe and to some extent in the right lower lobe. Patient will be given a weaning trial today off sedation if possible, and if tolerated may even extubate the patient today. WBC count is 9.1 hemoglobin is 10.6. Basic metabolic profile is normal, renal profile is normal Progress note dated November 23, 2023. This is a patient who was admitted back on November 10 for COPD exacerbation. The patient was apparently ready to be discharged, but on November 19, developed jermaine respiratory failure, and required intubation, and transferred to the intensive care unit. He is currently on volume assist-control, rate 16, tidal volume 450, FiO2 40%, PEEP of 5. Blood gases show pCO2 of 46, pO2 of 73, and a pH of 7.44. Currently, the patient is on propofol at 60 mcg/kg/min, saline at 75 cc an hour, and vital AF at 36 cc an hour, which is his goal rate. White count 11.3, hemoglobin 11, hematocrit 34.5, platelet count is normal. Sodium 138, potassium 3.7, chlorides 111, CO2 28, BUN 27, creatinine 0.6. Glucose is 233. Calcium 7.5. Blood and sputum sampling is negative. Chest x-ray shows changes of COPD, with either atelectasis or infiltrate, in the lower lung zones. Progress note dated November 24, 2023. 73-year-old male seen today in room 257. He was admitted back on November 10, for COPD exacerbation. The patient was apparently ready for possible discharge on November 19, but developed jermaine respiratory failure, required intubation, mechanical ventilation, and was transferred to the intensive care unit. He remains on volume assist-control, rate 16, tidal volume 450, FiO2 40%, PEEP of 5. Blood gases show pO2 of 75, pCO2 45, pH is 7.42. The patient is on propofol at 20 mcg/kg/min, saline at 75 cc an hour, and vital AF at 36 cc an hour. White count is 11.2, hemoglobin 10.1, hematocrit 31.2, platelet count 149,000. Sodium 138, potassium 4.1, chlorides 110s, CO2 30, BUN 27, creatinine 0.50. Glucose is 223. Calcium is 7.7. Microbiologic sampling has all been negative. Chest x-ray shows changes of COPD, with some patchy bilateral infiltrates or atelectasis. The flatplate of the abdomen shows a nonobstructive bowel gas pattern. Progress note dated November 25, 2023. 73-year-old male seen again in room 257. The patient remains on mechanical ventilator. Vent settings include volume assist-control, rate 16, tidal volume 450, FiO2 40%, PEEP of 5. Blood gases show pO2 of 70, pCO2 of 42, pH is 7.52. This blood gases consistent with a metabolic alkalosis. The patient did fail his spontaneous breathing trial after few minutes. He continues on propofol at 25 mcg/kg/min, saline at 20 cc an hour, and vital AF at 36 cc an hour, which is goal. The patient continues on Zosyn. The patient will get some additional Lasix today, 60 mg IV push. Current labs include a white count 15.3, hemoglobin 12.4, hematocrit 38.5, and platelet count 152,000. Sodium 140, potassium 4.1, chlorides 106, CO2 34, BUN 27, and creatinine 0.56. Calcium is 8.2. Sputum and blood cultures are thus far negative. Chest x-ray is consistent with underlying COPD, with some bilateral interstitial and patchy opacities, left greater than right. There is a small left-sided pleural effusion. Progress note dated November 26, 2023. 73-year-old male seen in room 257. The patient remains on the mechanical ventilator. He is on volume assist-control, rate 16, tidal volume 450, FiO2 40%, PEEP of 5. Blood gases show pO2 of 79, pCO2 46, pH is 7.48. Blood gases are consistent with a mild metabolic alkalosis. The patient is on propofol at 20 mcg/kg/min, vital AF at 36 cc an hour, saline at 20 cc an hour. The patient will be given a daily interruption of sedation and a spontaneous breathing trial. The patient had 1 yesterday, and did very poorly. White count 14, hemoglobin 11.5, hematocrit 33.6, platelet count 141,000. Sodium 137, potassium 3.6, chlorides 105, CO2 29, BUN 35, and creatinine 0.49. Glucose is 217. Calcium 8.2. Albumin 2.6. Blood cultures, and sputum sampling, has been negative thus far. Chest x-ray shows changes of COPD, with diffuse bilateral left greater than right, opacities. Progress note dated November 27, 2023. 73-year-old male seen in room 257. The patient was extubated yesterday, November 25. He is currently on high flow oxygen at 8 L. The patient is getting saline at KVO. The patient's Zosyn will be discontinued after today. Initially, the patient was a no code, and will be talked to the about tracheostomy and PEG tube placement, prior to extubation, she refused that. Now she is telling us, that the patient should be a full code. Current labs include a white count 13.8, hemoglobin 12, macro 37.2, and platelet count of 166,000. Sodium 141, potassium 3.4, chlorides 106, CO2 34, BUN 30, creatinine 0.7. Calcium is 8.2, magnesium 2.1, glucose is 101. Sputum and blood sampling has been negative. Chest x-ray shows cardiomegaly, COPD, and bilateral patchy infiltrates. Progress note dated November 28, 2023. 73-year-old male who is seen today in room 257. The patient was initially admitted back on November 10. The patient was ready to be discharged on November 19, and he developed acute respiratory failure requiring intubation. He was extubated on November 26, 2023, but unfortunately, got worse, and was reintubated yesterday, November 26. He is on volume assist-control, rate 24, tidal volume 400, FiO2 of 60%, PEEP of 5. Blood gases show pO2 of 66, pCO2 of 46, pH is 7.40. This blood gases consistent with a mixed acid-base disturbance including mild respiratory acidosis, and a compensated metabolic alkalosis. The patient is on saline at KVO, propofol at 45 mcg/kg/min Nimbex at 2 mcg/kg/min vasopressin at 0.03 u nits/min, norepinephrine at 9 mcg/min. Tube feeds will be started today. White count is 24.7, hemoglobin 12.9, hematocrit 40.3, platelet count is 141,000. Sodium 139, potassium 4.1, chlorides 109, CO2 25, BUN 33, creatinine 0.51. Glucose 139. Calcium 8 magnesium 2.1. Sputum, and blood cultures, are negative. Chest x-ray shows changes of COPD, and diffuse bibasilar interstitial changes. Progress note dated November 29, 2023. 73-year-old male seen today in room 257. He was initially admitted back on November 10. The patient was ready for discharge from the hospital on November 19, developed acute respiratory failure, requiring intubation. He was successfully extubated on November 25, but unfortunately, his respiratory status declined, and he was reintubated on November 26. The patient is scheduled to have a tracheostomy and PEG tube placement, tomorrow. The patient is currently on volume assist-control, rate 24, tidal volume 400, FiO2 50%, PEEP of 5. Blood gases show pO2 of 68, pCO2 of 45, pH is 7.44. The patient is on propofol at 45 mcg/kg/min, Nimbex at 3 mcg/kg/min, amiodarone at 0.5 mg/min and heparin via weight-based protocol. The patient is getting vital AF 1.2 at 30, with a goal of 36 cc an hour. He is also on saline at KVO. The patient continues on Zosyn. Current labs include a white count 11.7, hemoglobin 10.8, hematocrit 33, and a platelet count of 106,000. Sodium 138, potassium 3.8, chlorides 107, CO2 28, BUN 35, creatinine 0.53. Calcium is 8.1, glucose is 218. Sputum and blood sampling is negative. Chest x-ray is largely unchanged. Objective - Vital Signs Vital signs: Vital Signs Temp 97.6 F 11/29/23 08:00 Pulse 78 11/29/23 11:22 Resp 24 11/29/23 11:00 BP 94/72 11/29/23 05:00 Pulse Ox 96 11/29/23 11:00 FiO2 50 11/29/23 11:16 Intake & Output 11/28/23 11/29/23 11/29/23 18:59 06:59 18:59 Intake Total 919.927 733.889 477.935 Output Total 655 710 255 Balance 264.927 23.889 222.935 Weight 66.2 kg 63.5 kg Intake: IV 258 180 152 0.9 Pressure Bags 48 60 12 KVO 110 120 40 Piperacillin-Tazobactam 3 100 100 .375 gm In Sodium Chloride 0.9% 100 ml @ 25 mls/hr IVPB Q8HR [facility] Rx# :[id number] Intake, IV Titration 501.927 263.889 175.935 Amount Cisatracurium 200 mg In 153.935 175.935 Sodium Chloride 0.9% 180 ml @ 1 MCG/KG/MIN 3.804 mls/hr IV .Q24H [facility] Rx#: [id number] Norepinephrine 8 mg In 93.829 26.008 Sodium Chloride 0.9% 250 ml @ 0.03 MCG/KG/MIN 3.68 mls/hr IV .Q24H [facility] Rx#: [id number] Vasopressin 20 unit In 54.163 43.732 Sodium Chloride 0.9% 50 ml @ 0.03 UNITS/MIN 4.59 mls/hr IV .[id number] [facility] Rx# :[id number] propofoL 1,000 mg In 200 194.149 Empty Bag 1 bag @ 15 MCG/ KG/MIN 5.706 mls/hr IV . [id number] [facility] Rx#:[id number] Oral 100 Tube Feeding 30 200 120 Other 30 90 30 Output: Urine 655 710 255 Other: Voiding Method Indwelling Catheter Indwelling Catheter Indwelling Catheter ABP, PAP, CO, CI - Last Documented Arterial Blood Pressure 130/60 - Exam No acute distress, reintubated, with an orally placed endotracheal tube. Sedated. HEENT examination is grossly unremarkable. Neck supple. Full range of motion. No adenopathy thyromegaly or neck vein distention. Cardiovascular examination reveals regular rhythm rate. S1-S2 normal. No S3 or S4. No discernible murmur noted. Heart sounds are distant. Heart rate 78 bpm. Lungs reveal scattered bilateral rhonchi. No wheezes. No crackles. Breath sounds equal bilaterally. Saturation is 96 %. Abdomen soft with bowel sounds. No masses or tenderness. The patient has scrotal edema. Extremities are intact. No cyanosis clubbing or edema. Skin is without rash or lesion. Neurologic examination cannot be adequately evaluated at this time. - Labs CBC & Chem 7: 11/29/23 04:27 11/29/23 08:00 Labs: Abnormal Lab Results - Last 24 Hours (Table) 11/28/23 11/28/23 11/28/23 Range/Units 05:13 05:13 11:32 WBC (3.8-10.6) k/uL RBC (4.30-5.90) m/uL Hgb (13.0-17.5) gm/dL Hct (39.0-53.0) % MCV (80.0-100.0) fL RDW (11.5-15.5) % Plt Count (150-450) k/uL Neutrophils # (1.3-7.7) k/uL Lymphocytes # (1.0-4.8) k/uL ABG pO2 (83-108) mmHg ABG HCO3 (21-25) mmol/L ABG Total CO2 (19-24) mmol/L BUN (9-20) mg/dL Creatinine (0.66-1.25) mg/dL Glucose (74-99) mg/dL POC Glucose (mg/dL) 139 H (70-110) mg/dL Calcium (8.4-10.2) mg/dL C-Reactive Protein 17.4 H (<1.0) mg/dL Procalcitonin 5.76 H (0.02-0.09) ng/mL Urine Protein (Negative) Urine Glucose (UA) (Negative) Urine Ketones (Negative) Urine Blood (Negative) Ur Leukocyte Esterase (Negative) Urine RBC (0-5) /hpf Urine WBC (0-5) /hpf Calcium Oxalate Crystal (None) /hpf Urine Bacteria (None) /hpf Urine Mucus (None) /hpf 11/28/23 11/28/23 11/28/23 Range/Units 13:02 17:53 23:24 WBC (3.8-10.6) k/uL RBC (4.30-5.90) m/uL Hgb (13.0-17.5) gm/dL Hct (39.0-53.0) % MCV (80.0-100.0) fL RDW (11.5-15.5) % Plt Count (150-450) k/uL Neutrophils # (1.3-7.7) k/uL Lymphocytes # (1.0-4.8) k/uL ABG pO2 (83-108) mmHg ABG HCO3 (21-25) mmol/L ABG Total CO2 (19-24) mmol/L BUN (9-20) mg/dL Creatinine (0.66-1.25) mg/dL Glucose (74-99) mg/dL POC Glucose (mg/dL) 172 H 247 H (70-110) mg/dL Calcium (8.4-10.2) mg/dL C-Reactive Protein (<1.0) mg/dL Procalcitonin (0.02-0.09) ng/mL Urine Protein 1+ H (Negative) Urine Glucose (UA) 2+ H (Negative) Urine Ketones 2+ H (Negative) Urine Blood Large H (Negative) Ur Leukocyte Esterase Small H (Negative) Urine RBC >182 H (0-5) /hpf Urine WBC 32 H (0-5) /hpf Calcium Oxalate Crystal Rare H (None) /hpf Urine Bacteria Occasional H (None) /hpf Urine Mucus Rare H (None) /hpf 11/29/23 11/29/23 11/29/23 Range/Units 04:27 04:27 05:28 WBC 11.7 H (3.8-10.6) k/uL RBC 3.28 L (4.30-5.90) m/uL Hgb 10.8 L (13.0-17.5) gm/dL Hct 33.0 L (39.0-53.0) % MCV 100.7 H (80.0-100.0) fL RDW 15.6 H (11.5-15.5) % Plt Count 106 L (150-450) k/uL Neutrophils # 11.2 H (1.3-7.7) k/uL Lymphocytes # 0.1 L (1.0-4.8) k/uL ABG pO2 (83-108) mmHg ABG HCO3 (21-25) mmol/L ABG Total CO2 (19-24) mmol/L BUN 35 H (9-20) mg/dL Creatinine 0.53 L (0.66-1.25) mg/dL Glucose 236 H (74-99) mg/dL POC Glucose (mg/dL) 218 H (70-110) mg/dL Calcium 8.1 L (8.4-10.2) mg/dL C-Reactive Protein (<1.0) mg/dL Procalcitonin (0.02-0.09) ng/mL Urine Protein (Negative) Urine Glucose (UA) (Negative) Urine Ketones (Negative) Urine Blood (Negative) Ur Leukocyte Esterase (Negative) Urine RBC (0-5) /hpf Urine WBC (0-5) /hpf Calcium Oxalate Crystal (None) /hpf Urine Bacteria (None) /hpf Urine Mucus (None) /hpf 11/29/23 Range/Units 06:01 WBC (3.8-10.6) k/uL RBC (4.30-5.90) m/uL Hgb (13.0-17.5) gm/dL Hct (39.0-53.0) % MCV (80.0-100.0) fL RDW (11.5-15.5) % Plt Count (150-450) k/uL Neutrophils # (1.3-7.7) k/uL Lymphocytes # (1.0-4.8) k/uL ABG pO2 68 L (83-108) mmHg ABG HCO3 31 H (21-25) mmol/L ABG Total CO2 32 H (19-24) mmol/L BUN (9-20) mg/dL Creatinine (0.66-1.25) mg/dL Glucose (74-99) mg/dL POC Glucose (mg/dL) (70-110) mg/dL Calcium (8.4-10.2) mg/dL C-Reactive Protein (<1.0) mg/dL Procalcitonin (0.02-0.09) ng/mL Urine Protein (Negative) Urine Glucose (UA) (Negative) Urine Ketones (Negative) Urine Blood (Negative) Ur Leukocyte Esterase (Negative) Urine RBC (0-5) /hpf Urine WBC (0-5) /hpf Calcium Oxalate Crystal (None) /hpf Urine Bacteria (None) /hpf Urine Mucus (None) /hpf Assessment and Plan Assessment: Acute on chronic hypoxemic and hypercapnic respiratory failure, secondary to bilateral pneumonia, status post intubation with mechanical ventilation, on November 20, 2023. S/P extubation, November 26, 2023, and reintubation, for hypoxemic and hypercapnic respiratory failure, November 27, 2023. Mental status changes, secondary to respiratory failure. Hypotension, resolved. Severe dehydration on initial evaluation. Acute kidney injury. Acute exacerbation of COPD. Chronic and ongoing tobacco dependence with nicotine addiction. Scrotal edema. History of hypertension. Plan: Plan dated November 23, 2023. The patient is seen today in room 257. The patient continues on breathing treatments, and Solu-Medrol. In addition, the patient is getting Zosyn, for suspected aspiration pneumonia. The patient was actually admitted on November 10, and was doing well, until he was intubated on November 19. Blood gases show pO2 of 73, pCO2 46, pH is 7.44. The patient continues on propofol at 60 mcg/kg/min. I have asked the nurse to consider doing the daily interruption of sedation. The patient continues on tube feedings with vital AF, at goal. Labs, x-rays, medications are reviewed. We will continue to follow the patient, and make recommendations along the way. Prognosis is guarded. Plan dated November 24, 2023. The patient was seen today in room 257. The patient remains on the mechanical ventilator. Blood gases are reasonable, with a pO2 of 75, pCO2 45, pH is 7.42. The patient is on propofol at 20 mcg/kg/min, saline at 75 cc an hour, and vital AF at goal, which is 36 cc an hour. Because of the patient's scrotal edema, and significant fluid resuscitation, will DC the IV, and we will give the patient a one-time dose of Lasix 60 mg IV push. Additional recommendations and suggestions are forthcoming. Labs, x-rays, medications are reviewed. We will continue to follow the patient, make recommendations along the way. Prognosis is guarded. Plan dated November 25, 2023. The patient is seen today in room 257. The patient will get some additional Lasix today, 60 mg IV push. The patient continues on tube feeds, and propofol. The patient also continues on Zosyn. Labs, x-rays, medications are reviewed. The patient did very poorly on his daily interruption of sedation, and his spontaneous breathing trial. The patient may require tracheostomy tube, in the next few days, if he does not show improvement. We will continue to follow make recommendations along the way. Prognosis is poor. Plan dated November 26, 2023. I was able to speak to the patient's . Initially, she agreed to have the patient proceed with a tracheostomy and PEG tube placement. Subsequent to that, she called back and said that she did not want a tracheostomy or PEG tube, and made her to DO NOT RESUSCITATE. The patient will be extubated, to nasal cannula. He will not be reintubated. Will continue to follow the patient and make recommendations where appropriate. Labs, x-rays, medications are reviewed. The patient did reasonably well on his CPAP trial today, and, was extubated. He remains a DNR. We will continue to follow. Prognosis is poor. Plan dated November 27, 2023. The patient is seen today in room 257. The patient was extubated yesterday, because the refused tracheostomy tube and PEG tube placement. Currently, t he patient has not been made a full code, by his primary care physician. The patient is on 8 L high flow oxygen. I did speak to the patient's about whether or not she would want him back on the ventilator. He apparently told her, that he would want to go back on mechanical ventilator. Labs, x-rays, medications are reviewed. Zosyn will be discontinued after today's dose. The patient is currently listed as a full code. We will continue to follow make recommendations along the way. Plan dated November 28, 2023. Unfortunately, though the patient was extubated on November 25, the patient was re intubated on November 26. The patient remains on mechanical ventilator. The patient continues on propofol, Nimbex, vasopressin, and norepinephrine. Tube feedings will be started today. Blood gases show pO2 of 66, pCO2 of 46, pH is 7.40. Culture data is negative. Will continue to follow the patient, make recommendations. Prognosis is guarded. I did speak to the patient's , about the need for tracheostomy and PEG tube placement. She did give consent. Plan dated November 29, 2023. I called the patient's , to discuss tracheostomy and PEG tube placement. She is in agreement. That will hopefully be done tomorrow. The patient continues on propofol, Nimbex, amiodarone, and heparin. The patient is also getting tube feedings. The patient continues on Zosyn. pO2 of 68, pCO2 45, pH is 7.44. Labs, x-rays, and medications are reviewed. We will continue to follow the patient. No additional recommendations are made. The patient's overall prognosis remains very guarded. He was extubated on November 25, and unfortunately, was reintubated the next day on November 26. Time with Patient: Greater than 30
[2023-11-29 11:54] LABS: Glucose,Whole Blood 208 mg/dL (70-110)
[2023-11-29] MEDS: NOREPINEPHRINE 8 MG in SODIUM CHLORIDE 0.9% 250 ML IV SCH (14:31)
[2023-11-29 14:48] VITALS: RESP 24
[2023-11-29] MEDS: fentaNYL (PF). 1,000 MCG in SODIUM CHLORIDE 0.9% 80 ML IV SCH (15:20)
--- NOTE | 2023-11-29 16:54 | P.PN ---
Subjective Progress Note Date: 11/29/23 Principal diagnosis: Reason for follow-up is possible sepsis/pneumonia Patient is a 73-year-old male with a past medical history significant for COPD former smoker patient presenting to the hospital more than 2 weeks ago before this initial consultation on 11/11/2023, has been brought in by EMS with the concern for the patient being lethargic at home and difficult to arouse, patient got intubated on 11/20/2023 he was extubated on 11/26/2023 and has to be intubated on 11/27/2023 also noticed to have elevated white count requiring pressor prompting this consultation. On today's evaluation that is 11/29/2023 patient remains to be febrile patient requiring less pressor support as per discussion with the nursing staff patient remains to be intubated on the vent FiO2 is currently stable at 50% no significant purulent secretion through the ET or any changes reported. Patient white count is down to 11.7 creatinine 0.53 procalcitonin repeat is 5.76, repeat cultures are pending Objective - Vital Signs Vital signs: Vital Signs Temp 97.6 F 11/29/23 08:00 Pulse 65 11/29/23 09:00 Resp 24 11/29/23 09:00 BP 94/72 11/29/23 05:00 Pulse Ox 99 11/29/23 09:00 FiO2 50 11/29/23 08:00 Intake & Output 11/28/23 11/29/23 11/29/23 18:59 06:59 18:59 Intake Total 919.927 733.889 334.935 Output Total 655 710 205 Balance 264.927 23.889 129.935 Weight 66.2 kg 63.5 kg Intake: IV 258 180 39 0.9 Pressure Bags 48 60 9 KVO 110 120 30 Piperacillin-Tazobactam 3 100 .375 gm In Sodium Chloride 0.9% 100 ml @ 25 mls/hr IVPB Q8HR [facility] Rx# :[id number] Intake, IV Titration 501.927 263.889 175.935 Amount Cisatracurium 200 mg In 153.935 175.935 Sodium Chloride 0.9% 180 ml @ 1 MCG/KG/MIN 3.804 mls/hr IV .Q24H [facility] Rx#: [id number] Norepinephrine 8 mg In 93.829 26.008 Sodium Chloride 0.9% 250 ml @ 0.03 MCG/KG/MIN 3.68 mls/hr IV .Q24H [facility] Rx#: [id number] Vasopressin 20 unit In 54.163 43.732 Sodium Chloride 0.9% 50 ml @ 0.03 UNITS/MIN 4.59 mls/hr IV .[id number] [facility] Rx# :[id number] propofoL 1,000 mg In 200 194.149 Empty Bag 1 bag @ 15 MCG/ KG/MIN 5.706 mls/hr IV . [id number] [facility] Rx#:[id number] Oral 100 Tube Feeding 30 200 90 Other 30 90 30 Output: Urine 655 710 205 Other: Voiding Method Indwelling Catheter Indwelling Catheter Indwelling Catheter ABP, PAP, CO, CI - Last Documented Arterial Blood Pressure 131/59 - Exam Elderly male intubated on the vent Respiratory system unlabored breathing Patient is sedated on the vent - Labs CBC & Chem 7: 11/29/23 04:27 11/29/23 08:00 Labs: Abnormal Lab Results - Last 24 Hours (Table) 11/28/23 11/28/23 11/28/23 Range/Units 05:13 05:13 11:32 WBC (3.8-10.6) k/uL RBC (4.30-5.90) m/uL Hgb (13.0-17.5) gm/dL Hct (39.0-53.0) % MCV (80.0-100.0) fL RDW (11.5-15.5) % Plt Count (150-450) k/uL Neutrophils # (1.3-7.7) k/uL Lymphocytes # (1.0-4.8) k/uL ABG pO2 (83-108) mmHg ABG HCO3 (21-25) mmol/L ABG Total CO2 (19-24) mmol/L BUN (9-20) mg/dL Creatinine (0.66-1.25) mg/dL Glucose (74-99) mg/dL POC Glucose (mg/dL) 139 H (70-110) mg/dL Calcium (8.4-10.2) mg/dL C-Reactive Protein 17.4 H (<1.0) mg/dL Procalcitonin 5.76 H (0.02-0.09) ng/mL Urine Protein (Negative) Urine Glucose (UA) (Negative) Urine Ketones (Negative) Urine Blood (Negative) Ur Leukocyte Esterase (Negative) Urine RBC (0-5) /hpf Urine WBC (0-5) /hpf Calcium Oxalate Crystal (None) /hpf Urine Bacteria (None) /hpf Urine Mucus (None) /hpf 11/28/23 11/28/23 11/28/23 Range/Units 13:02 17:53 23:24 WBC (3.8-10.6) k/uL RBC (4.30-5.90) m/uL Hgb (13.0-17.5) gm/dL Hct (39.0-53.0) % MCV (80.0-100.0) fL RDW (11.5-15.5) % Plt Count (150-450) k/uL Neutrophils # (1.3-7.7) k/uL Lymphocytes # (1.0-4.8) k/uL ABG pO2 (83-108) mmHg ABG HCO3 (21-25) mmol/L ABG Total CO2 (19-24) mmol/L BUN (9-20) mg/dL Creatinine (0.66-1.25) mg/dL Glucose (74-99) mg/dL POC Glucose (mg/dL) 172 H 247 H (70-110) mg/dL Calcium (8.4-10.2) mg/dL C-Reactive Protein (<1.0) mg/dL Procalcitonin (0.02-0.09) ng/mL Urine Protein 1+ H (Negative) Urine Glucose (UA) 2+ H (Negative) Urine Ketones 2+ H (Negative) Urine Blood Large H (Negative) Ur Leukocyte Esterase Small H (Negative) Urine RBC >182 H (0-5) /hpf Urine WBC 32 H (0-5) /hpf Calcium Oxalate Crystal Rare H (None) /hpf Urine Bacteria Occasional H (None) /hpf Urine Mucus Rare H (None) /hpf 11/29/23 11/29/23 11/29/23 Range/Units 04:27 04:27 05:28 WBC 11.7 H (3.8-10.6) k/uL RBC 3.28 L (4.30-5.90) m/uL Hgb 10.8 L (13.0-17.5) gm/dL Hct 33.0 L (39.0-53.0) % MCV 100.7 H (80.0-100.0) fL RDW 15.6 H (11.5-15.5) % Plt Count 106 L (150-450) k/uL Neutrophils # 11.2 H (1.3-7.7) k/uL Lymphocytes # 0.1 L (1.0-4.8) k/uL ABG pO2 (83-108) mmHg ABG HCO3 (21-25) mmol/L ABG Total CO2 (19-24) mmol/L BUN 35 H (9-20) mg/dL Creatinine 0.53 L (0.66-1.25) mg/dL Glucose 236 H (74-99) mg/dL POC Glucose (mg/dL) 218 H (70-110) mg/dL Calcium 8.1 L (8.4-10.2) mg/dL C-Reactive Protein (<1.0) mg/dL Procalcitonin (0.02-0.09) ng/mL Urine Protein (Negative) Urine Glucose (UA) (Negative) Urine Ketones (Negative) Urine Blood (Negative) Ur Leukocyte Esterase (Negative) Urine RBC (0-5) /hpf Urine WBC (0-5) /hpf Calcium Oxalate Crystal (None) /hpf Urine Bacteria (None) /hpf Urine Mucus (None) /hpf 11/29/23 Range/Units 06:01 WBC (3.8-10.6) k/uL RBC (4.30-5.90) m/uL Hgb (13.0-17.5) gm/dL Hct (39.0-53.0) % MCV (80.0-100.0) fL RDW (11.5-15.5) % Plt Count (150-450) k/uL Neutrophils # (1.3-7.7) k/uL Lymphocytes # (1.0-4.8) k/uL ABG pO2 68 L (83-108) mmHg ABG HCO3 31 H (21-25) mmol/L ABG Total CO2 32 H (19-24) mmol/L BUN (9-20) mg/dL Creatinine (0.66-1.25) mg/dL Glucose (74-99) mg/dL POC Glucose (mg/dL) (70-110) mg/dL Calcium (8.4-10.2) mg/dL C-Reactive Protein (<1.0) mg/dL Procalcitonin (0.02-0.09) ng/mL Urine Protein (Negative) Urine Glucose (UA) (Negative) Urine Ketones (Negative) Urine Blood (Negative) Ur Leukocyte Esterase (Negative) Urine RBC (0-5) /hpf Urine WBC (0-5) /hpf Calcium Oxalate Crystal (None) /hpf Urine Bacteria (None) /hpf Urine Mucus (None) /hpf Assessment and Plan (1) Leukocytosis Current Visit: Yes Status: Acute Code(s): D72.829 - ELEVATED WHITE BLOOD CELL COUNT, UNSPECIFIED SNOMED Code(s): 870876115 (2) Elevated procalcitonin Current Visit: Yes Status: Acute Code(s): R79.89 - OTHER SPECIFIED ABNORMAL FINDINGS OF BLOOD CHEMISTRY SNOMED Code(s): 317366790 (3) Pneumonia Current Visit: Yes Status: Acute Code(s): J18.9 - PNEUMONIA, UNSPECIFIED ORGANISM SNOMED Code(s): 107764267 Plan: This is a telehealth visit 1patient with sepsis in this patient who did have a white count of 24,000 patie nt noticed to be tachycardic this morning with heart rate of 103 and also was hypotensive requiring high-dose pressor support meeting criteria for SIRS/sepsis etiology differential including possible component of pneumonia versus line related sepsis versus catheter associated UTI as the patient has been in the hospital for more than 2 weeks before initial evaluation you need to cover for resistant gram-negative to be the likely pathogen 2-patient cultures are currently pending however the patient did have improvement of the white count and requiring less pressor support did have elevated procalcitonin 3-we will continue with the Zosyn while waiting for the workup to be completed Dictation was produced using [employer] dictation software. please excuse any grammatical, word or spelling errors.
[2023-11-29 17:56] LABS: Glucose,Whole Blood 225 mg/dL (70-110)
[2023-11-30 00:04] LABS: Glucose,Whole Blood 232 mg/dL (70-110)
--- NOTE | 2023-11-30 00:10 | PN ---
PROGRESS NOTE SUBJECTIVE: Remains in ICU, seen by Dr. Mina for possible elevated leukocytosis 24,000 and worsening respiratory failure, possible sepsis pneumonia. Remains febrile. Patient on less pressor support. No significant purulent secretions. Coag is now down to 11.7, creatinine 0.53, procalcitonin repeat is 5.76. Repeat cultures are pending. OBJECTIVE: VITAL SIGNS: Temperature 97.6, blood pressure is low 90s over 70s, respiratory rate 20 to 24, pulse 60 to 65. CARDIOVASCULAR: S1, S2. LUNGS: Scattered wheeze x4. He is sedated on the vent. HEMATOLOGY: Negative for Homans. He has large amount of blood in his urine RBCs. White cells are 32 in the urine. Hemoglobin is 10.9, leukocytosis, elevated procalcitonin, pneumonia, tachycardic this morning, heart rate 103 hypertensive. Catheter-associated UTI versus pneumonia, aspiration, need to cover for resistant gram-negative to the likely pathogen. Repeat cultures are pending. Continue on Zosyn. Prognosis guarded. MMODL / IJN: [id number] /
[2023-11-30 01:04] VITALS: BP 123/66
[2023-11-30 01:14] LABS: ALT 58 U/L (4-49); AST 21 U/L (17-59); African American GFR (CKD) >90 (>60 ml/min/1.73 sqM); Albumin 2.4 g/dL (3.5-5.0); Alkaline Phosphatase 83 U/L (38-126); Anion Gap 2 mmol/L; Blood Urea Nitrogen 31 mg/dL (9-20); Calcium 8.1 mg/dL (8.4-10.2); Carbon Dioxide 30 mmol/L (22-30); Chloride 106 mmol/L (98-107); Glucose 233 mg/dL (74-99); Magnesium 2.3 mg/dL (1.6-2.3); Non-African American GFR(CKD) >90 (>60 ml/min/1.73 sqM); Potassium 3.3 mmol/L (3.5-5.1); Sodium 138 mmol/L (137-145); Total Bilirubin 0.9 mg/dL (0.2-1.3); Total Protein 4.4 g/dL (6.3-8.2)
[2023-11-30] MEDS: POTASSIUM CHLORIDE 20 MEQ in WATER FOR INJECTION 1 100ML.BAG IVPB SCH (01:56)
[2023-11-30 05:09] LABS: Basophils % (A) 0 %; Eosinophils % (A) 0 %; HCT 30.2 % (39.0-53.0); HGB 9.8 gm/dL (13.0-17.5); Lymphocytes # (A) 0.1 k/uL (1.0-4.8); Lymphocytes % (A) 1 %; MCH 32.4 pg (25.0-35.0); MCHC 32.3 g/dL (31.0-37.0); MCV 100.2 fL (80.0-100.0); Macrocytosis Slight; Mean Platelet Volume 8.8; Monocytes # (A) 0.2 k/uL (0-1.0); Monocytes % (A) 2 %; Neutrophils # (A) 8.9 k/uL (1.3-7.7); Neutrophils % (A) 97 %; RBC 3.02 m/uL (4.30-5.90); RDW 15.7 % (11.5-15.5); WBC 9.2 k/uL (3.8-10.6)
[2023-11-30 05:16] LABS: INR 0.9 (<1.2); Prothrombin Time 9.9 sec (10.0-12.5)
[2023-11-30 05:25] LABS: Platelet Count 88 k/uL (150-450)
[2023-11-30 05:26] LABS: ABG Base Excess 8.1 mmol/L; ABG HCO3 32 mmol/L (21-25); ABG Oxygen Saturation 95.6 % (94-97); ABG PCO2 42 mmHg (35-45); ABG PH 7.49 (7.35-7.45); ABG PO2 70 mmHg (83-108); ABG TCO2 34 mmol/L (19-24); Allen Test Performed? Yes
[2023-11-30 06:05] LABS: Glucose,Whole Blood 174 mg/dL (70-110)
[2023-11-30 06:26] LABS: African American GFR (CKD) >90 (>60 ml/min/1.73 sqM); Anion Gap 0 mmol/L; Blood Urea Nitrogen 30 mg/dL (9-20); Carbon Dioxide 30 mmol/L (22-30); Chloride 107 mmol/L (98-107); Glucose 201 mg/dL (74-99); Non-African American GFR(CKD) >90 (>60 ml/min/1.73 sqM); Potassium 3.8 mmol/L (3.5-5.1); Sodium 137 mmol/L (137-145)
--- NOTE | 2023-11-30 10:51 | XR ---
EXAMINATION TYPE: XR chest 1V portable DATE OF EXAM: 11/30/2023 COMPARISON: 11/29/2023 HISTORY: SOB, Follow Up FINDINGS: Indwelling tubes and catheters are unchanged. Endotracheal tube is 3 cm from the emmett. Increasing left basilar opacity may reflect infiltrate and/or atelectasis. Small effusions are noted bilaterally. Stable appearance of the cardio-mediastinal structures at this time. Pleural effusion unchanged. IMPRESSION: 1. Increasing left basilar opacity may reflect infiltrate and/or atelectasis. Clinical correlation a nd follow up until resolution is recommended.
[2023-11-30 11:45] LABS: Glucose,Whole Blood 157 mg/dL (70-110)
--- NOTE | 2023-11-30 13:25 | P.PN ---
Subjective Progress Note Date: 11/30/23 SUBJECTIVE: The patient is a pleasant 73-year-old gentleman with chronic obstructive pulmonary disease and history of smoking and hypertension. We consulted to see the patient in the intensive care unit for further evaluation of atrial fibrillation and with rapid ventricular response. Currently the patient is intubated on mechanical ventilation and he is also unstable requiring vasopressors. He was admitted initially with a pneumonia and subsequently he developed acute hypoxic respiratory failure required intubation and subsequently was extubated and reintubated again. Currently is getting treated for pneumonia and COPD and he is septic as well. The reason we consulted to see the patient because of episode of A-fib with RVR yesterday when he was on ventilator yesterday. Subsequently he was started on amiodarone in the light of being hypotensive requiring vasopressors with vasopressors as well as norepinephrine, he was started on amiodarone and subsequently converted to normal sinus mec hanism and has been maintaining normal sinus mechanism. No history of atrial fibrillation. I cannot get any history from the patient. No history of coronary artery disease or congestive heart failure or cardiac arrhythmia and the patient never seen by our service in the past. The examination is remarkable for intubated patient with a stable vital signs on vasopressors and diminished breathing sounds bilaterally and no edema was noted in the lower extremities. He underwent an echo during his hospital stay and the echo showed normal biventricular dimension and systolic function. PHYSICAL EXAMINATION BP 115/50, heart rate 60, sinus rhythm, Head: Normocephalic. Eyes: Sclerae nonicteric. Neck: Brisk carotid upstroke, no jugular venous distention. Lungs: On vent support, ET tube in place, mild rhonchi in central lung mcgrath Heart: Regular rate and rhythm, S1-S2, no S3, no murmur or rub. Abdomen: Soft nontender, bowel sounds present, Extremities: No edema, Neuro: Sedation. Neuroexam was not performed in detail. Assessment Acute hypoxic respiratory failure. Ventilator dependent respiratory failure. S/p extubation November 25, reintubated on November 26 for hypoxia and hypercapnia COPD exacerbation Paroxysmal atrial fibrillation likely secondary to acute illness Multiple comorbid conditions Hemodynamic instability Plan Patient is currently in normal sinus rhythm with heart rate 60s beats per minute. Will reduce his amiodarone from 400 mg twice daily to 200 mg twice daily. Transition to 200 mg daily on 12/07/2023 and thereafter. Continue patient on IV heparin drip. Hold IV heparin drip 4 hours before tracheostomy and PEG surgical procedure Resume IV heparin 2 hours after the procedures. Consider switching the patient to oral anticoagulation Follow-up with the patient Hilario Lyman MD, [facility], [place] Objective - Vital Signs Vital signs: Vital Signs Temp 97.5 F L 11/30/23 04:00 Pulse 60 11/30/23 11:35 Resp 24 11/30/23 07:00 BP 123/66 11/30/23 05:00 Pulse Ox 98 11/30/23 07:00 FiO2 50 11/30/23 11:24 Intake & Output 11/29/23 11/30/23 11/30/23 18:59 06:59 18:59 Intake Total 1037.321 665.452 13 Output Total 575 595 30 Balance 462.321 70.452 -17 Weight 66.4 kg 63.6 kg Intake: IV 256 156 13 0.9 Pressure Bags 36 36 3 KVO 120 120 10 Piperacillin-Tazobactam 3 100 .375 gm In Sodium Chloride 0.9% 100 ml @ 25 mls/hr IVPB Q8HR [facility] Rx# :[id number] Intake, IV Titration 319.321 299.452 Amount Cisatracurium 200 mg In 216.004 Sodium Chloride 0.9% 180 ml @ 1 MCG/KG/MIN 3.804 mls/hr IV .Q24H [facility] Rx#: [id number] Heparin Sod,Pork in 0.45% 156.591 NaCl 25,000 unit In 0.45 % NaCl 1 250ml.bag @ 12 UNITS/KG/HR 7.62 mls/hr IV .Q24H [facility] Rx#: [id number] Norepinephrine 8 mg In 3.317 42.861 Sodium Chloride 0.9% 250 ml @ 0.03 MCG/KG/MIN 3. 686 mls/hr IV .Q24H [facility] Rx#:[id number] propofoL 1,000 mg In 100 100 Empty Bag 1 bag @ 15 MCG/ KG/MIN 5.706 mls/hr IV . [id number] [facility] Rx#:[id number] Tube Feeding 372 180 Other 90 30 Output: Urine 575 595 30 Other: Voiding Method Indwelling Catheter Indwelling Catheter ABP, PAP, CO, CI - Last Documented Arterial Blood Pressure 112/49 - Labs CBC & Chem 7: 11/30/23 04:52 11/30/23 04:52 Labs: Abnormal Lab Results - Last 24 Hours (Table) 11/29/23 11/29/23 11/30/23 Range/Units 16:09 17:55 00:02 RBC (4.30-5.90) m/uL Hgb (13.0-17.5) gm/dL Hct (39.0-53.0) % MCV (80.0-100.0) fL RDW (11.5-15.5) % Plt Count (150-450) k/uL Neutrophils # (1.3-7.7) k/uL Lymphocytes # (1.0-4.8) k/uL PT (10.0-12.5) sec APTT 51.3 H (22.0-30.0) sec ABG pH (7.35-7.45) ABG pO2 (83-108) mmHg ABG HCO3 (21-25) mmol/L ABG Total CO2 (19-24) mmol/L Potassium (3.5-5.1) mmol/L BUN (9-20) mg/dL Creatinine (0.66-1.25) mg/dL Glucose (74-99) mg/dL POC Glucose (mg/dL) 225 H 232 H (70-110) mg/dL Calcium (8.4-10.2) mg/dL ALT (4-49) U/L Total Protein (6.3-8.2) g/dL Albumin (3.5-5.0) g/dL 11/30/23 11/30/23 11/30/23 Range/Units 00:03 04:38 04:52 RBC (4.30-5.90) m/uL Hgb (13.0-17.5) gm/dL Hct (39.0-53.0) % MCV (80.0-100.0) fL RDW (11.5-15.5) % Plt Count (150-450) k/uL Neutrophils # (1.3-7.7) k/uL Lymphocytes # (1.0-4.8) k/uL PT 9.9 L (10.0-12.5) sec APTT 54.4 H (22.0-30.0) sec ABG pH (7.35-7.45) ABG pO2 (83-108) mmHg ABG HCO3 (21-25) mmol/L ABG Total CO2 (19-24) mmol/L Potassium 3.3 L (3.5-5.1) mmol/L BUN 31 H (9-20) mg/dL Creatinine 0.47 L (0.66-1.25) mg/dL Glucose 233 H (74-99) mg/dL POC Glucose (mg/dL) (70-110) mg/dL Calcium 8.1 L (8.4-10.2) mg/dL ALT 58 H (4-49) U/L Total Protein 4.4 L (6.3-8.2) g/dL Albumin 2.4 L (3.5-5.0) g/dL 11/30/23 11/30/23 11/30/23 Range/Units 04:52 04:52 05:25 RBC 3.02 L (4.30-5.90) m/uL Hgb 9.8 L (13.0-17.5) gm/dL Hct 30.2 L (39.0-53.0) % MCV 100.2 H (80.0-100.0) fL RDW 15.7 H (11.5-15.5) % Plt Count 88 L (150-450) k/uL Neutrophils # 8.9 H (1.3-7.7) k/uL Lymphocytes # 0.1 L (1.0-4.8) k/uL PT (10.0-12.5) sec APTT (22.0-30.0) sec ABG pH 7.49 H (7.35-7.45) ABG pO2 70 L (83-108) mmHg ABG HCO3 32 H (21-25) mmol/L ABG Total CO2 34 H (19-24) mmol/L Potassium (3.5-5.1) mmol/L BUN 30 H (9-20) mg/dL Creatinine 0.44 L (0.66-1.25) mg/dL Glucose 201 H (74-99) mg/dL POC Glucose (mg/dL) (70-110) mg/dL Calcium 8.0 L (8.4-10.2) mg/dL ALT (4-49) U/L Total Protein (6.3-8.2) g/dL Albumin (3.5-5.0) g/dL 11/30/23 11/30/23 Range/Units 06:04 11:44 RBC (4.30-5.90) m/uL Hgb (13.0-17.5) gm/dL Hct (39.0-53.0) % MCV (80.0-100.0) fL RDW (11.5-15.5) % Plt Count (150-450) k/uL Neutrophils # (1.3-7.7) k/uL Lymphocytes # (1.0-4.8) k/uL PT (10.0-12.5) sec APTT (22.0-30.0) sec ABG pH (7.35-7.45) ABG pO2 (83-108) mmHg ABG HCO3 (21-25) mmol/L ABG Total CO2 (19-24) mmol/L Potassium (3.5-5.1) mmol/L BUN (9-20) mg/dL Creatinine (0.66-1.25) mg/dL Glucose (74-99) mg/dL POC Glucose (mg/dL) 174 H 157 H (70-110) mg/dL Calcium (8.4-10.2) mg/dL ALT (4-49) U/L Total Protein (6.3-8.2) g/dL Albumin (3.5-5.0) g/dL Microbiology - Last 24 Hours (Table) 11/28/23 11:41 Gram Stain - Preliminary Sputum Sputum Culture - Preliminary Colette tropicalis 11/28/23 13:16 Nasal Culture - Preliminary Nasopharyngeal Swab 11/28/23 14:46 Blood Culture - Preliminary Blood 11/28/23 13:16 Blood Culture - Preliminary Blood 11/28/23 13:02 Urine Culture - Preliminary Urine,Voided
--- NOTE | 2023-11-30 14:16 | P.PN ---
Subjective Progress Note Date: 11/30/23 Patient is a 73-year-old white male with past medical history significant for COPD, chronic ongoing tobacco dependence, chronic hypoxemic respiratory failure on 2-1/2 to 3 L, hypertension, among other things. His primary care provider is Dr. Chavez Shelton. He reportedly does not follow with a pot operator. Patient presented to the emergency room yesterday afternoon via EMS. Reportedly noted to be lethargic and difficult to arouse at home. 3 to 4 days before this, his noted flulike symptoms. These included a runny nose, dry cough, fever, generalized malaise, and loose stools. When EMS arrived to the scene, they noted his blood pressure to be hypotensive. On arrival to the emergency room he was fluid resuscitated with a total of 3 L crystalloid fluid bolus. He was then started on low-dose norepinephrine which is currently infusing at 0.03 mcg/kg/min. He is also bradycardic, sinus bradycardia at 58 bpm. Normal saline continues to infuse at 130 MLS per hour. Chest x-ray demonstrated chronic interstitial changes with hyperinflation consistent with COPD. No focal consolidations, pleural effusions, or pneumothorax. He was hypercapnic in the emergency room. ABGs demonstrated PaO2 of 105, pCO2 of 52, pH of 7.25. He was then placed on the BiPAP in the emergency room. He is currently in the intensive care unit, room 251. He is on BiPAP with settings 12/6 and FiO2 of 50%. A chieving tidal volumes of around 400, respiratory rate in the mid 20s. He is alert and oriented x 3. No further signs of CO2 narcosis. Appears fairly comfortable. He is actively wheezing. Endorses the above-mentioned symptoms. Denies any chest pain or hemoptysis. Denies any significant sputum production. CBC unremarkable. No leukocytosis. D-dimer low. BMP includes a sodium 133, potassium 4.4, chloride 100, serum bicarb 29, BUN 21, creatinine 1.4, glucose 144. Lactic acid not significantly elevated. LFTs not elevated. NT proBNP 1330. Troponin 0.032. EKG shows sinus bradycardia with nonspecific T wave abnormalities. Nondiagnostic for acute ischemia. Viral screen negative for i nfluenza, RSV, COVID. Afebrile. Patient is admitted to the intensive care unit. On 11/13/2023, the patient is being seen for a follow-up. The patient is currently in the intensive care unit. Feeling well. He is off the BiPAP and the patient is currently on 5 L of oxygen nasal cannula. Cough and congestion is still present although improved compared to yesterday. The white cell count is at 8.9 with a hemoglobin of 11.4 and a BUN of 12 with a creatinine of 0.5 and sodium levels of 137. Troponin was 0.014. Remains on bronchodilators. Remains on IV Solu-Medrol. Remains on Zithromax. Blood cultures been negative thus far. Awake and alert and communicating. No signs of any CO2 narcosis. On 11/14/2023, patient is being seen for a follow-up. The patient is stable. No interval worsening shortness of breath. Transferred out of the intensive care unit yesterday. He is currently on oxygen at 4 L with a pulse ox of 93%. No altered mentation. No chest pain. Tolerating diet. Resting comfortably in bed. Remains endocarditis. Remains on steroids 60 mg of IV Solu-Medrol every 6 hours. No increased anxiety. White cell count of 8 with a hemoglobin 11.4 and a platelet count of 202. BUN is 12 with a creatinine of 0.5 and a sodium levels of 137 and a potassium level of 3.7. 11/15/2023, the patient is on the medical floor. Very limited exam in terms of exercise capacity and the patient essentially in bed. Trying to move or walk short distances and make the patient very labored in terms of his breathing. Remains on Perforomist and Pulmicort nebulized treatments twice a day, DuoNeb up To 5, IV Solu-Medrol 60 Mg Every 6 Hours. The Patient Is Also Running a White Cell Count of 8.9 with a Hemoglobin 11.4 and a Platelet Count of 202. BUN Is 12 with a Creatinine of 0.5. Tolerating Diet. No Signs of Any Suicidal Process. No Chest Pain. The patient is seen today November 17, 2023 in follow-up on the regular medical floor. He is currently resting in bed. Awake and alert in no acute distress. Maintaining O2 saturations in the 90s on 4 L/min per nasal cannula. He is feeling better today. He is continue on DuoNeb inhalations, Pulmicort and Perforomist inhalations, Solu-Medrol. Blood cultures revealed no growth. NicoDerm patch in place. The patient is seen today November 18, 2023 in follow-up on the regular medical floor. He is currently sitting up in a chair. He has been up ambulating with a walker and assistance. He is feeling better today compared to yesterday. He is still on 4 L high flow nasal cannula. Still somewhat bronchospastic and wheezing. Continued on DuoNeb ventilations, Pulmicort and perform scintillations, Solu-Medrol and Singulair. NicoDerm patch in place. Heparin for DVT prophylaxis. Blood cultures revealed no growth. Blood sugar 231. The patient is seen today November 19, 2023 in follow-up on the regular medical floor. He is currently awake and alert in no acute distress. He is maintaining O2 saturations in the 90s on 3 L/min per nasal cannula. Blood cultures revealed no growth. White count 7.5. Hemoglobin 9.7. Platelets 273. Sodium 141. Potassium 4.1. Bicarb 32. BUN 20. Creatinine 0.7. Glucose 141. He remains on DuoNeb ventilations, Pulmicort and performing scintillations, Solu-Medrol. Remains on Singulair. NicoDerm patch in place. Heparin for DVT prophylaxis. Patient was evaluated today on November 19, patient developed sudden onset of respiratory distress, the rapid response team evaluated the patient, and he was in severe respiratory distress. Patient received Solu-Medrol, received Lasix on the floor prior to transfer to the ICU. He was placed on a nonrebreather mask, transferred to the ICU and I evaluated the patient as soon as he arrived to the ICU. Patient seems to be in severe respiratory distress, he was extremely tachypneic, diaphoretic, tachycardic, hypertensive, and in severe distress. Hence recommended immediate intubation, patient was intubated by me with direct visualization of the vocal cords, a size 7.5 endotracheal tube was used, and he was connected to mechanical ventilation after intubation. His vent settings where addressed and he is on AC rate of 20 tidal volume 450 FiO2 100% and PEEP of 5. ABG postintubation showed a pO2 of 208 pCO2 of 60 pH of 7.36 his FiO2 was cut down to 50% and kept on the same vent settings as ordered the rest of the labs were reviewed and they noted to be unremarkable. His liver enzymes were noted but elevated. WBC count showed 15.1 hemoglobin 14.6. Chest x-ray showed bilateral airspace disease, suggestive of pneumonia,, dramatic worsening compared to the chest x-ray done on 11/14/2023, hence I am strongly suspecting that the patient may have developed aspiration pneumonia. The patient will be treated with Zosyn for this abnormal chest x-ray for now. Family was updated on his condition at the bedside. After intubating the patient, patient was hypotensive, central line was established, arterial line was established at the same time Patient was evaluated today on 11/21/2023, patient remains in the ICU, he was transferred yesterday to the ICU with acute hypoxic and hypercapnic respiratory failure requiring intubation mechanical ventilation. Patient is now on assist- control rate of 20 tidal volume 450 FiO2 40% PEEP of 5 ABG showed a pO2 of 77 pCO2 40 pH of 7.53 hence I decreased his rate from 20-16. Patient is fully sedated and he is very synchronous with the ventilator. Patient remains on propofol at 55 mcg/kg/min IV fluid 0.9 at 125 cc/h he is requiring a small dose of norepinephrine at 0.02 mcg/kg/min his CVP is 2 hence I am recommending more fluid boluses and I am recommending close monitoring of his urine output in the meantime continue norepinephrine until his fluid status improves. His urine o utput has been in the range of 20 to 30 cc/h. Patient remains on Zosyn chest x- ray today showed slight improvement in his right lower lobe infiltrate and continues to have significant airspace disease involving the left lower lobe and left midlung. Patient is empirically on Zosyn for what seems to be an aspiration pneumonia. Considering the status is marginal, no plans to hold sedation today, will try to optimize his hemodynamic status continue antibiotics and continue bronchodilators meantime continue ventilatory support Patient was reevaluated today on 11/22/2023, patient remains in the ICU, intubated and mechanically ventilated. On assist-control 16 tidal volume 450 FiO2 40% and PEEP of 5. ABG showed a pO2 of 83 pCO2 44 pH of 7.41 patient remains on propofol at 55 mcg/kg/min, IV fluid at 150 cc/h 0.9 normal saline, vital AF at 50 cc/h. Patient is still having marginal urine output in spite of CVP 11, hence I will go ahead and recommend a Lasix trial 20 mg IV push. Patient brandee ins on Zosyn and Zithromax. Chest x-ray is showing slight improvement in his left lower lobe infiltrate nonetheless continues to have significant airspace disease in the left lower lobe and to some extent in the right lower lobe. Patient will be given a weaning trial today off sedation if possible, and if tolerated may even extubate the patient today. WBC count is 9.1 hemoglobin is 10.6. Basic metabolic profile is normal, renal profile is normal Progress note dated November 23, 2023. This is a patient who was admitted back on November 10 for COPD exacerbation. The patient was apparently ready to be discharged, but on November 19, developed jermaine respiratory failure, and required intubation, and transferred to the intensive care unit. He is currently on volume assist-control, rate 16, tidal volume 450, FiO2 40%, PEEP of 5. Blood gases show pCO2 of 46, pO2 of 73, and a pH of 7.44. Currently, the patient is on propofol at 60 mcg/kg/min, saline at 75 cc an hour, and vital AF at 36 cc an hour, which is his goal rate. White count 11.3, hemoglobin 11, hematocrit 34.5, platelet count is normal. Sodium 138, potassium 3.7, chlorides 111, CO2 28, BUN 27, creatinine 0.6. Glucose is 233. Calcium 7.5. Blood and sputum sampling is negative. Chest x-ray shows changes of COPD, with either atelectasis or infiltrate, in the lower lung zones. Progress note dated November 24, 2023. 73-year-old male seen today in room 257. He was admitted back on November 10, for COPD exacerbation. The patient was apparently ready for possible discharge on November 19, but developed jermaine respiratory failure, required intubation, mechanical ventilation, and was transferred to the intensive care unit. He remains on volu me assist-control, rate 16, tidal volume 450, FiO2 40%, PEEP of 5. Blood gases show pO2 of 75, pCO2 45, pH is 7.42. The patient is on propofol at 20 mcg/kg/min, saline at 75 cc an hour, and vital AF at 36 cc an hour. White count is 11.2, hemoglobin 10.1, hematocrit 31.2, platelet count 149,000. Sodium 138, potassium 4.1, chlorides 110s, CO2 30, BUN 27, creatinine 0.50. Glucose is 223. Calcium is 7.7. Microbiologic sampling has all been negative. Chest x-ray shows changes of COPD, with some patchy bilateral infiltrates or atelectasis. The flatplate of the abdomen shows a nonobstructive bowel gas pattern. Progress note dated November 25, 2023. 73-year-old male seen again in room 257. The patient remains on mechanical ventilator. Vent settings include volume assist-control, rate 16, tidal volume 450, FiO2 40%, PEEP of 5. Blood gases show pO2 of 70, pCO2 of 42, pH is 7.52. This blood gases consistent with a metabolic alkalosis. The patient did fail his spontaneous breathing trial after few minutes. He continues on propofol at 25 mcg/kg/min, saline at 20 cc an hour, and vital AF at 36 cc an hour, which is goal. The patient continues on Zosyn. The patient will get some additional Lasix today, 60 mg IV push. Current labs include a white count 15.3, hemoglobin 12.4, hematocrit 38.5, and platelet count 152,000. Sodium 140, potassium 4.1, chlorides 106, CO2 34, BUN 27, and creatinine 0.56. Calcium is 8.2. Sputum and blood cultures are thus far negative. Chest x-ray is consistent with underlying COPD, with some bilateral interstitial and patchy opacities, left greater than right. There is a small left-sided pleural effusion. Progress note dated November 26, 2023. 73-year-old male seen in room 257. The patient remains on the mechanical ventilator. He is on volume assist-control, rate 16, tidal volume 450, FiO2 40%, PEEP of 5. Blood gases show pO2 of 79, pCO2 46, pH is 7.48. Blood gases are consistent with a mild metabolic alkalosis. The patient is on propofol at 20 mcg/kg/min, vital AF at 36 cc an hour, saline at 20 cc an hour. The patient will be given a daily interruption of sedation and a spontaneous breathing trial. The patient had 1 yesterday, and did very poorly. White count 14, hemoglobin 11.5, hematocrit 33.6, platelet count 141,000. Sodium 137, potassium 3.6, chlorides 105, CO2 29, BUN 35, and creatinine 0.49. Glucose is 217. Calcium 8.2. Albumin 2.6. Blood cultures, and sputum sampling, has been negative thus far. Chest x-ray shows changes of COPD, with diffuse bilateral left greater than right, opacities. Progress note dated November 27, 2023. 73-year-old male seen in room 257. The patient was extubated yesterday, November 25. He is currently on high flow oxygen at 8 L. The patient is getting saline at KVO. The patient's Zosyn will be discontinued after today. Initially, the patient was a no code, and will be talked to the about tracheostomy and PEG tube placement, prior to extubation, she refused that. Now she is telling us, that the patient should be a full code. Current labs include a white count 13.8, hemoglobin 12, macro 37.2, and platelet count of 166,000. Sodium 141, potassium 3.4, chlorides 106, CO2 34, BUN 30, creatinine 0.7. Calcium is 8.2, magnesium 2.1, glucose is 101. Sputum and blood sampling has been negative. Chest x-ray shows cardiomegaly, COPD, and bilateral patchy infiltrates. Progress note dated November 28, 2023. 73-year-old male who is seen today in room 257. The patient was initially admitted back on November 10. The patient was ready to be discharged on November 19, and he developed acute respiratory failure requiring intubation. He was extubated on November 26, 2023, but unfortunately, got worse, and was reintubated yesterday, November 26. He is on volume assist-control, rate 24, tidal volume 400, FiO2 of 60%, PEEP of 5. Blood gases show pO2 of 66, pCO2 of 46, pH is 7.40. This blood gases consistent with a mixed acid-base disturbance including mild respiratory acidosis, and a compensated metabolic alkalosis. The patient is on saline at KVO, propofol at 45 mcg/kg/min Nimbex at 2 mcg/kg/min vasopressin at 0.03 units/min, norepinephrine at 9 mcg/min. Tube feeds will be started today. White count is 24.7, hemoglobin 12.9, hematocrit 40.3, platelet count is 141,000. Sodium 139, potassium 4.1, chlorides 109, CO2 25, BUN 33, creatinine 0.51. Glucose 139. Calcium 8 magnesium 2.1. Sputum, and blood cultures, are negative. Chest x-ray shows changes of COPD, and diffuse bibasilar interstitial changes. Progress note dated November 29, 2023. 73-year-old male seen today in room 257. He was initially admitted back on November 10. The patient was ready for discharge from the hospital on November 19, developed acute respiratory failure, requiring intubation. He was successfully extubated on November 25, but unfortunately, his respiratory status declined, and he was reintubated on November 26. The patient is scheduled to have a tracheostomy and PEG tube placement, tomorrow. The patient is currently on volume assist-control, rate 24, tidal volume 400, FiO2 50%, PEEP of 5. Blood gases show pO2 of 68, pCO2 of 45, pH is 7.44. The patient is on propofol at 45 mcg/kg/min, Nimbex at 3 mcg/kg/min, amiodarone at 0.5 mg/min and heparin via weight-based protocol. The patient is getting vital AF 1.2 at 30, with a goal of 36 cc an hour. He is also on saline at KVO. The patient continues on Zosyn. Current labs include a white count 11.7, hemoglobin 10.8, hematocrit 33, and a platelet count of 106,000. Sodium 138, potassium 3.8, chlorides 107, CO2 28, BUN 35, creatinine 0.53. Calcium is 8.1, glucose is 218. Sputum and blood sampling is negative. Chest x-ray is largely unchanged. 11/30/2023, the patient is being seen for a follow-up. A complicated case of advanced COPD with recurrent respiratory failure, failed extubation the patient has been intubated and the plan is to proceed with a tracheostomy tube insertion today upon family's wishes. This is going to be a difficult and prolonged wean as the patient has been COPD. On today's evaluation, the patient was sedated on propofol at 45 mcg/kg/min and the patient is also on fentanyl at 0.5 mg/kg/h. The patient is calm and comfortable. He is on IV fluids at normal saline at a rate of 10 cc an hour. The patient is also on assist-control of 24, tidal volume of 400, FiO2 of 50% with a PEEP of 5. Peak airway pressure is 25. A follow-up chest x-ray was done this morning and it showed left basilar increased opacity which may reflect either an infiltrate or an area of atelectasis/effusion. Blood gas from today shows a pH of 7.49 with a pCO2 42 pO2 of 70. Hemodynamically stable. Currently n.p.o. awaiting hopefully a tracheostomy and a PEG tube insertion. The white cell count is at 9.2, hemoglobin 9.8 and a platelet count of 88. Sodium is at 137 with a creatinine of 0.4 and a BUN of 30 and a potassium level of 3.8. Remains on DuoNeb updrafts. Remains on a combination of home Perforomist and Pulmicort nebulized treatments twice a day. Remains on IV Solu-Medrol 60 mg IV push every 6 hours. He remains on IV Zosyn. The patient is off paralytics. The patient is receiving oral amiodarone 4 mg p.o. twice a day and his current cardiac rhythm is sinus. Echocardiogram is showing a preserved LV function. No significant valvular abnormalities. Blood cultures have been negative. Sputum culture showed Colette. Objective - Vital Signs Vital signs: Vital Signs Temp 97.5 F L 11/30/23 04:00 Pulse 52 L 11/30/23 08:42 Resp 24 11/30/23 07:00 BP 123/66 11/30/23 05:00 Pulse Ox 98 11/30/23 07:00 FiO2 50 11/30/23 08:03 Intake & Output 11/29/23 11/30/23 11/30/23 18:59 06:59 18:59 Intake Total 1037.321 665.452 13 Output Total 575 595 30 Balance 462.321 70.452 -17 Weight 66.4 kg 63.6 kg Intake: IV 256 156 13 0.9 Pressure Bags 36 36 3 KVO 120 120 10 Piperacillin-Tazobactam 3 100 .375 gm In Sodium Chloride 0.9% 100 ml @ 25 mls/hr IVPB Q8HR [facility] Rx# :[id number] Intake, IV Titration 319.321 299.452 Amount Cisatracurium 200 mg In 216.004 Sodium Chloride 0.9% 180 ml @ 1 MCG/KG/MIN 3.804 mls/hr IV .Q24H [facility] Rx#: [id number] Heparin Sod,Pork in 0.45% 156.591 NaCl 25,000 unit In 0.45 % NaCl 1 250ml.bag @ 12 UNITS/KG/HR 7.62 mls/hr IV .Q24H [facility] Rx#: [id number] Norepinephrine 8 mg In 3.317 42.861 Sodium Chloride 0.9% 250 ml @ 0.03 MCG/KG/MIN 3. 686 mls/hr IV .Q24H [facility] Rx#:[id number] propofoL 1,000 mg In 100 100 Empty Bag 1 bag @ 15 MCG/ KG/MIN 5.706 mls/hr IV . [id number] [facility] Rx#:[id number] Tube Feeding 372 180 Other 90 30 Output: Urine 575 595 30 Other: Voiding Method Indwelling Catheter Indwelling Catheter ABP, PAP, CO, CI - Last Documented Arterial Blood Pressure 112/49 - Exam No acute distress, reintubated, with an orally placed endotracheal tube. Sedated. The patient is currently on a combination of propofol and fentanyl., Comfortable and successful mechanical ventilator. HEENT examination is grossly unremarkable. Neck supple. Full range of motion. No adenopathy thyromegaly or neck vein distention. Cardiovascular examination reveals regular rhythm rate. S1-S2 normal. No S3 or S4. No discernible murmur noted. Heart sounds are distant. Lungs reveal scattered bilateral rhonchi. No wheezes. No crackles. Breath sounds equal bilaterally. Abdomen soft with bowel sounds. No masses or tenderness. The patient has scrotal edema. Extremities are intact. No cyanosis clubbing or edema. Skin is without rash or lesion. Neurologic examination cannot be adequately evaluated at this time. - Labs CBC & Chem 7: 11/30/23 04:52 11/30/23 04:52 Labs: Abnormal Lab Results - Last 24 Hours (Table) 11/29/23 11/29/23 11/29/23 Range/Units 11:51 16:09 17:55 RBC (4.30-5.90) m/uL Hgb (13.0-17.5) gm/dL Hct (39.0-53.0) % MCV (80.0-100.0) fL RDW (11.5-15.5) % Plt Count (150-450) k/uL Neutrophils # (1.3-7.7) k/uL Lymphocytes # (1.0-4.8) k/uL PT (10.0-12.5) sec APTT 51.3 H (22.0-30.0) sec ABG pH (7.35-7.45) ABG pO2 (83-108) mmHg ABG HCO3 (21-25) mmol/L ABG Total CO2 (19-24) mmol/L Potassium (3.5-5.1) mmol/L BUN (9-20) mg/dL Creatinine (0.66-1.25) mg/dL Glucose (74-99) mg/dL POC Glucose (mg/dL) 208 H 225 H (70-110) mg/dL Calcium (8.4-10.2) mg/dL ALT (4-49) U/L Total Protein (6.3-8.2) g/dL Albumin (3.5-5.0) g/dL 11/30/23 11/30/23 11/30/23 Range/Units 00:02 00:03 04:38 RBC (4.30-5.90) m/uL Hgb (13.0-17.5) gm/dL Hct (39.0-53.0) % MCV (80.0-100.0) fL RDW (11.5-15.5) % Plt Count (150-450) k/uL Neutrophils # (1.3-7.7) k/uL Lymphocytes # (1.0-4.8) k/uL PT (10.0-12.5) sec APTT 54.4 H (22.0-30.0) sec ABG pH (7.35-7.45) ABG pO2 (83-108) mmHg ABG HCO3 (21-25) mmol/L ABG Total CO2 (19-24) mmol/L Potassium 3.3 L (3.5-5.1) mmol/L BUN 31 H (9-20) mg/dL Creatinine 0.47 L (0.66-1.25) mg/dL Glucose 233 H (74-99) mg/dL POC Glucose (mg/dL) 232 H (70-110) mg/dL Calcium 8.1 L (8.4-10.2) mg/dL ALT 58 H (4-49) U/L Total Protein 4.4 L (6.3-8.2) g/dL Albumin 2.4 L (3.5-5.0) g/dL 11/30/23 11/30/23 11/30/23 Range/Units 04:52 04:52 04:52 RBC 3.02 L (4.30-5.90) m/uL Hgb 9.8 L (13.0-17.5) gm/dL Hct 30.2 L (39.0-53.0) % MCV 100.2 H (80.0-100.0) fL RDW 15.7 H (11.5-15.5) % Plt Count 88 L (150-450) k/uL Neutrophils # 8.9 H (1.3-7.7) k/uL Lymphocytes # 0.1 L (1.0-4.8) k/uL PT 9.9 L (10.0-12.5) sec APTT (22.0-30.0) sec ABG pH (7.35-7.45) ABG pO2 (83-108) mmHg ABG HCO3 (21-25) mmol/L ABG Total CO2 (19-24) mmol/L Potassium (3.5-5.1) mmol/L BUN 30 H (9-20) mg/dL Creatinine 0.44 L (0.66-1.25) mg/dL Glucose 201 H (74-99) mg/dL POC Glucose (mg/dL) (70-110) mg/dL Calcium 8.0 L (8.4-10.2) mg/dL ALT (4-49) U/L Total Protein (6.3-8.2) g/dL Albumin (3.5-5.0) g/dL 11/30/23 11/30/23 Range/Units 05:25 06:04 RBC (4.30-5.90) m/uL Hgb (13.0-17.5) gm/dL Hct (39.0-53.0) % MCV (80.0-100.0) fL RDW (11.5-15.5) % Plt Count (150-450) k/uL Neutrophils # (1.3-7.7) k/uL Lymphocytes # (1.0-4.8) k/uL PT (10.0-12.5) sec APTT (22.0-30.0) sec ABG pH 7.49 H (7.35-7.45) ABG pO2 70 L (83-108) mmHg ABG HCO3 32 H (21-25) mmol/L ABG Total CO2 34 H (19-24) mmol/L Potassium (3.5-5.1) mmol/L BUN (9-20) mg/dL Creatinine (0.66-1.25) mg/dL Glucose (74-99) mg/dL POC Glucose (mg/dL) 174 H (70-110) mg/dL Calcium (8.4-10.2) mg/dL ALT (4-49) U/L Total Protein (6.3-8.2) g/dL Albumin (3.5-5.0) g/dL Microbiology - Last 24 Hours (Table) 11/28/23 14:46 Blood Culture - Preliminary Blood 11/28/23 13:16 Blood Culture - Preliminary Blood 11/28/23 13:02 Urine Culture - Preliminary Urine,Voided 11/28/23 11:41 Gram Stain - Preliminary Sputum Assessment and Plan Assessment: Advanced COPD hospitalized on 12/15/2023 with significant respiratory distress initially supported by BiPAP with some improvement and subsequent respiratory failure. The patient had a negative viral screen. Chest x-ray was consistent with advanced COPD with hyperinflation and chronic interstitial changes bilaterally. The patient decompensated during this current hospital stay. The patient had to be intubated and placed on the mechanical ventilator. He had a successful extubation and the plan for now is to proceed with tracheostomy to facilitate further weaning in the future. This will be a difficult wean as mentioned. Remains on bronchodilators. Remains on steroids. Chest x-ray shows some increased opacity in the left lung base which could be related to either atelectasis/effusion. Possibility of pneumonia cannot be completely excluded. The patient remains on IV Zosyn. Acute on chronic hypoxemic and hypercapnic respiratory failure, secondary to bilateral pneumonia, status post initial intubation on 11/20/2023 with subsequent extubation on 11/26/2023 and reintubation on 11/27/2023. chronic hypoxic/hypercapnic respiratory failure Paroxysmal atrial fibrillation, currently back in sinus bradycardia and the patient is currently on amiodarone. Hypotension, resolved. Acute kidney injury, recovered Chronic and ongoing tobacco dependence with nicotine addiction. Scrotal edema Hypertension History of smoking Plan Keep the patient sedated with a combination of propofol and fentanyl. He has been given sedation holiday throughout the week and the patient is arousable off sedation. Continue ventilator support Continue bronchodilators and the patient is currently on DuoNeb Continue Perforomist and Pulmicort nebulized treatment twice a day IV Solu-Medrol 60 mg every 6 hours Continue enteral feeding for nutritional support. This will be started after insertion of the PEG tube. Proceed with a PEG tube and a tracheostomy tube insertion today. The patient will continue with supportive care. Will continue to follow make further recommendations based on his progress. This evaluation was done more than 30 minutes. Time with Patient: Greater than 30
--- NOTE | 2023-11-30 14:21 | P.PN ---
Subjective Progress Note Date: 11/30/23 CHIEF COMPLAINT: Respiratory failure HISTORY OF PRESENT ILLNESS: Patient remains in the ICU intubated and on mechanical ventilation. Afebrile. WBC down from 11.7-9.2 hemoglobin 9.8 platelets 88. Patient's heparin drip has been discontinued this morning. Afebrile PHYSICAL EXAM: VITAL SIGNS: Reviewed. GENERAL: no acute distress. ABDOMEN: Soft. Nondistended. Nontender. NEUROLOGIC: Intubated and sedated ASSESSMENT: 1. Acute hypoxic respiratory failure 2. Severe protein calorie manage patient PLAN: -Patient initially scheduled for tracheostomy and PEG tube placement today. However, has decided to proceed with comfort care measures tomorrow. At this time tracheostomy and PEG tube have been canceled per the 's wishes. Physician Wood Carver note has been reviewed by physician. Signing provider agrees with the documented findings, assessment, and plan of care. Objective - Vital Signs Vital signs: Vital Signs Temp 97.5 F L 11/30/23 12:00 Pulse 72 11/30/23 13:00 Resp 24 11/30/23 13:00 BP 123/66 11/30/23 05:00 Pulse Ox 96 11/30/23 13:00 FiO2 50 11/30/23 12:00 Intake & Output 11/29/23 11/30/23 11/30/23 18:59 06:59 18:59 Intake Total 1037.321 665.452 201 Output Total 575 595 265 Balance 462.321 70.452 -64 Weight 66.4 kg 63.6 kg Intake: IV 256 156 151 0.9 Pressure Bags 36 36 21 KVO 120 120 30 Piperacillin-Tazobactam 3 100 100 .375 gm In Sodium Chloride 0.9% 100 ml @ 25 mls/hr IVPB Q8HR [facility] Rx# :[id number] Intake, IV Titration 319.321 299.452 Amount Cisatracurium 200 mg In 216.004 Sodium Chloride 0.9% 180 ml @ 1 MCG/KG/MIN 3.804 mls/hr IV .Q24H [facility] Rx#: [id number] Heparin Sod,Pork in 0.45% 156.591 NaCl 25,000 unit In 0.45 % NaCl 1 250ml.bag @ 12 UNITS/KG/HR 7.62 mls/hr IV .Q24H [facility] Rx#: [id number] Norepinephrine 8 mg In 3.317 42.861 Sodium Chloride 0.9% 250 ml @ 0.03 MCG/KG/MIN 3. 686 mls/hr IV .Q24H [facility] Rx#:[id number] propofoL 1,000 mg In 100 100 Empty Bag 1 bag @ 15 MCG/ KG/MIN 5.706 mls/hr IV . [id number] [facility] Rx#:[id number] Tube Feeding 372 180 Other 90 30 50 Output: Urine 575 595 265 Other: Voiding Method Indwelling Catheter Indwelling Catheter Indwelling Catheter ABP, PAP, CO, CI - Last Documented Arterial Blood Pressure 123/69 - Labs CBC & Chem 7: 11/30/23 04:52 11/30/23 04:52 Labs: Abnormal Lab Results - Last 24 Hours (Table) 11/29/23 11/29/23 11/30/23 Range/Units 16:09 17:55 00:02 RBC (4.30-5.90) m/uL Hgb (13.0-17.5) gm/dL Hct (39.0-53.0) % MCV (80.0-100.0) fL RDW (11.5-15.5) % Plt Count (150-450) k/uL Neutrophils # (1.3-7.7) k/uL Lymphocytes # (1.0-4.8) k/uL PT (10.0-12.5) sec APTT 51.3 H (22.0-30.0) sec ABG pH (7.35-7.45) ABG pO2 (83-108) mmHg ABG HCO3 (21-25) mmol/L ABG Total CO2 (19-24) mmol/L Potassium (3.5-5.1) mmol/L BUN (9-20) mg/dL Creatinine (0.66-1.25) mg/dL Glucose (74-99) mg/dL POC Glucose (mg/dL) 225 H 232 H (70-110) mg/dL Calcium (8.4-10.2) mg/dL ALT (4-49) U/L Total Protein (6.3-8.2) g/dL Albumin (3.5-5.0) g/dL 11/30/23 11/30/23 11/30/23 Range/Units 00:03 04:38 04:52 RBC (4.30-5.90) m/uL Hgb (13.0-17.5) gm/dL Hct (39.0-53.0) % MCV (80.0-100.0) fL RDW (11.5-15.5) % Plt Count (150-450) k/uL Neutrophils # (1.3-7.7) k/uL Lymphocytes # (1.0-4.8) k/uL PT 9.9 L (10.0-12.5) sec APTT 54.4 H (22.0-30.0) sec ABG pH (7.35-7.45) ABG pO2 (83-108) mmHg ABG HCO3 (21-25) mmol/L ABG Total CO2 (19-24) mmol/L Potassium 3.3 L (3.5-5.1) mmol/L BUN 31 H (9-20) mg/dL Creatinine 0.47 L (0.66-1.25) mg/dL Glucose 233 H (74-99) mg/dL POC Glucose (mg/dL) (70-110) mg/dL Calcium 8.1 L (8.4-10.2) mg/dL ALT 58 H (4-49) U/L Total Protein 4.4 L (6.3-8.2) g/dL Albumin 2.4 L (3.5-5.0) g/dL 11/30/23 11/30/23 11/30/23 Range/Units 04:52 04:52 05:25 RBC 3.02 L (4.30-5.90) m/uL Hgb 9.8 L (13.0-17.5) gm/dL Hct 30.2 L (39.0-53.0) % MCV 100.2 H (80.0-100.0) fL RDW 15.7 H (11.5-15.5) % Plt Count 88 L (150-450) k/uL Neutrophils # 8.9 H (1.3-7.7) k/uL Lymphocytes # 0.1 L (1.0-4.8) k/uL PT (10.0-12.5) sec APTT (22.0-30.0) sec ABG pH 7.49 H (7.35-7.45) ABG pO2 70 L (83-108) mmHg ABG HCO3 32 H (21-25) mmol/L ABG Total CO2 34 H (19-24) mmol/L Potassium (3.5-5.1) mmol/L BUN 30 H (9-20) mg/dL Creatinine 0.44 L (0.66-1.25) mg/dL Glucose 201 H (74-99) mg/dL POC Glucose (mg/dL) (70-110) mg/dL Calcium 8.0 L (8.4-10.2) mg/dL ALT (4-49) U/L Total Protein (6.3-8.2) g/dL Albumin (3.5-5.0) g/dL 11/30/23 11/30/23 Range/Units 06:04 11:44 RBC (4.30-5.90) m/uL Hgb (13.0-17.5) gm/dL Hct (39.0-53.0) % MCV (80.0-100.0) fL RDW (11.5-15.5) % Plt Count (150-450) k/uL Neutrophils # (1.3-7.7) k/uL Lymphocytes # (1.0-4.8) k/uL PT (10.0-12.5) sec APTT (22.0-30.0) sec ABG pH (7.35-7.45) ABG pO2 (83-108) mmHg ABG HCO3 (21-25) mmol/L ABG Total CO2 (19-24) mmol/L Potassium (3.5-5.1) mmol/L BUN (9-20) mg/dL Creatinine (0.66-1.25) mg/dL Glucose (74-99) mg/dL POC Glucose (mg/dL) 174 H 157 H (70-110) mg/dL Calcium (8.4-10.2) mg/dL ALT (4-49) U/L Total Protein (6.3-8.2) g/dL Albumin (3.5-5.0) g/dL Microbiology - Last 24 Hours (Table) 11/28/23 11:41 Gram Stain - Preliminary Sputum Sputum Culture - Preliminary Colette tropicalis 11/28/23 13:16 Nasal Culture - Preliminary Nasopharyngeal Swab 11/28/23 14:46 Blood Culture - Preliminary Blood 11/28/23 13:16 Blood Culture - Preliminary Blood 11/28/23 13:02 Urine Culture - Preliminary Urine,Voided
--- NOTE | 2023-11-30 14:51 | P.PN ---
Subjective Progress Note Date: 11/30/23 Principal diagnosis: Reason for follow-up is possible sepsis/pneumonia Patient is a 73-year-old male with a past medical history significant for COPD former smoker patient presenting to the hospital more than 2 weeks ago before this initial consultation on 11/11/2023, has been brought in by EMS with the concern for the patient being lethargic at home and difficult to arouse, patient got intubated on 11/20/2023 he was extubated on 11/26/2023 and has to be intubated on 11/27/2023 also noticed to have elevated white count requiring pressor prompting this consultation. On today's evaluation that is 11/30/2023,the patient remains to be afebrile, patient is on the ventilator FiO2 stable at 50% no significant purulent secretions through the ET diarrhea or any other changes reported by the nursing staff, patient is hemodynamic stable off the pressor support. Patient white count normalized to 9.2 creatinine 0.44 blood culture has been negative so far sputum is growing Colette, chest x-ray this morning increasing left basilar opacity Objective - Vital Signs Vital signs: Vital Signs Temp 97.5 F L 11/30/23 04:00 Pulse 52 L 11/30/23 08:42 Resp 24 11/30/23 07:00 BP 123/66 11/30/23 05:00 Pulse Ox 98 11/30/23 07:00 FiO2 50 11/30/23 08:03 Intake & Output 11/29/23 11/30/23 11/30/23 18:59 06:59 18:59 Intake Total 1037.321 665.452 13 Output Total 575 595 30 Balance 462.321 70.452 -17 Weight 66.4 kg 63.6 kg Intake: IV 256 156 13 0.9 Pressure Bags 36 36 3 KVO 120 120 10 Piperacillin-Tazobactam 3 100 .375 gm In Sodium Chloride 0.9% 100 ml @ 25 mls/hr IVPB Q8HR [facility] Rx# :[id number] Intake, IV Titration 319.321 299.452 Amount Cisatracurium 200 mg In 216.004 Sodium Chloride 0.9% 180 ml @ 1 MCG/KG/MIN 3.804 mls/hr IV .Q24H [facility] Rx#: [id number] Heparin Sod,Pork in 0.45% 156.591 NaCl 25,000 unit In 0.45 % NaCl 1 250ml.bag @ 12 UNITS/KG/HR 7.62 mls/hr IV .Q24H [facility] Rx#: [id number] Norepinephrine 8 mg In 3.317 42.861 Sodium Chloride 0.9% 250 ml @ 0.03 MCG/KG/MIN 3. 686 mls/hr IV .Q24H [facility] Rx#:[id number] propofoL 1,000 mg In 100 100 Empty Bag 1 bag @ 15 MCG/ KG/MIN 5.706 mls/hr IV . [id number] [facility] Rx#:[id number] Tube Feeding 372 180 Other 90 30 Output: Urine 575 595 30 Other: Voiding Method Indwelling Catheter Indwelling Catheter ABP, PAP, CO, CI - Last Documented Arterial Blood Pressure 112/49 - Exam Elderly male intubated on the vent Respiratory system unlabored breathing, decreased intensity breath sounds Abdominal soft no tenderness Patient is sedated on the vent Exam completed with the help of CONVEYOR MONITOR - Labs CBC & Chem 7: 11/30/23 04:52 11/30/23 04:52 Labs: Abnormal Lab Results - Last 24 Hours (Table) 11/29/23 11/29/23 11/29/23 Range/Units 11:51 16:09 17:55 RBC (4.30-5.90) m/uL Hgb (13.0-17.5) gm/dL Hct (39.0-53.0) % MCV (80.0-100.0) fL RDW (11.5-15.5) % Plt Count (150-450) k/uL Neutrophils # (1.3-7.7) k/uL Lymphocytes # (1.0-4.8) k/uL PT (10.0-12.5) sec APTT 51.3 H (22.0-30.0) sec ABG pH (7.35-7.45) ABG pO2 (83-108) mmHg ABG HCO3 (21-25) mmol/L ABG Total CO2 (19-24) mmol/L Potassium (3.5-5.1) mmol/L BUN (9-20) mg/dL Creatinine (0.66-1.25) mg/dL Glucose (74-99) mg/dL POC Glucose (mg/dL) 208 H 225 H (70-110) mg/dL Calcium (8.4-10.2) mg/dL ALT (4-49) U/L Total Protein (6.3-8.2) g/dL Albumin (3.5-5.0) g/dL 11/30/23 11/30/23 11/30/23 Range/Units 00:02 00:03 04:38 RBC (4.30-5.90) m/uL Hgb (13.0-17.5) gm/dL Hct (39.0-53.0) % MCV (80.0-100.0) fL RDW (11.5-15.5) % Plt Count (150-450) k/uL Neutrophils # (1.3-7.7) k/uL Lymphocytes # (1.0-4.8) k/uL PT (10.0-12.5) sec APTT 54.4 H (22.0-30.0) sec ABG pH (7.35-7.45) ABG pO2 (83-108) mmHg ABG HCO3 (21-25) mmol/L ABG Total CO2 (19-24) mmol/L Potassium 3.3 L (3.5-5.1) mmol/L BUN 31 H (9-20) mg/dL Creatinine 0.47 L (0.66-1.25) mg/dL Glucose 233 H (74-99) mg/dL POC Glucose (mg/dL) 232 H (70-110) mg/dL Calcium 8.1 L (8.4-10.2) mg/dL ALT 58 H (4-49) U/L Total Protein 4.4 L (6.3-8.2) g/dL Albumin 2.4 L (3.5-5.0) g/dL 11/30/23 11/30/23 11/30/23 Range/Units 04:52 04:52 04:52 RBC 3.02 L (4.30-5.90) m/uL Hgb 9.8 L (13.0-17.5) gm/dL Hct 30.2 L (39.0-53.0) % MCV 100.2 H (80.0-100.0) fL RDW 15.7 H (11.5-15.5) % Plt Count 88 L (150-450) k/uL Neutrophils # 8.9 H (1.3-7.7) k/uL Lymphocytes # 0.1 L (1.0-4.8) k/uL PT 9.9 L (10.0-12.5) sec APTT (22.0-30.0) sec ABG pH (7.35-7.45) ABG pO2 (83-108) mmHg ABG HCO3 (21-25) mmol/L ABG Total CO2 (19-24) mmol/L Potassium (3.5-5.1) mmol/L BUN 30 H (9-20) mg/dL Creatinine 0.44 L (0.66-1.25) mg/dL Glucose 201 H (74-99) mg/dL POC Glucose (mg/dL) (70-110) mg/dL Calcium 8.0 L (8.4-10.2) mg/dL ALT (4-49) U/L Total Protein (6.3-8.2) g/dL Albumin (3.5-5.0) g/dL 11/30/23 11/30/23 Range/Units 05:25 06:04 RBC (4.30-5.90) m/uL Hgb (13.0-17.5) gm/dL Hct (39.0-53.0) % MCV (80.0-100.0) fL RDW (11.5-15.5) % Plt Count (150-450) k/uL Neutrophils # (1.3-7.7) k/uL Lymphocytes # (1.0-4.8) k/uL PT (10.0-12.5) sec APTT (22.0-30.0) sec ABG pH 7.49 H (7.35-7.45) ABG pO2 70 L (83-108) mmHg ABG HCO3 32 H (21-25) mmol/L ABG Total CO2 34 H (19-24) mmol/L Potassium (3.5-5.1) mmol/L BUN (9-20) mg/dL Creatinine (0.66-1.25) mg/dL Glucose (74-99) mg/dL POC Glucose (mg/dL) 174 H (70-110) mg/dL Calcium (8.4-10.2) mg/dL ALT (4-49) U/L Total Protein (6.3-8.2) g/dL Albumin (3.5-5.0) g/dL Microbiology - Last 24 Hours (Table) 11/28/23 14:46 Blood Culture - Preliminary Blood 11/28/23 13:16 Blood Culture - Preliminary Blood 11/28/23 13:02 Urine Culture - Preliminary Urine,Voided 11/28/23 11:41 Gram Stain - Preliminary Sputum Assessment and Plan (1) Leukocytosis Current Visit: Yes Status: Acute Code(s): D72.829 - ELEVATED WHITE BLOOD CELL COUNT, UNSPECIFIED SNOMED Code(s): 115064870 (2) Elevated procalcitonin Current Visit: Yes Status: Acute Code(s): R79.89 - OTHER SPECIFIED ABNORMAL FINDINGS OF BLOOD CHEMISTRY SNOMED Code(s): 021620988 (3) Pneumonia Current Visit: Yes Status: Acute Code(s): J18.9 - PNEUMONIA, UNSPECIFIED ORGANISM SNOMED Code(s): 334833138 Plan: This is a telehealth visit 1patient with sepsis in this patient who did have a white count of 24,000 patient noticed to be tachycardic this morning with heart rate of 103 and also was hypotensive requiring high-dose pressor support meeting criteria for SIRS/sepsis etiology differential including possible component of pneumonia versus line related sepsis versus catheter associated UTI as the patient has been in the hospital for more than 2 weeks before initial evaluation while need to cover for resistant gram-negative to be the likely pathogen 2-patient cultures are currently pending, sputum is growing Colette which is likely colonizer, patient did have normalization of his white count and of the pressor support, patient did have elevated procalcitonin 3-patient to continue with the current treatment of Zosyn in view of clinical improvement and monitor clinical course closely Dictation was produced using [employer] dictation software. please excuse any grammatical, word or spelling errors. Time with Patient: Less than 30
[2023-11-30 15:29] VITALS: BMI 24.0
[2023-11-30 18:00] LABS: Glucose,Whole Blood 154 mg/dL (70-110)
[2023-11-30] MEDS: POTASSIUM BICARBONATE/CIT AC 20 MEQ TABLET.EFF NG-TUBE SCH (18:05)
--- NOTE | 2023-11-30 23:04 | PN ---
PROGRESS NOTE SUBJECTIVE: Remains in ICU. Cardiology saw the patient, has acute on chronic respiratory failure, status post intubation, re-intubation, hypercapnic respiratory failure, paroxysmal atrial fib due to acute illness. Placed him on amiodarone 400 b.i.d., 200 daily, heparin drip, hold IV heparin for his PEEP for tracheostomy and PEG. IV heparin 2 hours after the procedure. Dr. Mina saw the patient for elevated white count and pneumonia. He has pneumonia. Continue treatment for Zosyn. Monitor closely Colette, leukocytosis, elevated procalcitonin over 4. ABG shows pH 7.49, PO2 70, pCO2 is 32, hemoglobin 9.9. Remains on ventilator. OBJECTIVE: LUNGS: Scattered wheezes and rhonchi. CARDIOVASCULAR: S1, S2. NEUROLOGIC: Alert and oriented x3. OPHTHALMOLOGICAL: Pupils equal, round, reactive. Continue current treatment. Prognosis guarded. Possible trach and PEG soon. ICU time 30 minutes. FRANCISCO / JERRY: [id number] /
[2023-12-01 00:46] LABS: Glucose,Whole Blood 156 mg/dL (70-110)
[2023-12-01 04:42] LABS: Basophils % (A) 0 %; Eosinophils % (A) 0 %; HCT 29.8 % (39.0-53.0); HGB 9.5 gm/dL (13.0-17.5); Lymphocytes # (A) 0.1 k/uL (1.0-4.8); Lymphocytes % (A) 1 %; MCHC 31.8 g/dL (31.0-37.0); MCV 100.8 fL (80.0-100.0); Macrocytosis Slight; Mean Platelet Volume 8.9; Monocytes # (A) 0.3 k/uL (0-1.0); Monocytes % (A) 4 %; Neutrophils # (A) 6.1 k/uL (1.3-7.7); Neutrophils % (A) 95 %; RBC 2.96 m/uL (4.30-5.90); RDW 15.8 % (11.5-15.5); WBC 6.5 k/uL (3.8-10.6)
[2023-12-01 04:45] LABS: African American GFR (CKD) >90 (>60 ml/min/1.73 sqM); Anion Gap -1 mmol/L; Blood Urea Nitrogen 28 mg/dL (9-20); Calcium 8.1 mg/dL (8.4-10.2); Carbon Dioxide 29 mmol/L (22-30); Chloride 109 mmol/L (98-107); Glucose 138 mg/dL (74-99); Non-African American GFR(CKD) >90 (>60 ml/min/1.73 sqM); Potassium 3.6 mmol/L (3.5-5.1); Sodium 137 mmol/L (137-145)
[2023-12-01 05:11] LABS: Platelet Count 80 k/uL (150-450)
[2023-12-01 05:14] LABS: Glucose,Whole Blood 141 mg/dL (70-110)
[2023-12-01 05:39] LABS: ABG Base Excess 8.2 mmol/L; ABG HCO3 32 mmol/L (21-25); ABG Oxygen Saturation 99.1 % (94-97); ABG PCO2 38 mmHg (35-45); ABG PH 7.53 (7.35-7.45); ABG PO2 106 mmHg (83-108); ABG TCO2 33 mmol/L (19-24); Allen Test Performed? Yes
[2023-12-01] MEDS: POTASSIUM BICARBONATE/CIT AC 20 MEQ TABLET.EFF NG-TUBE SCH (06:00)
[2023-12-01] MEDS ORDERED: AMIODARONE 200 MG TAB PO SCH (09:00)
[2023-12-01 09:37] VITALS: PULSE 51; TEMP 97.6
[2023-12-01] MEDS ORDERED: VANCOMYCIN IV PER PHARMACY 1 EACH MISC MISCELLANE PRN (09:49)
[2023-12-01] MEDS ORDERED: ATROPINE OPHTH SOLN 1% 5ML BTL SUBLINGUAL PRN (09:59)
[2023-12-01] MEDS ORDERED: MORPHINE SULFATE 2 MG/ML SYRINGE IV PRN (09:59)
[2023-12-01] MEDS ORDERED: VANCOMYCIN 1,250 MG in SODIUM CHLORIDE 0.9% 250 ML IVPB SCH (10:00)
[2023-12-01] MEDS: MORPHINE SULFATE (100 MG/2 ML) 100 MG in SODIUM CHLORIDE 0.9% 100 ML IV SCH (11:32)
[2023-12-01] MEDS: MORPHINE SULFATE 4 MG/ML SYRINGE IV PRN (11:32)
[2023-12-01] MEDS: LORazepam 2 MG/ML INJ IV PRN (11:45)
--- NOTE | 2023-12-01 11:51 | P.PN ---
Subjective Progress Note Date: 12/01/23 Patient is a 73-year-old white male with past medical history significant for COPD, chronic ongoing tobacco dependence, chronic hypoxemic respiratory failure on 2-1/2 to 3 L, hypertension, among other things. His primary care provider is Dr. Chavez Shelton. He reportedly does not follow with a transcription. Patient presented to the emergency room yesterday afternoon via EMS. Reportedly noted to be lethargic and difficult to arouse at home. 3 to 4 days before this, his noted flulike symptoms. These included a runny nose, dry cough, fever, generalized malaise, and loose stools. When EMS arrived to the scene, they noted his blood pressure to be hypotensive. On arrival to the emergency room he was fluid resuscitated with a total of 3 L crystalloid fluid bolus. He was then started on low-dose norepinephrine which is currently infusing at 0.03 mcg/kg/min. He is also bradycardic, sinus bradycardia at 58 bpm. Normal saline continues to infuse at 130 MLS per hour. Chest x-ray demonstrated chronic interstitial changes with hyperinflation consistent with COPD. No focal consolidations, pleural effusions, or pneumothorax. He was hypercapnic in the emergency room. ABGs demonstrated PaO2 of 105, pCO2 of 52, pH of 7.25. He was then placed on the BiPAP in the emergency room. He is currently in the intensive care unit, room 251. He is on BiPAP with settings 12/6 and FiO2 of 50%. A chieving tidal volumes of around 400, respiratory rate in the mid 20s. He is alert and oriented x 3. No further signs of CO2 narcosis. Appears fairly comfortable. He is actively wheezing. Endorses the above-mentioned symptoms. Denies any chest pain or hemoptysis. Denies any significant sputum production. CBC unremarkable. No leukocytosis. D-dimer low. BMP includes a sodium 133, potassium 4.4, chloride 100, serum bicarb 29, BUN 21, creatinine 1.4, glucose 144. Lactic acid not significantly elevated. LFTs not elevated. NT proBNP 1330. Troponin 0.032. EKG shows sinus bradycardia with nonspecific T wave abnormalities. Nondiagnostic for acute ischemia. Viral screen negative for i nfluenza, RSV, COVID. Afebrile. Patient is admitted to the intensive care unit. On 11/13/2023, the patient is being seen for a follow-up. The patient is currently in the intensive care unit. Feeling well. He is off the BiPAP and the patient is currently on 5 L of oxygen nasal cannula. Cough and congestion is still present although improved compared to yesterday. The white cell count is at 8.9 with a hemoglobin of 11.4 and a BUN of 12 with a creatinine of 0.5 and sodium levels of 137. Troponin was 0.014. Remains on bronchodilators. Remains on IV Solu-Medrol. Remains on Zithromax. Blood cultures been negative thus far. Awake and alert and communicating. No signs of any CO2 narcosis. On 11/14/2023, patient is being seen for a follow-up. The patient is stable. No interval worsening shortness of breath. Transferred out of the intensive care unit yesterday. He is currently on oxygen at 4 L with a pulse ox of 93%. No altered mentation. No chest pain. Tolerating diet. Resting comfortably in bed. Remains endocarditis. Remains on steroids 60 mg of IV Solu-Medrol every 6 hours. No increased anxiety. White cell count of 8 with a hemoglobin 11.4 and a platelet count of 202. BUN is 12 with a creatinine of 0.5 and a sodium levels of 137 and a potassium level of 3.7. 11/15/2023, the patient is on the medical floor. Very limited exam in terms of exercise capacity and the patient essentially in bed. Trying to move or walk short distances and make the patient very labored in terms of his breathing. Remains on Perforomist and Pulmicort nebulized treatments twice a day, DuoNeb up To 5, IV Solu-Medrol 60 Mg Every 6 Hours. The Patient Is Also Running a White Cell Count of 8.9 with a Hemoglobin 11.4 and a Platelet Count of 202. BUN Is 12 with a Creatinine of 0.5. Tolerating Diet. No Signs of Any Suicidal Process. No Chest Pain. The patient is seen today November 17, 2023 in follow-up on the regular medical floor. He is currently resting in bed. Awake and alert in no acute distress. Maintaining O2 saturations in the 90s on 4 L/min per nasal cannula. He is feeling better today. He is continue on DuoNeb inhalations, Pulmicort and Perforomist inhalations, Solu-Medrol. Blood cultures revealed no growth. NicoDerm patch in place. The patient is seen today November 18, 2023 in follow-up on the regular medical floor. He is currently sitting up in a chair. He has been up ambulating with a walker and assistance. He is feeling better today compared to yesterday. He is still on 4 L high flow nasal cannula. Still somewhat bronchospastic and wheezing. Continued on DuoNeb ventilations, Pulmicort and perform scintillations, Solu-Medrol and Singulair. NicoDerm patch in place. Heparin for DVT prophylaxis. Blood cultures revealed no growth. Blood sugar 231. The patient is seen today November 19, 2023 in follow-up on the regular medical floor. He is currently awake and alert in no acute distress. He is maintaining O2 saturations in the 90s on 3 L/min per nasal cannula. Blood cultures revealed no growth. White count 7.5. Hemoglobin 9.7. Platelets 273. Sodium 141. Potassium 4.1. Bicarb 32. BUN 20. Creatinine 0.7. Glucose 141. He remains on DuoNeb ventilations, Pulmicort and performing scintillations, Solu-Medrol. Remains on Singulair. NicoDerm patch in place. Heparin for DVT prophylaxis. Patient was evaluated today on November 19, patient developed sudden onset of respiratory distress, the rapid response team evaluated the patient, and he was in severe respiratory distress. Patient received Solu-Medrol, received Lasix on the floor prior to transfer to the ICU. He was placed on a nonrebreather mask, transferred to the ICU and I evaluated the patient as soon as he arrived to the ICU. Patient seems to be in severe respiratory distress, he was extremely tachypneic, diaphoretic, tachycardic, hypertensive, and in severe distress. Hence recommended immediate intubation, patient was intubated by me with direct visualization of the vocal cords, a size 7.5 endotracheal tube was used, and he was connected to mechanical ventilation after intubation. His vent settings where addressed and he is on AC rate of 20 tidal volume 450 FiO2 100% and PEEP of 5. ABG postintubation showed a pO2 of 208 pCO2 of 60 pH of 7.36 his FiO2 was cut down to 50% and kept on the same vent settings as ordered the rest of the labs were reviewed and they noted to be unremarkable. His liver enzymes were noted but elevated. WBC count showed 15.1 hemoglobin 14.6. Chest x-ray showed bilateral airspace disease, suggestive of pneumonia,, dramatic worsening compared to the chest x-ray done on 11/14/2023, hence I am strongly suspecting that the patient may have developed aspiration pneumonia. The patient will be treated with Zosyn for this abnormal chest x-ray for now. Family was updated on his condition at the bedside. After intubating the patient, patient was hypotensive, central line was established, arterial line was established at the same time Patient was evaluated today on 11/21/2023, patient remains in the ICU, he was transferred yesterday to the ICU with acute hypoxic and hypercapnic respiratory failure requiring intubation mechanical ventilation. Patient is now on assist- control rate of 20 tidal volume 450 FiO2 40% PEEP of 5 ABG showed a pO2 of 77 pCO2 40 pH of 7.53 hence I decreased his rate from 20-16. Patient is fully sedated and he is very synchronous with the ventilator. Patient remains on propofol at 55 mcg/kg/min IV fluid 0.9 at 125 cc/h he is requiring a small dose of norepinephrine at 0.02 mcg/kg/min his CVP is 2 hence I am recommending more fluid boluses and I am recommending close monitoring of his urine output in the meantime continue norepinephrine until his fluid status improves. His urine o utput has been in the range of 20 to 30 cc/h. Patient remains on Zosyn chest x- ray today showed slight improvement in his right lower lobe infiltrate and continues to have significant airspace disease involving the left lower lobe and left midlung. Patient is empirically on Zosyn for what seems to be an aspiration pneumonia. Considering the status is marginal, no plans to hold sedation today, will try to optimize his hemodynamic status continue antibiotics and continue bronchodilators meantime continue ventilatory support Patient was reevaluated today on 11/22/2023, patient remains in the ICU, intubated and mechanically ventilated. On assist-control 16 tidal volume 450 FiO2 40% and PEEP of 5. ABG showed a pO2 of 83 pCO2 44 pH of 7.41 patient remains on propofol at 55 mcg/kg/min, IV fluid at 150 cc/h 0.9 normal saline, vital AF at 50 cc/h. Patient is still having marginal urine output in spite of CVP 11, hence I will go ahead and recommend a Lasix trial 20 mg IV push. Patient brandee ins on Zosyn and Zithromax. Chest x-ray is showing slight improvement in his left lower lobe infiltrate nonetheless continues to have significant airspace disease in the left lower lobe and to some extent in the right lower lobe. Patient will be given a weaning trial today off sedation if possible, and if tolerated may even extubate the patient today. WBC count is 9.1 hemoglobin is 10.6. Basic metabolic profile is normal, renal profile is normal Progress note dated November 23, 2023. This is a patient who was admitted back on November 10 for COPD exacerbation. The patient was apparently ready to be discharged, but on November 19, developed jermaine respiratory failure, and required intubation, and transferred to the intensive care unit. He is currently on volume assist-control, rate 16, tidal volume 450, FiO2 40%, PEEP of 5. Blood gases show pCO2 of 46, pO2 of 73, and a pH of 7.44. Currently, the patient is on propofol at 60 mcg/kg/min, saline at 75 cc an hour, and vital AF at 36 cc an hour, which is his goal rate. White count 11.3, hemoglobin 11, hematocrit 34.5, platelet count is normal. Sodium 138, potassium 3.7, chlorides 111, CO2 28, BUN 27, creatinine 0.6. Glucose is 233. Calcium 7.5. Blood and sputum sampling is negative. Chest x-ray shows changes of COPD, with either atelectasis or infiltrate, in the lower lung zones. Progress note dated November 24, 2023. 73-year-old male seen today in room 257. He was admitted back on November 10, for COPD exacerbation. The patient was apparently ready for possible discharge on November 19, but developed jermaine respiratory failure, required intubation, mechanical ventilation, and was transferred to the intensive care unit. He remains on volu me assist-control, rate 16, tidal volume 450, FiO2 40%, PEEP of 5. Blood gases show pO2 of 75, pCO2 45, pH is 7.42. The patient is on propofol at 20 mcg/kg/min, saline at 75 cc an hour, and vital AF at 36 cc an hour. White count is 11.2, hemoglobin 10.1, hematocrit 31.2, platelet count 149,000. Sodium 138, potassium 4.1, chlorides 110s, CO2 30, BUN 27, creatinine 0.50. Glucose is 223. Calcium is 7.7. Microbiologic sampling has all been negative. Chest x-ray shows changes of COPD, with some patchy bilateral infiltrates or atelectasis. The flatplate of the abdomen shows a nonobstructive bowel gas pattern. Progress note dated November 25, 2023. 73-year-old male seen again in room 257. The patient remains on mechanical ventilator. Vent settings include volume assist-control, rate 16, tidal volume 450, FiO2 40%, PEEP of 5. Blood gases show pO2 of 70, pCO2 of 42, pH is 7.52. This blood gases consistent with a metabolic alkalosis. The patient did fail his spontaneous breathing trial after few minutes. He continues on propofol at 25 mcg/kg/min, saline at 20 cc an hour, and vital AF at 36 cc an hour, which is goal. The patient continues on Zosyn. The patient will get some additional Lasix today, 60 mg IV push. Current labs include a white count 15.3, hemoglobin 12.4, hematocrit 38.5, and platelet count 152,000. Sodium 140, potassium 4.1, chlorides 106, CO2 34, BUN 27, and creatinine 0.56. Calcium is 8.2. Sputum and blood cultures are thus far negative. Chest x-ray is consistent with underlying COPD, with some bilateral interstitial and patchy opacities, left greater than right. There is a small left-sided pleural effusion. Progress note dated November 26, 2023. 73-year-old male seen in room 257. The patient remains on the mechanical ventilator. He is on volume assist-control, rate 16, tidal volume 450, FiO2 40%, PEEP of 5. Blood gases show pO2 of 79, pCO2 46, pH is 7.48. Blood gases are consistent with a mild metabolic alkalosis. The patient is on propofol at 20 mcg/kg/min, vital AF at 36 cc an hour, saline at 20 cc an hour. The patient will be given a daily interruption of sedation and a spontaneous breathing trial. The patient had 1 yesterday, and did very poorly. White count 14, hemoglobin 11.5, hematocrit 33.6, platelet count 141,000. Sodium 137, potassium 3.6, chlorides 105, CO2 29, BUN 35, and creatinine 0.49. Glucose is 217. Calcium 8.2. Albumin 2.6. Blood cultures, and sputum sampling, has been negative thus far. Chest x-ray shows changes of COPD, with diffuse bilateral left greater than right, opacities. Progress note dated November 27, 2023. 73-year-old male seen in room 257. The patient was extubated yesterday, November 25. He is currently on high flow oxygen at 8 L. The patient is getting saline at KVO. The patient's Zosyn will be discontinued after today. Initially, the patient was a no code, and will be talked to the about tracheostomy and PEG tube placement, prior to extubation, she refused that. Now she is telling us, that the patient should be a full code. Current labs include a white count 13.8, hemoglobin 12, macro 37.2, and platelet count of 166,000. Sodium 141, potassium 3.4, chlorides 106, CO2 34, BUN 30, creatinine 0.7. Calcium is 8.2, magnesium 2.1, glucose is 101. Sputum and blood sampling has been negative. Chest x-ray shows cardiomegaly, COPD, and bilateral patchy infiltrates. Progress note dated November 28, 2023. 73-year-old male who is seen today in room 257. The patient was initially admitted back on November 10. The patient was ready to be discharged on November 19, and he developed acute respiratory failure requiring intubation. He was extubated on November 26, 2023, but unfortunately, got worse, and was reintubated yesterday, November 26. He is on volume assist-control, rate 24, tidal volume 400, FiO2 of 60%, PEEP of 5. Blood gases show pO2 of 66, pCO2 of 46, pH is 7.40. This blood gases consistent with a mixed acid-base disturbance including mild respiratory acidosis, and a compensated metabolic alkalosis. The patient is on saline at KVO, propofol at 45 mcg/kg/min Nimbex at 2 mcg/kg/min vasopressin at 0.03 units/min, norepinephrine at 9 mcg/min. Tube feeds will be started today. White count is 24.7, hemoglobin 12.9, hematocrit 40.3, platelet count is 141,000. Sodium 139, potassium 4.1, chlorides 109, CO2 25, BUN 33, creatinine 0.51. Glucose 139. Calcium 8 magnesium 2.1. Sputum, and blood cultures, are negative. Chest x-ray shows changes of COPD, and diffuse bibasilar interstitial changes. Progress note dated November 29, 2023. 73-year-old male seen today in room 257. He was initially admitted back on November 10. The patient was ready for discharge from the hospital on November 19, developed acute respiratory failure, requiring intubation. He was successfully extubated on November 25, but unfortunately, his respiratory status declined, and he was reintubated on November 26. The patient is scheduled to have a tracheostomy and PEG tube placement, tomorrow. The patient is currently on volume assist-control, rate 24, tidal volume 400, FiO2 50%, PEEP of 5. Blood gases show pO2 of 68, pCO2 of 45, pH is 7.44. The patient is on propofol at 45 mcg/kg/min, Nimbex at 3 mcg/kg/min, amiodarone at 0.5 mg/min and heparin via weight-based protocol. The patient is getting vital AF 1.2 at 30, with a goal of 36 cc an hour. He is also on saline at KVO. The patient continues on Zosyn. Current labs include a white count 11.7, hemoglobin 10.8, hematocrit 33, and a platelet count of 106,000. Sodium 138, potassium 3.8, chlorides 107, CO2 28, BUN 35, creatinine 0.53. Calcium is 8.1, glucose is 218. Sputum and blood sampling is negative. Chest x-ray is largely unchanged. 11/30/2023, the patient is being seen for a follow-up. A complicated case of advanced COPD with recurrent respiratory failure, failed extubation the patient has been intubated and the plan is to proceed with a tracheostomy tube insertion today upon family's wishes. This is going to be a difficult and prolonged wean as the patient has been COPD. On today's evaluation, the patient was sedated on propofol at 45 mcg/kg/min and the patient is also on fentanyl at 0.5 mg/kg/h. The patient is calm and comfortable. He is on IV fluids at normal saline at a rate of 10 cc an hour. The patient is also on assist-control of 24, tidal volume of 400, FiO2 of 50% with a PEEP of 5. Peak airway pressure is 25. A follow-up chest x-ray was done this morning and it showed left basilar increased opacity which may reflect either an infiltrate or an area of atelectasis/effusion. Blood gas from today shows a pH of 7.49 with a pCO2 42 pO2 of 70. Hemodynamically stable. Currently n.p.o. awaiting hopefully a tracheostomy and a PEG tube insertion. The white cell count is at 9.2, hemoglobin 9.8 and a platelet count of 88. Sodium is at 137 with a creatinine of 0.4 and a BUN of 30 and a potassium level of 3.8. Remains on DuoNeb updrafts. Remains on a combination of home Perforomist and Pulmicort nebulized treatments twice a day. Remains on IV Solu-Medrol 60 mg IV push every 6 hours. He remains on IV Zosyn. The patient is off paralytics. The patient is receiving oral amiodarone 4 mg p.o. twice a day and his current cardiac rhythm is sinus. Echocardiogram is showing a preserved LV function. No significant valvular abnormalities. Blood cultures have been negative. Sputum culture showed Colette. 12/01/2023, the patient is being seen for a follow-up. The patient was tentatively scheduled to undergo a tracheostomy tube insertion yesterday for prolonged respiratory failure. Family arrived and they declined the procedure. They are more interested in end-of-life/hospice care. They do understand that the patient advanced COPD. He has failed extubation in the past and he has very poor baseline performance and functional status along with advanced COPD. They are not interested in long-term ventilator support. As such, the tracheostomy tube insertion was canceled. The patient remains on propofol at 45 mcg/kg/min and fentanyl at 0.5 mcg/kg/h. Remains on the mechanical ventilator assist- control mode at a rate of 24, tidal volume of 400, FiO2 50% with a PEEP of 5. Blood gas shows a pH of 7.33 with a pCO2 of 38 and pO2 of 106. She will present still on hold. IV fluids at KVO. Cardiac rhythm is sinus. White cell count is 6.5 with a hemoglobin of 0.5 and a platelet count of 80 and the patient also has a sodium level of 137, bicarb of 29, BUN 28 with a creatinine of 0.5. No other significant events overnight. Remains hemodynamically stable. Peak airway pressures around 25. Sputum is showed Colette albicans. Objective - Vital Signs Vital signs: Vital Signs Temp 97.7 F 12/01/23 00:00 Pulse 63 12/01/23 08:10 Resp 24 12/01/23 07:00 BP 123/66 11/30/23 20:00 Pulse Ox 100 12/01/23 07:00 FiO2 50 12/01/23 08:12 Intake & Output 11/30/23 12/01/23 12/01/23 18:59 06:59 18:59 Intake Total 577.121 336 3 Output Total 383 312 20 Balance 194.121 24 -17 Weight 63.6 kg 69.53 kg Intake: IV 206 136 3 0.9 Pressure Bags 36 36 3 KVO 70 Piperacillin-Tazobactam 3 100 100 .375 gm In Sodium Chloride 0.9% 100 ml @ 25 mls/hr IVPB Q8HR [facility] Rx# :[id number] Intake, IV Titration 281.121 200 Amount Piperacillin-Tazobactam 3 100 .375 gm In Sodium Chloride 0.9% 100 ml @ 25 mls/hr IVPB Q8HR [facility] Rx# :[id number] fentaNYL (PF). 1,000 mcg 81.121 In Sodium Chloride 0.9% 80 ml @ 0.5 MCG/KG/HR 3. 175 mls/hr IV .Q24H [facility] Rx#:[id number] propofoL 1,000 mg In 100 200 Empty Bag 1 bag @ 15 MCG/ KG/MIN 5.706 mls/hr IV . [id number] [facility] Rx#:[id number] Other 90 Output: Urine 383 312 20 Other: Voiding Method Indwelling Catheter Indwelling Catheter ABP, PAP, CO, CI - Last Documented Arterial Blood Pressure 133/55 - Exam No acute distress, reintubated, with an orally placed endotracheal tube. Sedated. The patient is currently on a combination of propofol and fentanyl., Comfortable and successful mechanical ventilator. HEENT examination is grossly unremarkable. Neck supple. Full range of motion. No adenopathy thyromegaly or neck vein distention. Cardiovascular examination reveals regular rhythm rate. S1-S2 normal. No S3 or S4. No discernible murmur noted. Heart sounds are distant. Lungs reveal scattered bilateral rhonchi. No wheezes. No crackles. Breath sounds equal bilaterally. Abdomen soft with bowel sounds. No masses or tenderness. The patient has scrotal edema. Extremities are intact. No cyanosis clubbing or edema. Skin is without rash or lesion. Neurologic examination cannot be adequately evaluated at this time. - Labs CBC & Chem 7: 12/01/23 04:20 12/01/23 04:20 Labs: Abnormal Lab Results - Last 24 Hours (Table) 11/30/23 11/30/23 11/30/23 Range/Units 11:44 17:59 23:55 RBC (4.30-5.90) m/uL Hgb (13.0-17.5) gm/dL Hct (39.0-53.0) % MCV (80.0-100.0) fL RDW (11.5-15.5) % Plt Count (150-450) k/uL Lymphocytes # (1.0-4.8) k/uL ABG pH (7.35-7.45) ABG HCO3 (21-25) mmol/L ABG Total CO2 (19-24) mmol/L ABG O2 Saturation (94-97) % Chloride (98-107) mmol/L BUN (9-20) mg/dL Creatinine (0.66-1.25) mg/dL Glucose (74-99) mg/dL POC Glucose (mg/dL) 157 H 154 H 156 H (70-110) mg/dL Calcium (8.4-10.2) mg/dL 12/01/23 12/01/23 12/01/23 Range/Units 04:20 04:20 05:12 RBC 2.96 L (4.30-5.90) m/uL Hgb 9.5 L (13.0-17.5) gm/dL Hct 29.8 L (39.0-53.0) % MCV 100.8 H (80.0-100.0) fL RDW 15.8 H (11.5-15.5) % Plt Count 80 L (150-450) k/uL Lymphocytes # 0.1 L (1.0-4.8) k/uL ABG pH (7.35-7.45) ABG HCO3 (21-25) mmol/L ABG Total CO2 (19-24) mmol/L ABG O2 Saturation (94-97) % Chloride 109 H (98-107) mmol/L BUN 28 H (9-20) mg/dL Creatinine 0.51 L (0.66-1.25) mg/dL Glucose 138 H (74-99) mg/dL POC Glucose (mg/dL) 141 H (70-110) mg/dL Calcium 8.1 L (8.4-10.2) mg/dL 12/01/23 Range/Units 05:38 RBC (4.30-5.90) m/uL Hgb (13.0-17.5) gm/dL Hct (39.0-53.0) % MCV (80.0-100.0) fL RDW (11.5-15.5) % Plt Count (150-450) k/uL Lymphocytes # (1.0-4.8) k/uL ABG pH 7.53 H (7.35-7.45) ABG HCO3 32 H (21-25) mmol/L ABG Total CO2 33 H (19-24) mmol/L ABG O2 Saturation 99.1 H (94-97) % Chloride (98-107) mmol/L BUN (9-20) mg/dL Creatinine (0.66-1.25) mg/dL Glucose (74-99) mg/dL POC Glucose (mg/dL) (70-110) mg/dL Calcium (8.4-10.2) mg/dL Microbiology - Last 24 Hours (Table) 11/28/23 13:02 Urine Culture - Final Urine,Voided Enterococcus faecium 11/28/23 14:46 Blood Culture - Preliminary Blood 11/28/23 13:16 Blood Culture - Preliminary Blood 11/28/23 11:41 Gram Stain - Preliminary Sputum Sputum Culture - Preliminary Colette tropicalis 11/28/23 13:16 Nasal Culture - Preliminary Nasopharyngeal Swab Assessment and Plan Assessment: Advanced COPD hospitalized on 12/15/2023 with significant respiratory distress in itially supported by BiPAP with some improvement and subsequent respiratory failure. The patient had a negative viral screen. Chest x-ray was consistent with advanced COPD with hyperinflation and chronic interstitial changes bilaterally. The patient decompensated during this current hospital stay. The patient had to be intubated and placed on the mechanical ventilator. He had a unsuccessful successful extubation and the plan was to proceed with tracheostomy to facilitate further weaning in the future. Nevertheless, the family declined the procedure. They stated that the long-term ventilator support would be against the patient's wishes and they are interested in end-of-life/hospice ca re. Based on that, the procedure was canceled. Remains on the mechanical ventilator. Remains on bronchodilators and steroids. Remains on empiric antibiotic coverage. Remains on sedation. Acute on chronic hypoxemic and hypercapnic respiratory failure, secondary to bilateral pneumonia, status post initial intubation on 11/20/2023 with subsequent extubation on 11/26/2023 and reintubation on 11/27/2023. chronic hypoxic/hypercapnic respiratory failure Paroxysmal atrial fibrillation, currently back in sinus bradycardia and the patient is currently on amiodarone. Hypotension, resolved. Acute kidney injury, recovered Chronic and ongoing tobacco dependence with nicotine addiction. Scrotal edema Hypertension History of smoking Plan Family is opting for end-of-life care/hospice. No interest in long-term mechanical ventilation for ventilator support. No interest in tracheostomy and PEG tube insertion both procedures were canceled. Keep the patient sedated with a combination of propofol and fentanyl. . Continue ventilator support Continue bronchodilators and the patient is currently on DuoNeb Continue Perforomist and Pulmicort nebulized treatment twice a day IV Solu-Medrol 60 mg every 6 hours Continue enteral feeding for nutritional support. This will be started after insertion of the PEG tube. Hospice to be consulted and end-of-life care to be introduced once the patient's family is ready and we will proceed accordingly. The patient will continue with supportive care. This evaluation was done more than 30 minutes. Time with Patient: Greater than 30
[2023-12-01] MEDS: SCOPOLAMINE 1 MG/72 HR PATCH TRANSDERM SCH (11:57)
--- NOTE | 2023-12-01 14:21 | P.PN ---
Subjective Progress Note Date: 12/01/23 CHIEF COMPLAINT: Respiratory failure HISTORY OF PRESENT ILLNESS: Patient remains in the ICU intubated and on mechanical ventilation. Afebrile. Patient's family has declined the tracheostomy and PEG tube placement. They are wishing to proceed with hospice and comfort care. PHYSICAL EXAM: VITAL SIGNS: Reviewed. GENERAL: Intubated and sedated ABDOMEN: Soft. Nondistended. Nontender. ASSESSMENT: 1. Acute hypoxic respiratory failure 2. Severe protein calorie manage patient PLAN: -Tracheostomy and PEG tube placement have been canceled. Patient's family wishes to proceed with hospice and comfort care possibly later today. [employer] note has been reviewed by physician. Signing provider agrees with the documented findings, assessment, and plan of care. Objective - Vital Signs Vital signs: Vital Signs Temp 97.6 F 12/01/23 08:00 Pulse 51 L 12/01/23 09:00 Resp 24 12/01/23 09:00 BP 123/66 11/30/23 01:00 Pulse Ox 100 12/01/23 09:00 FiO2 50 12/01/23 11:01 Intake & Output 11/30/23 12/01/23 12/01/23 18:59 06:59 18:59 Intake Total 577.121 336 130.020 Output Total 383 312 70 Balance 194.121 24 60.020 Weight 63.6 kg 69.53 kg Intake: IV 206 136 29 0.9 Pressure Bags 36 36 9 KVO 70 20 Piperacillin-Tazobactam 3 100 100 .375 gm In Sodium Chloride 0.9% 100 ml @ 25 mls/hr IVPB Q8HR [facility] Rx# :[id number] Intake, IV Titration 281.121 200 101.020 Amount Morphine Sulfate (100 mg/ 1.020 2 ml) 100 mg In Sodium Chloride 0.9% 100 ml @ 1 MG/HR 1.02 mls/hr IV . Q24H [facility] Rx#:[id number] Piperacillin-Tazobactam 3 100 .375 gm In Sodium Chloride 0.9% 100 ml @ 25 mls/hr IVPB Q8HR [facility] Rx# :[id number] fentaNYL (PF). 1,000 mcg 81.121 In Sodium Chloride 0.9% 80 ml @ 0.5 MCG/KG/HR 3. 175 mls/hr IV .Q24H [facility] Rx#:[id number] propofoL 1,000 mg In 100 200 100 Empty Bag 1 bag @ 15 MCG/ KG/MIN 5.706 mls/hr IV . [id number] [facility] Rx#:[id number] Other 90 Output: Urine 383 312 70 Other: Voiding Method Indwelling Catheter Indwelling Catheter Indwelling Catheter ABP, PAP, CO, CI - Last Documented Arterial Blood Pressure 132/55 - Labs CBC & Chem 7: 12/01/23 04:20 12/01/23 04:20 Labs: Abnormal Lab Results - Last 24 Hours (Table) 11/30/23 11/30/23 12/01/23 Range/Units 17:59 23:55 04:20 RBC 2.96 L (4.30-5.90) m/uL Hgb 9.5 L (13.0-17.5) gm/dL Hct 29.8 L (39.0-53.0) % MCV 100.8 H (80.0-100.0) fL RDW 15.8 H (11.5-15.5) % Plt Count 80 L (150-450) k/uL Lymphocytes # 0.1 L (1.0-4.8) k/uL ABG pH (7.35-7.45) ABG HCO3 (21-25) mmol/L ABG Total CO2 (19-24) mmol/L ABG O2 Saturation (94-97) % Chloride (98-107) mmol/L BUN (9-20) mg/dL Creatinine (0.66-1.25) mg/dL Glucose (74-99) mg/dL POC Glucose (mg/dL) 154 H 156 H (70-110) mg/dL Calcium (8.4-10.2) mg/dL 12/01/23 12/01/23 12/01/23 Range/Units 04:20 05:12 05:38 RBC (4.30-5.90) m/uL Hgb (13.0-17.5) gm/dL Hct (39.0-53.0) % MCV (80.0-100.0) fL RDW (11.5-15.5) % Plt Count (150-450) k/uL Lymphocytes # (1.0-4.8) k/uL ABG pH 7.53 H (7.35-7.45) ABG HCO3 32 H (21-25) mmol/L ABG Total CO2 33 H (19-24) mmol/L ABG O2 Saturation 99.1 H (94-97) % Chloride 109 H (98-107) mmol/L BUN 28 H (9-20) mg/dL Creatinine 0.51 L (0.66-1.25) mg/dL Glucose 138 H (74-99) mg/dL POC Glucose (mg/dL) 141 H (70-110) mg/dL Calcium 8.1 L (8.4-10.2) mg/dL Microbiology - Last 24 Hours (Table) 11/28/23 11:41 Gram Stain - Final Sputum Sputum Culture - Final Colette tropicalis 11/28/23 13:16 Nasal Culture - Final Nasopharyngeal Swab 11/28/23 13:02 Urine Culture - Final Urine,Voided Enterococcus faecium 11/28/23 14:46 Blood Culture - Preliminary Blood 11/28/23 13:16 Blood Culture - Preliminary Blood
== END 2023-12-01 16:43 | disposition expired | DRG 207 ==
LOC: EC 15:03 → 2SICU 19:24 → 4SSUR 11-14 04:54 → 2SICU 11-20 09:28
PROVIDERS: ADMIT Family Medicine; ATTEND Family Medicine
PROC: 5A09357 Assistance with Respiratory Ventilation, Less than 24 Consecutive Hours, Continuous Positive Airway Pressure (ICD-10-PCS; 2023-11-11)
PROC: 3E043XZ Introduction of Vasopressor into Central Vein, Percutaneous Approach (ICD-10-PCS; 2023-11-12)
PROC: 5A1955Z Respiratory Ventilation, Greater than 96 Consecutive Hours (ICD-10-PCS; principal; 2023-11-20)
PROC: 3E0G76Z Introduction of Nutritional Substance into Upper GI, Via Natural or Artificial Opening (ICD-10-PCS; 2023-11-20)
PROC: 0DH67UZ Insertion of Feeding Device into Stomach, Via Natural or Artificial Opening (ICD-10-PCS; 2023-11-20)
PROC: 4A133B1 Monitoring of Arterial Pressure, Peripheral, Percutaneous Approach (ICD-10-PCS; 2023-11-20)
PROC: 03HY32Z Insertion of Monitoring Device into Upper Artery, Percutaneous Approach (ICD-10-PCS; 2023-11-20)
PROC: 02HV33Z Insertion of Infusion Device into Superior Vena Cava, Percutaneous Approach (ICD-10-PCS; 2023-11-20)
PROC: 4A133J1 Monitoring of Arterial Pulse, Peripheral, Percutaneous Approach (ICD-10-PCS; 2023-11-20)
PROC: 0BH17EZ Insertion of Endotracheal Airway into Trachea, Via Natural or Artificial Opening (ICD-10-PCS; 2023-11-20)
PROC: 0BH17EZ Insertion of Endotracheal Airway into Trachea, Via Natural or Artificial Opening (ICD-10-PCS; 2023-11-27)
PROC: 5A1945Z Respiratory Ventilation, 24-96 Consecutive Hours (ICD-10-PCS; 2023-11-27)
DX: J96.21 Acute and chronic respiratory failure with hypoxia (principal); J69.0 Pneumonitis due to inhalation of food and vomit; E43 Unspecified severe protein-calorie malnutrition; A41.9 Sepsis, unspecified organism; J44.1 Chronic obstructive pulmonary disease with (acute) exacerbation; E87.4 Mixed disorder of acid-base balance; J90 Pleural effusion, not elsewhere classified; J98.11 Atelectasis; N17.9 Acute kidney failure, unspecified; Z68.1 Body mass index [BMI] 19.9 or less, adult; G93.49 Other encephalopathy; J44.0 Chronic obstructive pulmonary disease with (acute) lower respiratory infection; R57.1 Hypovolemic shock; J96.22 Acute and chronic respiratory failure with hypercapnia; J84.10 Pulmonary fibrosis, unspecified; F32.9 Major depressive disorder, single episode, unspecified; I10 Essential (primary) hypertension; Z99.81 Dependence on supplemental oxygen; I27.20 Pulmonary hypertension, unspecified; I48.0 Paroxysmal atrial fibrillation; E86.1 Hypovolemia; Z66 Do not resuscitate; Z51.5 Encounter for palliative care; E86.0 Dehydration; Z20.822 Contact with and (suspected) exposure to COVID-19; F17.210 Nicotine dependence, cigarettes, uncomplicated; N50.89 Other specified disorders of the male genital organs; F41.1 Generalized anxiety disorder; I25.10 Atherosclerotic heart disease of native coronary artery without angina pectoris; Z53.9 Procedure and treatment not carried out, unspecified reason; Z71.3 Dietary counseling and surveillance; Z79.899 Other long term (current) drug therapy; Z28.311 Partially vaccinated for COVID-19; Z79.51 Long term (current) use of inhaled steroids
CPT/HCPCS: 36415; 36600; 71045; 71250; 74018; 80048; 80053; 81001; 81003; 82805; 83605; 83735; 83880; 84132; 84145; 84484; 85025; 85027; 85379; 85610; 85730; 86140; 87040; 87070; 87077; 87086; 87186; 87205; 87636; 93005; 93306; 93970; 94002; 94003; 94640; 94644; 94645; 94660; 94760; 96361; 96365; 96366; 96367; 96368; 96375; 99291